=== PATIENT | female | born 1950 | race Caucasian/White ===

== ENCOUNTER → 2020-02-09 09:19 | Outpatient (BNVA) | payer BC, SELFPAY | PROVIDERS: PCP Internal Medicine; Visit Provider Internal Medicine | DX: Z01.810 Encounter for preprocedural cardiovascular examination (principal); I48.0 Paroxysmal atrial fibrillation; I65.21 Occlusion and stenosis of right carotid artery; E78.5 Hyperlipidemia, unspecified; Z79.899 Other long term (current) drug therapy | CPT/HCPCS: 93005 ==

== ENCOUNTER → 2020-04-11 10:48 | Outpatient (BNVA) | payer BC, SELFPAY | PROVIDERS: PCP Internal Medicine; Visit Provider Internal Medicine | DX: Z76.89 Persons encountering health services in other specified circumstances (principal) ==

== ENCOUNTER → 2020-10-10 10:39 | Outpatient (BNVA) | payer BC, SELFPAY | PROVIDERS: PCP Internal Medicine; Referring Provider Internal Medicine; Visit Provider Internal Medicine ==

== ENCOUNTER → 2021-05-08 10:27 | Outpatient (BNVA) | payer BC, SELFPAY | PROVIDERS: PCP Internal Medicine; Referring Provider Internal Medicine; Visit Provider Internal Medicine | DX: I48.0 Paroxysmal atrial fibrillation (principal); I44.0 Atrioventricular block, first degree; I65.21 Occlusion and stenosis of right carotid artery; E78.5 Hyperlipidemia, unspecified | CPT/HCPCS: 93005 ==

== ENCOUNTER 2021-06-16 14:49 | Outpatient (REF) | payer BC, SELFPAY ==
--- NOTE | ~2021-06-16 | US_ITS ---
EXAMINATION: US EXTRACRANIAL CAROTID DUPLEX, BILATERAL CLINICAL INFORMATION: Occlusion of the carotid artery COMPARISON: Carotid duplex on 05/28/2019 TECHNIQUE: Real-time ultrasound and Doppler techniques (integrating B-mode 2-D vascular images, Doppler spectral analysis and color-flow Doppler imaging) were utilized to interrogate the extracranial carotid arteries, the vertebral arteries and proximal subclavian arteries bilaterally. The degree of stenosis is determined by criteria similar to NASCET. FINDINGS: Right Side: 1. There is calcified atherosclerotic plaque seen in the bifurcation/proximal ICA region. 2. The common carotid artery PSV proximally is 76 cm/s and distally 91 cm/s. 3. The proximal internal carotid artery velocities are 127 cm/s systolic and 32 cm/s diastolic. 4. The proximal external carotid artery PSV is 167 cm/s. 5. The vertebral artery shows antegrade flow. 6. The subclavian artery waveforms are normal. Left Side: 1. There is calcified atherosclerotic plaque seen in the bifurcation/proximal ICA region. 2. The common carotid artery PSV proximally is 116 cm/s and distally 99 cm/s. 3. The proximal internal carotid artery velocities are 64 cm/s systolic and 19 cm/s diastolic. 4. The proximal external carotid artery PSV is 108 cm/s. 5. The vertebral artery shows antegrade flow. 6. The subclavian artery waveforms are normal. US/US carotid duplex BI IMPRESSION: 1. RIGHT: Moderate, hemodynamically significant stenosis of the proximal right internal carotid artery corresponding to a 50-79% stenosis by velocity criteria. 2. LEFT: Minimal, non-hemodynamically significant stenosis of the proximal left internal carotid artery corresponding to a 0-49% stenosis by velocity criteria. 3. There is progression in the category of disease on the right compared to 05/28/2019.
== END 2021-06-16 14:50 | disposition home or self-care (01) ==
LOC: HO.US 14:49
PROVIDERS: Visit Provider Internal Medicine
DX: I65.23 Occlusion and stenosis of bilateral carotid arteries (principal)
CPT/HCPCS: 93880

== ENCOUNTER → 2021-12-15 09:39 | Outpatient (BNVA) | payer MEDICARE, SELFPAY | PROVIDERS: PCP Internal Medicine; Visit Provider Physician Assistant Surgical | DX: E66.9 Obesity, unspecified (principal); L98.7 Excessive and redundant skin and subcutaneous tissue; Z98.84 Bariatric surgery status; Z68.32 Body mass index [BMI] 32.0-32.9, adult | CPT/HCPCS: 99212 ==

== ENCOUNTER → 2021-12-19 14:21 | Outpatient (BNVA) | payer MEDICARE, SELFPAY | PROVIDERS: PCP Internal Medicine; Referring Provider Internal Medicine; Visit Provider Internal Medicine | DX: I48.0 Paroxysmal atrial fibrillation (principal); I44.0 Atrioventricular block, first degree; I65.21 Occlusion and stenosis of right carotid artery; E78.5 Hyperlipidemia, unspecified | CPT/HCPCS: 99202; 99212 ==

== ENCOUNTER 2021-12-28 08:41 | Outpatient (REF) | payer MEDICARE, SELFPAY ==
[2021-12-28 08:50] LABS: MANUAL DIFF FLAG NO
[2021-12-28 09:28] LABS: Basophils Absolute Auto 0.1 X10*3/uL (0.0-0.2); Basophils Percent Auto 1.3 % (0-2); Eosinophils Absolute Auto 0.2 X10*3/uL (0.0-0.4); Eosinophils Percent Auto 3.8 % (0-4); Hematocrit 39.6 % (37.0-47.0); Hemoglobin 11.9 g/dl (12.0-16.0); Imm Gran Abs Auto 0.01 X10*3/uL (0.00-0.03); Imm Gran Pct Auto 0.3 % (0.0-0.4); Lymphocytes Absolute Auto 1.4 X10*3/uL (1.2-4.9); Lymphocytes Percent Auto 35.4 % (20-40); Mean Corpuscular HGB Conc 30.1 g/dl (31.0-35.0); Mean Corpuscular Hemoglobin 27.8 pg (27.0-33.0); Mean Corpuscular Volume 92.5 fL (80.0-98.0); Mean Platelet Volume 9.4 fL (9.4-12.3); Monocytes Absolute Auto 0.4 X10*3/uL (0.1-1.2); Monocytes Percent Auto 9.5 % (2-11); Neutrophils Percent Auto 49.7 % (45-73); Platelet Count 171 X10*3/uL (160-400); Red Blood Count 4.28 X10*6/uL (4.20-5.50); Red Cell Distribution Width 18.6 % (11.0-16.0)
[2021-12-28 09:30] LABS: Estimated Average Glucose 100 mg/dL; Hemoglobin A1c % 5.1 %
[2021-12-28 10:03] LABS: Alanine Aminotransferase 26 U/L (0-31); Albumin Level 4.1 g/dL (3.5-5.0); Alkaline Phosphatase 85 U/L (39-117); Anion Gap 17 (12-20); Aspartate Amino Transferase 32 U/L (5-31); Bilirubin Total 0.2 mg/dL (0.0-1.0); Blood Urea Nitrogen 19 mg/dL (9-16); C Reactive Protein 0.12 mg/dL (< or = 0.50); Calcium 9.7 mg/dL (8.4-10.2); Carbon Dioxide 29 mmol/L (22-29); Chloride 104 mmol/L (96-108); Cholesterol 146 mg/dL; Estimated Glomerular Filt Rate > 60; Glucose Random 88 mg/dL (60-115); HDL Cholesterol 66 mg/dL; Iron 67 mcg/dL (30-160); LDL Cholesterol Calculated 64 mg/dl; Percent Iron Saturation 21 % (15-50); Potassium 4.5 mmol/L (3.3-5.1); Sodium 145 mmol/L (135-145); Total Iron Binding Capacity 319 mcg/dL (228-428); Total Protein 6.8 g/dL (6.5-8.0); Triglycerides 80 mg/dL; Unsaturated Iron Binding 252 ug/dL
[2021-12-28 10:16] LABS: Ferritin 132 ng/mL (10-250); TSH reflex Free T4 0.81 uIU/mL (0.32-4.0); Vitamin D 25-OH Total 34.3 ng/mL (>30)
[2021-12-28 10:58] LABS: Insulin 10 uU/mL (2-29)
[2021-12-28 11:07] LABS: Folate 19.5 ng/mL (> or = 4.0); Vitamin B12 1569 pg/mL (200-900)
[2021-12-29 12:47] LABS: Calcium (PTHI) 9.6 mg/dL (8.6-10.4); PTHI 56 pg/mL (16-77)
[2022-01-01 23:36] LABS: Zinc 108 mcg/dL (60-130)
[2022-01-02 12:36] LABS: Vitamin A 50 mcg/dL (38-98)
[2022-01-03 10:46] LABS: Vitamin B1 36 nmol/L (8-30)
== END 2021-12-28 08:42 | disposition home or self-care (01) ==
LOC: HO.LAB 08:41
PROVIDERS: PCP Internal Medicine; Visit Provider Physician Assistant Surgical
DX: K91.2 Postsurgical malabsorption, not elsewhere classified (principal); Z98.84 Bariatric surgery status
CPT/HCPCS: 36415; 80053; 80061; 82306; 82607; 82728; 82746; 83036; 83525; 83540; 83970; 84425; 84443; 84590; 84630; 85025; 86140

== ENCOUNTER 2022-07-24 12:41 | Outpatient (REF) | payer MEDICARE, SELFPAY ==
--- NOTE | ~2022-07-24 | XR_ITS ---
EXAMINATION: XR hand wrist LT, XR hand wrist RT CLINICAL INFORMATION: Rheumatoid arthritis COMPARISON: None TECHNIQUE: 4 views of the bilateral hands and wrists FINDINGS: RIGHT HAND: No fracture or dislocation. Moderate degenerative changes of the first metacarpophalangeal joint with loss of joint space and subchondral cystic change. Mild negative ulnar variance. Ankylosis of the fifth DIP joint with hypertrophic changes. Bony proliferation noted along the fourth DIP joint with loss of joint space involving the second through third DIP joints. No cortical erosion. Soft tissues are unremarkable. LEFT HAND: No fracture or dislocation. Mild negative ulnar variance. Ankylosis of the fifth DIP joint. Moderate degenerative changes of the first carpometacarpal joint with subchondral sclerosis and loss of joint space. Loss of distal interphalangeal joint space with some bony proliferation noted along the second DIP joint and a marginal cortical erosion. Soft tissues are unremarkable. XR/XR hand wrist LT IMPRESSION: Loss of distal interphalangeal joint space with ankylosis of the of the fifth distal interphalangeal joints bilaterally, with some demonstrating bony proliferation and a single marginal cortical erosion along the left second PIP joint. Findings could be seen in the setting of erosive arthropathy including psoriatic arthritis or reactive arthritis, however is not the typical distribution for rheumatoid arthritis. Mild negative ulnar variance bilaterally. Moderate degenerative changes of the first metacarpophalangeal joints bilaterally.
--- NOTE | ~2022-07-24 | XR_ITS ---
EXAMINATION: XR hand wrist LT, XR hand wrist RT CLINICAL INFORMATION: Rheumatoid arthritis COMPARISON: None TECHNIQUE: 4 views of the bilateral hands and wrists FINDINGS: RIGHT HAND: No fracture or dislocation. Moderate degenerative changes of the first metacarpophalangeal joint with loss of joint space and subchondral cystic change. Mild negative ulnar variance. Ankylosis of the fifth DIP joint with hypertrophic changes. Bony proliferation noted along the fourth DIP joint with loss of joint space involving the second through third DIP joints. No cortical erosion. Soft tissues are unremarkable. LEFT HAND: No fracture or dislocation. Mild negative ulnar variance. Ankylosis of the fifth DIP joint. Moderate degenerative changes of the first carpometacarpal joint with subchondral sclerosis and loss of joint space. Loss of distal interphalangeal joint space with some bony proliferation noted along the second DIP joint and a marginal cortical erosion. Soft tissues are unremarkable. XR/XR hand wrist RT IMPRESSION: Loss of distal interphalangeal joint space with ankylosis of the of the fifth distal interphalangeal joints bilaterally, with some demonstrating bony proliferation and a single marginal cortical erosion along the left second PIP joint. Findings could be seen in the setting of erosive arthropathy including psoriatic arthritis or reactive arthritis, however is not the typical distribution for rheumatoid arthritis. Mild negative ulnar variance bilaterally. Moderate degenerative changes of the first metacarpophalangeal joints bilaterally.
--- NOTE | ~2022-07-24 | XR_ITS ---
EXAMINATION: XR foot LT min 3V, XR foot RT min 3V CLINICAL INFORMATION: Rheumatoid arthritis. COMPARISON: None TECHNIQUE: 3 views of the bilateral feet FINDINGS: RIGHT FOOT: No fracture or dislocation. Moderate degenerative changes of the first metatarsophalangeal joint and interphalangeal joints with loss of joint space. No cortical erosion. No joint effusion. Soft tissues are unremarkable. LEFT FOOT: No fracture or dislocation. Moderate degenerative changes of the plantar calcaneal spurring and Achilles tendon enthesopathy. Interphalangeal joints with loss of joint space and mild degenerative changes of the first metacarpal phalangeal joint with degenerative spurring. Plantar calcaneal spurring and Achilles tendon enthesopathy. No cortical erosion. No joint effusion. Soft tissues are unremarkable. XR/XR foot RT min 3V IMPRESSION: Degenerative changes of the feet as detailed above. No cortical erosion to favor erosive arthropathy.
--- NOTE | ~2022-07-24 | XR_ITS ---
EXAMINATION: XR foot LT min 3V, XR foot RT min 3V CLINICAL INFORMATION: Rheumatoid arthritis. COMPARISON: None TECHNIQUE: 3 views of the bilateral feet FINDINGS: RIGHT FOOT: No fracture or dislocation. Moderate degenerative changes of the first metatarsophalangeal joint and interphalangeal joints with loss of joint space. No cortical erosion. No joint effusion. Soft tissues are unremarkable. LEFT FOOT: No fracture or dislocation. Moderate degenerative changes of the plantar calcaneal spurring and Achilles tendon enthesopathy. Interphalangeal joints with loss of joint space and mild degenerative changes of the first metacarpal phalangeal joint with degenerative spurring. Plantar calcaneal spurring and Achilles tendon enthesopathy. No cortical erosion. No joint effusion. Soft tissues are unremarkable. XR/XR foot LT min 3V IMPRESSION: Degenerative changes of the feet as detailed above. No cortical erosion to favor erosive arthropathy.
[2022-07-24 14:03] LABS: MANUAL DIFF FLAG NO
[2022-07-24 14:23] LABS: Basophils Absolute Auto 0.1 X10*3/uL (0.0-0.2); Basophils Percent Auto 1.2 % (0-2); Eosinophils Absolute Auto 0.2 X10*3/uL (0.0-0.4); Eosinophils Percent Auto 4.1 % (0-4); Hemoglobin 13.4 g/dl (12.0-16.0); Imm Gran Abs Auto 0.02 X10*3/uL (0.00-0.03); Imm Gran Pct Auto 0.5 % (0.0-0.4); Lymphocytes Absolute Auto 1.6 X10*3/uL (1.2-4.9); Lymphocytes Percent Auto 39.1 % (20-40); Mean Corpuscular HGB Conc 31.2 g/dl (31.0-35.0); Mean Corpuscular Hemoglobin 30.5 pg (27.0-33.0); Mean Corpuscular Volume 97.9 fL (80.0-98.0); Mean Platelet Volume 9.6 fL (9.4-12.3); Monocytes Absolute Auto 0.4 X10*3/uL (0.1-1.2); Monocytes Percent Auto 9.7 % (2-11); Neutrophils Absolute Auto 1.9 x10*3/uL (2.0-8.3); Neutrophils Percent Auto 45.4 % (45-73); Platelet Count 155 X10*3/uL (160-400); Red Blood Count 4.39 X10*6/uL (4.20-5.50); Red Cell Distribution Width 13.8 % (11.0-16.0); White Blood Count 4.1 X10*3/uL (4.8-10.8)
[2022-07-24 15:13] LABS: Erythrocyte Sedimentation Rate 14 MM/HR (0-20)
[2022-07-24 16:26] LABS: Alanine Aminotransferase 27 U/L (0-31); Albumin Level 4.3 g/dL (3.5-5.0); Alkaline Phosphatase 76 U/L (39-117); Aspartate Amino Transferase 30 U/L (5-31); Bilirubin Total 0.8 mg/dL (0.0-1.0); Blood Urea Nitrogen 24 mg/dL (9-16); C Reactive Protein < 0.10 mg/dL (< or = 0.50); Calcium 9.6 mg/dL (8.4-10.2); Carbon Dioxide 31 mmol/L (22-29); Chloride 103 mmol/L (96-108); Estimated Glomerular Filt Rate > 60; Glucose Random 79 mg/dL (60-115); Potassium 4.7 mmol/L (3.3-5.1); Sodium 141 mmol/L (135-145)
[2022-07-24 16:37] LABS: Rheumatoid Factor < 13.0 IU/mL (<15.0)
[2022-07-24 16:38] LABS: Anion Gap 14 (12-20)
[2022-07-24 19:03] LABS: Appearance Urine Clear; Color Urine Yellow; Glucose Urine UA Negative (Negative); Leukocyte Esterase Urine Negative (Negative); Nitrite Urine Negative (Negative); PH 5.5 (5.0-9.0); Urine Blood Negative (Negative); Urine Ketones Negative (Negative); Urine Protein Negative (Neg-Trace)
[2022-07-24 19:09] LABS: Bacteria Urine None Seen (None Seen); Hyaline Casts Urine 0-2 /LPF (0-2); RBC Urine 0-2 /HPF (0-2); Squamous Epithelial Cell Urine 0-2 /HPF (0-2); WBC Urine 0-5 /HPF (0-5)
[2022-07-24 19:42] LABS: Creatinine Urine 56.59 mg/dL; Total Protein Urine Random < 7 mg/dL (<12)
[2022-07-25 04:02] LABS: HBS Num1 1.17 mIU/mL (0-7.99); HBsAGNum1 0.35 S/CO (0.00-0.99); Hepatitis A Antibody IgM 0.22 Index (0-0.79); Hepatitis B Core Antibody Nonreactive (Nonreactive); Hepatitis B Surface Antigen Negative (Negative); ~Hepatitis A Antibody IgM Nonreactive (Nonreactive); ~Hepatitis B Surface Antibody NONREACTIVE (Nonreactive); ~Hepatitis C Antibody Nonreactive (Nonreactive)
[2022-07-26 13:38] LABS: Anti DNA DS Antibody <1 IU/mL; Antibody to SS-A Antigen <1.0 NEG AI (<1.0 NEG); Antibody to SS-B Antigen <1.0 NEG AI (<1.0 NEG); SM/Ribonucleoprotein Ab <1.0 NEG AI (<1.0 NEG); Smith Protein <1.0 NEG AI (<1.0 NEG)
[2022-07-26 19:53] LABS: Complement C3 146 mg/dL (83-193)
[2022-07-26 20:43] LABS: TS Negative Control Passed; TS Panel A 0; TS Panel B 0; TS Positive Control Passed; TSpotTB Negative (Negative)
[2022-07-27 14:29] LABS: Cyclic Citrullinated Peptide <16 UNITS
[2022-08-01 14:39] LABS: DNAds, Crithidia Antibody Negative (Negative)
[2022-08-01 16:38] LABS: Centromere Protein A Ab <11 SI (<11); Centromere Protein B Ab <11 SI (<11); Fibrillarin Ab <11 SI (<11); PM SCL 100 Ab <11 SI (<11); PM SCL 75 Ab <11 SI (<11); RNA Polymerase III RP11 Ab <11 SI (<11); RNA Polymerase III RP155 Ab <11 SI (<11); SCL-70 Extractable Nuclear Ab <11 SI (<11); Th-To Ab <11 SI (<11); U1 SNRNP RNP 70KD <11 SI (<11); U1 SNRNP RNP A <11 SI (<11); U1 SNRNP RNP C <11 SI (<11)
== END 2022-07-24 12:42 | disposition home or self-care (01) ==
LOC: HO.LAB 12:41
PROVIDERS: PCP Internal Medicine; Visit Provider Student in an Organized Health Care Education/Training Program
DX: M06.9 Rheumatoid arthritis, unspecified (principal); M34.9 Systemic sclerosis, unspecified; M32.9 Systemic lupus erythematosus, unspecified; M25.542 Pain in joints of left hand; M25.572 Pain in left ankle and joints of left foot; M25.571 Pain in right ankle and joints of right foot; Z79.899 Other long term (current) drug therapy
CPT/HCPCS: 36415; 73110; 73130; 73630; 80053; 81001; 84156; 84182; 85025; 85652; 86140; 86160; 86200; 86225; 86235; 86255; 86431; 86481; 86704; 86706; 86709; 86803; 87340; 99202

== ENCOUNTER 2022-10-25 15:36 | Outpatient (AMB) | payer MEDICARE, SELFPAY ==
--- NOTE | 2022-10-25 15:33 | A.OFFVIS_ITS ---
Intake Vital Signs 10/25/22 15:37 Height 5 ft 2 in Weight 199 lb 4.766 oz BMI 36.4 BP 137/64 Blood Pressure Location Rt brachial Position Sitting Respiration 15 Pulse 55 Pulse Source Pulse Oximeter Temp 96.8 F Temp Source Tympanic Pulse Oximetry (%) 99 Intake Visit Reasons: RA/[employer] Transport [employer] Manager Required: No Accompanied by: Self / Same As Patient Allergies NSAIDS (Non-Steroidal Anti-Inflamma Adverse Reaction (Unknown, Verified 10/25/22 15:43) not to take d/t hx of bariatric surg Medication List - Last Reconciled 10/25/22 by Xiao Perez MD atorvastatin 80 mg PO DAILY esomeprazole magnesium (Nexium 24HR) 20 mg PO DAILY gabapentin 600 mg PO TID levothyroxine 125 mcg PO DAILY mecobalamin (vitamin B12) mcg PO DAILY metoprolol succinate ER 12.5 mg PO DAILY multivitamin 1 tab PO DAILY ondansetron 4 mg PO Q8H PRN tramadol 100 mg PO TID PRN vitamin A palmitate 3,000 mcg PO DAILY zinc acetate 50 mg PO DAILY HPI HPI Comments History of Present Illness Details Patient returns for follow-up after completion of her blood work and x- rays. 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 Continues to get pain and stiffness in her hands. She denies any history of Achillis swelling or repetitive trauma. Initial history: This is a 72 year old female who presents for evaluation of left hand pain. Back in 2019 patient was evaluated by Gurjit Montoya at [facility] for trigger finger of her left 2nd and 3rd fingers, she received cortisone injections with significant improvement. Over the last year patient has been having pain and stiffness of her left hand. Occasional pain and stiffness of her ankles. Patient takes Tylenol with some relief, she takes tramadol for her back pain. She denies any fevers, weight loss, joint swelling. Denies fever few years no history of DVT/PE [facility] Medical History (Updated 10/25/22 @ 16:27 by Xiao Perez MD) Carotid stenosis, right Other and unspecified hyperlipidemia PAF (paroxysmal atrial fibrillation) Positive antinuclear antibody Surgical History History of cholecystectomy History of gastric bypass History of left knee replacement (~09/05/20) History of right hip replacement (~01/2020) Family History Father Heart attack Mother No problems noted. Social History Household Members: Spouse and Family Alcohol intake: current Alcohol intake frequency: holidays/special occasions only Patient Tobacco Use Status: Former Tobacco user Quit Date: 1990 Review of Systems [facility] Reports arthralgias and Reports stiffness Physical Exam Vital Signs: Last Vital Signs Temp 96.8 F 10/25/22 15:37 Pulse 55 10/25/22 15:37 Resp 15 10/25/22 15:37 BP 137/64 10/25/22 15:37 Pulse Ox 99 10/25/22 15:37 BMI result Body Mass Index 36.4 Const General: cooperative, healthy appearing and comfortable Nutritional Appearance: obese Orientation/consciousness: patient oriented x3 Limitations: no limitations HEENT Head: Yes normocephalic and Yes atraumatic Resp Effort & Inspection: normal respiratory effort and able to speak in complete sentences Skin General skin exam: no rashes or lesions noted Neuro General: patient oriented x3 Extrem Other: Today patient has some triggering of her left 3rd flexor tendon. No swollen or tender joints otherwise Physical exam 07/22: Extensive arthritic changes of bilateral 5th DIP joints Left hand :2nd and 3rd MCP tenderness Diffuse extensor tendon tenderness and diffuse flexor tendon tenderness Reduced left hand design engineer strength. Positive MCP squeeze test Could not elicit any pain or tenderness in the right hand Left 2nd and 3rd MTP tenderness Normal nailfold capillaroscopy Right knee crepitus Results Reviewed Results Reviewed: X-RAY EXAM OF HAND, 3+ VIEWS Exam Date: 12/18/2019 1:51 PM Ordering Diagnosis: Trigger index finger of left hand ? Left hand, 3 views. History pain. Swelling. ? There are marked degenerative and erosive changes in the DIP joint of the 5th finger. There are minimal degenerative changes in the DIP joints of the 2nd 3rd and 4th fingers. There are mild degenerative changes in the 1st carpometacarpal joint. No fractures, dislocations or destructive lesions. ? CONCLUSIONS: Degenerative changes as detailed. X-RAY KNEE 3 VIEW - W/O INJURY Exam Date: 12/18/2019 1:52 PM Ordering Diagnosis: Chronic bilateral low back pain with bilateral sciaticaOsteoarthritis of hip, unspecified laterality, unspecified osteoarthritis typeChronic pain of both knees ? Bilateral knees, 3 views of each. There is severe narrowing and subchondral sclerosis in the medial compartment of the left kidney there are marginal osteophytes in the lateral and patellofemoral compartments bilaterally. There is no acute fractures, dislocations or effusion. ? CONCLUSIONS: Degenerative changes as detailed. XR/XR hand wrist RT IMPRESSION: ? Loss of distal interphalangeal joint space with ankylosis of the of the fifth distal interphalangeal joints bilaterally, with some demonstrating bony proliferation and a single marginal cortical erosion along the left second PIP joint. Findings could be seen in the setting of erosive arthropathy including psoriatic arthritis or reactive arthritis, however is not the typical distribution for rheumatoid arthritis. ? Mild negative ulnar variance bilaterally. ? Moderate degenerative changes of the first metacarpophalangeal joints bilaterally. XR:RIGHT FOOT:07/22 No fracture or dislocation. Moderate degenerative changes of the first metatarsophalangeal joint and interphalangeal joints with loss of joint space. No cortical erosion. No joint effusion. Soft tissues are unremarkable. XR LEFT FOOT: ?07/22 No fracture or dislocation. Moderate degenerative changes of the plantar calcaneal spurring and Achilles tendon enthesopathy. Interphalangeal joints with loss of joint space and mild degenerative changes of the first metacarpal phalangeal joint with degenerative spurring. Plantar calcaneal spurring and Achilles tendon enthesopathy. No cortical erosion. No joint effusion. Soft tissues are unremarkable. Assessment & Plan Assessment & Plan (1) Psoriatic arthritis: Code(s): L40.50 - Arthropathic psoriasis, unspecified Plan: This is a 72-year-old female who presents for evaluation of progressive bilateral hand pain and stiffness, history of trigger finger injection, labs are unremarkable with normal inflammatory markers however bilateral hand x-rays show extensive arthritic changes of bilateral 5th DIPs and signs of psoriatic arthritis, she also has bilateral Achillis enthesopathy on imaging with no history of Achillis tendonitis or ankle trauma. Clinical picture consistent with psoriatic arthritis. Will need to start DMARDs. Patient was instructed not to take any NSAIDs or prednisone since after her gastric sleeve operation. Discussed risks and benefits of methotrexate. Patient agrees to proceed. Start methotrexate 15 mg once weekly for 2 weeks then 20 mg once weekly and folic acid daily. 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 Will monitor patient for side effects with frequent lab work. Advised patient to take folic acid daily to prevent complications of methotrexate. (3) Positive antinuclear antibody: Code(s): R76.8 - Other specified abnormal immunological findings in serum Plan: With negative sub serologies. 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
[2022-10-25 15:37] VITALS: BP 137/64; PULSE 55; RESP 15; TEMP 36; O2SAT 99; BMI 36.4
== END 2022-10-25 16:17 | disposition home or self-care (01) ==
PROVIDERS: PCP Internal Medicine; Visit Provider Student in an Organized Health Care Education/Training Program
DX: L40.50 Arthropathic psoriasis, unspecified (principal); Z79.631 Long term (current) use of antimetabolite agent; R76.8 Other specified abnormal immunological findings in serum
CPT/HCPCS: 99214

== ENCOUNTER → 2022-10-25 15:36 | Outpatient (BNVA) | payer MEDICARE, SELFPAY | PROVIDERS: Visit Provider Student in an Organized Health Care Education/Training Program | DX: L40.50 Arthropathic psoriasis, unspecified (principal); R76.8 Other specified abnormal immunological findings in serum; Z79.631 Long term (current) use of antimetabolite agent | CPT/HCPCS: 99212 ==

== ENCOUNTER → 2022-11-30 13:00 | Outpatient (REF) | payer MEDICARE, SELFPAY ==
--- NOTE | 2022-11-30 13:02 | HM_ITS ---
Conclusion: 1. Patient was monitored for total period of 6 days and 23 hours 2. Baseline was normal sinus rhythm with first-degree AV block. 3. No significant pauses or AV block noted 4. Rare PACs noted 5. Patient reported 1 event correlated with baseline rhythm MTDD
[2022-11-30 13:19] LABS: MANUAL DIFF FLAG NO
[2022-11-30 13:56] LABS: Basophils Percent Auto 0.7 % (0-2); Eosinophils Absolute Auto 0.2 X10*3/uL (0.0-0.4); Eosinophils Percent Auto 5.2 % (0-4); Hematocrit 40.4 % (37.0-47.0); Hemoglobin 12.6 g/dl (12.0-16.0); Imm Gran Abs Auto 0.01 X10*3/uL (0.00-0.03); Imm Gran Pct Auto 0.2 % (0.0-0.4); Lymphocytes Absolute Auto 1.5 X10*3/uL (1.2-4.9); Lymphocytes Percent Auto 36.6 % (20-40); Mean Corpuscular HGB Conc 31.2 g/dl (31.0-35.0); Mean Corpuscular Hemoglobin 30.2 pg (27.0-33.0); Mean Corpuscular Volume 96.9 fL (80.0-98.0); Mean Platelet Volume 9.8 fL (9.4-12.3); Monocytes Absolute Auto 0.4 X10*3/uL (0.1-1.2); Monocytes Percent Auto 10.6 % (2-11); Neutrophils Absolute Auto 1.9 x10*3/uL (2.0-8.3); Neutrophils Percent Auto 46.7 % (45-73); Platelet Count 160 X10*3/uL (160-400); Red Blood Count 4.17 X10*6/uL (4.20-5.50); Red Cell Distribution Width 13.6 % (11.0-16.0); White Blood Count 4.1 X10*3/uL (4.8-10.8)
[2022-11-30 14:34] LABS: Erythrocyte Sedimentation Rate 18 MM/HR (0-20)
[2022-11-30 14:39] LABS: Alanine Aminotransferase 28 U/L (0-31); Alkaline Phosphatase 70 U/L (39-117); Anion Gap 15 (12-20); Aspartate Amino Transferase 34 U/L (5-31); Bilirubin Total 0.6 mg/dL (0.0-1.0); Blood Urea Nitrogen 18 mg/dL (9-16); C Reactive Protein < 0.10 mg/dL (< or = 0.50); Carbon Dioxide 28 mmol/L (22-29); Chloride 104 mmol/L (96-108); Estimated Glomerular Filt Rate > 60; Glucose Random 80 mg/dL (60-115); Potassium 4.5 mmol/L (3.3-5.1); Sodium 142 mmol/L (135-145)
== END ==
LOC: HO.CARD 13:00
PROVIDERS: Student in an Organized Health Care Education/Training Program; PCP Internal Medicine; Visit Provider Internal Medicine
DX: I48.0 Paroxysmal atrial fibrillation (principal); L40.50 Arthropathic psoriasis, unspecified; Z79.631 Long term (current) use of antimetabolite agent
CPT/HCPCS: 36415; 80053; 85025; 85652; 86140; 93242

== ENCOUNTER → 2022-11-30 13:02 | Outpatient (BNV) | payer MEDICARE, SELFPAY | PROVIDERS: PCP Internal Medicine; Visit Provider Internal Medicine Cardiovascular Disease | DX: I44.0 Atrioventricular block, first degree (principal) | CPT/HCPCS: 93244 ==

== ENCOUNTER 2022-12-20 14:02 | Outpatient (AMB) | payer MEDICARE, SELFPAY ==
[2022-12-20 14:35] VITALS: BP 124/60; PULSE 65; BMI 36.9
--- NOTE | 2022-12-20 14:35 | MHC.OFFVIS ---
Intake Vital Signs 12/20/22 14:35 Height 5 ft 2 in Weight 201 lb 15.095 oz BMI 36.9 BP 124/60 Blood Pressure Location Lt brachial Position Sitting Pulse 65 Intake Visit Reasons: 1 year follow up, after holter monitor Intake Note: 1 year f/u after holter monitor Flame Cutter Required: No Allergies NSAIDS (Non-Steroidal Anti-Inflamma Adverse Reaction (Unknown, Verified 12/20/22 14:40) not to take d/t hx of bariatric surg Medication List - Last Reconciled 12/20/22 by Asia Johns TRANSMISSION SPECIALIST-C atorvastatin 80 mg PO DAILY esomeprazole magnesium (Nexium 24HR) 20 mg PO DAILY folic acid 1 mg PO DAILY gabapentin 600 mg PO TID levothyroxine 125 mcg PO DAILY mecobalamin (vitamin B12) mcg PO DAILY methotrexate sodium Take 6 tabs by mouth once weekly for 2 weeks then 8 tabs once weekly metoprolol succinate ER 12.5 mg PO DAILY multivitamin 1 tab PO DAILY ondansetron 4 mg PO Q8H PRN tramadol 100 mg PO TID PRN vitamin A palmitate 3,000 mcg PO DAILY zinc acetate 50 mg PO DAILY HPI 1 year follow up, after holter monitor HPI Details Danelle is a 72-year-old female with past medical history of obesity, history of bariatric surgery, hyperlipidemia, carotid stenosis, postop AFib, first-degree AV block who presents for follow-up after recent Holter monitor. Today she reports she is feeling well. She has no heart palpitations. She has not felt any thing that makes her think she has atrial fibrillation. No chest discomfort at rest or with activity. No shortness of breath, PND, orthopnea or edema. No presyncope, syncope, falls. She is concerned that she is not on any blood thinning agents with her carotid disease. She had been on Plavix in the past but states she got significant bruising from it. She is asking about daily aspirin. [facility] Medical History Positive antinuclear antibody Other and unspecified hyperlipidemia Carotid stenosis, right PAF (paroxysmal atrial fibrillation) Surgical History History of right hip replacement (~01/2020) History of left knee replacement (~09/05/20) History of gastric bypass History of cholecystectomy Family History Father Heart attack Mother No problems noted. Social History Household Members: Spouse and Family Alcohol intake: current Alcohol intake frequency: holidays/special occasions only Patient Tobacco Use Status: Former Tobacco user Quit Date: 1990 Review of Systems Const All systems reviewed & are unremarkable except as noted in HPI and below ENT Denies dizziness Card Denies chest pain, Denies chest pain at rest, Denies chest pain with activity, Denies rapid heart rate, Denies pedal edema, Denies edema, Denies leg edema, Denies lightheadedness, Denies palpitations, Denies dyspnea, Denies dyspnea on exertion and Denies orthopnea Resp Denies cough, Denies dyspnea and Denies dyspnea on exertion GI Denies hematochezia and Denies change in stool character Musc Denies abnormal gait, Denies limited range of motion, Denies muscle cramps, Denies muscle weakness, Denies numbness, Denies radiating pain into limb, Denies stiffness and Denies tingling Neuro Denies abnormal gait, Denies dizziness, Denies numbness and Denies tingling Endo Denies palpitations Physical Exam Vital Signs: Last Vital Signs Pulse 65 12/20/22 14:35 BP 124/60 12/20/22 14:35 BMI result Body Mass Index 36.9 Const General: cooperative, healthy appearing, comfortable and no acute distress Orientation/consciousness: patient oriented x3 Neck Neck: Yes normal visual inspection Resp Effort & Inspection: normal respiratory effort Auscultation: clear to auscultation bilaterally, no crackles, no rales, no rhonchi and no wheezes Cardio Jugular venous distension: no JVD Rate: regular rate Rhythm: regular rhythm Heart sounds: S1 normal heart sound present, S2 normal heart sound present, no murmurs and no rubs Neuro General: patient oriented x3 Extrem General: Yes normal to inspection Psych Appearance: grossly normal Mental Status: mental status grossly normal Speech and movement: Normal speech and movement present Office Procedures EKG Details: Today, read by me, sinus rhythm first-degree AV block, QTC 4-2 milliseconds, rate 65 [id number], Complete Assessment & Plan Assessment & Plan (1) PAF (paroxysmal atrial fibrillation): Code(s): I48.0 - Paroxysmal atrial fibrillation Plan: Postop AFib following bariatric surgery in the past. No documented recurrent AFib since that time. She initially had been on anticoagulation and developed a rectus sheath hematoma and it was stopped. She had been on amiodarone in the past which was also stopped. At present she is on low-dose metoprolol. Holter monitor done 11/30/2022 for 7 days shows sinus rhythm, first-degree AV block, no significant pauses or AV blocks, no AFib. Last echo done 12/31/2016 shows EF 60-65%, no valve abnormalities and no regional wall motion abnormalities. No indication for long-term anticoagulation for AFib as it appears to be only isolated postop AFib. Continue low-dose metoprolol. Cardiology follow-up in 6 months, sooner if needed (2) Carotid stenosis, right: Code(s): I65.21 - Occlusion and stenosis of right carotid artery Plan: History of carotid stenosis. Last carotid ultrasound done 06/16/2021 showing a right ICA 50-79%, left ICA normal. She tells me she had been on Plavix in the past but developed significant bruising so she stopped it. She is asking about daily aspirin since she does have carotid stenosis. Will need to check with bariatric surgery providers regarding aspirin use. She is on atorvastatin 80 mg daily. Labs from 12/28/2021 showed LDL 64. Labs followed by her PCP at [facility]. Will update carotid ultrasound and plan to call her with results. (3) First degree atrioventricular block: Code(s): I44.0 - Atrioventricular block, first degree (4) S/P gastric bypass: Code(s): Z98.84 - Bariatric surgery status (5) Obesity: Code(s): E66.9 - Obesity, unspecified Qualifiers: Obesity type: due to excess calories Obesity classification: adult class 2 (BMI 35 - 39.9) Serious obesity comorbidity presence: unspecified whether serious comorbidity present Body mass index: BMI 36.0-36.9 Qualified Code(s): E66.09 - Other obesity due to excess calories; Z68.36 - Body mass index [BMI] 36.0-36.9, adult Orders: Orders US carotid duplex BI Today E78.5 - Hyperlipidemia, unspecified, I65.21 - Occlusion and stenosis of right carotid artery Coding Level of Care Code Est Pt Level 4 (20719) Diagnoses PAF (paroxysmal atrial fibrillation) I48.0 Carotid stenosis, right I65.21 First degree atrioventricular block I44.0 S/P gastric bypass Z98.84 Class 2 obesity due to excess calories with body mass index (BMI) of 36.0 to 36.9 in adult, unspecified whether serious comorbidity present E66.09; Z68.36 Obesity type: due to excess calories Obesity classification: adult class 2 (BMI 35 - 39.9) Serious obesity comorbidity presence: unspecified whether serious comorbidity present Body mass index: BMI 36.0-36.9 CPT Codes EKG - CPT: 81206-[id number], Complete ([id number]) Time Spent (min) 26
== END 2022-12-20 15:38 | disposition home or self-care (01) ==
PROVIDERS: PCP Internal Medicine; Visit Provider Nurse Practitioner Family
DX: I48.0 Paroxysmal atrial fibrillation (principal); I65.21 Occlusion and stenosis of right carotid artery; I44.0 Atrioventricular block, first degree; Z98.84 Bariatric surgery status; E66.09 Other obesity due to excess calories; Z68.36 Body mass index [BMI] 36.0-36.9, adult
CPT/HCPCS: 93010; 99214

== ENCOUNTER → 2022-12-20 14:02 | Outpatient (BNVA) | payer MEDICARE, SELFPAY | PROVIDERS: PCP Internal Medicine; Visit Provider Nurse Practitioner Family | DX: I65.21 Occlusion and stenosis of right carotid artery (principal); I44.0 Atrioventricular block, first degree; I48.0 Paroxysmal atrial fibrillation; E78.5 Hyperlipidemia, unspecified; E66.9 Obesity, unspecified; Z68.36 Body mass index [BMI] 36.0-36.9, adult; Z98.84 Bariatric surgery status | CPT/HCPCS: 93005; 99212 ==

== ENCOUNTER 2022-12-25 15:40 | Outpatient (AMB) | payer MEDICARE, SELFPAY ==
[2022-12-25 15:52] VITALS: BP 118/62; PULSE 62; TEMP 36.2; O2SAT 92; BMI 36.9
--- NOTE | 2022-12-25 15:52 | A.OFFVIS_ITS ---
Intake Vital Signs 12/25/22 15:52 Height 5 ft 2 in Weight 201 lb 8.04 oz BMI 36.9 BP 118/62 Blood Pressure Location Rt brachial Position Sitting Pulse 62 Pulse Source Pulse Oximeter Temp 97.2 F Temp Source Skin Pulse Oximetry (%) 92 Intake Visit Reasons: PsA Intake Note: Pt seen today for PsA follow up. 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: No Accompanied by: Self / Same As Patient Allergies NSAIDS (Non-Steroidal Anti-Inflamma Adverse Reaction (Unknown, Verified 12/25/22 15:54) not to take d/t hx of bariatric surg Medication List - Last Reconciled 12/25/22 by Xiao Perez MD atorvastatin 80 mg PO DAILY esomeprazole magnesium (Nexium 24HR) 20 mg PO DAILY folic acid 1 mg PO DAILY gabapentin 600 mg PO TID levothyroxine 125 mcg PO DAILY mecobalamin (vitamin B12) mcg PO DAILY methotrexate sodium Take 6 tabs by mouth once weekly for 2 weeks then 8 tabs once weekly metoprolol succinate ER 12.5 mg PO DAILY multivitamin 1 tab PO DAILY ondansetron 4 mg PO Q8H PRN tramadol 100 mg PO TID PRN vitamin A palmitate 3,000 mcg PO DAILY zinc acetate 50 mg PO DAILY HPI HPI Comments History of Present Illness Details 72-year-old female with psoriatic arthri tis returns for follow-up. Has been on methotrexate for the last 2 months. States that she gets mild nausea the day after she takes methotrexate. She has been doing well overall. Better strength in her hands, reduced stiffness in her hands. Denies any pain in her ankles or feet. Initial history: This is a 72 year old female who presents for evaluation of left hand pain. Back in 2019 patient was evaluated by Gurjit Montoya at [place] for trigger finger of her left 2nd and 3rd fingers, she received cortisone injections with significant improvement. Over the last year patient has been having pain and stiffness of her left hand. Occasional pain and stiffness of her ankles. Patient takes Tylenol with some relief, she takes tramadol for her back pain. She denies any fevers, weight loss, joint swelling. Denies fever few years no history of DVT/PE PFSH Medical History Positive antinuclear antibody Other and unspecified hyperlipidemia Carotid stenosis, right PAF (paroxysmal atrial fibrillation) Surgical History History of right hip replacement (~01/2020) History of left knee replacement (~09/05/20) History of gastric bypass History of cholecystectomy Family History Father Heart attack Mother No problems noted. Social History Household Members: Spouse and Family Alcohol intake: current Alcohol intake frequency: holidays/special occasions only Patient Tobacco Use Status: Former Tobacco user Quit Date: 1990 Review of Systems [place] Denies arthralgias, Denies joint swelling and Denies stiffness Physical Exam Vital Signs: Last Vital Signs Temp 97.2 F 12/25/22 15:52 Pulse 62 12/25/22 15:52 BP 118/62 12/25/22 15:52 Pulse Ox 92 12/25/22 15:52 BMI result Body Mass Index 36.9 Const General: cooperative, healthy appearing and comfortable Nutritional Appearance: obese Orientation/consciousness: patient oriented x3 Limitations: no limitations HEENT Head: Yes normocephalic and Yes atraumatic Resp Effort & Inspection: normal respiratory effort and able to speak in complete sentences Skin General skin exam: no rashes or lesions noted Neuro General: patient oriented x3 Extrem Other: Mildly tender right 3rd flexor tendon and left 3rd flexor tendons No ankle swelling or tenderness no swollen or tender joints otherwise Physical exam 07/22: Extensive arthritic changes of bilateral 5th DIP joints Left hand :2nd and 3rd MCP tenderness Diffuse extensor tendon tenderness and diffuse flexor tendon tenderness 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 Positive MCP squeeze test Could not elicit any pain or tenderness in the right hand Left 2nd and 3rd MTP tenderness Normal nailfold capillaroscopy Right knee crepitus Results Reviewed Results Reviewed: X-RAY EXAM OF HAND, 3+ VIEWS Exam Date: 12/18/2019 1:51 PM Accession #:[id number] Ordering Diagnosis: Trigger index finger of left hand ? Left hand, 3 views. History pain. Swelling. ? There are marked degenerative and erosive changes in the DIP joint of the 5th finger. There are minimal degenerative changes in the DIP joints of the 2nd 3rd and 4th fingers. There are mild degenerative changes in the 1st carpometacarpal joint. No fractures, dislocations or destructive lesions. ? CONCLUSIONS: Degenerative changes as detailed. X-RAY KNEE 3 VIEW - W/O INJURY Exam Date: 12/18/2019 1:52 PM Ordering Diagnosis: Chronic bilateral low back pain with bilateral sciaticaOsteoarthritis of hip, unspecified laterality, unspecified osteoarthritis typeChronic pain of both knees ? Bilateral knees, 3 views of each. There is severe narrowing and subchondral sclerosis in the medial compartment of the left kidney there are marginal osteophytes in the lateral and patellofemoral compartments bilaterally. There is no acute fractures, dislocations or effusion. ? CONCLUSIONS: Degenerative changes as detailed. XR/XR hand wrist RT IMPRESSION: ? Loss of distal interphalangeal joint space with ankylosis of the of the fifth distal interphalangeal joints bilaterally, with some demonstrating bony proliferation and a single marginal cortical erosion along the left second PIP joint. Findings could be seen in the setting of erosive arthropathy including psoriatic arthritis or reactive arthritis, however is not the typical distribution for rheumatoid arthritis. ? Mild negative ulnar variance bilaterally. ? Moderate degenerative changes of the first metacarpophalangeal joints bilaterally. XR:RIGHT FOOT:07/22 No fracture or dislocation. Moderate degenerative changes of the first metatarsophalangeal joint and interphalangeal joints with loss of joint space. No cortical erosion. No joint effusion. Soft tissues are unremarkable. XR LEFT FOOT: ?07/22 No fracture or dislocation. Moderate degenerative changes of the plantar calcaneal spurring and Achilles tendon enthesopathy. Interphalangeal joints with loss of joint space and mild degenerative changes of the first metacarpal phalangeal joint with degenerative spurring. Plantar calcaneal spurring and Achilles tendon enthesopathy. No cortical erosion. No joint effusion. Soft tissues are unremarkable. Assessment & Plan Assessment & Plan (1) Psoriatic arthritis: Comment: dx 09/2022 MTX 10/21 effective Code(s): L40.50 - Arthropathic psoriasis, unspecified Plan: This is a 72-year-old female with psoriatic arthritis who presents for follow- up. Doing much better on methotrexate 20 mg weekly. 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 Will monitor patient for side effects with frequent lab work. Advised patient to take folic acid daily to prevent complications of methotrexate. (3) Positive antinuclear antibody: Code(s): R76.8 - Other specified abnormal immunological findings in serum Plan: With negative sub serologies. Positive NICK is occasionally seen in psoriatic arthritis Plan I spent 27 minutes reviewing patient's chart, evaluating patient, ordering diagnostic workup, counseling patient and documenting in the chart Orders: Orders Comprehensive Met. Panel 2 Months L40.50 - Arthropathic psoriasis, unspecified C Reactive Protein 2 Months L40.50 - Arthropathic psoriasis, unspecified Erythrocyte Sedimentation Rate 2 Months L40.50 - Arthropathic psoriasis, unspecified Complete Blood Count Auto Diff 2 Months L40.50 - Arthropathic psoriasis, unspecified Medications: Changed From methotrexate sodium Take 6 tabs by mouth once weekly for 2 weeks then 8 tabs once weekly 64 tabs 0RF To methotrexate sodium 15 mg (6 x 2.5 mg) PO QWEEK 72 tabs 0RF Refilled folic acid 1 mg PO DAILY 90 tabs 1RF Coding Level of Care Code Est Pt Level 4 (46500) Diagnoses Psoriatic arthritis L40.50 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
== END 2022-12-25 16:21 | disposition home or self-care (01) ==
PROVIDERS: PCP Internal Medicine; Visit Provider Student in an Organized Health Care Education/Training Program
DX: L40.50 Arthropathic psoriasis, unspecified (principal); Z79.631 Long term (current) use of antimetabolite agent; R76.8 Other specified abnormal immunological findings in serum
CPT/HCPCS: 99214

== ENCOUNTER → 2022-12-25 15:40 | Outpatient (BNVA) | payer MEDICARE, SELFPAY | PROVIDERS: PCP Internal Medicine; Visit Provider Student in an Organized Health Care Education/Training Program | DX: L40.50 Arthropathic psoriasis, unspecified (principal); R76.8 Other specified abnormal immunological findings in serum; Z79.631 Long term (current) use of antimetabolite agent | CPT/HCPCS: 99212 ==

== ENCOUNTER 2023-01-03 13:42 | Outpatient (REF) | payer MEDICARE, SELFPAY | END 2023-01-03 13:43 | disposition home or self-care (01) | LOC: HO.US 13:42 | PROVIDERS: PCP Internal Medicine; Visit Provider Nurse Practitioner Family | DX: I65.21 Occlusion and stenosis of right carotid artery (principal); E78.5 Hyperlipidemia, unspecified | CPT/HCPCS: 93880 ==

== ENCOUNTER 2023-03-15 08:20 | Outpatient (REF) | payer MEDICARE, SELFPAY ==
[2023-03-15 08:41] LABS: MANUAL DIFF FLAG NO
[2023-03-15 09:22] LABS: Basophils Percent Auto 0.7 % (0-2); Eosinophils Absolute Auto 0.2 X10*3/uL (0.0-0.4); Eosinophils Percent Auto 4.2 % (0-4); Hematocrit 38.7 % (37.0-47.0); Imm Gran Abs Auto 0.02 X10*3/uL (0.00-0.03); Imm Gran Pct Auto 0.4 % (0.0-0.4); Lymphocytes Absolute Auto 1.1 X10*3/uL (1.2-4.9); Lymphocytes Percent Auto 25.2 % (20-40); Mean Corpuscular Hemoglobin 31.3 pg (27.0-33.0); Mean Corpuscular Volume 100.8 fL (80.0-98.0); Mean Platelet Volume 10.2 fL (9.4-12.3); Monocytes Absolute Auto 0.4 X10*3/uL (0.1-1.2); Monocytes Percent Auto 9.6 % (2-11); Neutrophils Absolute Auto 2.7 x10*3/uL (2.0-8.3); Neutrophils Percent Auto 59.9 % (45-73); Platelet Count 164 X10*3/uL (160-400); Red Blood Count 3.84 X10*6/uL (4.20-5.50); Red Cell Distribution Width 15.9 % (11.0-16.0); White Blood Count 4.5 X10*3/uL (4.8-10.8)
[2023-03-15 09:45] LABS: Alanine Aminotransferase 20 U/L (0-31); Alkaline Phosphatase 62 U/L (39-117); Anion Gap 13 (12-20); Aspartate Amino Transferase 32 U/L (5-31); Bilirubin Total 0.5 mg/dL (0.0-1.0); Blood Urea Nitrogen 25 mg/dL (9-16); C Reactive Protein < 0.10 mg/dL (< or = 0.50); Calcium 9.4 mg/dL (8.4-10.2); Carbon Dioxide 29 mmol/L (22-29); Chloride 105 mmol/L (96-108); Estimated Glomerular Filt Rate > 60; Glucose Random 70 mg/dL (60-115); Iron 40 mcg/dL (30-160); Percent Iron Saturation 13 % (15-50); Potassium 4.3 mmol/L (3.3-5.1); Sodium 143 mmol/L (135-145); Total Iron Binding Capacity 307 mcg/dL (228-428); Total Protein 6.9 g/dL (6.5-8.0); Unsaturated Iron Binding 267 ug/dL
[2023-03-15 09:55] LABS: Ferritin 21 ng/mL (10-250)
[2023-03-15 10:02] LABS: Erythrocyte Sedimentation Rate 13 MM/HR (0-20)
[2023-03-18 21:13] LABS: Transferrin 297 mg/dL (188-341)
== END 2023-03-15 08:21 | disposition home or self-care (01) ==
LOC: HO.LAB 08:20
PROVIDERS: PCP Internal Medicine; Visit Provider Student in an Organized Health Care Education/Training Program
DX: L40.50 Arthropathic psoriasis, unspecified (principal); D50.9 Iron deficiency anemia, unspecified
CPT/HCPCS: 36415; 80053; 82728; 83540; 84466; 85025; 85652; 86140

== ENCOUNTER 2023-03-18 15:27 | Outpatient (AMB) | payer MEDICARE, SELFPAY ==
--- NOTE | 2023-03-18 15:28 | MHC.OFFVIS ---
Intake Vital Signs 03/18/23 15:29 Height 5 ft 2 in Weight 195 lb 12.328 oz BMI 35.8 BP 108/58 L Blood Pressure Location Rt brachial Position Sitting Pulse 59 Pulse Source Pulse Oximeter Intake Visit Reasons: PSA Intake Note: Patient presents today to follow up on PSA. Insurance Attorney Required: No Accompanied by: Self / Same As Patient Allergies NSAIDS (Non-Steroidal Anti-Inflamma Adverse Reaction (Unknown, Verified 03/18/23 15:30) not to take d/t hx of bariatric surg Medication List - Last Reconciled 03/18/23 by Xaio Perez MD aspirin 81 mg PO DAILY atorvastatin 80 mg PO DAILY esomeprazole magnesium (Nexium 24HR) 20 mg PO DAILY folic acid 1 mg PO DAILY gabapentin 600 mg PO TID levothyroxine 125 mcg PO DAILY mecobalamin (vitamin B12) mcg PO DAILY methotrexate sodium 15 mg (6 x 2.5 mg) PO QWEEK metoprolol succinate ER 12.5 mg PO DAILY multivitamin 1 tab PO DAILY ondansetron 4 mg PO Q8H PRN tramadol 100 mg PO TID PRN vitamin A palmitate 3,000 mcg PO DAILY zinc acetate 50 mg PO DAILY HPI HPI Comments History of Present Illness Details 72-year-old female with psoriatic arthritis returns for follow-up. On methotrexate 15 mg weekly. She states that she was doing well until about 4 weeks ago when she started having pain swelling and stiffness of her left thumb. Difficulty grabbing objects. She also has some pain on the outside of her right foot. Initial history: This is a 72 year old female who presents for evaluation of left hand pain. Back in 2019 patient was evaluated by Gurjit Montoya at [place] for trigger finger of her left 2nd and 3rd fingers, she received cortisone injections with significant improvement. Over the last year patient has been having pain and stiffness of her left hand. Occasional pain and stiffness of her ankles. Patient takes Tylenol with some relief, she takes tramadol for her back pain. She denies any fevers, weight loss, joint swelling. Denies fever few years no history of DVT/PE [facility] Medical History Positive antinuclear antibody Other and unspecified hyperlipidemia Carotid stenosis, right PAF (paroxysmal atrial fibrillation) Surgical History History of right hip replacement (~01/2020) History of left knee replacement (~09/05/20) History of gastric bypass History of cholecystectomy Family History Father Heart attack Mother No problems noted. Social History Household Members: Spouse and Family Alcohol intake: current Alcohol intake frequency: holidays/special occasions only Patient Tobacco Use Status: Former Tobacco user Quit Date: 1990 Review of Systems [facility] [place] Reports arthralgias, Reports joint swelling, Reports limited range of motion and Reports stiffness Physical Exam Vital Signs: Last Vital Signs Pulse 59 03/18/23 15:29 BP 108/58 L 03/18/23 15:29 BMI result Body Mass Index 35.8 Const General: cooperative, healthy appearing and comfortable Nutritional Appearance: obese Orientation/consciousness: patient oriented x3 Limitations: no limitations HEENT Head: Yes normocephalic and Yes atraumatic Resp Effort & Inspection: normal respiratory effort and able to speak in complete sentences Skin General skin exam: no rashes or lesions noted Neuro General: patient oriented x3 Extrem Other: Extensive arthritic changes of bilateral 5th DIP joints Swelling of entire left thumb as well as left MCP. Tenderness at the left thumb flexor tendon Tenderness on the outside of the right 5th MTP Office Procedures Tendon Injection Tendon Injection Details: With patient's consent, The palm of the left hand was prepped with ChloraPrep and alcohol. Under topical ethyl chloride spray the [1st] flexor tendon sheath was injected with 20 mg of triamcinolone and 0.2 cc of 1% lidocaine. The patient tolerated the procedure without any acute complications. [id number] Tendon Sheath Injection All charges added?: Procedure code (CPT) selection complete Results Reviewed Results Reviewed: X-RAY EXAM OF HAND, 3+ VIEWS Exam Date: 12/18/2019 1:51 PM Ordering Diagnosis: Trigger index finger of left hand ? Left hand, 3 views. History pain. Swelling. ? There are marked degenerative and erosive changes in the DIP joint of the 5th finger. There are minimal degenerative changes in the DIP joints of the 2nd 3rd and 4th fingers. There are mild degenerative changes in the 1st carpometacarpal joint. No fractures, dislocations or destructive lesions. ? CONCLUSIONS: Degenerative changes as detailed. X-RAY KNEE 3 VIEW - W/O INJURY Exam Date: 12/18/2019 1:52 PM Ordering Diagnosis: Chronic bilateral low back pain with bilateral sciaticaOsteoarthritis of hip, unspecified laterality, unspecified osteoarthritis typeChronic pain of both knees ? Bilateral knees, 3 views of each. There is severe narrowing and subchondral sclerosis in the medial compartment of the left kidney there are marginal osteophytes in the lateral and patellofemoral compartments bilaterally. There is no acute fractures, dislocations or effusion. ? CONCLUSIONS: Degenerative changes as detailed. XR/XR hand wrist RT IMPRESSION: ? Loss of distal interphalangeal joint space with ankylosis of the of the fifth distal interphalangeal joints bilaterally, with some demonstrating bony proliferation and a single marginal cortical erosion along the left second PIP joint. Findings could be seen in the setting of erosive arthropathy including psoriatic arthritis or reactive arthritis, however is not the typical distribution for rheumatoid arthritis. ? Mild negative ulnar variance bilaterally. ? Moderate degenerative changes of the first metacarpophalangeal joints bilaterally. XR:RIGHT FOOT:07/22 No fracture or dislocation. Moderate degenerative changes of the first metatarsophalangeal joint and interphalangeal joints with loss of joint space. No cortical erosion. No joint effusion. Soft tissues are unremarkable. XR LEFT FOOT: ?07/22 No fracture or dislocation. Moderate degenerative changes of the plantar calcaneal spurring and Achilles tendon enthesopathy. Interphalangeal joints with loss of joint space and mild degenerative changes of the first metacarpal phalangeal joint with degenerative spurring. Plantar calcaneal spurring and Achilles tendon enthesopathy. No cortical erosion. No joint effusion. Soft tissues are unremarkable. Laboratory Tests 03/15/23 08:39 WBC 4.5 L RBC 3.84 L Hgb 12.0 Hct 38.7 MCV 100.8 H MCH 31.3 MCHC 31.0 RDW 15.9 Plt Count 164 MPV 10.2 Immature Gran % (Auto) 0.4 Neut % (Auto) 59.9 Lymph % (Auto) 25.2 Casey % (Auto) 9.6 Eos % (Auto) 4.2 H Baso % (Auto) 0.7 Lymph # (Auto) 1.1 L Casey # (Auto) 0.4 Eos # (Auto) 0.2 Baso # (Auto) 0.0 Abs Immat Gran (auto) 0.02 Absolute Neuts (auto) 2.7 Absolute Nucleated RBC 0.000 Nucleated RBC % (auto) 0.0 ESR 13 BUN 25 H Creatinine 0.72 Estimated GFR > 60 Calcium 9.4 Iron 40 TIBC 307 % Saturation 13 L Unsat Iron Binding 267 Transferrin Pending Ferritin 21 Total Bilirubin 0.5 AST 32 H ALT 20 Alkaline Phosphatase 62 C-Reactive Protein < 0.10 Total Protein 6.9 Albumin 4.0 Assessment & Plan Assessment & Plan (1) Psoriatic arthritis: Comment: dx 09/2022 MTX 10/21 effective Code(s): L40.50 - Arthropathic psoriasis, unspecified Plan: This is a 72-year-old female with psoriatic arthritis who presents for follow-up. Methotrexate was lowered to 15 mg weekly from 20 mg weekly last visit. On exam patient is having left thumb dactylitis and trigger finger. 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 Positive NICK is occasionally seen in psoriatic arthritis (4) Immunization counseling: Code(s): Z71.85 - Encounter for immunization safety counseling Plan: Patient is up-to-date on her new COVID booster, flu vaccine and Shingrix vaccines (5) Trigger thumb, left thumb: Code(s): M65.312 - Trigger thumb, left thumb Plan: Injected in clinic today. 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 of antimetabolite agent AMB Injection-Tendon Today M65.312 - Trigger thumb, left thumb Complete Blood Count Auto Diff 3 Months Z79.631 - senior living (current) use of antimetabolite agent Medications: Changed From folic acid 1 mg PO DAILY 100 tabs 2RF To folic acid 3 mg (3 x 1 mg) PO DAILY 270 tabs 1RF From methotrexate sodium 15 mg (6 x 2.5 mg) PO QWEEK 72 tabs 0RF To methotrexate sodium 20 mg (8 x 2.5 mg) PO QWEEK 96 tabs 1RF Coding Level of Care Code Est Pt Level 5 (48554) Diagnoses Psoriatic arthritis L40.50 senior living methotrexate user Z79.631 Positive antinuclear antibody R76.8 Immunization counseling Z71.85 Trigger thumb, left thumb M65.312 H/O iron deficiency anemia Z86.2 CPT Codes Tendon Injection - Tendon Injection 1: [id number] Tendon Sheath Injection ([id number])
[2023-03-18 15:29] VITALS: BP 108/58; PULSE 59; BMI 35.8
== END 2023-03-18 16:04 | disposition home or self-care (01) ==
PROVIDERS: PCP Internal Medicine; Visit Provider Student in an Organized Health Care Education/Training Program
DX: L40.50 Arthropathic psoriasis, unspecified (principal); Z79.631 Long term (current) use of antimetabolite agent; R76.8 Other specified abnormal immunological findings in serum; Z71.85 Encounter for immunization safety counseling; M65.312 Trigger thumb, left thumb; Z86.2 Personal history of diseases of the blood and blood-forming organs and certain disorders involving the immune mechanism
CPT/HCPCS: 20550; 99214

== ENCOUNTER → 2023-03-18 15:27 | Outpatient (BNVA) | payer MEDICARE, SELFPAY | PROVIDERS: PCP Internal Medicine; Visit Provider Student in an Organized Health Care Education/Training Program | DX: L40.50 Arthropathic psoriasis, unspecified (principal); R76.8 Other specified abnormal immunological findings in serum; M65.312 Trigger thumb, left thumb; Z79.631 Long term (current) use of antimetabolite agent; Z71.85 Encounter for immunization safety counseling; Z86.2 Personal history of diseases of the blood and blood-forming organs and certain disorders involving the immune mechanism | CPT/HCPCS: 20550; 99212 ==

== ENCOUNTER 2023-06-14 12:20 | Outpatient (REF) | payer MEDICARE, SELFPAY ==
[2023-06-14 12:37] LABS: MANUAL DIFF FLAG NO
[2023-06-14 13:33] LABS: Basophils Percent Auto 0.4 % (0-2); Eosinophils Absolute Auto 0.2 X10*3/uL (0.0-0.4); Eosinophils Percent Auto 3.8 % (0-4); Hematocrit 37.8 % (37.0-47.0); Hemoglobin 11.6 g/dl (12.0-16.0); Imm Gran Abs Auto 0.02 X10*3/uL (0.00-0.03); Imm Gran Pct Auto 0.4 % (0.0-0.4); Lymphocytes Absolute Auto 1.4 X10*3/uL (1.2-4.9); Lymphocytes Percent Auto 29.9 % (20-40); Mean Corpuscular HGB Conc 30.7 g/dl (31.0-35.0); Mean Corpuscular Hemoglobin 30.9 pg (27.0-33.0); Mean Corpuscular Volume 100.8 fL (80.0-98.0); Monocytes Absolute Auto 0.4 X10*3/uL (0.1-1.2); Monocytes Percent Auto 9.1 % (2-11); Neutrophils Absolute Auto 2.6 x10*3/uL (2.0-8.3); Neutrophils Percent Auto 56.4 % (45-73); Platelet Count 171 X10*3/uL (160-400); Red Blood Count 3.75 X10*6/uL (4.20-5.50); Red Cell Distribution Width 16.7 % (11.0-16.0); White Blood Count 4.5 X10*3/uL (4.8-10.8)
[2023-06-14 14:13] LABS: Erythrocyte Sedimentation Rate 17 MM/HR (0-20)
[2023-06-14 14:17] LABS: Alanine Aminotransferase 26 U/L (0-31); Albumin Level 3.8 g/dL (3.5-5.0); Alkaline Phosphatase 62 U/L (39-117); Anion Gap 13 (12-20); Aspartate Amino Transferase 29 U/L (5-31); Bilirubin Total 0.6 mg/dL (0.0-1.0); Blood Urea Nitrogen 18 mg/dL (9-16); C Reactive Protein < 0.10 mg/dL (< or = 0.50); Calcium 9.6 mg/dL (8.4-10.2); Carbon Dioxide 29 mmol/L (22-29); Chloride 104 mmol/L (96-108); Estimated Glomerular Filt Rate > 60; Glucose Random 86 mg/dL (60-115); Potassium 4.5 mmol/L (3.3-5.1); Sodium 141 mmol/L (135-145); Total Protein 6.6 g/dL (6.5-8.0)
== END 2023-06-14 12:21 | disposition home or self-care (01) ==
LOC: HO.LAB 12:20
PROVIDERS: PCP Internal Medicine; Visit Provider Student in an Organized Health Care Education/Training Program
DX: L40.50 Arthropathic psoriasis, unspecified (principal); Z79.631 Long term (current) use of antimetabolite agent
CPT/HCPCS: 36415; 80053; 85025; 85652; 86140

== ENCOUNTER 2023-06-17 15:16 | Outpatient (AMB) | payer MEDICARE, SELFPAY ==
[2023-06-17 15:20] VITALS: BP 118/76; PULSE 65; O2SAT 100; BMI 35.4
--- NOTE | 2023-06-17 15:20 | A.OFFVIS_ITS ---
Intake Vital Signs 06/17/23 15:20 Height 5 ft 2 in Weight 193 lb 9.054 oz BMI 35.4 BP 118/76 Blood Pressure Location Rt brachial Position Sitting Pulse 65 Pulse Source Pulse Oximeter Pulse Oximetry (%) 100 Oxygen Delivery Method Room Air Intake Visit Reasons: PsA Intake Note: Patient last seen 03/18/23 presents today for follow up and test results. 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 Accompanied by: Self / Same As Patient Allergies NSAIDS (Non-Steroidal Anti-Inflamma Adverse Reaction (Unknown, Verified 06/17/23 15:37) not to take d/t hx of bariatric surg Medication List - Last Reconciled 06/17/23 by Xiao Perez MD aspirin 81 mg PO DAILY atorvastatin 80 mg PO DAILY esomeprazole magnesium (Nexium 24HR) 20 mg PO DAILY folic acid 3 mg (3 x 1 mg) PO DAILY gabapentin 600 mg PO TID levothyroxine 125 mcg PO DAILY mecobalamin (vitamin B12) mcg PO DAILY methotrexate sodium 20 mg (8 x 2.5 mg) PO QWEEK metoprolol succinate ER 12.5 mg PO DAILY multivitamin 1 tab PO DAILY ondansetron 4 mg PO Q8H PRN tramadol 100 mg PO TID PRN vitamin A palmitate 3,000 mcg PO DAILY zinc acetate 50 mg PO DAILY HPI HPI Comments History of Present Illness Details 72-year-old female with psoriatic arthri tis returns for follow-up. On methotrexate 20 mg weekly and folic acid 3 mg daily. She is doing quite well overall with no joint pain or swelling. 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 Trigger finger injection for left thumb done last visit was quite helpful. Initial history: This is a 72 year old female who presents for evaluation of left hand pain. Back in 2019 patient was evaluated by Gurjit Montoya at [place] for trigger finger of her left 2nd and 3rd fingers, she received cortisone injections with significant improvement. Over the last year patient has been having pain and stiffness of her left hand. Occasional pain and stiffness of her ankles. Patient takes Tylenol with some relief, she takes tramadol for her back pain. She denies any fevers, weight loss, joint swelling. Denies fever few years no history of DVT/PE [facility] Medical History Positive antinuclear antibody Other and unspecified hyperlipidemia Carotid stenosis, right PAF (paroxysmal atrial fibrillation) Surgical History History of right hip replacement (~01/2020) History of left knee replacement (~09/05/20) History of gastric bypass History of cholecystectomy Family History Father Heart attack Mother No problems noted. Social History Household Members: Spouse and Family Alcohol intake: current Alcohol intake frequency: holidays/special occasions only Patient Tobacco Use Status: Former Tobacco user Quit Date: 1990 Review of Systems Musc Denies arthralgias, Denies joint swelling and Denies stiffness Physical Exam Vital Signs: Last Vital Signs Pulse 65 06/17/23 15:20 BP 118/76 06/17/23 15:20 Pulse Ox 100 06/17/23 15:20 Oxygen Delivery Method Room Air 06/17/23 15:20 BMI result Body Mass Index 35.4 Const General: cooperative, healthy appearing and comfortable Nutritional Appearance: obese Orientation/consciousness: patient oriented x3 Limitations: no limitations HEENT Head: Yes normocephalic and Yes atraumatic Resp Effort & Inspection: normal respiratory effort and able to speak in complete sentences Auscultation: clear to auscultation bilaterally Cardio Rate: regular rate Rhythm: regular rhythm Skin General skin exam: no rashes or lesions noted Neuro General: patient oriented x3 Extrem Other: Extensive arthritic changes of bilateral 5th DIP joints No active synovitis both hands no triggering noted both hands Results Reviewed Results Reviewed: X-RAY EXAM OF HAND, 3+ VIEWS Exam Date: 12/18/2019 1:51 PM Ordering Diagnosis: Trigger index finger of left hand ? Left hand, 3 views. History pain. Swelling. ? There are marked degenerative and erosive changes in the DIP joint of the 5th finger. There are minimal degenerative changes in the DIP joints of the 2nd 3rd and 4th fingers. There are mild degenerative changes in the 1st carpometacarpal joint. No fractures, dislocations or destructive lesions. ? CONCLUSIONS: Degenerative changes as detailed. X-RAY KNEE 3 VIEW - W/O INJURY Exam Date: 12/18/2019 1:52 PM Ordering Diagnosis: Chronic bilateral low back pain with bilateral sciaticaOsteoarthritis of hip, unspecified laterality, unspecified osteoarthritis typeChronic pain of both knees ? Bilateral knees, 3 views of each. There is severe narrowing and subchondral sclerosis in the medial compartment of the left kidney there are marginal osteophytes in the lateral and patellofemoral compartments bilaterally. There is no acute fractures, dislocations or effusion. ? CONCLUSIONS: Degenerative changes as detailed. XR/XR hand wrist RT IMPRESSION: ? Loss of distal interphalangeal joint space with ankylosis of the of the fifth distal interphalangeal joints bilaterally, with some demonstrating bony proliferation and a single marginal cortical erosion along the left second PIP joint. Findings could be seen in the setting of erosive arthropathy including psoriatic arthritis or reactive arthritis, however is not the typical distribution for rheumatoid arthritis. ? Mild negative ulnar variance bilaterally. ? Moderate degenerative changes of the first metacarpophalangeal joints bilaterally. XR:RIGHT FOOT:07/22 No fracture or dislocation. Moderate degenerative changes of the first metatarsophalangeal joint and interphalangeal joints with loss of joint space. No cortical erosion. No joint effusion. Soft tissues are unremarkable. XR LEFT FOOT: ?07/22 No fracture or dislocation. Moderate degenerative changes of the plantar calcaneal spurring and Achilles tendon enthesopathy. Interphalangeal joints with loss of joint space and mild degenerative changes of the first metacarpal phalangeal joint with degenerative spurring. Plantar calcaneal spurring and Achilles tendon enthesopathy. No cortical erosion. No joint effusion. Soft tissues are unremarkable. Laboratory Tests Assessment & Plan Assessment & Plan (1) Psoriatic arthritis: Comment: dx 09/2022 MTX 10/21 effective lowered to 15 mg 11/2022 due to transamintis increased to 20 mg 03/2023 due to flare Code(s): L40.50 - Arthropathic psoriasis, unspecified Plan: This is a 72-year-old female with psoriatic arthritis who presents for follow- up. On methotrexate 20 mg weekly plus folic acid 3 mg daily. Doing well overall with no active synovitis. 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 Positive NICK is occasionally seen in psoriatic arthritis (4) Trigger thumb, left thumb: Code(s): M65.312 - Trigger thumb, left thumb Plan: Injected in clinic 03/2023 with resolution. Injections can be repeated as needed Plan I spent 27 minutes reviewing patient's chart, evaluating patient, ordering diagnostic workup, counseling patient and documenting in the chart Medications: Refilled methotrexate sodium 20 mg (8 x 2.5 mg) PO QWEEK 96 tabs 1RF Coding Level of Care Code Est Pt Level 4 (16442) Diagnoses Psoriatic arthritis L40.50 extermination supervisor methotrexate user Z79.631 Positive antinuclear antibody R76.8 Trigger thumb, left thumb M65.312
== END 2023-06-17 16:02 | disposition home or self-care (01) ==
PROVIDERS: PCP Internal Medicine; Visit Provider Student in an Organized Health Care Education/Training Program
DX: L40.50 Arthropathic psoriasis, unspecified (principal); Z79.631 Long term (current) use of antimetabolite agent; R76.8 Other specified abnormal immunological findings in serum; M65.312 Trigger thumb, left thumb
CPT/HCPCS: 99214

== ENCOUNTER → 2023-06-17 15:16 | Outpatient (BNVA) | payer MEDICARE, SELFPAY | PROVIDERS: PCP Internal Medicine; Visit Provider Student in an Organized Health Care Education/Training Program | DX: L40.50 Arthropathic psoriasis, unspecified (principal); R76.8 Other specified abnormal immunological findings in serum; M65.312 Trigger thumb, left thumb; Z79.631 Long term (current) use of antimetabolite agent | CPT/HCPCS: 99212 ==

== ENCOUNTER 2023-06-20 12:33 | Outpatient (AMB) | payer MEDICARE, SELFPAY ==
--- NOTE | 2023-06-20 12:47 | MHC.OFFVIS ---
Intake Vital Signs 06/20/23 12:48 Height 5 ft 2 in Weight 197 lb 1.492 oz BMI 36.0 BP 136/60 Blood Pressure Location Lt brachial Position Sitting Pulse 68 Intake Visit Reasons: 6 mth f/up Intake Note: 6 month follow up Pairer Substandard Required: No Accompanied by: Self / Same As Patient Allergies NSAIDS (Non-Steroidal Anti-Inflamma Adverse Reaction (Unknown, Verified 06/20/23 12:49) not to take d/t hx of bariatric surg Medication List - Last Reconciled 06/20/23 by Pernell Hess MD aspirin 81 mg PO DAILY atorvastatin 80 mg PO DAILY esomeprazole magnesium (Nexium 24HR) 40 mg PO DAILY folic acid 3 mg (3 x 1 mg) PO DAILY gabapentin 600 mg PO TID levothyroxine 125 mcg PO DAILY mecobalamin (vitamin B12) mcg PO DAILY methotrexate sodium 20 mg (8 x 2.5 mg) PO QWEEK metoprolol succinate ER 12.5 mg PO DAILY multivitamin 1 tab PO DAILY ondansetron 4 mg PO Q8H PRN tramadol 100 mg PO TID PRN vitamin A palmitate 3,000 mcg PO DAILY zinc acetate 50 mg PO DAILY HPI HPI Comments History of Present Illness Details Danelle is back for follow-up regarding atrial fibrillation and carotid disease. To recall, she was initially seen prior to bariatric surgery for cardiac risk stratification. The surgery itself was uneventful. However, she developed postoperative atrial fibrillation. Then she was started on amiodarone and was also on Arixtra. However, she developed a rectus sheath hematoma, after which the anticoagulation was stopped. Amiodarone was also then stopped. Since that time, she has not had any recurrence of atrial fibrillation. She remains on a small dose of beta-corona. Overall, no new issues. No specific cardiac concerns. [facility] Medical History Positive antinuclear antibody Other and unspecified hyperlipidemia Carotid stenosis, right PAF (paroxysmal atrial fibrillation) Surgical History History of right hip replacement (~01/2020) History of left knee replacement (~09/05/20) History of gastric bypass History of cholecystectomy Family History Father Heart attack Mother No problems noted. Social History Household Members: Spouse and Family Alcohol intake: current Alcohol intake frequency: holidays/special occasions only Patient Tobacco Use Status: Former Tobacco user Quit Date: 1990 Review of Systems Const Denies weakness ENT Denies dizziness Card Denies chest pain, Denies chest pain with activity, Denies syncope, Denies rapid heart rate, Denies pedal edema, Denies edema, Denies leg edema, Denies lightheadedness, Denies palpitations, Denies dyspnea, Denies dyspnea on exertion and Denies orthopnea Resp Denies cough, Denies dyspnea and Denies dyspnea on exertion GI Denies hematochezia and Denies change in stool character Musc Denies abnormal gait, Denies muscle cramps, Denies muscle weakness, Denies numbness, Denies radiating pain into limb and Denies tingling Neuro Denies abnormal gait, Denies dizziness, Denies syncope, Denies numbness, Denies tingling and Denies weakness Endo Denies palpitations Physical Exam Vital Signs: Last Vital Signs Pulse 68 06/20/23 12:48 BP 136/60 06/20/23 12:48 BMI result Body Mass Index 36.0 Const General: comfortable and no acute distress Orientation/consciousness: patient oriented x3 HEENT Other: Unremarkable Head: Yes normal to inspection Neck Neck: Yes normal visual inspection Carotids: bruit on the right Chest Chest palpation & inspection: normal inspection of the chest Resp Auscultation: clear to auscultation bilaterally Cardio Palpation: normal PMI Heart sounds: S1 normal heart sound present, S2 normal heart sound present, no gallops, no murmurs and no rubs GI Palpation (GI): Soft to palpation Back/Spine/Pelvis Other: unremarkable Skin General skin exam: no rashes or lesions noted Neuro General: patient oriented x3 Extrem General: Yes normal to inspection Psych Mental Status: mental status grossly normal Assessment & Plan Assessment & Plan (1) PAF (paroxysmal atrial fibrillation): Code(s): I48.0 - Paroxysmal atrial fibrillation Plan: Isolated issue many years ago. Continue beta-blockers. (2) First degree atrioventricular block: Code(s): I44.0 - Atrioventricular block, first degree Plan: May follow on EKGs. (3) Carotid stenosis, right: Code(s): I65.21 - Occlusion and stenosis of right carotid artery Plan: She does have a carotid bruit. Known moderate stenosis on the right side. Recheck carotid ultrasound. If necessary, will send to vascular. (4) Other and unspecified hyperlipidemia: Code(s): E78.5 - Hyperlipidemia, unspecified Plan: Continue statins. Orders: Orders US carotid duplex BI Today I65.23 - Occlusion and stenosis of bilateral carotid arteries Coding Level of Care Code Est Pt Level 4 (14598) Diagnoses PAF (paroxysmal atrial fibrillation) I48.0 First degree atrioventricular block I44.0 Carotid stenosis, right I65.21 Other and unspecified hyperlipidemia E78.5
[2023-06-20 12:48] VITALS: BP 136/60; PULSE 68; BMI 36.0
== END 2023-06-20 13:02 | disposition home or self-care (01) ==
PROVIDERS: PCP Internal Medicine; Visit Provider Internal Medicine
DX: I48.0 Paroxysmal atrial fibrillation (principal); I44.0 Atrioventricular block, first degree; I65.21 Occlusion and stenosis of right carotid artery; E78.5 Hyperlipidemia, unspecified
CPT/HCPCS: 99214

== ENCOUNTER → 2023-06-20 12:33 | Outpatient (BNVA) | payer MEDICARE, SELFPAY | PROVIDERS: PCP Internal Medicine; Visit Provider Internal Medicine | DX: I48.0 Paroxysmal atrial fibrillation (principal); I44.0 Atrioventricular block, first degree; I65.21 Occlusion and stenosis of right carotid artery; E78.5 Hyperlipidemia, unspecified | CPT/HCPCS: 99212 ==

== ENCOUNTER 2023-07-16 13:17 | Outpatient (REF) | payer MEDICARE, SELFPAY ==
--- NOTE | ~2023-07-16 | US_ITS ---
EXAMINATION: US EXTRACRANIAL CAROTID DUPLEX, BILATERAL CLINICAL INFORMATION: Occlusion and stenosis of bilateral carotid arteries COMPARISON: Carotid duplex 01/03/2023 TECHNIQUE: Real-time ultrasound and Doppler techniques (integrating B-mode 2-D vascular images, Doppler spectral analysis and color-flow Doppler imaging) were utilized to interrogate the extracranial carotid arteries, the vertebral arteries and proximal subclavian arteries bilaterally. The degree of stenosis is determined by criteria similar to NASCET. FINDINGS: Right Side: 1. There is severe atherosclerotic plaque seen in the bifurcation/proximal ICA region. 2. The common carotid artery PSV proximally is 76.3 cm/s and distally 91.6 cm/s. 3. The proximal internal carotid artery velocities are 82 cm/s systolic and 22.4 cm/s diastolic. 4. The proximal external carotid artery PSV is 135 cm/s. 5. The vertebral artery shows antegrade flow. 6. The subclavian artery waveforms are normal. Left Side: 1. There is moderate atherosclerotic plaque seen in the bifurcation/proximal ICA region. 2. The common carotid artery PSV proximally is 84 cm/s and distally 82.3 cm/s. 3. The proximal internal carotid artery velocities are 77.9 cm/s systolic and 16.5 cm/s diastolic. 4. The proximal external carotid artery PSV is 76.3 cm/s. 5. The vertebral artery shows antegrade flow. 6. The subclavian artery waveforms are normal. US/US carotid duplex BI IMPRESSION: 1. RIGHT: Minimal, non-hemodynamically significant stenosis of the proximal right internal carotid artery corresponding to a 0-49% stenosis by velocity criteria. 2. LEFT: Minimal, non-hemodynamically significant stenosis of the proximal left internal carotid artery corresponding to a 0-49% stenosis by velocity criteria. 3. Severity is decreased slightly on the right and unchanged on the left since 2022.
== END 2023-07-16 13:18 | disposition home or self-care (01) ==
LOC: HO.US 13:17
PROVIDERS: PCP Internal Medicine; Visit Provider Internal Medicine
DX: I65.23 Occlusion and stenosis of bilateral carotid arteries (principal)
CPT/HCPCS: 93880

== ENCOUNTER 2023-10-08 15:12 | Outpatient (REF) | payer MEDICARE, SELFPAY ==
[2023-10-08 15:24] LABS: MANUAL DIFF FLAG NO
[2023-10-08 15:34] LABS: Basophils Percent Auto 0.7 % (0-2); Eosinophils Absolute Auto 0.1 X10*3/uL (0.0-0.4); Eosinophils Percent Auto 3.1 % (0-4); Hematocrit 37.9 % (37.0-47.0); Hemoglobin 11.6 g/dl (12.0-16.0); Imm Gran Abs Auto 0.01 X10*3/uL (0.00-0.03); Imm Gran Pct Auto 0.2 % (0.0-0.4); Lymphocytes Absolute Auto 1.7 X10*3/uL (1.2-4.9); Lymphocytes Percent Auto 37.9 % (20-40); Mean Corpuscular HGB Conc 30.6 g/dl (31.0-35.0); Mean Corpuscular Hemoglobin 29.5 pg (27.0-33.0); Mean Corpuscular Volume 96.4 fL (80.0-98.0); Mean Platelet Volume 9.7 fL (9.4-12.3); Monocytes Absolute Auto 0.4 X10*3/uL (0.1-1.2); Monocytes Percent Auto 8.5 % (2-11); Neutrophils Absolute Auto 2.2 x10*3/uL (2.0-8.3); Neutrophils Percent Auto 49.6 % (45-73); Platelet Count 182 X10*3/uL (160-400); Red Blood Count 3.93 X10*6/uL (4.20-5.50); Red Cell Distribution Width 16.7 % (11.0-16.0); White Blood Count 4.5 X10*3/uL (4.8-10.8)
[2023-10-08 16:03] LABS: Alanine Aminotransferase 32 U/L (0-31); Alkaline Phosphatase 66 U/L (39-117); Anion Gap 13 (12-20); Aspartate Amino Transferase 38 U/L (5-31); Bilirubin Total 0.5 mg/dL (0.0-1.0); Blood Urea Nitrogen 19 mg/dL (9-16); C Reactive Protein < 0.04 mg/dL (< or = 0.50); Calcium 9.9 mg/dL (8.4-10.2); Carbon Dioxide 31 mmol/L (22-29); Chloride 104 mmol/L (96-108); Estimated Glomerular Filt Rate > 60; Glucose Random 93 mg/dL (60-115); Sodium 143 mmol/L (135-145); Total Protein 6.8 g/dL (6.5-8.0)
[2023-10-08 16:25] LABS: Erythrocyte Sedimentation Rate 19 MM/HR (0-20)
== END 2023-10-08 15:13 | disposition home or self-care (01) ==
LOC: HO.LAB 15:12
PROVIDERS: PCP Internal Medicine; Visit Provider Student in an Organized Health Care Education/Training Program
DX: L40.50 Arthropathic psoriasis, unspecified (principal); Z79.631 Long term (current) use of antimetabolite agent
CPT/HCPCS: 36415; 80053; 85025; 85652; 86140

== ENCOUNTER 2023-10-15 07:58 | Outpatient (AMB) | payer MEDICARE, SELFPAY ==
--- NOTE | 2023-10-15 08:00 | MHC.OFFVIS ---
Vital Signs 10/15/23 08:03 Height 5 ft 2 in Weight 203 lb 4.259 oz BMI 37.2 BP 115/60 Blood Pressure Location Lt brachial Position Sitting Pulse 68 Pulse Source Pulse Oximeter Pulse Oximetry (%) 92 Oxygen Delivery Method Room Air Intake Visit Reasons: PsA/cm Intake Note: Patient presents for PsA. Allergies NSAIDS (Non-Steroidal Anti-Inflamma Adverse Reaction (Unknown, Verified 10/15/23 08:03) not to take d/t hx of bariatric surg Medication List - Last Reconciled 10/15/23 by Xiao Perez MD aspirin 81 mg PO DAILY atorvastatin 80 mg PO DAILY esomeprazole magnesium (Nexium 24HR) 40 mg PO DAILY folic acid 3 mg (3 x 1 mg) PO DAILY gabapentin 600 mg PO TID levothyroxine 125 mcg PO DAILY mecobalamin (vitamin B12) mcg PO DAILY methotrexate sodium 15 mg (6 x 2.5 mg) PO QWEEK metoprolol succinate ER 12.5 mg PO DAILY multivitamin 1 tab PO DAILY ondansetron 4 mg PO Q8H PRN tramadol 100 mg PO TID PRN vitamin A palmitate 3,000 mcg PO DAILY zinc acetate 50 mg PO DAILY HPI Comments Details: 73-year-old female with psoriatic arthritis returns for follow-up. On methotrexate 20 mg weekly and folic acid 3 mg daily. She is doing quite well overall with no joint pain or swelling. 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 No significant trigger fingers recently. No psoriasis rash. Initial history: This is a 72 year old female who presents for evaluation of left hand pain. Back in 2019 patient was evaluated by Gurjit Montoya at [place] for trigger finger of her left 2nd and 3rd fingers, she received cortisone injections with significant improvement. Over the last year patient has been having pain and stiffness of her left hand. Occasional pain and stiffness of her ankles. Patient takes Tylenol with some relief, she takes tramadol for her back pain. She denies any fevers, weight loss, joint swelling. Denies fever few years no history of DVT/PE [facility] Medical History Positive antinuclear antibody Other and unspecified hyperlipidemia Carotid stenosis, right PAF (paroxysmal atrial fibrillation) Surgical History History of right hip replacement (~01/2020) History of left knee replacement (~09/05/20) History of gastric bypass History of cholecystectomy Family History Father Heart attack Mother No problems noted. Social History Household Members: Spouse and Family Alcohol intake: current Alcohol intake frequency: holidays/special occasions only Patient Tobacco Use Status: Former Tobacco user Review of Systems Musc Denies arthralgias, Denies joint swelling and Denies stiffness Physical Exam Vital Signs: Last Vital Signs Pulse 68 10/15/23 08:03 BP 115/60 10/15/23 08:03 Pulse Ox 92 10/15/23 08:03 Oxygen Delivery Method Room Air 10/15/23 08:03 BMI result Body Mass Index 37.2 Const General: cooperative, healthy appearing and comfortable Nutritional Appearance: obese Orientation/consciousness: patient oriented x3 Limitations: no limitations HEENT Head: Yes normocephalic and Yes atraumatic Resp Effort & Inspection: normal respiratory effort and able to speak in complete sentences Auscultation: clear to auscultation bilaterally Cardio Rate: regular rate Rhythm: regular rhythm Skin General skin exam: no rashes or lesions noted Neuro General: patient oriented x3 Extrem Other: Extensive arthritic changes of bilateral 5th DIP joints No active synovitis both hands no triggering noted both hands Results Reviewed Results Reviewed: X-RAY EXAM OF HAND, 3+ VIEWS Exam Date: 12/18/2019 1:51 PM Ordering Diagnosis: Trigger index finger of left hand ? Left hand, 3 views. History pain. Swelling. ? There are marked degenerative and erosive changes in the DIP joint of the 5th finger. There are minimal degenerative changes in the DIP joints of the 2nd 3rd and 4th fingers. There are mild degenerative changes in the 1st carpometacarpal joint. No fractures, dislocations or destructive lesions. ? CONCLUSIONS: Degenerative changes as detailed. X-RAY KNEE 3 VIEW - W/O INJURY Exam Date: 12/18/2019 1:52 PM Ordering Diagnosis: Chronic bilateral low back pain with bilateral sciaticaOsteoarthritis of hip, unspecified laterality, unspecified osteoarthritis typeChronic pain of both knees ? Bilateral knees, 3 views of each. There is severe narrowing and subchondral sclerosis in the medial compartment of the left kidney there are marginal osteophytes in the lateral and patellofemoral compartments bilaterally. There is no acute fractures, dislocations or effusion. ? CONCLUSIONS: Degenerative changes as detailed. XR/XR hand wrist RT IMPRESSION: ? Loss of distal interphalangeal joint space with ankylosis of the of the fifth distal interphalangeal joints bilaterally, with some demonstrating bony proliferation and a single marginal cortical erosion along the left second PIP joint. Findings could be seen in the setting of erosive arthropathy including psoriatic arthritis or reactive arthritis, however is not the typical distribution for rheumatoid arthritis. ? Mild negative ulnar variance bilaterally. ? Moderate degenerative changes of the first metacarpophalangeal joints bilaterally. XR:RIGHT FOOT:07/22 No fracture or dislocation. Moderate degenerative changes of the first metatarsophalangeal joint and interphalangeal joints with loss of joint space. No cortical erosion. No joint effusion. Soft tissues are unremarkable. XR LEFT FOOT: ?07/22 No fracture or dislocation. Moderate degenerative changes of the plantar calcaneal spurring and Achilles tendon enthesopathy. Interphalangeal joints with loss of joint space and mild degenerative changes of the first metacarpal phalangeal joint with degenerative spurring. Plantar calcaneal spurring and Achilles tendon enthesopathy. No cortical erosion. No joint effusion. Soft tissues are unremarkable. Laboratory Tests Assessment & Plan Assessment & Plan (1) Psoriatic arthritis: Comment: dx 09/2022 MTX 10/21 effective lowered to 15 mg 11/2022 due to transamintis increased to 20 mg 03/2023 due to flare Code(s): L40.50 - Arthropathic psoriasis, unspecified Category: Medical Plan: This is a 72-year-old female with psoriatic arthritis who presents for follow-up. On methotrexate 20 mg weekly plus folic acid 3 mg daily. Doing well overall with no active synovitis. 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 Positive NICK is occasionally seen in psoriatic arthritis (4) Trigger thumb, left thumb: Code(s): M65.312 - Trigger thumb, left thumb Category: Medical Plan: Injected in clinic 03/2023 with resolution. Injections can be repeated as needed (5) Transaminitis: Code(s): R74.01 - Elevation of levels of liver transaminase levels Category: Medical Plan I spent 27 minutes reviewing patient's chart, evaluating patient, ordering diagnostic workup, counseling patient and documenting in the chart Orders: Orders Comprehensive Met. Panel 3 Months L40.50 - Arthropathic psoriasis, unspecified, Z79.631 - alf (current) use of antimetabolite agent C Reactive Protein 3 Months L40.50 - Arthropathic psoriasis, unspecified, Z79.631 - alf (current) use of antimetabolite agent Erythrocyte Sedimentation Rate 3 Months L40.50 - Arthropathic psoriasis, unspecified, Z79.631 - extermination inspector (current) use of antimetabolite agent Complete Blood Count Auto Diff 3 Months L40.50 - Arthropathic psoriasis, unspecified, Z79.631 - alf (current) use of antimetabolite agent Medications: Changed From methotrexate sodium 20 mg (8 x 2.5 mg) PO QWEEK 96 tabs 1RF To methotrexate sodium 15 mg (6 x 2.5 mg) PO QWEEK 78 tabs 0RF Coding Level of Care Code Est Pt Level 5 (09160) Diagnoses Psoriatic arthritis L40.50 alf methotrexate user Z79.631 Positive antinuclear antibody R76.8 Trigger thumb, left thumb M65.312 Transaminitis R74.01
[2023-10-15 08:03] VITALS: BP 115/60; PULSE 68; O2SAT 92; BMI 37.2
== END 2023-10-15 08:18 | disposition home or self-care (01) ==
PROVIDERS: PCP Internal Medicine; Visit Provider Student in an Organized Health Care Education/Training Program
DX: L40.50 Arthropathic psoriasis, unspecified (principal); Z79.631 Long term (current) use of antimetabolite agent; R76.8 Other specified abnormal immunological findings in serum; M65.312 Trigger thumb, left thumb; R74.01 Elevation of levels of liver transaminase levels
CPT/HCPCS: 99214

== ENCOUNTER → 2023-10-15 07:58 | Outpatient (BNVA) | payer MEDICARE, SELFPAY | PROVIDERS: PCP Internal Medicine; Visit Provider Student in an Organized Health Care Education/Training Program | DX: L40.50 Arthropathic psoriasis, unspecified (principal); R76.8 Other specified abnormal immunological findings in serum; M65.312 Trigger thumb, left thumb; R74.01 Elevation of levels of liver transaminase levels; Z79.631 Long term (current) use of antimetabolite agent | CPT/HCPCS: 99212 ==

== ENCOUNTER 2024-01-06 12:30 | Outpatient (REF) | payer MEDICARE, SELFPAY ==
[2024-01-06 12:48] LABS: MANUAL DIFF FLAG NO
[2024-01-06 13:40] LABS: Basophils Percent Auto 0.6 % (0-2); Eosinophils Absolute Auto 0.1 X10*3/uL (0.0-0.4); Eosinophils Percent Auto 2.5 % (0-4); Hematocrit 36.6 % (37.0-47.0); Hemoglobin 11.2 g/dl (12.0-16.0); Imm Gran Abs Auto 0.02 X10*3/uL (0.00-0.03); Imm Gran Pct Auto 0.4 % (0.0-0.4); Lymphocytes Absolute Auto 1.3 X10*3/uL (1.2-4.9); Lymphocytes Percent Auto 27.9 % (20-40); Mean Corpuscular HGB Conc 30.6 g/dl (31.0-35.0); Mean Corpuscular Hemoglobin 28.5 pg (27.0-33.0); Mean Corpuscular Volume 93.1 fL (80.0-98.0); Mean Platelet Volume 10.1 fL (9.4-12.3); Monocytes Absolute Auto 0.4 X10*3/uL (0.1-1.2); Monocytes Percent Auto 9.1 % (2-11); Neutrophils Absolute Auto 2.8 x10*3/uL (2.0-8.3); Neutrophils Percent Auto 59.5 % (45-73); Platelet Count 206 X10*3/uL (160-400); Red Blood Count 3.93 X10*6/uL (4.20-5.50); Red Cell Distribution Width 17.6 % (11.0-16.0); White Blood Count 4.7 X10*3/uL (4.8-10.8)
[2024-01-06 14:05] LABS: Alanine Aminotransferase 22 U/L (0-31); Albumin Level 3.9 g/dL (3.5-5.0); Alkaline Phosphatase 64 U/L (39-117); Anion Gap 12 (12-20); Aspartate Amino Transferase 28 U/L (5-31); Bilirubin Total 0.6 mg/dL (0.0-1.0); Blood Urea Nitrogen 18 mg/dL (9-16); C Reactive Protein 0.26 mg/dL (< or = 0.50); Calcium 9.9 mg/dL (8.4-10.2); Carbon Dioxide 28 mmol/L (22-29); Chloride 105 mmol/L (96-108); Estimated Glomerular Filt Rate > 60; Glucose Random 91 mg/dL (60-115); Sodium 141 mmol/L (135-145); Total Protein 6.8 g/dL (6.5-8.0)
[2024-01-06 14:12] LABS: Erythrocyte Sedimentation Rate 23 MM/HR (0-20)
== END 2024-01-06 12:31 | disposition home or self-care (01) ==
LOC: HO.LAB 12:30
PROVIDERS: PCP Internal Medicine; Visit Provider Student in an Organized Health Care Education/Training Program
DX: L40.50 Arthropathic psoriasis, unspecified (principal); Z79.631 Long term (current) use of antimetabolite agent
CPT/HCPCS: 36415; 80053; 85025; 85652; 86140

== ENCOUNTER 2024-01-15 13:38 | Outpatient (AMB) | payer MEDICARE, SELFPAY ==
--- NOTE | 2024-01-15 13:46 | MHC.OFFVIS ---
Vital Signs 01/15/24 13:48 Height 5 ft 2 in Weight 194 lb 0.108 oz BMI 35.5 BP 120/60 Blood Pressure Location Rt brachial Position Sitting Pulse 69 Pulse Source Pulse Oximeter Pulse Oximetry (%) 95 Oxygen Delivery Method Room Air Intake Visit Reasons: PsA Intake Note: Patient presents for PsA. Allergies NSAIDS (Non-Steroidal Anti-Inflamma Adverse Reaction (Unknown, Verified 01/15/24 13:48) not to take d/t hx of bariatric surg Medication List - Last Reconciled 01/15/24 by Xiao Perez MD aspirin 81 mg PO DAILY atorvastatin 80 mg PO DAILY esomeprazole magnesium (Nexium 24HR) 40 mg PO DAILY folic acid 3 mg (3 x 1 mg) PO DAILY gabapentin 600 mg PO TID levothyroxine 125 mcg PO DAILY mecobalamin (vitamin B12) mcg PO DAILY methotrexate sodium 15 mg (6 x 2.5 mg) PO QWEEK metoprolol succinate ER 12.5 mg PO DAILY multivitamin 1 tab PO DAILY ondansetron 4 mg PO Q8H PRN tramadol 100 mg PO TID PRN vitamin A palmitate 3,000 mcg PO DAILY zinc acetate 50 mg PO DAILY HPI Comments Details: 73-year-old female with psoriatic arthritis returns for follow-up. On methotrexate 15 mg weekly and folic acid 3 mg daily. She states that she has been having neck pain over the last 2 weeks. She attributes it to increased housework. She states that has been having more triggering of her left thumb recently. States that this happened since we lowered her methotrexate from 20 to 15 mg weekly. States that her hands are kind of stiff in the morning but do not limit her in any way. No psoriasis rash Initial history: This is a 72 year old female who presents for evaluation of left hand pain. Back in 2019 patient was evaluated by Gurjit Montoya at [place] for trigger finger of her left 2nd and 3rd fingers, she received cortisone injections with significant improvement. Over the last year patient has been having pain and stiffness of her left hand. Occasional pain and stiffness of her ankles. Patient takes Tylenol with some relief, she takes tramadol for her back pain. She denies any fevers, weight loss, joint swelling. Denies fever few years no history of DVT/PE [facility] Medical History Positive antinuclear antibody Other and unspecified hyperlipidemia Carotid stenosis, right PAF (paroxysmal atrial fibrillation) Surgical History History of right hip replacement (~01/2020) History of left knee replacement (~09/05/20) History of gastric bypass History of cholecystectomy Family History Father Heart attack Mother No problems noted. Social History Household Members: Spouse and Family Alcohol intake: current Alcohol intake frequency: holidays/special occasions only Patient Tobacco Use Status: Former Tobacco user Review of Systems ENT Reports neck pain Musc Reports arthralgias, Reports limited range of motion and Reports neck pain Physical Exam Vital Signs: Last Vital Signs Pulse 69 01/15/24 13:48 BP 120/60 01/15/24 13:48 Pulse Ox 95 01/15/24 13:48 Oxygen Delivery Method Room Air 01/15/24 13:48 BMI result Body Mass Index 35.5 Const General: cooperative, healthy appearing and comfortable Nutritional Appearance: obese Orientation/consciousness: patient oriented x3 Limitations: no limitations HEENT Head: Yes normocephalic and Yes atraumatic Resp Effort & Inspection: normal respiratory effort and able to speak in complete sentences Auscultation: clear to auscultation bilaterally Cardio Rate: regular rate Rhythm: regular rhythm Skin General skin exam: no rashes or lesions noted Neuro General: patient oriented x3 Extrem Other: Extensive arthritic changes of bilateral 5th DIP joints Left thumb triggering, left 1st MCP tenderness Mild swelling Right 3rd PIP swelling Right 4th PIP swelling and minimal tenderness Results Reviewed Results Reviewed: X-RAY EXAM OF HAND, 3+ VIEWS Exam Date: 12/18/2019 1:51 PM Ordering Diagnosis: Trigger index finger of left hand ? Left hand, 3 views. History pain. Swelling. ? There are marked degenerative and erosive changes in the DIP joint of the 5th finger. There are minimal degenerative changes in the DIP joints of the 2nd 3rd and 4th fingers. There are mild degenerative changes in the 1st carpometacarpal joint. No fractures, dislocations or destructive lesions. ? CONCLUSIONS: Degenerative changes as detailed. X-RAY KNEE 3 VIEW - W/O INJURY Exam Date: 12/18/2019 1:52 PM Ordering Diagnosis: Chronic bilateral low back pain with bilateral sciaticaOsteoarthritis of hip, unspecified laterality, unspecified osteoarthritis typeChronic pain of both knees ? Bilateral knees, 3 views of each. There is severe narrowing and subchondral sclerosis in the medial compartment of the left kidney there are marginal osteophytes in the lateral and patellofemoral compartments bilaterally. There is no acute fractures, dislocations or effusion. ? CONCLUSIONS: Degenerative changes as detailed. XR/XR hand wrist RT IMPRESSION: ? Loss of distal interphalangeal joint space with ankylosis of the of the fifth distal interphalangeal joints bilaterally, with some demonstrating bony proliferation and a single marginal cortical erosion along the left second PIP joint. Findings could be seen in the setting of erosive arthropathy including psoriatic arthritis or reactive arthritis, however is not the typical distribution for rheumatoid arthritis. ? Mild negative ulnar variance bilaterally. ? Moderate degenerative changes of the first metacarpophalangeal joints bilaterally. XR:RIGHT FOOT:07/22 No fracture or dislocation. Moderate degenerative changes of the first metatarsophalangeal joint and interphalangeal joints with loss of joint space. No cortical erosion. No joint effusion. Soft tissues are unremarkable. XR LEFT FOOT: ?07/22 No fracture or dislocation. Moderate degenerative changes of the plantar calcaneal spurring and Achilles tendon enthesopathy. Interphalangeal joints with loss of joint space and mild degenerative changes of the first metacarpal phalangeal joint with degenerative spurring. Plantar calcaneal spurring and Achilles tendon enthesopathy. No cortical erosion. No joint effusion. Soft tissues are unremarkable. Laboratory Tests Assessment & Plan Assessment & Plan (1) Psoriatic arthritis: Comment: dx 09/2022 MTX 10/21 effective lowered to 15 mg 11/2022 due to transamintis increased to 20 mg 03/2023 due to flare lowered to 15 mg again 09/2023 due to transaminitis Code(s): L40.50 - Arthropathic psoriasis, unspecified Category: Medical Plan: This is a 73-year-old female with psoriatic arthritis who presents for follow-up. On methotrexate 15 mg weekly plus folic acid 3 mg daily. Doing just a little worse since methotrexate was lowered from 20 mg to 15 mg weekly. There are a couple of swollen joints and 3 tender joints. Left thumb triggering coming back. Symptoms are quite minimal however. Will continue to monitor patient clinically and can consider adding other DMARDs in the future such as Otezla. 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 Positive NICK is occasionally seen in psoriatic arthritis (4) Trigger thumb, left thumb: Code(s): M65.312 - Trigger thumb, left thumb Category: Medical Plan: Injected in clinic 03/2023 with resolution. Now symptoms coming back. Advised patient to wear a thumb splint at night (5) Transaminitis: Code(s): R74.01 - Elevation of levels of liver transaminase levels Category: Medical Plan: Resolved (6) H/O iron deficiency anemia: Code(s): Z86.2 - Personal history of diseases of the blood and blood-forming organs and certain disorders involving the immune mechanism Category: Medical Plan: History of iron-deficiency anemia requiring iron infusions in the past. I will check her iron stores periodically. (7) Immunization counseling: Code(s): Z71.85 - Encounter for immunization safety counseling Category: Medical Plan: Patient received flu vaccine, COVID booster and RSV vaccine this season Plan I spent 46 minutes reviewing patient's chart, evaluating patient, ordering diagnostic workup, counseling patient and documenting in the chart Orders: Orders Complete Blood Count Auto Diff 4 Months L40.50 - Arthropathic psoriasis, unspecified, Z79.631 - skilled nursing (current) use of antimetabolite agent Comprehensive Met. Panel 4 Months L40.50 - Arthropathic psoriasis, unspecified, Z79.631 - skilled nursing (current) use of antimetabolite agent C Reactive Protein 4 Months L40.50 - Arthropathic psoriasis, unspecified, Z79.631 - skilled nursing (current) use of antimetabolite agent Ferritin 4 Months Z86.2 - Personal history of diseases of the blood and blood-forming organs and certain disorders involving the immune mechanism Transferrin 4 Months Z86.2 - Personal history of diseases of the blood and blood-forming organs and certain disorders involving the immune mechanism Erythrocyte Sedimentation Rate 4 Months L40.50 - Arthropathic psoriasis, unspecified, Z79.631 - truck 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
[2024-01-15 13:48] VITALS: BP 120/60; PULSE 69; O2SAT 95; BMI 35.5
== END 2024-01-15 14:20 | disposition home or self-care (01) ==
PROVIDERS: PCP Internal Medicine; Visit Provider Student in an Organized Health Care Education/Training Program
DX: L40.50 Arthropathic psoriasis, unspecified (principal); Z79.631 Long term (current) use of antimetabolite agent; R76.8 Other specified abnormal immunological findings in serum; M65.312 Trigger thumb, left thumb; R74.01 Elevation of levels of liver transaminase levels; Z86.2 Personal history of diseases of the blood and blood-forming organs and certain disorders involving the immune mechanism; Z71.85 Encounter for immunization safety counseling
CPT/HCPCS: 99215; G2211

== ENCOUNTER → 2024-01-15 13:38 | Outpatient (BNVA) | payer MEDICARE, SELFPAY | PROVIDERS: PCP Internal Medicine; Visit Provider Student in an Organized Health Care Education/Training Program | DX: L40.50 Arthropathic psoriasis, unspecified (principal); R76.8 Other specified abnormal immunological findings in serum; M65.312 Trigger thumb, left thumb; R74.01 Elevation of levels of liver transaminase levels; Z86.2 Personal history of diseases of the blood and blood-forming organs and certain disorders involving the immune mechanism; Z71.85 Encounter for immunization safety counseling; Z79.631 Long term (current) use of antimetabolite agent | CPT/HCPCS: 99212 ==

== ENCOUNTER 2024-03-05 14:27 | Outpatient (AMB) | payer MEDICARE, SELFPAY ==
--- NOTE | 2024-03-05 14:30 | MHC.OFFVIS ---
Vital Signs 03/05/24 14:35 Height 5 ft 2 in Weight 197 lb 8.547 oz BMI 36.1 BP 124/60 Blood Pressure Location Lt brachial Position Sitting Pulse 58 Pulse Source Pulse Oximeter Pulse Oximetry (%) 98 Oxygen Delivery Method Room Air Intake Visit Reasons: hand pain /inj/CM Intake Note: Patient presents for hand pain/injection. Allergies NSAIDS (Non-Steroidal Anti-Inflamma Adverse Reaction (Unknown, Verified 03/05/24 14:34) not to take d/t hx of bariatric surg Medication List - Last Reconciled 03/05/24 by Xiao Perez MD aspirin 81 mg PO DAILY atorvastatin 80 mg PO DAILY esomeprazole magnesium (Nexium 24HR) 40 mg PO DAILY folic acid 3 mg (3 x 1 mg) PO DAILY gabapentin 600 mg PO TID levothyroxine 125 mcg PO DAILY mecobalamin (vitamin B12) mcg PO DAILY methotrexate sodium 15 mg (6 x 2.5 mg) PO QWEEK metoprolol succinate ER 12.5 mg PO DAILY multivitamin 1 tab PO DAILY ondansetron 4 mg PO Q8H PRN tramadol 100 mg PO TID PRN vitamin A palmitate 3,000 mcg PO DAILY zinc acetate 50 mg PO DAILY HPI Comments Details: 73-year-old female with psoriatic arthritis returns requesting an injection. She has been having pain and stiffness at her left thumb MCP. She has tried putting Voltaren gel. Did not help. Initial history: This is a 72 year old female who presents for evaluation of left hand pain. Back in 2019 patient was evaluated by Gurjit Montoya at [place] for trigger finger of her left 2nd and 3rd fingers, she received cortisone injections with significant improvement. Over the last year patient has been having pain and stiffness of her left hand. Occasional pain and stiffness of her ankles. Patient takes Tylenol with some relief, she takes tramadol for her back pain. She denies any fevers, weight loss, joint swelling. Denies fever few years no history of DVT/PE [facility] Medical History Positive antinuclear antibody Other and unspecified hyperlipidemia Carotid stenosis, right PAF (paroxysmal atrial fibrillation) Surgical History History of right hip replacement (~01/2020) History of left knee replacement (~09/05/20) History of gastric bypass History of cholecystectomy Family History Father Heart attack Mother No problems noted. Social History Household Members: Spouse and Family Alcohol intake: current Alcohol intake frequency: holidays/special occasions only Patient Tobacco Use Status: Former Tobacco user Review of Systems [facility] Reports arthralgias and Reports limited range of motion Physical Exam Vital Signs: Last Vital Signs Pulse 58 03/05/24 14:35 BP 124/60 03/05/24 14:35 Pulse Ox 98 03/05/24 14:35 Oxygen Delivery Method Room Air 03/05/24 14:35 BMI result Body Mass Index 36.1 Const General: cooperative, healthy appearing and comfortable Nutritional Appearance: obese Orientation/consciousness: patient oriented x3 Limitations: no limitations HEENT Head: Yes normocephalic and Yes atraumatic Resp Effort & Inspection: normal respiratory effort and able to speak in complete sentences Neuro General: patient oriented x3 Extrem Other: Extensive arthritic changes of bilateral 5th DIP joints Left thumb triggering, left 1st MCP tenderness, as well as tenderness at the flexor tendon Minimal swelling at the 1st MCP Office Procedures AMB Tendon Injection Tendon Injection Details: With patient's consent. The palm of the left hand was prepped with ChloraPrep and alcohol. Under topical ethyl chloride spray the [1st] flexor tendon sheath was injected with 20 mg of triamcinolone and 0.2 cc of 1% lidocaine. The patient tolerated the procedure without any acute complications. 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 Left thumb 1 mL [id number] 09/29/25 [address]-0 [employer] Assessment & Plan Assessment & Plan (1) Trigger thumb, left thumb: Code(s): M65.312 - Trigger thumb, left thumb Category: Medical Plan: 73 year old female with psoriatic arthritis presents to clinic requesting an injection. Has been having pain and stiffness of the left 1st MCP. OTC meds and splinting did not help. We had injected it in clinic 03/2023 with resolution. Symptoms are coming back for the last few months. With patient's consent, left thumb trigger finger was injected in clinic. Follow-up as scheduled for psoriatic arthritis in 2 months Plan I spent 16 minutes reviewing patient's chart, evaluating patient, counseling patient and documenting in the chart Orders: Orders AMB Tendon Injection Today M65.312 - Trigger thumb, left thumb Medications: New Kenalog (triamcinolone acetonide) 20 mg (0.5 mL) Tendon Sheath Inj. ONCE 0.5 mL 0RF NS M65.312 - Trigger thumb, left thumb Coding Level of Care Code Est Pt Level 3 (24240) Diagnoses Trigger thumb, left thumb M65.312 CPT Codes Tendon Injection - Tendon Injection 1: [id number] Tendon Sheath Injection ([id number])
[2024-03-05 14:35] VITALS: BP 124/60; PULSE 58; O2SAT 98; BMI 36.1
--- OUTSIDE RECORDS SUMMARY | 2024-03-11 04:05 | XMS_ITS ---
Author Name [facility] Organization Unknown History of Medication Use Medication Directions Dispensed Refills Start Date End Date Stat bisacodyl 5 mg tablet,delayed release PLEASE SEE ATTACHED FOR DETAILED DIRECTIONS 11/11/2022 active metoprolol succinate ER 25 mg tablet,extended release 24 hr TAKE 1/2 TABLET BY MOUTH EVERY DAY 11/11/2022 active ondansetron 4 mg disintegrating tablet TAKE 1 TABLET BY MOUTH 3 TIMES DAILY NEEDED FOR NAUSEA. 11/11/2022 active atorvastatin 80 mg tablet TAKE 1 TABLET BY MOUTH EVERY DAY 11/11/2022 active methotrexate sodium 2.5 mg tablet TAKE 6 TABS BY MOUTH ONCE WEEKLY FOR 2 WEEKS THEN 8 TABS ONCE WEEKLY 11/11/2022 active GaviLyte-G 236 gram-22.74 gram-6.74 gram-5.86 gram oral solution PLEASE SEE ATTACHED FOR DETAILED DIRECTIONS 11/11/2022 active clopidogrel 75 mg tablet TAKE 1 TABLET BY MOUTH EVERY DAY 11/11/2022 active chlorhexidine gluconate 0.12 % mouthwash RINSE MOUTH WITH 15ML (1 CAPFUL) FOR 30 SECONDS IN MORNING AND EVENING AFTER BRUSHING, THEN SPIT 11/11/2022 active amoxicillin 500 mg capsule PLEASE SEE ATTACHED FOR DETAILED DIRECTIONS 11/11/2022 active ciclopirox 0.77 % topical gel APPLY TO AFFECTED AREA TOPICALLY EVERY DAY 11/11/2022 active tramadol 50 mg tablet TAKE 2 TABLETS BY MOUTH EVERY 8 HOURS NEEDED FOR PAIN 11/11/2022 active folic acid 1 mg tablet TAKE 1 TABLET BY MOUTH EVERY DAY 11/11/2022 active gabapentin 600 mg tablet TAKE 1 TABLET BY MOUTH EVERY 8 HOURS 11/11/2022 active levothyroxine 125 mcg tablet TAKE 1 TABLET BY MOUTH EVERY DAY 11/11/2022 active
== END 2024-03-05 15:29 | disposition home or self-care (01) ==
PROVIDERS: PCP Internal Medicine; Visit Provider Student in an Organized Health Care Education/Training Program
DX: M65.312 Trigger thumb, left thumb (principal)
CPT/HCPCS: 20550; 99213

== ENCOUNTER → 2024-03-05 14:27 | Outpatient (BNVA) | payer MEDICARE, SELFPAY | PROVIDERS: PCP Internal Medicine; Visit Provider Student in an Organized Health Care Education/Training Program | DX: M65.312 Trigger thumb, left thumb (principal) | CPT/HCPCS: 20550; 99212; J3300 ==

== ENCOUNTER 2024-04-05 14:14 | Emergency (ER) | payer MEDICARE, SELFPAY ==
[2024-04-05] VITALS (7 sets, daily range): BP systolic 148–163; BP diastolic 65–74; PULSE 71–81; RESP 12–20; TEMP 36.7–37.2; O2SAT 97–99; BMI 33.1
--- NOTE | ~2024-04-05 | XR_ITS ---
CLINICAL HISTORY: chest discomfort 1 view chest x-ray Comparison: CR - CHEST 2 VIEWS [id number] - 01/02/17 11:30 EDT Findings: The prior reports are not available for review. No consolidation or effusion. Normal size heart. No acute fracture. IMPRESSION: 1. No acute findings. This document has been electronically signed by: Melecio Perez MD on 04/05/2024 15:51:36
--- NOTE | ~2024-04-05 | CT_ITS ---
CLINICAL HISTORY: dizziness CT Brain without contrast Comparison: None FINDINGS: Cortical sulci: There is diffuse prominence of the cortical sulci compatible with age-related atrophy. Ventricles: Normal for age Brain parenchyma: There is patchy lucency throughout the deep white matter indicating chronic microvascular leukomalacia. Extra axial spaces: Normal Posterior Fossa: Normal Extracranial soft tissues: Normal Additional abnormality: Opacification of the left sphenoid sinus. IMPRESSION: Age-related atrophy with chronic microvascular leukomalacia. No hemorrhage, mass effect, or acute findings identified. This document has been electronically signed by: Melecio Perez MD on 04/05/2024 16:33:34
--- NOTE | 2024-04-05 14:19 | ECG_ITS ---
Test Reason : PALPITATIONS Blood Pressure : / mmHG Vent. Rate : 088 BPM Atrial Rate : 090 BPM P-R Int : 000 ms QRS Dur : 082 ms QT Int : 332 ms P-R-T Axes : 000 009 017 degrees QTc Int : 401 ms Artifact in tracing Normal sinus rhythm Otherwise normal ECG When compared with ECG of 28-JAN-2017 11:17, No significant changes seen Referred By: Generic ED Physician Electronically Signed By:ZACK MENDEZ
--- NOTE | 2024-04-05 14:42 | ED.GENADULT ---
HPI - General Adult General Chief complaint: Arrhythmia/Palpitations Stated complaint: chest pain Time Seen by Provider: 04/05/24 19:32 Related Data Home Medications ?Medication ?Instructions ?Recorded ?Confirmed atorvastatin 80 mg tablet 80 mg PO DAILY 02/09/20 06/20/23 levothyroxine 125 mcg tablet 125 mcg PO DAILY 02/09/20 06/20/23 metoprolol succinate 25 mg 12.5 mg PO DAILY 02/09/20 06/20/23 tablet,extended release 24 hr tramadol 50 mg tablet 100 mg PO TID PRN pain 02/09/20 06/20/23 gabapentin 600 mg tablet 600 mg PO TID 04/11/20 06/20/23 mecobalamin (vitamin B12) 500 mcg mcg PO DAILY 07/24/22 06/20/23 chewable tablet multivitamin 1 tab PO DAILY 07/24/22 06/20/23 ondansetron 4 mg disintegrating 4 mg PO Q8H PRN 07/24/22 06/20/23 tablet vitamin A palmitate 3,000 mcg 3,000 mcg PO DAILY 07/24/22 06/20/23 (10,000 unit) tablet zinc acetate 50 mg (zinc) capsule 50 mg PO DAILY 07/24/22 06/20/23 aspirin 81 mg tablet,delayed 81 mg PO DAILY 03/18/23 06/20/23 release esomeprazole magnesium 20 mg 40 mg PO DAILY 06/20/23 06/20/23 capsule,delayed release (Nexium 24HR) Previous Rx's ?Medication ?Instructions ?Recorded folic acid 1 mg tablet 3 mg (3 x 1 mg) PO DAILY #300 tabs 08/15/23 methotrexate sodium 2.5 mg tablet 15 mg (6 x 2.5 mg) PO QWEEK #104 03/26/24 tabs Allergies Allergy/AdvReac Type Severity Reaction Status Date / Time NSAIDS (Non-Steroidal AdvReac Unknown not to Verified 04/05/24 14:40 Anti-Inflamma take d/t hx of bariatric surg [facility] Past Medical History Medical History Positive antinuclear antibody Other and unspecified hyperlipidemia Carotid stenosis, right PAF (paroxysmal atrial fibrillation) Surgical History History of right hip replacement (~01/2020) History of left knee replacement (~09/05/20) History of gastric bypass History of cholecystectomy Family History Family History Father Heart attack Mother No problems noted. Social History Social History Household Members: Spouse and Family Alcohol intake: current Alcohol intake frequency: holidays/special occasions only Patient Tobacco Use Status: Former Tobacco user Smoked in Last 30 Days: No Use of substances other than those prescribed or required for medical reasons: No Advance Directives: No Advance Directives Information Provided: Yes Physical Exam ED Vital Signs: Vital Signs - 24 hr 04/05/24 14:37 04/05/24 17:21 04/05/24 17:21 Temperature 98.0 F 98.9 F Pulse Rate 81 72 72 Respiratory Rate 18 20 Blood Pressure 155/74 H 159/66 H 159/66 H Pulse Oximetry 98 98 Oxygen Delivery Method Room Air Room Air 04/05/24 17:23 04/05/24 17:24 04/05/24 20:00 Temperature 98.4 F Pulse Rate 72 79 74 Respiratory Rate 16 Blood Pressure 150/65 H 161/71 H 163/66 H Pulse Oximetry 97 Oxygen Delivery Method Room Air BMI result Body Mass Index 33.1 Course Course Course Narrative: RME: 73-year-old female presents to [facility] since 03/24 with some dizziness described as fatigue. Then the past 2 days patient started having some chest fullness sensation the patient came to the ED to be evaluated. Neuro exam is intact. NIH score is 0. Labs EKG ordered. Chest x-ray head CT scan ordered. Medical Decision Making Lab Data 04/05/24 15:00 04/05/24 15:00 Labs: Lab Results 04/05/24 04/05/24 Range/Units 15:00 17:29 WBC 5.5 (4.8-10.8) X10*3/uL RBC 4.17 L (4.20-5.50) X10*6/uL Hgb 11.8 L (12.0-16.0) g/dl Hct 37.9 (37.0-47.0) % MCV 90.9 (80.0-98.0) fL MCH 28.3 (27.0-33.0) pg MCHC 31.1 (31.0-35.0) g/dl RDW 18.0 H (11.0-16.0) % Plt Count 264 D (160-400) X10*3/uL MPV 8.9 L (9.4-12.3) fL Immature Gran % (Auto) 1.6 H (0.0-0.4) % Neut % (Auto) 68.0 (45-73) % Lymph % (Auto) 21.9 (20-40) % [place] % (Auto) 6.2 (2-11) % Eos % (Auto) 1.8 (0-4) % Baso % (Auto) 0.5 (0-2) % Lymph # (Auto) 1.2 (1.2-4.9) X10*3/uL [place] # (Auto) 0.3 (0.1-1.2) X10*3/uL Eos # (Auto) 0.1 (0.0-0.4) X10*3/uL Baso # (Auto) 0.0 (0.0-0.2) X10*3/uL Abs Immat Gran (auto) 0.09 H (0.00-0.03) X10*3/uL Absolute Neuts (auto) 3.7 (2.0-8.3) x10*3/uL Absolute Nucleated RBC 0.000 (0.0-0.012) X10*3/uL Nucleated RBC % (auto) 0.0 (0.0-0.2) /100WBC PT 11.4 (10.9-12.4) SEC INR 1.0 (0.9-1.1) APTT 29.6 (26.0-36.8) SEC Sodium 144 (135-145) mmol/L Potassium 4.0 (3.3-5.1) mmol/L Chloride 108 (96-108) mmol/L Carbon Dioxide 29 (22-29) mmol/L Anion Gap 11 L (12-20) BUN 14 (9-16) mg/dL Creatinine 0.76 (0.5-1.4) mg/dL Estim Creat Clear Calc 67.0 Estimated GFR > 60 Random Glucose 107 (60-115) mg/dL Calcium 9.7 (8.4-10.2) mg/dL Total Bilirubin 0.3 (0.0-1.0) mg/dL AST 28 (5-31) U/L ALT 17 (0-31) U/L Alkaline Phosphatase 83 (39-117) U/L Troponin I High Sens 3.8 (<3.5-17.0) ng/L B-Natriuretic Peptide 62 (<100) pg/mL Total Protein 7.3 (6.5-8.0) g/dL Albumin 3.8 (3.5-5.0) g/dL Urine Color Yellow Urine Appearance Clear Urine pH 5.5 (5.0-9.0) Ur Specific [place] 1.010 (1.005-1.025) Urine Protein Negative (Neg-Trace) mg/dL Urine Glucose (UA) Negative (Negative) mg/dL Urine Ketones Negative (Negative) mg/dL Urine Blood Negative (Negative) Urine Nitrite Negative (Negative) Ur Leukocyte Esterase Negative (Negative) Influenza Type A (PCR) NEGATIVE (Negative) Influenza Type B (PCR) NEGATIVE (Negative) RSV RNA Qual (PCR) NEGATIVE (Negative) SARS-CoV-2 RNA (RT-PCR) NEGATIVE (Negative) Discharge Plan Discharge Clinical Impression: S/P gastric bypass, Heart palpitations, Dizziness Patient Disposition: Home, Self-Care Instructions: Heart Palpitations (DC), Dizziness (ED), Guille-en-Y Gastric Bypass (DC) Prescriptions: No Action folic acid 1 mg tablet 3 mg PO DAILY Qty: 300 2RF methotrexate sodium 2.5 mg tablet 15 mg PO QWEEK Qty: 104 0RF tramadol 50 mg tablet 100 mg PO TID PRN (Reason: pain) metoprolol succinate 25 mg tablet extended release 24 hr 12.5 mg PO DAILY atorvastatin 80 mg tablet 80 mg PO DAILY levothyroxine 125 mcg tablet 125 mcg PO DAILY gabapentin 600 mg tablet 600 mg PO TID esomeprazole magnesium [Nexium 24HR] 20 mg capsule,delayed release(DR/EC) 40 mg PO DAILY ondansetron 4 mg tablet,disintegrating 4 mg PO Q8H PRN mecobalamin (vitamin B12) 500 mcg tablet,chewable PO DAILY vitamin A palmitate 3,000 mcg (10,000 unit) tablet 3,000 mcg PO DAILY zinc acetate 50 mg (zinc) capsule 50 mg PO DAILY multivitamin Tablet 1 tab PO DAILY aspirin 81 mg tablet,delayed release (DR/EC) 81 mg PO DAILY Referrals: Nova Dillon MD [Primary Care Provider] - Pernell Hess MD [Physician] - 04/07/24 Print Language: German
[2024-04-05 15:09] LABS: MANUAL DIFF FLAG NO
[2024-04-05 15:11] LABS: Basophils Percent Auto 0.5 % (0-2); Eosinophils Absolute Auto 0.1 X10*3/uL (0.0-0.4); Eosinophils Percent Auto 1.8 % (0-4); Hematocrit 37.9 % (37.0-47.0); Hemoglobin 11.8 g/dl (12.0-16.0); Imm Gran Abs Auto 0.09 X10*3/uL (0.00-0.03); Imm Gran Pct Auto 1.6 % (0.0-0.4); Lymphocytes Absolute Auto 1.2 X10*3/uL (1.2-4.9); Lymphocytes Percent Auto 21.9 % (20-40); Mean Corpuscular HGB Conc 31.1 g/dl (31.0-35.0); Mean Corpuscular Hemoglobin 28.3 pg (27.0-33.0); Mean Corpuscular Volume 90.9 fL (80.0-98.0); Mean Platelet Volume 8.9 fL (9.4-12.3); Monocytes Absolute Auto 0.3 X10*3/uL (0.1-1.2); Monocytes Percent Auto 6.2 % (2-11); Neutrophils Absolute Auto 3.7 x10*3/uL (2.0-8.3); Platelet Count 264 X10*3/uL (160-400); Red Blood Count 4.17 X10*6/uL (4.20-5.50); White Blood Count 5.5 X10*3/uL (4.8-10.8)
[2024-04-05 15:17] LABS: Prothrombin Time 11.4 SEC (10.9-12.4)
[2024-04-05 15:19] LABS: Partial Thromboplastin Time 29.6 SEC (26.0-36.8)
[2024-04-05 15:34] LABS: B Type Natriuretic Peptide 62 pg/mL (<100)
[2024-04-05 15:36] LABS: Troponin-I High Sensitivity 3.8 ng/L (<3.5-17.0)
[2024-04-05 15:37] LABS: Alanine Aminotransferase 17 U/L (0-31); Albumin Level 3.8 g/dL (3.5-5.0); Anion Gap 11 (12-20); Aspartate Amino Transferase 28 U/L (5-31); Bilirubin Total 0.3 mg/dL (0.0-1.0); Blood Urea Nitrogen 14 mg/dL (9-16); Calcium 9.7 mg/dL (8.4-10.2); Carbon Dioxide 29 mmol/L (22-29); Chloride 108 mmol/L (96-108); Estimated Glomerular Filt Rate > 60; Glucose Random 107 mg/dL (60-115); Sodium 144 mmol/L (135-145); Total Protein 7.3 g/dL (6.5-8.0)
[2024-04-05 15:55] LABS: Influenza A PCR NEGATIVE (Negative); Influenza B PCR NEGATIVE (Negative); Resp Syncy Virus RNA Qual PCR NEGATIVE (Negative); SARS COV2 PCR INHOUSE NEGATIVE (Negative)
[2024-04-05 16:18] LABS: Alkaline Phosphatase 83 U/L (39-117)
[2024-04-05 17:49] LABS: Appearance Urine Clear; Color Urine Yellow; Glucose Urine UA Negative (Negative); Leukocyte Esterase Urine Negative (Negative); Nitrite Urine Negative (Negative); PH 5.5 (5.0-9.0); Urine Blood Negative (Negative); Urine Ketones Negative (Negative); Urine Protein Negative (Neg-Trace)
--- NOTE | 2024-04-05 22:03 | ED.ARRPALP ---
HPI - Arrhythmia/Palpitations General Chief Complaint: Arrhythmia/Palpitations Stated Complaint: chest pain Time Seen by Provider: 04/05/24 19:32 History of Present Illness HPI narrative: Patient is a 73-year-old female presents today with having 2 problems 1 is that she is having palpitation that comes and goes. Usually lasts a few seconds. Usually not related to her dizziness. Patient reports no chest pain no diaphoresis. No bloody stool. No nausea no vomiting. No syncopal or near syncopal episodes. Has a history of palpitation in the past. Not on blood thinners currently is on aspirin. Has a history of gastric bypass. Patient denies any changes in diet. Recently was started on Ozempic. Patient also complaining of a dizziness spells that last for few seconds that is not related to the palpitation. The dizziness is not associated with syncope or near syncope. It is not associated with sudden change in position it just comes and goes. Patient claims that she took a pulse when she was having no palpitation it was in the 80s. She is on metoprolol. Never had a heart attack never had a stroke. Had a question history of AFib. Patient has a follow-up with her primary physician tomorrow Related Data Home Medications ?Medication ?Instructions ?Recorded ?Confirmed atorvastatin 80 mg tablet 80 mg PO DAILY 02/09/20 06/20/23 levothyroxine 125 mcg tablet 125 mcg PO DAILY 02/09/20 06/20/23 metoprolol succinate 25 mg 12.5 mg PO DAILY 02/09/20 06/20/23 tablet,extended release 24 hr tramadol 50 mg tablet 100 mg PO TID PRN pain 02/09/20 06/20/23 gabapentin 600 mg tablet 600 mg PO TID 04/11/20 06/20/23 mecobalamin (vitamin B12) 500 mcg mcg PO DAILY 07/24/22 06/20/23 chewable tablet multivitamin 1 tab PO DAILY 07/24/22 06/20/23 ondansetron 4 mg disintegrating 4 mg PO Q8H PRN 07/24/22 06/20/23 tablet vitamin A palmitate 3,000 mcg 3,000 mcg PO DAILY 07/24/22 06/20/23 (10,000 unit) tablet zinc acetate 50 mg (zinc) capsule 50 mg PO DAILY 07/24/22 06/20/23 aspirin 81 mg tablet,delayed 81 mg PO DAILY 03/18/23 06/20/23 release esomeprazole magnesium 20 mg 40 mg PO DAILY 06/20/23 06/20/23 capsule,delayed release (Nexium 24HR) Previous Rx's ?Medication ?Instructions ?Recorded folic acid 1 mg tablet 3 mg (3 x 1 mg) PO DAILY #300 tabs 08/15/23 methotrexate sodium 2.5 mg tablet 15 mg (6 x 2.5 mg) PO QWEEK #104 03/26/24 tabs Allergies Allergy/AdvReac Type Severity Reaction Status Date / Time NSAIDS (Non-Steroidal AdvReac Unknown not to Verified 04/05/24 14:40 Anti-Inflamma take d/t hx of bariatric surg Review of Systems Review of Systems: Positive palpitation Positive dizziness Yes all other systems are reviewed and are negative [facility] Past Medical History Attestation statement: The following information was validated with the patient. Medical History Positive antinuclear antibody Other and unspecified hyperlipidemia Carotid stenosis, right PAF (paroxysmal atrial fibrillation) Surgical History History of right hip replacement (~01/2020) History of left knee replacement (~09/05/20) History of gastric bypass History of cholecystectomy Family History Family History Father Heart attack Mother No problems noted. Social History Social History Household Members: Spouse and Family Alcohol intake: current Alcohol intake frequency: holidays/special occasions only Patient Tobacco Use Status: Former Tobacco user Smoked in Last 30 Days: No Use of substances other than those prescribed or required for medical reasons: No Advance Directives: No Advance Directives Information Provided: Yes Physical Exam Vital Signs: Vital Signs: Last Vital Signs Temp 98.4 F 04/05/24 20:00 Pulse 74 04/05/24 20:00 Resp 16 04/05/24 20:00 BP 163/66 H 04/05/24 20:00 Pulse Ox 97 04/05/24 20:00 O2 Del Method Room Air 04/05/24 20:00 BMI result Body Mass Index 33.1 Appearance: Alert. Oriented X3. No acute distress. Eyes: Pupils equal, round and reactive to light. ENT: Pharynx normal. Neck: Normal inspection. Neck supple. No lymph nodes noted. No crepitus CVS: Regular rate rhythm Respiratory: No respiratory distress. Breath sounds normal. No Wheezing. No rales Abdomen: Soft and nontender. No rigidity. No distention. good BS x4 Skin: Skin warm and dry. Normal skin color. Normal skin turgor. Extremities: No lower extremity edema. Neurovascular intact to all extremities. No Lacerations. No Rash Neuro: Oriented X 3. No motor deficit. No sensory deficit. Moving all extermities. No slurred speech Medical Decision Making Medical Decision Making [facility] Narrative: Patient well-appearing neurologically intact. Appears to be in a sinus rhythm. Patient was monitored in the emergency department for many hours. Her CT scan of the head by my interpretation was grossly negative. Her chest x-ray was negative. Her hemoglobin is 11.8 no overt anemia. Patient's electrolytes are normal. LFTs are normal. Troponins normal. BNP is 62 no evidence for CHF patient's urine showed no signs of infection flu RSV COVID were all negative. Patient well-appearing no distress has follow-up with cardiology outpatient has follow-up with patient's primary will discharge patient home. Differential Diagnosis Differential Diagnoses: The differential diagnosis associated with the presentation includes Palpitation, dizziness Admission/Observation Consideration of admission/observation: Escalation of care including admission/observation considered Lab Data [facility] Lab Attestation statement: I reviewed the patient's lab results. 04/05/24 15:00 04/05/24 15:00 Labs: Lab Results 04/05/24 04/05/24 Range/Units 15:00 17:29 WBC 5.5 (4.8-10.8) X10*3/uL RBC 4.17 L (4.20-5.50) X10*6/uL Hgb 11.8 L (12.0-16.0) g/dl Hct 37.9 (37.0-47.0) % MCV 90.9 (80.0-98.0) fL MCH 28.3 (27.0-33.0) pg MCHC 31.1 (31.0-35.0) g/dl RDW 18.0 H (11.0-16.0) % Plt Count 264 D (160-400) X10*3/uL MPV 8.9 L (9.4-12.3) fL Immature Gran % (Auto) 1.6 H (0.0-0.4) % Neut % (Auto) 68.0 (45-73) % Lymph % (Auto) 21.9 (20-40) % [place] % (Auto) 6.2 (2-11) % Eos % (Auto) 1.8 (0-4) % Baso % (Auto) 0.5 (0-2) % Lymph # (Auto) 1.2 (1.2-4.9) X10*3/uL [place] # (Auto) 0.3 (0.1-1.2) X10*3/uL Eos # (Auto) 0.1 (0.0-0.4) X10*3/uL Baso # (Auto) 0.0 (0.0-0.2) X10*3/uL Abs Immat Gran (auto) 0.09 H (0.00-0.03) X10*3/uL Absolute Neuts (auto) 3.7 (2.0-8.3) x10*3/uL Absolute Nucleated RBC 0.000 (0.0-0.012) X10*3/uL Nucleated RBC % (auto) 0.0 (0.0-0.2) /100WBC PT 11.4 (10.9-12.4) SEC INR 1.0 (0.9-1.1) APTT 29.6 (26.0-36.8) SEC Sodium 144 (135-145) mmol/L Potassium 4.0 (3.3-5.1) mmol/L Chloride 108 (96-108) mmol/L Carbon Dioxide 29 (22-29) mmol/L Anion Gap 11 L (12-20) BUN 14 (9-16) mg/dL Creatinine 0.76 (0.5-1.4) mg/dL Estim Creat Clear Calc 67.0 Estimated GFR > 60 Random Glucose 107 (60-115) mg/dL Calcium 9.7 (8.4-10.2) mg/dL Total Bilirubin 0.3 (0.0-1.0) mg/dL AST 28 (5-31) U/L ALT 17 (0-31) U/L Alkaline Phosphatase 83 (39-117) U/L Troponin I High Sens 3.8 (<3.5-17.0) ng/L B-Natriuretic Peptide 62 (<100) pg/mL Total Protein 7.3 (6.5-8.0) g/dL Albumin 3.8 (3.5-5.0) g/dL Urine Color Yellow Urine Appearance Clear Urine pH 5.5 (5.0-9.0) Ur Specific [place] 1.010 (1.005-1.025) Urine Protein Negative (Neg-Trace) mg/dL Urine Glucose (UA) Negative (Negative) mg/dL Urine Ketones Negative (Negative) mg/dL Urine Blood Negative (Negative) Urine Nitrite Negative (Negative) Ur Leukocyte Esterase Negative (Negative) Influenza Type A (PCR) NEGATIVE (Negative) Influenza Type B (PCR) NEGATIVE (Negative) RSV RNA Qual (PCR) NEGATIVE (Negative) SARS-CoV-2 RNA (RT-PCR) NEGATIVE (Negative) Independent Interpretation I performed an independent interpretation of an: EKG (Sinus rhythm heart rate is 90 SD QRS QTC normal no acute ST segment elevation) Radiology Impression Discussion of test interpretation with radiology: I have reviewed the radiologist's reading. External Record Review External record reviewed: Inpatient record and Office record Chronic Conditions History of gastric bypass Discharge Plan Discharge Clinical Impression: S/P gastric bypass, Heart palpitations, Dizziness Patient Disposition: Home, Self-Care Instructions: Heart Palpitations (DC), Guille-en-Y Gastric Bypass (DC), Dizziness (ED) Prescriptions: No Action folic acid 1 mg tablet 3 mg PO DAILY Qty: 300 2RF methotrexate sodium 2.5 mg tablet 15 mg PO QWEEK Qty: 104 0RF tramadol 50 mg tablet 100 mg PO TID PRN (Reason: pain) metoprolol succinate 25 mg tablet extended release 24 hr 12.5 mg PO DAILY atorvastatin 80 mg tablet 80 mg PO DAILY levothyroxine 125 mcg tablet 125 mcg PO DAILY gabapentin 600 mg tablet 600 mg PO TID esomeprazole magnesium [Nexium 24HR] 20 mg capsule,delayed release(DR/EC) 40 mg PO DAILY ondansetron 4 mg tablet,disintegrating 4 mg PO Q8H PRN mecobalamin (vitamin B12) 500 mcg tablet,chewable PO DAILY vitamin A palmitate 3,000 mcg (10,000 unit) tablet 3,000 mcg PO DAILY zinc acetate 50 mg (zinc) capsule 50 mg PO DAILY multivitamin Tablet 1 tab PO DAILY aspirin 81 mg tablet,delayed release (DR/EC) 81 mg PO DAILY Referrals: Nova Dillon MD [Primary Care Provider] - Pernell Hess MD [Physician] - 04/07/24 Print Language: Khmer
== END 2024-04-05 22:29 | disposition home or self-care (01) ==
PROVIDERS: Physician Assistant; Emergency Provider Emergency Medicine Emergency Medical Services; PCP Internal Medicine
DX: I49.9 Cardiac arrhythmia, unspecified (principal); R00.2 Palpitations; Z98.84 Bariatric surgery status; R42 Dizziness and giddiness; R06.02 Shortness of breath; Z87.891 Personal history of nicotine dependence; Z03.818 Encounter for observation for suspected exposure to other biological agents ruled out; Z79.899 Other long term (current) drug therapy
CPT/HCPCS: 0241U; 70450; 71045; 80053; 81003; 83880; 84484; 85025; 85610; 85730; 93005; 99284; 99285

== ENCOUNTER → 2024-04-05 14:19 | Outpatient (BNV) | payer MEDICARE, SELFPAY | PROVIDERS: Emergency Provider Emergency Medicine Emergency Medical Services; PCP Internal Medicine; Visit Provider Internal Medicine | DX: R00.2 Palpitations (principal) | CPT/HCPCS: 93010 ==

== ENCOUNTER → 2024-04-05 14:39 | Outpatient (BNV) | payer MEDICARE, SELFPAY | PROVIDERS: PCP Internal Medicine; Visit Provider Nuclear Medicine | DX: R07.9 Chest pain, unspecified (principal); R42 Dizziness and giddiness | CPT/HCPCS: 70450; 71045 ==

== ENCOUNTER 2024-05-19 14:16 | Outpatient (AMB) | payer MEDICARE, SELFPAY ==
--- NOTE | 2024-05-19 14:32 | MHC.OFFVIS ---
Vital Signs 05/19/24 14:35 Height 5 ft 2 in Weight 176 lb 12.972 oz BMI 32.3 BP 142/70 H Blood Pressure Location Lt brachial Position Sitting Respiration 16 Pulse 69 Pulse Source Pulse Oximeter Pulse Oximetry (%) 98 Oxygen Delivery Method Room Air Intake Visit Reasons: PsA Intake Note: Patient presents for PsA. Allergies NSAIDS (Non-Steroidal Anti-Inflamma Adverse Reaction (Unknown, Verified 05/19/24 14:35) not to take d/t hx of bariatric surg Medication List - Last Reconciled 05/19/24 by Adele Muniz MD aspirin 81 mg PO DAILY atorvastatin 80 mg PO DAILY esomeprazole magnesium (Nexium 24HR) 40 mg PO DAILY folic acid 3 mg (3 x 1 mg) PO DAILY gabapentin 600 mg PO TID levothyroxine 125 mcg PO DAILY mecobalamin (vitamin B12) mcg PO DAILY methotrexate sodium 15 mg (6 x 2.5 mg) PO QWEEK metoprolol succinate ER 12.5 mg PO DAILY multivitamin 1 tab PO DAILY ondansetron 4 mg PO Q8H PRN tramadol 100 mg PO TID PRN vitamin A palmitate 3,000 mcg PO DAILY zinc acetate 50 mg PO DAILY HPI Comments Details: Patient is a 73-year-old female with hypertension complicated by carotid stenosis, paroxysmal atrial fibrillation, hyperlipidemia, GERD, hypothyroidism, polyarticular osteoarthritis (hands, hips and knees) and psoriatic arthritis here today for follow up Interval History: Patient last seen 03/05/2024. At that time she was following up with Dr. Perez for an urgent visit of trigger finger in her thumb. She received an injection at that time. At the visit prior 01/15/2024 she was following up for her psoriatic arthritis and doing well on methotrexate Today, Patient reports that her trigger finger improved. No complaints with respect to her joints. Does note that she gets tenderness over her Heberden nodes in her hands. Rheumatologic History: dx 09/2022 MTX 10/21 effective lowered to 15 mg 11/2022 due to transamintis increased to 20 mg 03/2023 due to flare lowered to 15 mg again 09/2023 due to transaminitis Initial history: This is a 72 year old female who presents for evaluation of left hand pain. Back in 2019 patient was evaluated by Gurjit Montoya at [place] for trigger finger of her left 2nd and 3rd fingers, she received cortisone injections with significant improvement. Over the last year patient has been having pain and stiffness of her left hand. Occasional pain and stiffness of her ankles. Patient takes Tylenol with some relief, she takes tramadol for her back pain. She denies any fevers, weight loss, joint swelling. Denies fever few years no history of DVT/PE Current Rheumatology Medication(s): Methotrexate 15 mg weekly Folic acid 3 mg daily [facility] Medical History (Updated 05/19/24 @ 15:11 by Adele Muniz MD) Osteoarthritis of hands, bilateral Positive antinuclear antibody Other and unspecified hyperlipidemia Carotid stenosis, right PAF (paroxysmal atrial fibrillation) Surgical History History of right hip replacement (~01/2020) History of left knee replacement (~09/05/20) History of gastric bypass History of cholecystectomy Family History Father Heart attack Mother No problems noted. Social History Household Members: Spouse and Family Alcohol intake: current Alcohol intake frequency: holidays/special occasions only Patient Tobacco Use Status: Former Tobacco user Review of Systems Const Details: Review of Systems Constitutional: Denies fever, chills, weight loss ENT: Denies vision changes, eye pain or eye redness, dental caries, dry mouth GI: Denies nausea, vomiting, diarrhea, abdominal pain, change in BM Pulm: Denies SOB, GUERIN, hemoptysis, wheezing Cards: Denies chest pain, palpitations Skin: Denies Raynaud's, rash, nail changes, photosensitivity, WELD INSPECTOR: Denies headaches, weakness, paresthesias, recurrent falls MSK: as per HPI All other systems reviewed and are unremarkable except noted above Physical Exam Vital Signs: Last Vital Signs Pulse 69 05/19/24 14:35 Resp 16 05/19/24 14:35 BP 142/70 H 05/19/24 14:35 Pulse Ox 98 05/19/24 14:35 Oxygen Delivery Method Room Air 05/19/24 14:35 BMI result Body Mass Index 32.3 Vital signs reviewed Physical Examination CONSTITUITIONAL Patient alert and cooperative. Well appearing and in no apparent painful distress HEENT Conjunctiva and sclera clear. ?Pupils equal round and reactive to light. ?No lymphadenopathy. ? CHEST/RESPIRATORY SYSTEM Normal respiratory effort and able to speak in complete sentences. ?Clear to auscultation bilaterally. ?No crackles, rales, rhonchi, wheezes heard. CARDIAC SYSTEM Regular rate and rhythm. ?S1 and S2 heard no murmurs. 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 No deformities noted. ?No synovitis noted to the MCPs, PIPs or DIPs. ?No tenderness to palpation of these joints. Prominent Heberden nodes Wrists: ?Full range of motion at the wrists without pain. ?No tenderness to palpation or synovitis noted to the wrists. Elbows: Full range of motion without pain. No tenderness, weakness, swelling, increased warmth or erythema. Shoulders: Full range of motion without pain. No tenderness, weakness, swelling, increased warmth or erythema. Hips: Full range of motion without pain. Hip bursa: No tenderness to palpation Knees: ?Full range of motion. ?No tenderness, swelling, increased warmth or erythema.? Crepitation of the right knee felt Ankles: Full range of motion. ?No tenderness, swelling, increased warmth or erythema.? Feet: ?Negative squeeze test. ?No tenderness to palpation or swelling of the MTPs. Tender points:?No tenderness to palpation of the bilateral trapezius, supraspinatus, greater trochanters, anterior costochondral junctions, bilateral gluteal areas, bilateral suboccipital muscle insertions SKIN Skin intact without rashes. Results Reviewed Results Reviewed: Laboratory Tests 07/24/22 01/06/24 04/05/24 14:01 12:46 15:00 WBC 5.5 RBC 4.17 L Hgb 11.8 L Hct 37.9 Plt Count 264 D ESR 23 H Sodium 144 Potassium 4.0 Chloride 108 Carbon Dioxide 29 BUN 14 Creatinine 0.76 Total Bilirubin 0.3 AST 28 ALT 17 Alkaline Phosphatase 83 Total Protein 7.3 Albumin 3.8 Rheumatoid Factor < 13.0 Cycl Citrul Peptide IgG <16 Hepatitis A IgM Ab Nonreactive Hep Bs Antigen Negative Hep Bs Antibody NONREACTIVE Hep B Core Total Ab Nonreactive Hepatitis C Ab (EIA) Nonreactive TB Test (T-Spot) Com Negative Assessment & Plan Assessment & Plan (1) Psoriatic arthritis: Comment: dx 09/2022 MTX 10/21 effective lowered to 15 mg 11/2022 due to transamintis increased to 20 mg 03/2023 due to flare lowered to 15 mg again 09/2023 due to transaminitis Code(s): L40.50 - Arthropathic psoriasis, unspecified Category: Medical Plan: #PsA Patient is a 73-year-old female with psoriatic arthritis currently in remission. Doing well on methotrexate and tolerating Plan - Methotrexate 15mg every week - Folic acid 3 mg daily - RTC 4 months - Labs before visit: CBC, CMP, ESR, CRP, hepatitis panel, T spot (2) Osteoarthritis of hands, bilateral: Code(s): M19.041 - Primary osteoarthritis, right hand; M19.042 - Primary osteoarthritis, left hand Category: Medical Qualifiers: Osteoarthritis type: primary Qualified Code(s): M19.041 - Primary osteoarthritis, right hand; M19.042 - Primary osteoarthritis, left hand Plan: #Bilateral hand OA Patient with prominent Heberden's nodes and x-rays shown on phone consistent with degenerative/osteoarthritis of the hands. 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 Limit alcohol and avoid Bactrim ? Monitoring: ?CBC, BMP, LFTs every 3-4 months and hepatitis serologies as needed Plan I spent 32 minutes reviewing the record and labs, taking a history, examining the patient, discussing the treatment plan and documenting in the medical record Orders: Orders Comprehensive Met. 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) use of antimetabolite agent Ferritin 4 Months L40.50 - Arthropathic psoriasis, unspecified, Z79.631 - nursing home (current) use of antimetabolite agent IRON PROFILE 4 Months L40.50 - Arthropathic psoriasis, unspecified, Z79.631 - 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 (current) use of antimetabolite agent Complete Blood Count Auto Diff 4 Months L40.50 - Arthropathic psoriasis, unspecified, Z79.631 - 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 (current) use of antimetabolite agent C Reactive Protein 4 Months L40.50 - Arthropathic psoriasis, unspecified, Z79.631 - 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 (current) use of antimetabolite agent T Spot TB 4 Months L40.50 - Arthropathic psoriasis, unspecified, Z79.631 - 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 (current) use of antimetabolite agent Transferrin 4 Months L40.50 - Arthropathic psoriasis, unspecified, Z79.631 - 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 (current) use of antimetabolite agent Medications: Changed From methotrexate sodium 15 mg (6 x 2.5 mg) PO QWEEK 104 tabs 0RF L40.50 - Arthropathic psoriasis, unspecified To methotrexate sodium 15 mg (6 x 2.5 mg) PO QWEEK 90 days 78 tabs 1RF L40.50 - Arthropathic psoriasis, unspecified Refilled folic acid 3 mg (3 x 1 mg) PO DAILY 300 tabs 1RF L40.50 - Arthropathic psoriasis, unspecified Coding Level of Care Code Est Pt Level 4 (88898) Complex EM visit Add On G2211 Diagnoses Psoriatic arthritis L40.50 Primary osteoarthritis of both hands M19.041; M19.042 Osteoarthritis type: primary nursing home methotrexate user Z79.631
[2024-05-19 14:35] VITALS: BP 142/70; PULSE 69; RESP 16; O2SAT 98; BMI 32.3
--- OUTSIDE RECORDS SUMMARY | 2024-05-19 15:17 | XMS_ITS | Clinical Summary ---
Author Organization [facility] Address [address] [place] [address] Care Team Providers Care Appraisal Specialist Name Role Phone Luis Antonio Dillon MD Primary Care Provider [phone] Pernell Hess MD Unavailable Xiao Squires MD Unavailable Unavailable Dayanara Benton MD Unavailable Unavailable Allergies Active Allergy Reactions Severity Noted Date Comments Nsaids 02/29/2020 Bariatric surgery Medications Medication Sig Dispensed Refills Start Date End Date Status Multiple Vitamin (MULTIVITAMIN OR) Take by mouth daily. 0 Active Cyanocobalamin (VITAMIN B 12 OR) Take 1,000 mcg by mouth daily. gummie 0 Active CALCIUM CITRATE OR Take by mouth daily. 1000 mg calcium with 500 mg D3 0 Active Zinc 100 MG Tab Take by mouth. 4 times a week 0 Active Biotin 5 MG Tab Take by mouth daily. 0 Active Vitamin A 13259 UNITS Tab Take by mouth daily. 0 Active Medical MarijuanaIndications: Chronic bilateral low back pain with bilateral sciatica 0 Active Magnesium 250 MG Tab Take by mouth. 0 Active ondansetron (ZOFRAN-ODT) 4 MG disintegrating tablet Take 1 Tablet by mouth 3 times daily as needed for Nausea. 90 Tablet 0 06/01/2022 Active Ciclopirox 0.77 % Gel Apply topically daily 30 g 2 08/22/2022 Active esomeprazole (NEXIUM) 20 MG capsule Take 1 Capsule by mouth every morning (before breakfast). 0 Active methotrexate 2.5 MG tablet Take 8 Tablets by mouth once a week. 0 12/26/2022 Active folic acid (FOLVITE) 1 MG tablet Take 3 Tablets by mouth daily. 0 12/27/2022 Active Aspirin (ASPIR-81 OR) Take by mouth. 0 Active metoprolol (TOPROL-XL) 25 MG 24 hr tablet Take 0.5 Tablets by mouth daily. 100 Tablet 1 05/20/2023 Active atorvastatin (LIPITOR) 80 MG tablet Take 1 Tablet by mouth daily. 90 Tablet 1 09/24/2023 Active levothyroxine 125 MCG tabletIndications:Hyp othyroidism, unspecified type Take 1 Tablet by mouth daily. 100 Tablet 4 09/24/2023 Active tramadol (ULTRAM) 50 MG tablet Take 2 Tablets by mouth every 8 hours as needed for Pain for up to 28 days. 168 Tablet 0 01/20/2024 Active gabapentin (NEURONTIN) 600 MG tablet TAKE 1 TABLET BY MOUTH 3 TIMES DAILY 300 Tablet 1 01/28/2024 Active Active Problems Problem Noted Date Medical marijuana use 01/20/2024 Carotid stenosis, right 12/27/2021 Overview: 50-79% [facility] [place] [facility] Type A blood, Rh positive 11/22/2021 Obesity (BMI 30-39.9) 06/24/2020 COPD (chronic obstructive pulmonary dise ase) 03/18/2020 Arthritis of right hip 12/31/2019 Aortic atherosclerosis 12/17/2018 Osteoarthritis 12/17/2018 Overview: Cervical, Thoracic, & Lumbosacral Spine, Hips, Knees Vitamin D deficiency 12/17/2018 Chronic bilateral low back pain with sci atica 12/17/2018 Depression 12/17/2018 Neuropathy 12/17/2018 Atrial fibrillation 11/26/2018 Esophageal reflux 10/16/2016 Bilateral chronic knee pain 10/16/2016 Overview: Dr Boyce GARRETT (obstructive sleep apnea) 10/16/2016 Fatty liver 10/08/2016 Overview: Seen on ultrasound Endometrial thickening on ultrasound 12/2016 Overview: 8 mm, Seen on ultrasound 09/10/16 History of bariatric surgery 07/20/2016 Overview: 2017 Gastric Bypass Hypercholesteremia 03/23/2011 Hypothyroidism 11/08/2010 Overview: Had radiation for Graves, Fibrocystic breast 11/08/2010 Lumbar spinal stenosis 11/08/2010 Resolved Problems Problem Noted Date Resolved Date HTN (hypertension) 03/18/2020 03/18/2020 Atrial fibrillation 11/26/2018 12/25/2018 Common bile duct obstruction 12/18/2011 Overview: Post cholecystectomy seen on [facility]CP [facility] Amador., Immunizations Name Administration Dates Next Due COVID-19 (Pfizer) 01/03/2023,,06/10/2020,05/03,04/12/2020 COVID-19 (Pfizer) Pt Reported 12/20/2023, 021,04/12/2020 COVID-19 (UNSPECIFIED) 12/20/2023 Covid-19 Bivalent (Moderna) 12/20/2021 Influenza (> 6 Months) 12/20/2021,2013,01/07/2013,01/15 Influenza Flu (PT Reported) 12/20/2023, 9 Influenza vaccine high dose age 65 and over 01/03/2023,12/14/2021,12/18/2019,12/03 Pneumoccoccal(Adult) Polysac charide PPSV23 06/14/2016 Pneumococcal Conjugate PCV-13 11/15/2014 RSV 12/20/2023 Shingrix (Recombinant zoster vaccine) 09/14/2018 Tdap 02/26/2022,02/05/2011 Family History Medical History Relation Name Comments Scleroderma Aunt No Known Problems Brother 1 No Known Problems Brother 2 adrenal tumor Daughter uterine polps Daughter COPD Father Emphysema Father NH Father Hypertension Maternal Grandmother Hypertension Mother CHF, COPD Spinal stenosis Mother graves disease Sister No Known Problems Son Relation Name Status Comments Aunt Brother 1 Alive Brother 2 Alive Daughter Alive Father Maternal Grandfather Maternal Grandmother Mother Paternal Grandfather Paternal Grandmother Sister Alive Son Alive Social History Tobacco Use Types Packs/Day Years Used Date Smoking Tobacco: Former Cigarettes 2 22 Q uit: 04/01/1990 Smokeless Tobacco: Never Tobacco Cessation:Counseling Given: Not Answered Alcohol Use Standard Drinks/Week Comments Yes 0 (1 standard drink = 0.6 oz pur e alcohol) 3 glasses wine per yr Alcohol Habits Answer Date Recorded How often do you have a drink containing alcohol ? Monthly or less 01/13/2024 How many drinks containing a lcohol do you have on a typical day when you are drinking? 1 or 2 01/13/2024 How often do you have six or more drinks on one occasion? Never 01/13/2024 Social Isolation Answer Date Recorded In a typical week, how many times do you talk on the phone with family, friends, or neighbors? More than three times a week 01/13/2024 How often do you get togethe r with friends or relatives? More than three times a week 01/13/2024 How often do you attend [facility] or anabaptist services? Never 01/13/2024 Do you belong to any clubs o r organizations such as christianity groups, unions, fraternal or athletic groups, or school groups? No 01/13/2024 How often do you attend meet ings of the clubs or organizations you belong to? Never 01/13/2024 Are you now , , , , never or living with a partner? 01/13/2024 Physical Activity Answer Date Recorded On average, how many days pe r week do you engage in moderate to strenuous exercise (like walking fast, running, jogging, dancing, swimming, biking, or other activities that cause a light or heavy sweat)? 0 days 01/13/2024 On average, how many minutes do you engage in exercise at this level? 0 min 01/13/2024 Stress Answer Date Recorded Do you feel stress - tense, restless, nervous, or anxious, or unable to sleep at night because your mind is troubled all the time - these days? Not at all 01/13/2024 Financial Resource Strain Answer Date R ecorded How hard is it for you to pa y for the very basics like food, housing, medical care, and heating? Not hard at all 01/13/2024 Intimate Partner Violence Answer Date R ecorded Within the last year, have y ou been afraid of your partner or ex-partner? No 01/13/2024 Within the last year, have y ou been humiliated or emotionally abused in other ways by your partner or ex-partner? No Within the last year, have y ou been kicked, hit, slapped, or otherwise physically hurt by your partner or ex-partner? No 01/13/2024 Within the last year, have y ou been raped or forced to have any kind of sexual activity by your partner or ex-partner? No 01/13/2024 Food Insecurity Answer Date Recorded Within the past 12 months, y ou worried that your food would run out before you got money to buy more. Never true 01/13/2024 Within the past 12 months, t he food you bought just didn't last and you didn't have money to get more. Never true 01/13/2024 Transportation Needs Answer Date Record ed In the past 12 months, has l ack of transportation kept you from medical appointments or from getting medications? No 12/30 In the past 12 months, has l ack of transportation kept you from meetings, work, or getting things needed for daily living? No 01/13/2024 Housing Stability Answer Date Recorded In the last 12 months, was t here a time when you were not able to pay the mortgage or rent on time? No 01/13/2024 In the last 12 months, how many places have you lived? 1 01/13/2024 In the last 12 months, was t here a time when you did not have a steady place to sleep or slept in a fpc (including now)? No 01/13/2024 Sex Assigned at Date Recorded Not on file Job Start Date Occupation Industry Not on file Not on file Not on file Last Filed Vital Signs Vital Sign Reading Time Taken Comments Blood Pressure 105/47 01/20/2024 3:28 PM EDT Pulse 57 01/20/2024 3:28 PM EDT Temperature 36.7 ??C (98.1 ??F) 01/20/2024 3:28 PM ED T Respiratory Rate 14 11/15/2020 2:18 PM EDT Oxygen Saturation 98% 11/26/2016 2:21 PM EDT Inhaled Oxygen Concentration - - Weight 87.5 kg (193 lb) 01/20/2024 3:28 PM EDT Height 157.5 cm (5' 2 ) 01/20/2024 3:28 PM EDT Body Mass Index 35.3 01/20/2024 3:28 PM EDT Plan of Treatment Health Maintenance Due Date Last Done Comments MAMMOGRAM 06/16/2021 06/16/2020, 06/30, 07/02/2016, Additional history exists Covid-19 Vaccine ( season) 2024 12/20/2023, 12/20/2023, 01/03/2023, Additional history exists BMI CHECK/ADVISE 04/01/2024 05/06/2019, , 12/22/2018, Additional history exists BONE DENSITY SCREENING 09/11/2024 09/11/2022, 2015 CHOLESTEROL SCREENING 01/19/2029 01/20/2024 , 05/19/2021, 11/04/2019, Additional history exists COLON CANCER SCREENING 02/02/2032 02/01/2022, 2010 DTAP/TDAP/TD (3 - Td or Tdap) 02/27/2032 02/26/2022, 02/05/2011 HEPATITIS C SCREENING Completed 01/15/2013 PNEUMOCOCCAL VACCINE Completed 06/14/2016, 11/16/19 15 SHINGLES VACCINE Completed 05/06/2019, 09/14/2018 INFLUENZA Completed 12/20/2023, 1007/2022, 12/20/2021, Additional history exists Care Teams Appraisal Specialist Relationship Specialty Start Date End Date Luis Antonio Dillon MD [address] [place] [id number] PCP - General Internal Medicine 11/24/18 Pernell Hess MD [address] [place] [address] Internal Medicine 09/12/22 Xiao Perez MD [address] [place] [address] Referring Physician Rheumatology 09/12/22 Dayanara Benton MD [address] [place] [address] Hematology 09/12/22
--- OUTSIDE RECORDS SUMMARY | 2024-05-19 15:17 | XMS_ITS | Encounter Summary ---
Author Organization [facility] Address [address] [place] [address] Care Team Providers Care Cyberathlete Name Role Phone Luis Antonio Dillon MD Primary Care Provider [phone] Pernell Hess MD Unavailable Xiao Squires MD Unavailable Unavailable Dayanara Benton MD Unavailable Unavailable Reason for Visit * Reason Comments E-prescribe Rx Request Encounter Details Date Type Department Care Team Description 02/12/2024 Refill Adult Medicine - [place] [address] [place] [address] Luis Antonio Dillon MD [address] [place] [address] E-prescribe Rx Request Social History Tobacco Use Types Packs/Day Years Used Date Smoking Tobacco: Former Cigarettes 2 22 Q uit: 04/01/1990 Smokeless Tobacco: Never Alcohol Use Standard Drinks/Week Comments Yes 0 [...] week 01/13/2024 How often do you attend chur ch or evangelical services? Never 01/13/2024 Do you belong to any clubs o r organizations such as advent groups, unions, fraternal or athletic groups, or [...] place to sleep or slept in a longterm (including now)? No 01/13/2024 Sex Assigned at Date Recorded Not on file Job Start Date Occupation Industry Not on file Not on file Not on file documented as of this encounter Plan of Treatment Not on file documented as of this encounter Visit Diagnoses Not on filedocumented in this encounter Care Teams Cyberathlete Relationship Specialty Start Date End Date Luis Antonio Dillon MD [address] [place], [place] PCP - General Internal Medicine 11/24/18 Pernell Hess MD [address] [place], [place] Internal Medicine 09/12/22 Xiao Perez MD [address] [place], [place] Referring Physician Rheumatology 09/12/22 Dayanara Benton MD [address] [place], [place] Hematology 09/12/22 documented as of this encounter
--- OUTSIDE RECORDS SUMMARY | 2024-05-19 15:18 | XMS_ITS | Data Portability ---
Author Organization [place] [facility] [place] Address [address] [place] [address] Assessment Encounter Date Assessment Date Assessment LastModified by Organization Details LastModified Time 11/09/2022 11/09/2022 HPI : ? Patient is here for 1 year follow-up from her left total hip replacement, as well as 2-year follow-up from her left total knee replacement. She is also 3 years from her right total hip replacement. All 3 joints are doing well. She has good function. She has good strength. She does feel occasional twinging in the left knee. She does have occasional decreased motion. Overall she is happy with the outcome in all 3 joints. Overall,.?Patient reports good pain relief in the hip and knee and satisfactory presybeterian of function in terms of activities of daily living. Physical Exam : Patient is well nourished, well-developed, in no acute distress, with appropriate mood and affect. The patient is oriented to time, place, and person. Respirations are even and unlabored. There is no inguinal adenopathy. Examination of the contralateral hip shows normal range of motion, strength, no tenderness, and well-healed skin incision The operative limb is well-perfused, with well healed skin incisions. The patient demonstrates good hip motion, stability, and strength. There is no pain with ROM Muscle strength is normal. Pedal pulses are palpable. Patient has good knee motion. None tenderness to palpation. Stable to varus and valgus stress. Assessment/Plan : This patient is functioning well after left total hip replacement and left total knee replacement. Continue to work on hip and knee conditioning exercises. [id number] medications as needed. Ultimate failure may occur due to mechanical wear, loosening or breakage. Follow-up is recommended to assess for the possibility of failure. She can follow-up at 5 years from surgery with repeat x-rays of the joints at that time. We can do all 3 joints at her next visit. Not available 11/09/2022 08:50:29 Plan of Treatment Reminders Order Date Submit Date Provider Last Modified By Organization Details Last Modified Time Details Appointments None record ed. Lab None record ed. Referral None record ed. Procedures None record ed. Surgeries None record ed. Imaging XR, knee, 3 view 023 11/10/19 [address] [place] [address] [facility], [address], [place], [address], 3 08:49:22 XR, hip, unilat eral, 2 or 3 view 023 11/10/[address] [facility], [address], [place], [address], 3 08:49:22 Medication Orders None record ed. Patient TargetsNo targets recorded. Patient Instructions Encounter Date Encounter Id Patient Instructions Last Modified By Organization Details Last Modified Time 11/09/2022 [id number] AP pelvis, AP an d lateral radiographs of the left hip taken today demonstrate a left total hip replacement with components in appropriate position without any signs of hardware related complication. AP, lateral, and patellar radiographs of the left knee taken today demonstrate satisfactory position and alignment of components following left total knee replacement. Not available 11/09/2022 08:50:37 Reason for Referral None Reported. Medical Equipment None Reported. Medications Name Sig Start Date Stop Date Status Note LastModified by Organization Details LastModified Time amoxicillin 500 mg capsule TAKE 4 CAPSULES ONE HOUR PRIOR TO DENTAL PROCEDURE active Not Available Not Available No t Available atorvastatin 80 mg tablet TAKE 1 TABLET BY MOUTH EVERY DAY active Not Available Not Available No t Available gabapentin 600 mg tablet TAKE 1 TABLET BY MOUTH EVERY 8 HOURS active Not Available Not Available No t Available clopidogrel 75 mg tablet TAKE 1 TABLET BY MOUTH EVERY DAY active Not Available Not Available No t Available tramadol 50 mg tablet TAKE 2 TABLETS BY MOUTH EVERY 8 HOURS NEEDED FOR PAIN FOR UP TO 28 DAYS. active Not Available Not Available Not Available methotrexate sodium 2.5 mg tablet TAKE 6 TABS BY MOUTH ONCE WEEKLY FOR 2 WEEKS THEN 8 TABS ONCE WEEKLY active Not Available Not Available Not Available levothyroxin e 125 mcg tablet TAKE 1 TABLET BY MOUTH EVERY DAY active Not Available Not Available No t Available folic acid 1 mg tablet TAKE 1 TABLET BY MOUTH EVERY DAY active Not Available Not Available No t Available bisacodyl 5 mg tablet,delay ed release PLEASE SEE ATTACHED FOR DETAILED DIRECTIONS active Not Available Not Available N ot Available metoprolol succinate ER 25 mg tablet,exten ded release 24 hr TAKE 1/2 TABLET BY MOUTH EVERY DAY active Not Available Not Available No t Available ondansetron 4 mg disintegrati ng tablet TAKE 1 TABLET BY MOUTH 3 TIMES DAILY NEEDED FOR NAUSEA. active Not Available Not Available Not Available ciclopirox 0.77 % topical gel APPLY TO AFFECTED AREA TOPICALLY EVERY DAY active Not Available Not Available No t Available chlorhexidin e gluconate 0.12 % mouthwash RINSE MOUTH WITH 15ML (1 CAPFUL) FOR 30 SECONDS IN MORNING AND EVENING AFTER BRUSHING, THEN SPIT active Not Available Not Available No t Available GaviLyte-G 236 gram-22.74 gram-6.74 gram-5.86 gram oral solution PLEASE SEE ATTACHED FOR DETAILED DIRECTIONS active Not Available Not Available N ot Available Vitals None Recorded Social History None recorded. Functional Status None recorded. Mental Status None recorded. Family History Nothing Reported. Medical History No medical history recorded. Gynecological HistoryNo gynecological history recorded. Obstetrics History GPAL:G 0 P 0 0 0 0 Past Encounters Encounter ID Performer Location Encounter Start Date Encounter Closed Date Diagnosis/Indication Diagnosis SNOMED-CT Code Diagnosis ICD10 Code Diagnosis Note [id number] MD YESSENIA Farrell [facility] [address] [address] 11/09/2022 08:14:47 11/09/2022 08:49:21 History of total replacement of left hip joint 2073249576 567331 Z96.642 History of left total knee replacement 5143964756 309244 Z96.652 Aftercare [id number] Z47. 1 Health Concerns Section Related Observation LastModified by Organization Detai ls LastModified Time None Recorded Concern Status LastModified by Organization Details LastModified Time None Recorded Advance Directives Directive None Recorded Payers Encounter Date Sequence Insurance Name Policy Number Policy [place] Covered Member ID [place] Member ID Guarantor Name 11/09/2022 1 [facility] (MEDICARE REPLACEMENT/A DVANTAGE - HMO) [id number] Danelle Vallejo [id number] Danelle Vallejo OBGyn Episode No OBEpisode recorded.
--- OUTSIDE RECORDS SUMMARY | 2024-05-19 15:18 | XMS_ITS | Encounter Summary ---
Author Organization [facility] Address [address] [place] [address] Care Team Providers Care Criminal Justice Program Director Name Role Phone Luis Antonio Dillon MD Primary Care Provider [phone] Pernell Hess MD Unavailable Xiao Squires MD Unavailable Unavailable Dayanara Benton MD Unavailable Unavailable Encounter Details Date Type Department Care Team Description 10/10/2020 Insole Stiffener Report Medical Records [address] [place] [address] Pernell Hess MD Social History Tobacco Use Types Packs/Day Years [...] week 01/13/2024 How often do you attend [facility] or mu-ism services? Never 01/13/2024 Do you belong to any clubs o r organizations such as oriental orthodox groups, unions, fraternal or athletic groups, or [...] place to sleep or slept in a mcc (including now)? No 01/13/2024 Sex Assigned at Date Recorded Not on file Job Start Date Occupation Industry Not on file Not on file Not on file COVID-19 Exposure Response Date Recorded In the last month, have you been in contact with someone who was confirmed or suspected to have Coronavirus / COVID-19? No / Unsure 09/27/2020 12:53 PM EDT documented as of this encounter Plan of Treatment Not on file documented as of this encounter Visit Diagnoses Not on filedocumented in this encounter Care Teams Criminal Justice Program Director Relationship Specialty Start Date End Date Luis Antonio Dillon MD [address] [place], [place] PCP - General Internal Medicine 11/24/18 Pernell Hess MD [address] [place], [place] Internal Medicine 09/12/22 Xiao Perez MD [address] [place], [place] Referring Physician Rheumatology 09/12/22 Dayanara Benton MD [address] [place], [place] Hematology 09/12/22 documented as of this encounter
--- OUTSIDE RECORDS SUMMARY | 2024-05-19 15:18 | XMS_ITS | Encounter Summary ---
Author Organization [facility] Address [address] [place] [address] Care Team Providers Care Co Founder And Chairman Name Role Phone Luis Antonio Dillon MD Primary Care Provider [phone] Pernell Hess MD Unavailable Xiao Squires MD Unavailable Unavailable Dayanara Benton MD Unavailable Unavailable Reason for Visit * Reason Comments E-prescribe Rx Request Encounter Details Date Type Department Care Team Description 02/24/2019 Refill Physiatry - [address] [address] Brandon Boyce DO E-prescribe Rx Request Social History Tobacco Use [...] week 01/13/2024 How often do you attend [facility] or yarsani services? Never 01/13/2024 Do you belong to any clubs o r organizations such as shinto groups, unions, fraternal or athletic groups, or [...] place to sleep or slept in a assisted (including now)? No 01/13/2024 Sex Assigned at Date Recorded Not on file Job Start Date Occupation Industry Not on file Not on file Not on file documented as of this encounter Miscellaneous Notes * Telephone Encounter - Janelle Flores M.A. - 02/24/2019 8:44 AM EST Last ov 03/03/19 Last script 12/02/18 Next visit 03/03/19 documented in this encounter Plan of Treatment Not on file documented as of this encounter Visit Diagnoses Not on filedocumented in this encounter Care Teams Co Founder And Chairman Relationship Specialty Start Date End Date Luis Antonio Dillon MD [address] [place], [place] PCP - General Internal Medicine 11/24/18 Pernell Hess MD [address] [place], [place] Internal Medicine 09/12/22 Xiao Perez MD [address] [place], [place] Referring Physician Rheumatology 09/12/22 Dayanara Benton MD [address] [place], [place] Hematology 09/12/22 documented as of this encounter
--- OUTSIDE RECORDS SUMMARY | 2024-05-19 15:18 | XMS_ITS | Encounter Summary ---
Author Organization [facility] Address [address] [place] [address] Care Team Providers Care Back Line Cook Name Role Phone Luis Antonio Dillon MD Primary Care Provider +1 [phone] Pernell Hess MD Unavailable Xiao Squires MD Unavailable Unavailable Dayanara Benton MD Unavailable Unavailable Encounter Details Date Type Department Care Team Description 04/15/2023 Refill Adult Medicine - [place] [address] [place] [address] Luis Antonio Dillon MD [address] [place] [address] Social History Tobacco Use Types Packs/Day Years [...] week 01/13/2024 How often do you attend [facility] or cheondoism services? Never 01/13/2024 Do you belong to any clubs o r organizations such as mandaeism groups, unions, fraternal or athletic groups, or [...] encounter Miscellaneous Notes * Telephone Encounter - Zaria Green M.A. - 04/15/2023 11:59 AM EST Chery - Nov - 05/20/23 Pt is due, csc reviewed, masspat below Danelle Vallejo 73F Refine Search Contact the [facility] Date of : 1950 Recent Address: [address] [place] [id number] of 2 Filled Written ID Drug QTY Days Prescriber RX # Dispenser Refill Daily Dose* Pymt Type GLASS BEVELLER 03/11/2023 03/11/2023 1 Tramadol Hcl 50 Mg Tablet 168 28 Re Mor [id number] [facility] (0466) 0/0 60.00 MME [place] 02/05/2023 02/05/2023 1 Tramadol Hcl 50 Mg Tablet 168 28 Ch Hay [id number] [facility] (0466) 0/0 60.00 [place] 01/25/2023 09/12/2022 2 Gabapentin 600 Mg Tablet 300 100 Ch Hay [id number] Opt (3812) 0/3 2.01 LME [place] 01/07/2023 01/07/2023 1 Tramadol Hcl 50 Mg Tablet 168 28 Ch Hay [id number] [facility] (0466) 0/0 60.00 MME [place] * Telephone Encounter - Jigna Moeller - 04/15/2023 11:57 AM EST REFILL LAST APPOINTMENT: LAST TIME WITH PCP: s NEXT APPOINTMENT : 05/20/23 documented in this encounter Plan of Treatment Not on file documented as of this encounter Visit Diagnoses Not on filedocumented in this encounter Care Teams Back Line Cook Relationship Specialty Start Date End Date Luis Antonio Dillon MD [address] [place] [address] PCP - General Internal Medicine 11/24/18 Pernell Hess MD [address] [place] [address] Internal Medicine 09/12/22 Xiao Perez MD [address] [place] [address] Referring Physician Rheumatology 09/12/22 Dayanara Benton MD [address] [place] [address] Hematology 09/12/22 documented as of this encounter
--- OUTSIDE RECORDS SUMMARY | 2024-05-19 15:18 | XMS_ITS | Encounter Summary ---
Author Organization [facility] Address [address] [place] [address] Care Team Providers Care Clinic Physician Director Name Role Phone Luis Antonio Dillon MD Primary Care Provider +1 [phone] Pernell Hess MD Unavailable Xiao Squires MD Unavailable Unavailable Dayanara Benton MD Unavailable Unavailable Encounter Details Date Type Department Care Team Description 08/22/2020 [facility] Report Medical Records [address] [place], [place] [id number] [place] [address] Social History Tobacco Use Types Packs/Day Years [...] week 01/13/2024 How often do you attend [facility] or mandaen services? Never 01/13/2024 Do you belong to any clubs o r organizations such as uatsdin groups, unions, fraternal or athletic groups, or [...] on filedocumented in this encounter Care Teams Clinic Physician Director Relationship Specialty Start Date End Date Luis Antonio Dillon MD [address] [place], [place] PCP - General Internal Medicine 11/24/18 Pernell Hess MD [address] [place], [place] Internal Medicine 09/12/22 Xiao Perez MD [address] [place], [place] Referring Physician Rheumatology 09/12/22 Dayanara Benton MD [address] [place], [place] Hematology 09/12/22 documented as of this encounter
--- OUTSIDE RECORDS SUMMARY | 2024-05-19 15:18 | XMS_ITS | Encounter Summary ---
Author Organization [facility] Address [address] [place] [address] Care Team Providers Care Analysis Consultant Name Role Phone Luis Antonio Dillon MD Primary Care Provider +1 [phone] Pernell Hess MD Unavailable Xiao Squires MD Unavailable Unavailable Dayanara Benton MD Unavailable Unavailable Encounter Details Date Type Department Care Team Description 01/09/2019 [facility] Medical Records [address] [place] [address] Abstract, Provider Social History Tobacco Use Types Packs/Day Years [...] week 01/13/2024 How often do you attend [facility] or protestant services? Never 01/13/2024 Do you belong to any clubs o r organizations such as yarsanism groups, unions, fraternal or athletic groups, or [...] place to sleep or slept in a senior living (including now)? No 01/13/2024 Sex Assigned at Date Recorded Not on file Job Start Date Occupation Industry Not on file Not on file Not on file documented as of this encounter Plan of Treatment Not on file documented as of this encounter Visit Diagnoses Not on filedocumented in this encounter Care Teams Analysis Consultant Relationship Specialty Start Date End Date Luis Antonio Dillon MD [address] [place], [place] PCP - General Internal Medicine 11/24/18 Pernell Hess MD [address] [place], [place] Internal Medicine 09/12/22 Xiao Perez MD [address] [place], [place] Referring Physician Rheumatology 09/12/22 Dayanara Benton MD [address] [place], [place] Hematology 09/12/22 documented as of this encounter
--- OUTSIDE RECORDS SUMMARY | 2024-05-19 15:18 | XMS_ITS | Encounter Summary ---
Author Organization [facility] Address [address] [place] [address] Care Team Providers Care Ct Scan Tech Name Role Phone Luis Antonio Dillon MD Primary Care Provider +1 [phone] Pernell Hess MD Unavailable Xiao Squires MD Unavailable Unavailable Dayanara Benton MD Unavailable Unavailable Encounter Details Date Type Department Care Team Description 12/20/2022 Director Of Golf Report Medical Records [address] [place] [address] Asia Johns FNP Social History Tobacco Use Types Packs/Day Years [...] week 01/13/2024 How often do you attend [facility] or rastafari services? Never 01/13/2024 Do you belong to any clubs o r organizations such as adventism groups, unions, fraternal or athletic groups, or [...] place to sleep or slept in a retirement (including now)? No 01/13/2024 Sex Assigned at Date Recorded Not on file Job Start Date Occupation Industry Not on file Not on file Not on file COVID-19 Exposure Response Date Recorded In the last 10 days, have yo u been in contact with someone who was confirmed or suspected to have Coronavirus/COVID-19? No / Unsure 11/21/2022 8:47 AM EDT documented as of this encounter Plan of Treatment Not on file documented as of this encounter Visit Diagnoses Not on filedocumented in this encounter Care Teams Ct Scan Tech Relationship Specialty Start Date End Date Luis Antonio Dillon MD [address] [place], [place] PCP - General Internal Medicine 11/24/18 Pernell Hess MD [address] [place], [place] Internal Medicine 09/12/22 Xiao Perez MD [address] [place], [place] Referring Physician Rheumatology 09/12/22 Dayanara Benton MD [address] [place], [place] Hematology 09/12/22 documented as of this encounter
--- OUTSIDE RECORDS SUMMARY | 2024-05-19 15:18 | XMS_ITS | Encounter Summary ---
Author Organization [facility] Address [address] [place] [address] Care Team Providers Care Inside Parts Sales Name Role Phone Luis Antonio Dillon MD Primary Care Provider +1 [phone] Pernell Hess MD Unavailable Xiao Squires MD Unavailable Unavailable Dayanara Benton MD Unavailable Unavailable Encounter Details Date Type Department Care Team Description 06/20/2023 Solution Lead Report Medical Records [address] [place] [address] Pernell Hess MD Social History Tobacco Use [...] week 01/13/2024 How often do you attend [facility] or jain services? Never 01/13/2024 Do you belong to any clubs o r organizations such as orthodox groups, unions, fraternal or athletic groups, [...] place to sleep or slept in a detention (including now)? No 01/13/2024 Sex Assigned at Date Recorded Not on file Job Start Date Occupation Industry Not on file Not on file Not on file documented as of this encounter Plan of Treatment Not on file documented as of this encounter Visit Diagnoses Not on filedocumented in this encounter Care Teams Inside Parts Sales Relationship Specialty Start Date End Date Luis Antonio Dillon MD [address] [place], [place] PCP - General Internal Medicine 11/24/18 Pernell Hess MD [address] [place], [place] Internal Medicine 09/12/22 Xiao Perez MD [address] [place], [place] Referring Physician Rheumatology 09/12/22 Dayanara Benton MD [address] [place], [place] Hematology 09/12/22 documented as of this encounter
--- OUTSIDE RECORDS SUMMARY | 2024-05-19 15:18 | XMS_ITS | Encounter Summary ---
Author Organization [facility] Address [address] [place] [address] Care Team Providers Care Gas Specialist Name Role Phone Nova Dillon MD Primary Care Prov ider Encounter Details Date Type Department Care Team (Latest Contact Info) Description 04/28/2024 8:59 AM EST - 04/28/2024 11:59 PM [facility] Encounter Xray - Sara [address] [place] [address] Pain in both hands Discharge Disposition: Home or Self Care Social History Tobacco Use Types Packs/Day Years Used Date Smoking Tobacco: Former Cigarettes Q uit: 04/01/1990 Smokeless Tobacco: Never Alcohol Use Standard Drinks/Week Comments Yes 0 (1 standard drink = 0.6 oz pur e alcohol) Comments No Sex and Gender Information Value Date Recorded Sex Assigned at Not on file Legal Sex Female 3:18 PM EST Gender Identity Not on file Sexual Orientation Not on file documented as of this encounter Medications at Time of Discharge aspirin 81 mg EC tablet Take by mouth. biotin 5 mg tablet Take by mouth daily. CALCIUM CITRATE ORAL Take by mouth daily. 1000 mg calcium with 500 mg D3 ciclopirox (LOPROX) 0.77 % gel Apply 1 Application topically 1 (one) time each day. 08/22/2022 CYANOCOBALAMIN, VITAMIN B-12, ORAL Take 1,000 mcg by mouth daily. gummie esomeprazole (NexIUM) [address] capsule Take 1 Capsule by mouth every morning (before breakfast). fluticasone propionate (FLONASE) 50 mcg/actuation nasal spray Administer 2 sprays into each nostril 1 (one) time each day. Shake gently. Before first use, prime pump. After use, clean tip and replace cap. 16 g 5 04/28/2024 04/28/19 26 folic acid (FOLVITE) 1 mg tablet Take 3 tablets (3,000 mcg total) by mouth 1 (one) time each day. 12/27/2022 gabapentin (NEURONTIN) 600 mg tablet TAKE 1 TABLET BY MOUTH 3 TIMES DAILY 08/30/2023 levothyroxine (SYNTHROID, LEVOTHROID) 125 mcg tablet Take 1 tablet (125 mcg total) by mouth 1 (one) time each day. 09/24/2023 magnesium 250 mg tablet Take by mouth. meclizine (ANTIVERT) 12.5 mg tablet Take 1 tablet (12.5 mg total) by mouth 3 (three) times a day if needed for dizziness. 30 tablet 1 04/28/2024 04/28/19 26 medical marijuana ENDODONTIC ASSISTANT med methotrexate 2.5 mg tablet Take 8 tablets (20 mg total) by mouth 1 (one) time per week 12/26/2022 metoprolol succinate (TOPROL-XL) 25 mg 24 hr tablet Take 0.5 Tablets by mouth daily. 05/20/2023 multivitamin (MULTIPLE VITAMINS ORAL) Take by mouth daily. ondansetron ODT (ZOFRAN-ODT) 4 mg disintegrating tablet Take 1 Tablet by mouth 3 times daily as needed for Nausea. 06/01/2022 traMADoL (ULTRAM) 50 mg tablet Take 2 tablets (100 mg total) by mouth every 8 (eight) hours if needed (pain) for up to 28 days. Max Daily Amount: 300 mg 168 tablet 04/23/2024 05/21/19 25 vitamin A 3,000 mcg (10,000 unit) tablet Take by mouth daily. atorvastatin (LIPITOR) 80 mg tablet Take 1 tablet (80 mg total) by mouth 1 (one) time each day. 90 tablet 1 03/04/2024 05/11/19 25 documented as of this encounter Discharge Disposition Disposition Code Departure Means Destination Home or Self Care documented in this encounter Plan of Treatment Upcoming Encounters Date Type Department Care Team (Late st Contact Info) Description 06/30/2024 1:00 PM EDT Office Visit Orthopedic Surgery - [place] [address] [phone] Vlad Lamb DPAngelo [address] [address] 07/06/2024 3:30 PM EDT Office Visit Adult Medicine - [place] [address] [place] [address] Nova Dillon MD [address] [place] [address] 09/24/2024 3:10 PM EDT Appointment Radiology Department [address] [phone] documented as of this encounter Procedures Procedure Name Priority Date/Time Associated Diagnosis Comments XR HAND 3+ VIEWS BILAT Routine 04/28/2024 9:12 AM EST Pain in both hands documented in this encounter Results * XR Hand 3+ Views bilat (04/28/2024 9:12 AM EST) Anatomical Region Laterality Modality Upper Extremities, Hand Bilateral [facility] 04/28/2024 12:2 1 PM EST Narrative 04/28/2024 1:46 PM EST Bilateral hands, 3 views of each. History right hand pain. There are degenerative changes in the DIP joints of multiple digits more prominent on the fifth fingers bilaterally. There are prominent periarticular soft tissue calcifications adjacent to the DIP joint of the right fourth finger. There are less prominent periarticular soft tissue calcifications over the DIP joint of the right second finger. No visible fractures, dislocations or destructive lesions. CONCLUSIONS: Multisite degenerative changes. Periarticular soft tissue calcifications adjacent to the DIP joints of the right fourth and second fingers. -------- FINAL REPORT -------- Dictated By: Shanna Paula Dictated Date: 04/28/2024 12:21 ET Assigned Physician: Shanna Paula Reviewed and Electronically Signed By: Shanna Paula Signed Date: 04/28/2024 13:46 ET Workstation ID: [id number] Transcribed By: Self Edit Transcribed Date: 04/28/2024 12:21 ET Procedure Note Shanna Paula MD - 04/28/2024 Bilateral hands, 3 views of each. History right hand pain. There are degenerative changes in the DIP joints of multiple digits moreprominent on the fifth fingers bilaterally. There are prominentperiarticular soft tissue calcifications adjacent to the DIP joint of theright fourth finger. There are less prominent periarticular soft tissuecalcifications over the DIP joint of the right second finger. No visiblefractures, dislocations or destructive lesions. CONCLUSIONS: Multisite degenerative changes. Periarticular soft tissuecalcifications adjacent to the DIP joints of the right fourth and secondfingers. -------- FINAL REPORT -------- Dictated By: Shanna Paula Dictated Date: 04/28/2024 12:21 ET Assigned Physician: Shanna Paula Reviewed and Electronically Signed By: Shanna Paula Signed Date: 04/28/2024 13:46 ET Workstation ID: [id number] Transcribed By: Self Edit Transcribed Date: 04/28/2024 12:21 ET Linda MEJIA IMG XR PROCEDURES Final Re sult documented in this encounter Visit Diagnoses Diagnosis Pain in both hands documented in this encounter Care Teams Gas Specialist Relationship Specialty Start Date End Date Nova Dillon MD [address] [place] [address] PCP - General Internal Medicine 11/24/18 documented as of this encounter
--- OUTSIDE RECORDS SUMMARY | 2024-05-19 15:18 | XMS_ITS | Encounter Summary ---
Author Organization [facility] Address [address] [place] [address] Care Team Providers Care Psychiatry Resident Name Role Phone Luis Antonio Dillon MD Primary Care Provider +1 -[phone] Pernell Hess MD Unavailable Xiao Squires MD Unavailable Unavailable Dayanara Benton MD Unavailable Unavailable Encounter Details Date Type Department Care Team Description 12/31/2019 [facility] Medical Records [address] [place] [address] Abstract, Provider Social History Tobacco Use Types [...] week 01/13/2024 How often do you attend [facility] or moravian services? Never 01/13/2024 Do you belong to any clubs o r organizations such as tenriism groups, unions, fraternal or athletic groups, or [...] place to sleep or slept in a custodial (including now)? No 01/13/2024 Sex Assigned at Date Recorded Not on file Job Start Date Occupation Industry Not on file Not on file Not on file COVID-19 Exposure Response Date Recorded In the last month, have you been in contact with someone who was confirmed or suspected to have Coronavirus / COVID-19? No / Unsure 01/01/2020 2:13 PM EDT documented as of this encounter Plan of Treatment Not on file documented as of this encounter Visit Diagnoses Not on filedocumented in this encounter Care Teams Psychiatry Resident Relationship Specialty Start Date End Date Luis Antonio Dillon MD [address] [place], [place] PCP - General Internal Medicine 11/24/18 Pernell Hess MD [address] [place], [place] Internal Medicine 09/12/22 Xiao Perez MD [address] [place], [place] Referring Physician Rheumatology 09/12/22 Dayanara Benton MD [address] [place], [place] Hematology 09/12/22 documented as of this encounter
--- OUTSIDE RECORDS SUMMARY | 2024-05-19 15:18 | XMS_ITS | Encounter Summary ---
Author Organization [facility] Address [address] [place] [address] Care Team Providers Care Saw Cleaner Name Role Phone Luis Antonio Dillon MD Primary Care Provider +1 -[phone] Pernell Hess MD Unavailable Xiao Squires MD Unavailable Unavailable Dayanara Benton MD Unavailable Unavailable Encounter Details Date Type Department Care Team Description 09/06/2020 [facility] Medical Records [address] [place], [place] [phone] [place] [address] Social History Tobacco Use Types Packs/Day Years [...] week 01/13/2024 How often do you attend [facility] or sikhism services? Never 01/13/2024 Do you belong to any clubs o r organizations such as evangelical groups, unions, fraternal or athletic groups, or [...] place to sleep or slept in a ch[facility] (including now)? No 01/13/2024 Sex Assigned at Date Recorded Not on file Job Start Date Occupation Industry Not on file Not on file Not on file documented as of this encounter Plan of Treatment Not on file documented as of this encounter Visit Diagnoses Not on filedocumented in this encounter Care Teams Saw Cleaner Relationship Specialty Start Date End Date Luis Antonio Dillon MD [address] [place], [place] PCP - General Internal Medicine 11/24/18 Pernell Hess MD [address] [place], [place] Internal Medicine 09/12/22 Xiao Perez MD [address] [place], [place] Referring Physician Rheumatology 09/12/22 Dayanara Benton MD [address] [place], [place] Hematology 09/12/22 documented as of this encounter
--- OUTSIDE RECORDS SUMMARY | 2024-05-19 15:18 | XMS_ITS | Encounter Summary ---
Author Organization [facility] Address [address] [place] [address] Care Team Providers Care Security Sales Manager Name Role Phone Luis Antonio Dillon MD Primary Care Provider +1 -[phone] Pernell Hess MD Unavailable Xiao Squires MD Unavailable Unavailable Dayanara Benton MD Unavailable Unavailable Encounter Details Date Type Department Care Team Description 05/05/2019 [facility] Medical Records [address] [place] [address] Abstract, Provider Social History Tobacco Use Types [...] How often do you attend [facility] or jew services? Never 01/13/2024 Do you belong to any clubs o r organizations such as sabianist groups, unions, fraternal or athletic groups, or [...] place to sleep or slept in a prison (including now)? No 01/13/2024 Sex Assigned at Date Recorded Not on file Job Start Date Occupation Industry Not on file Not on file Not on file documented as of this encounter Plan of Treatment Not on file documented as of this encounter Visit Diagnoses Not on filedocumented in this encounter Care Teams Security Sales Manager Relationship Specialty Start Date End Date Luis Antonio Dillon MD [address] [place], [place] PCP - General Internal Medicine 11/24/18 Pernell Hess MD [address] [place], [place] Internal Medicine 09/12/22 Xiao Perez MD [address] [place], [place] Referring Physician Rheumatology 09/12/22 Dayanara Benton MD [address] [place], [place] Hematology 09/12/22 documented as of this encounter
--- OUTSIDE RECORDS SUMMARY | 2024-05-19 15:18 | XMS_ITS | Encounter Summary ---
Author Organization [facility] Address [address] [place] [address] Care Team Providers Care Pe Electrical Engineer Name Role Phone Luis Antonio Dillon MD Primary Care Provider +1 -[phone] Pernell Hess MD Unavailable Xiao Squires MD Unavailable Unavailable Dayanara Benton MD Unavailable Unavailable Encounter Details Date Type Department Care Team Description 09/17/2022 Medical Marijuana Card Medical Records [address] [place] [address] Abstract, Provider Social History Tobacco Use Types [...] week 01/13/2024 How often do you attend [facility] or hinduism services? Never 01/13/2024 Do you belong to [...] place to sleep or slept in a intermediate (including now)? No 01/13/2024 Sex Assigned at Date Recorded Not on file Job Start Date Occupation Industry Not on file Not on file Not on file COVID-19 Exposure Response Date Recorded In the last 10 days, have yo u been in contact with someone who was confirmed or suspected to have Coronavirus/COVID-19? No / Unsure 09/11/2022 1:32 PM EDT documented as of this encounter Plan of Treatment Not on file documented as of this encounter Visit Diagnoses Not on filedocumented in this encounter Care Teams Pe Electrical Engineer Relationship Specialty Start Date End Date Luis Antonio Dillon MD [address] [place], [place] PCP - General Internal Medicine 11/24/18 Pernell Hess MD [address] [place], [place] Internal Medicine 09/12/22 Xiao Perez MD [address] [place], [place] Referring Physician Rheumatology 09/12/22 Dayanara Benton MD [address] [place], [place] Hematology 09/12/22 documented as of this encounter
--- OUTSIDE RECORDS SUMMARY | 2024-05-19 15:18 | XMS_ITS | Encounter Summary ---
Author Organization [facility] Address [address] [place] [address] Care Team Providers Care Complaints Coordinator Name Role Phone Luis Antonio Dillon MD Primary Care Provider +1 -[phone] Pernell Hess MD Unavailable Xiao Squires MD Unavailable Unavailable Dayanara Benton MD Unavailable Unavailable Encounter Details Date Type Department Care Team Description 03/01/2020 [facility] Medical Records [address] [place], [place] [phone] [place] [address] Social History Tobacco Use Types Packs/Day Years [...] week 01/13/2024 How often do you attend [facility] or anabaptist services? Never 01/13/2024 Do you belong to any clubs o r organizations such as buddhism groups, unions, fraternal or athletic groups, or [...] have Coronavirus / COVID-19? No / Unsure 02/02/2020 2:40 PM EST documented as of this encounter Plan of Treatment Not on file documented as of this encounter Visit Diagnoses Not on filedocumented in this encounter Care Teams Complaints Coordinator Relationship Specialty Start Date End Date Luis Antonio Dillon MD [address] [place], [place] PCP - General Internal Medicine 11/24/18 Pernell Hess MD [address] [place], [place] Internal Medicine 09/12/22 Xiao Perez MD [address] [place], [place] Referring Physician Rheumatology 09/12/22 Dayanara Benton MD [address] [place], [place] Hematology 09/12/22 documented as of this encounter
--- OUTSIDE RECORDS SUMMARY | 2024-05-19 15:18 | XMS_ITS | Encounter Summary ---
Author Organization [facility] Address [address] [place] [address] Care Team Providers Care Customer Account Administrator Name Role Phone Karin Stephen MD Primary Care Provider UnavailLee Walsh Primary Care Provider Unavail Ronnie Flores Primary Care Provider UnavailLauren Rowe MD Primary Care Provide r Unavailable Luis Antonio Dillon MD Primary Care Provider +1 [phone] Pernell Hess MD Unavailable Xiao Squires MD Unavailable Unavailable Dayanara Benton MD Unavailable Unavailable Encounter Details Date Type Department Care Team Description 11/15/2014 Business Doc Medical Records [address] [place] [id number] Abstract, Provider Social History Tobacco Use Types [...] often do you attend chur ch or scientologist services? Never 01/13/2024 Do you belong to [...] place to sleep or slept in a correction (including now)? No 01/13/2024 Sex Assigned at Date Recorded Not on file Job Start Date Occupation Industry Not on file Not on file Not on file documented as of this encounter Plan of Treatment Not on file documented as of this encounter Visit Diagnoses Not on filedocumented in this encounter Care Teams Customer Account Administrator Relationship Specialty Start Date End Date Karin Stephen MD PCP - General 10/26/10 01/27/17 Lee Hurst PCP - General Internal Medicine 01/28/17 09/29/18 Ronnie Bianchi PCP - General Internal Medicine 09/30/18 09/30/18 Lauren John MD PCP - General Internal Medicine 10/06/18 11/23/18 Luis Antonio Dillon MD [address] [place], [place] PCP - General Internal Medicine 11/24/18 Pernell Hess MD [address] [place], [place] Internal Medicine 09/12/22 Xiao Perez MD [address] [place], [place] Referring Physician Rheumatology 09/12/22 Dayanara Benton MD [address] [place], [place] Hematology 09/12/22 documented as of this encounter
--- OUTSIDE RECORDS SUMMARY | 2024-05-19 15:18 | XMS_ITS | Encounter Summary ---
Author Organization [facility] Address [address] [place] [address] Care Team Providers Care Music Supervisor Name Role Phone Luis Antonio Dillon MD Primary Care Provider [phone] [phone] Pernell Hess MD Unavailable Xiao Squires MD Unavailable Unavailable Dayanara Benton MD Unavailable Unavailable Reason for Visit * Reason Onset Date Comments refill request 12/28/2019 Encounter Details Date Type Department Care Team Description 12/28/2019 Refill Adult Medicine - [place] [address] [place] [address] Luis Antonio Dillon MD [address] [place] [address] refill request Social History Tobacco Use Types Packs/Day Years [...] often do you attend chur ch or mormon services? Never 01/13/2024 Do you belong to any clubs o r organizations such as quaker groups, unions, fraternal or athletic groups, or [...] place to sleep or slept in a nursing home (including now)? No 01/13/2024 Sex Assigned at Date Recorded Not on file Job Start Date Occupation Industry Not on file Not on file Not on file COVID-19 Exposure Response Date Recorded In the last month, have you been in contact with someone who was confirmed or suspected to have Coronavirus / COVID-19? No / Unsure 12/18/2019 12:32 PM EDT documented as of this encounter Miscellaneous Notes * Telephone Encounter - Heydi Arellano L.P.N. - 12/28/2019 4:04 PM EDT Faxed to pharmacy * Telephone Encounter - Nova Izquierdo M.A. - 12/28/2019 2:28 PM EDT Masspat to covering Controlled substance contract and last issue date of medication reviewed. Patient is due for medication. Lab Results Component Value Date URBENZO NONE DETECTED 11/24/2018 UROPIATES NONE DETECTED 11/24/2018 URBARBITUATE NONE DETECTED 11/24/2018 PAINAMPHETAM NONE DETECTED 11/24/2018 PAINCOCAINE NONE DETECTED 11/24/2018 PAINCANNABIN POSITIVE 11/24/2018 * Telephone Encounter - Melia Alejandre - 12/28/2019 1:36 PM EDT Patient would like script to be: E-PRESCRIBED/FAXED TO PHARMACY WHEN WAS THE PATIENT'S LAST APPOINTMENT IN ADULT MEDICINE? 12/18/19 WHEN WAS THE LAST TIME THE PATIENT SAW THEIR PCP? 11/04/19 Does patient have an upcoming appointment? Return in about 3 months (around 03/18/2020), or if symptoms worsen or fail to improve. (THE MEDICATION REQUESTED IS ON THE MED LIST ABOVE) All of the medications requested were on the CURRENT MEDS list Did you check the Pharmacy information above?: YES Patient wants: 30 -day supply Is this a mail order prescription request ? NO If the refill is from a FAXED refill request what is the RX # listed on the fax? N/A Patients current insurance carrier is: Payor: -[employer]/PPO POS / Plan: FEP STANDARD $25 / Product Type: PPO [id number] documented in this encounter Plan of Treatment Not on file documented as of this encounter Visit Diagnoses Not on filedocumented in this encounter Care Teams Music Supervisor Relationship Specialty Start Date End Date Luis Antonio Dillon MD [address] [place] [address] PCP - General Internal Medicine 11/24/18 Pernell Hess MD [address] [place] [address] Internal Medicine 09/12/22 Xiao Perez MD [address] [place], [place] Referring Physician Rheumatology 09/12/22 Dayanara Benton MD [address] [place] [address] Hematology 09/12/22 documented as of this encounter
--- OUTSIDE RECORDS SUMMARY | 2024-05-19 15:18 | XMS_ITS | Encounter Summary ---
Author Organization [facility] Address [address] [place] [address] Care Team Providers Care Overhauler Helper Name Role Phone Luis Antonio Dillon MD Primary Care Provider [phone] [phone] Pernell Hess MD Unavailable Xiao Squires MD Unavailable Unavailable Dayanara Benton MD Unavailable Unavailable Encounter Details Date Type Department Care Team Description 07/03/2019 Telephone Adult Medicine - [address] [address] Bong Perez PA-C Social History Tobacco Use Types Packs/Day Years [...] week 01/13/2024 How often do you attend [facility] or mandaen services? Never 01/13/2024 Do you belong to any clubs o r organizations such as rastafarian groups, unions, fraternal or athletic groups, or [...] encounter Miscellaneous Notes * Telephone Encounter - Violet Hart M.A. - 07/03/2019 2:04 PM EDT Called pt and left message regarding bone density ordered in Nov, she has completed this orwill do so in the future documented in this encounter Plan of Treatment Not on file documented as of this encounter Visit Diagnoses Not on filedocumented in this encounter Care Teams Overhauler Helper Relationship Specialty Start Date End Date Luis Antonio Dillon MD [address] [place], [place] PCP - General Internal Medicine 11/24/18 Pernell Hess MD [address] [place], [place] Internal Medicine 09/12/22 Xiao Perez MD [address] [place], [place] Referring Physician Rheumatology 09/12/22 Dayanara Benton MD [address] [place] Hematology 09/12/22 documented as of this encounter
--- OUTSIDE RECORDS SUMMARY | 2024-05-19 15:18 | XMS_ITS | Encounter Summary ---
Author Organization [facility] Address [address] [place] [address] Care Team Providers Care Primary School Principal Name Role Phone Luis Antonio Dillon MD Primary Care Provider [phone] [phone] Pernell Hess MD Unavailable Xiao Squires MD Unavailable Unavailable Dayanara Benton MD Unavailable Unavailable Reason for Visit * Reason Onset Date Comments refill request 01/19/2021 Encounter Details Date Type Department Care Team Description 01/19/2021 Refill Adult Medicine - [place] [address] [place] [address] Luis Antonio Dillon MD [address] [place] [address] refill request Social History Tobacco Use Types [...] often do you attend chur ch or taoism services? Never 01/13/2024 Do you belong to any clubs o r organizations such as moravian groups, unions, fraternal or athletic groups, or [...] Telephone Encounter - Zaria Green M.A. - 01/20/2021 11:24 AM EDT Tramadol faxed to [facility] at [phone] * Telephone Encounter - Zaria Green M.A. - 01/19/2021 11:08 AM EDT Due 01/20/21 Chery - 01/02/21 Nov - 05/05/21 Pt is due, csc reviewed, masspat below ( last scanned in on 07/26/20) 12/23/2020 1 12/23/2020 TRAMADOL HCL 50 MG TABLET 168.0 28 [place] [facility] [id number] [facility] [place]/0 30.[place] 11/25/2020 1 11/25/2020 TRAMADOL HCL 50 MG TABLET 168.0 28 [place] [facility] [id number] [facility] ([facility] 0/0 30.[place] 11/21/2020 1 11/21/2020 HYDROMORPHONE 2 MG TABLET 15.0 5 [place] [facility] [id number] [facility] (0466[facility] 0/0 24.0 M[place] 11/04/2020 1 09/20/2020 GABAPENTIN 600 MG TABLET 180.0 60 [place] BARB [id number] [facility] (0466) 04/01 [place] 10/26/2020 1 10/26/2020 TRAMADOL HCL 50 MG TABLET 168.0 28 HAY [id number] [facility] ([facility]66[facility] 0/0 30.[place] 09/21/2020 1 09/20/2020 TRAMADOL HCL 50 MG TABLET 168.0 28 [place] BARB [id number] [facility] ([facility]66[facility] 0/0 30.[place] 09/20/2020 1 09/20/2020 GABAPENTIN 600 MG TABLET 180.0 60 [place] BARB [id number] [facility] (0466[facility] [place] 09/16/2020 1 09/16/2020 HYDROMORPHONE 2 MG TABLET 20.0 5 [place] GUNNAR [id number] [facility] (0466) 0/0 32.0 MME [place] 08/18/2020 1 08/18/2020 TRAMADOL HCL 50 MG TABLET 168.0 28 [place] DAYANA [id number] [facility] (0466[facility] 0/0 30.[place] 07/21/2020 1 07/21/2020 TRAMADOL HCL 50 MG TABLET 168.0 28 [place] DAYANA [id number] [facility] (0466[facility] 0/0 30.[place] 07/21/2020 1 07/21/2020 GABAPENTIN 600 MG TABLET 180.0 60 [place] DAYANA [id number] [facility] (0466) 0/0 [place] * Telephone Encounter - Dyankiranvinny Alejandre - 01/19/2021 11:06 AM EDT Patient would like script to be: E-PRESCRIBED/FAXED TO PHARMACY ?? WHEN WAS THE PATIENT'S LAST APPOINTMENT IN ADULT MEDICINE? 01/02/2021 ?? WHEN WAS THE LAST TIME THE PATIENT SAW THEIR PCP? Same as above ?? Does patient have an upcoming appointment? Yes 05/05/2020 ?? (THE MEDICATION REQUESTED IS ON THE MED LIST ABOVE) All of the medications requested were on the CURRENT MEDS list ?? Did you check the Pharmacy information above?: YES ?? Patient wants: 30 -day supply ?? Is this a mail order prescription request ? NO ?? If the refill is from a FAXED refill request what is the RX # listed on the fax? N/A ?? Patients current insurance carrier is: Payor: [employer]/BENJAMÍN POS / Plan: FEP STANDARD $25 / Product Type: PPO [id number] ? documented in this encounter Plan of Treatment Not on file documented as of this encounter Visit Diagnoses Not on filedocumented in this encounter Care Teams Primary School Principal Relationship Specialty Start Date End Date Luis Antonio Dillon MD [address] [place] [address] PCP - General Internal Medicine 11/24/18 Pernell Hess MD [address] [place] [address] Internal Medicine 09/12/22 Xiao Perez MD [address] [place] [address] Referring Physician Rheumatology 09/12/22 Dayanara Benton MD [address] [place] [address] Hematology 09/12/22 documented as of this encounter
--- OUTSIDE RECORDS SUMMARY | 2024-05-19 15:18 | XMS_ITS | Encounter Summary ---
Author Organization [facility] Address [address] [place] [address] Care Team Providers Care Payroll Supervisor Name Role Phone Luis Antonio Dillon MD Primary Care Provider [phone] [phone] Pernell Hess MD Unavailable Xiao Squires MD Unavailable Unavailable Dayanara Benton MD Unavailable Unavailable Encounter Details Date Type Department Care Team Description 05/08/2021 Associate Professor Of Kinesiology Report Medical Records [address] [place] [address] Abstract, Provider Social History Tobacco Use Types [...] week 01/13/2024 How often do you attend [facility] or methodist services? Never 01/13/2024 Do you belong to any clubs o r organizations such as anabaptism groups, unions, fraternal or athletic groups, or [...] place to sleep or slept in a long term (including now)? No 01/13/2024 Sex Assigned at Date Recorded Not on file Job Start Date Occupation Industry Not on file Not on file Not on file documented as of this encounter Plan of Treatment Not on file documented as of this encounter Visit Diagnoses Not on filedocumented in this encounter Care Teams Payroll Supervisor Relationship Specialty Start Date End Date Luis Antonio Dillon MD [address] [place], [place] PCP - General Internal Medicine 11/24/18 Pernell Hess MD [address] [place], [place] Internal Medicine 09/12/22 Xiao Perez MD [address] [place], [place] Referring Physician Rheumatology 09/12/22 aDyanara Benton MD [address] [place], [place] Hematology 09/12/22 documented as of this encounter
--- OUTSIDE RECORDS SUMMARY | 2024-05-19 15:18 | XMS_ITS | Encounter Summary ---
Author Organization [facility] Address [address] [place] [address] Care Team Providers Care Pharmaceutical Compounding Supervisor Name Role Phone Nova Dillon MD Primary Care Prov ider Reason for Visit * Reason Onset Date Comments Dizziness 04/27/2024 Sinus Problem 04/27/2024 Encounter Details Date Type Department Care Team ([facility] st Contact Info) Description 04/27/2024 Telephone Adult Medicine - [place] [address] [place] [address] Nova Dillon MD [address] [place] [address] Dizziness; Sinus Problem Social History Tobacco Use Types Packs/Day Years [...] on file documented as of this encounter Progress Notes * Miguel Ángel Mchugh RN - 04/27/2024 9:13 AM EST Pt states she has nasal congestion, post nasal drip, sinus discomfort and sore throat. Has non-productive cough without dyspnea or wheezing.Appointment scheduled * Earskin Mcclellan - 04/27/2024 8:35 AM EST Symptoms patient is presenting: pt c/o dizziness and sinus pressure For ALL patients calling to schedule any appointment (routine, sick visit, follow up, consult, etc.) in the outpatient setting please ask the following questions: Do you have fever of higher than 101, sore throat with difficulty swallowing or severe shortness ofbreath? NO If YES to any of these above symptoms, send a message to triage and do not book. Red dot. If no, an audio or video visit should be booked. Have you had close contact with someone with Coronavirus in the last 14 days? NO Have you traveled abroad? NO Have you traveled recently to another state outside of [place], [place], [place], [place], [place], [place], [place]? NO o If yes, did you quarantine for 14 days or have a negative covid test? NO If yes to any of the above, patient is not to be scheduled in office until after 14 day quarantine or negative covid test. If pain or injury related was it due to an accident at work or from a motor vehicle accident? NO If yes, gather 3rd republican insurance information Date of accident/Injury: n/a How long has patient had these symptoms?: weeks PCP: DR PEREZ Payor: [facility] documented in this encounter Plan of Treatment Upcoming Encounters Date Type Department Care Team (Late st Contact Info) Description 06/30/2024 1:00 PM EDT Office Visit Orthopedic Surgery - [place] [address] [phone] Vlad Lamb DPM [address] [address] 07/06/2024 3:30 PM EDT Office Visit Adult Medicine - [place] [address] [place] [address] Nova Dillon MD [address] [place] [address] 09/24/2024 3:10 PM EDT Appointment Radiology Department - [address] [phone] documented as of this encounter Visit Diagnoses Not on filedocumented in this encounter Care Teams Pharmaceutical Compounding Supervisor Relationship Specialty Start Date End Date Nova Dillon MD [address] [place] [address] PCP - General Internal Medicine 11/24/18 documented as of this encounter
--- OUTSIDE RECORDS SUMMARY | 2024-05-19 15:18 | XMS_ITS | Encounter Summary ---
Author Organization [facility] Address [address] [place] [address] Care Team Providers Care Retail Aide Name Role Phone Luis Antonio Dillon MD Primary Care Provider [phone] [phone] Pernell Hess MD Unavailable Xiao Squires MD Unavailable Unavailable Dayanara Benton MD Unavailable Unavailable Encounter Details Date Type Department Care Team Description 07/26/2020 [facility] Medical Records [address] [place] [address] Abstract, Provider Social History Tobacco Use Types [...] week 01/13/2024 How often do you attend [facility] or advent services? Never 01/13/2024 Do you belong to any clubs o r organizations such as buddhist groups, unions, fraternal or athletic groups, or [...] place to sleep or slept in a long-term (including now)? No 01/13/2024 Sex Assigned at Date Recorded Not on file Job Start Date Occupation Industry Not on file Not on file Not on file documented as of this encounter Plan of Treatment Not on file documented as of this encounter Visit Diagnoses Not on filedocumented in this encounter Care Teams Retail Aide Relationship Specialty Start Date End Date Luis Antonio Dillon MD [address] [place], [place] PCP - General Internal Medicine 11/24/18 Pernell Hess MD [address] [place], [place] Internal Medicine 09/12/22 Xiao Perez MD [address] [place], [place] Referring Physician Rheumatology 09/12/22 Dayanara Benton MD [address] [place], [place] Hematology 09/12/22 documented as of this encounter
--- OUTSIDE RECORDS SUMMARY | 2024-05-19 15:18 | XMS_ITS | Encounter Summary ---
Author Organization [facility] Address [address] [place] [address] Care Team Providers Care Scrum Coach Name Role Phone Luis Antonio Dillon MD Primary Care Provider [phone] [phone] Pernell Hess MD Unavailable Xiao Squires MD Unavailable Unavailable Dayanara Benton MD Unavailable Unavailable Encounter Details Date Type Department Care Team Description 05/21/2019 [facility] Medical Records [address] [place] [address] Abstract, Provider Social History Tobacco Use Types [...] week 01/13/2024 How often do you attend [facility] or yazdanism services? Never 01/13/2024 Do you belong to any clubs o r organizations such as baptist groups, unions, fraternal or athletic groups, or [...] place to sleep or slept in a jail (including now)? No 01/13/2024 Sex Assigned at Date Recorded Not on file Job Start Date Occupation Industry Not on file Not on file Not on file documented as of this encounter Plan of Treatment Not on file documented as of this encounter Visit Diagnoses Not on filedocumented in this encounter Care Teams Scrum Coach Relationship Specialty Start Date End Date Luis Antonio Dillon MD [address] [place], [place] PCP - General Internal Medicine 11/24/18 Pernell Hess MD [address] [place], [place] Internal Medicine 09/12/22 Xiao Perez MD [address] [place], [place] Referring Physician Rheumatology 09/12/22 Dayanara Benton MD [address] [place], [place] Hematology 09/12/22 documented as of this encounter
--- OUTSIDE RECORDS SUMMARY | 2024-05-19 15:18 | XMS_ITS | Encounter Summary ---
Author Organization [facility] Address [address] [place] [address] Care Team Providers Care Pancake Professional Name Role Phone Nova Dillon MD Primary Care Prov ider Reason for Visit * Reason Comments Sinusitis Over a month Encounter Details Date Type Department Care Team ([facility] Contact Info) Description 04/28/2024 8:30 AM EST Office Visit Adult Medicine [facility] [address] [place] [address] Linda Ferguson PA [address] [place] [address] Pain in both hands (Primary Dx); Psoriatic arthritis (CMS/HCC); Palpitations; Chronic pain syndrome; Sinus congestion; Vertigo Social History Tobacco Use Types Packs/Day Years Used Date Smoking Tobacco: Former Cigarettes Q uit: 04/01/1990 Smokeless Tobacco: Never Tobacco Cessation:Counseling Given: Not Answered Alcohol Use Standard Drinks/Week Comments Yes 0 (1 standard drink = 0.6 oz pur e alcohol) Comments No Sex and Gender Information Value Date Recorded Sex Assigned at Not on file Legal Sex Female 3:18 PM EST Gender Identity Not on file Sexual Orientation Not on file documented as of this encounter Last Filed Vital Signs Vital Sign Reading Time Taken Comments Blood Pressure 110/52 04/28/2024 8:30 AM EST Pulse 88 04/28/2024 8:30 AM EST Temperature 36.3 ??C (97.3 ??F) 04/28/2024 8:30 AM ES T Respiratory Rate - - Oxygen Saturation - - Inhaled Oxygen Concentration - - Weight 82.1 kg (181 lb) 04/28/2024 8:30 AM EST Height 160 cm (5' 3 ) 04/28/2024 8:30 AM EST Body Mass Index 32.06 04/28/2024 8:30 AM EST documented in this encounter Ordered Prescriptions Prescription Sig Dispense Quantity Refills Last Filled Start Date End Date fluticasone propionate (FLONASE) 50 mcg/actuation nasal spray Administer 2 sprays into each nostril 1 (one) time each day. Shake gently. Before first use, prime pump. After use, clean tip and replace cap. 16 g 5 04/28/2024 meclizine (ANTIVERT) 12.5 mg tablet Take 1 tablet (12.5 mg total) by mouth 3 (three) times a day if needed for dizziness. 30 tablet 1 04/28/2024 documented in this encounter Progress Notes * JACKIE Ma - 04/28/2024 8:30 AM EST CHIEF COMPLAINT: Sinusitis (Over a month) IDENTIFIER: Danelle Vallejo is a 73 y.o. old female. HPI: History of Present Illness The patient presents with sinus infections, dizziness, palpitations, and psoriatic arthritis, She experienced dizziness on 03/24/2024, attributed to dehydration. Despite increased fluid intake,dizziness persisted intermittently, with vertigo unrelated to posture. She is considering meclizinebut is concerned about interactions with her current medications (medical marijuana, tramadol, gabap entin). Advised this should be fine to take. On morning, she developed laryngitis followed by a mild cold. She has postnasal drip, occasional thick mucus expectoration, and sinus pressure relieved by blowing her nose. Symptoms were severe a week ago but have improved and typically resolve with a cold sore. However now feels its comeon again. Admits to post nasal drip- not using flonase. She has a history of atrial fibrillation post-gastric bypass surgery, with no recent episodes. On 04/05/2024, she sought emergency care for palpitations and dizziness, evaluated by PCP on 04/06/2024.She continues to experience vertigo and occasional palpitations but none in the past week.. She does follow with cardiology. Advised to follow up with them. She has psoriatic arthritis and follows with rheumatology. She reports new pain in her right hand'sfourth finger, with redness and pain near the cuticle, unable to bend the knuckle. Voltaren and NSAIDs have provided some improvement. No radiographic imaging has been done. She has a passenger service supervisor appointment in 05/2024 and has been advised that further treatment may require a hand surgeon referral. MEDICATIONS Current: medical marijuana, tramadol, gabapentin, Voltaren ROS: GENERAL: No malaise, significant weight loss or fever HEENT: SEE HPI RESPIRATORY: No cough, wheezing or shortness of breath CARDIOVASCULAR: No chest pain, leg swelling or palpitations MUSCULOSKELETAL: SEE HPI NEURO: SEE HPI PAST MEDICAL HISTORY: Patient Active Problem List Diagnosis Date Noted Psoriatic arthritis ([facility]) 04/28/2024 Chronic pain syndrome 04/06/2024 Carotid stenosis, right 12/27/2021 Iron deficiency anemia secondary to inadequate dietary iron intake 10/18/2021 Obesity (BMI 30-39.9) 06/24/2020 COPD (chronic obstructive pulmonary disease) ([facility]) 03/18/2020 Arthritis of right hip 12/31/2019 Aortic atherosclerosis ([facility]) 12/17/2018 Chronic bilateral low back pain with sciatica 12/17/2018 Depression 12/17/2018 Neuropathy 12/17/2018 Osteoarthritis 12/17/2018 Vitamin D deficiency 12/17/2018 Atrial fibrillation ([facility]) 11/26/2018 Bilateral chronic knee pain 10/16/2016 Esophageal reflux 10/16/2016 GARRETT (obstructive sleep apnea) 10/16/2016 Endometrial thickening on ultrasound 10/08/2016 Fatty liver 10/08/2016 Hypercholesteremia 03/23/2011 Fibrocystic breast 11/08/2010 Hypothyroidism 11/08/2010 Lumbar spinal stenosis 11/08/2010 SOCIAL HISTORY: Social History Tobacco Use Smoking status: Former Current packs/day: 0.00 Types: Cigarettes Quit date: 04/01/1990 Years since quittin.0 Smokeless tobacco: Never Substance Use Topics Alcohol use: Yes FAMILY HISTORY: Family Status Relation Name Status Mother Father Sister Alive Brother Alive X 2 Daughter Alive Son Alive Brother Alive Brother Alive Sister Alive MGM Aunt MGF PGM PGF No partnership data on file Family History Problem Relation Name Age of Onset Hypertension Mother CHF, COPD COPD Mother Alzheimer's disease Mother Heart disease Father 65 [place] COPD Father Emphysema Father No Known Problems Sister No Known Problems Brother Heart attack Father Other (Other: Spinal stenosis) Mother Other (Other: adrenal tumor) Daughter Other (Other: uterine polps) Daughter No Known Problems Son No Known Problems Brother No Known Problems Brother Other (Other: graves disease) Sister Hypertension Maternal Grandmother Scleroderma Aunt ACTIVE MEDICATIONS: Outpatient Medications Marked as Taking for the 04/28/24 encounter (Office Visit) with JACKIE Ma Medication Sig Dispense Refill aspirin 81 mg EC tablet Take by mouth. atorvastatin (LIPITOR) 80 mg tablet Take 1 tablet (80 mg total) by mouth 1 (one) time each day. 90 tablet 1 biotin 5 mg tablet Take by mouth daily. CALCIUM CITRATE ORAL Take by mouth daily. 1000 mg calcium with 500 mg D3 ciclopirox (LOPROX) 0.77 % gel Apply 1 Application topically 1 (one) time each day. CYANOCOBALAMIN, VITAMIN B-12, ORAL Take 1,000 mcg by mouth daily. gummie esomeprazole (NexIUM) [address] capsule Take 1 Capsule by mouth every morning (before breakfast). folic acid (FOLVITE) 1 mg tablet Take 3 tablets (3,000 mcg total) by mouth 1 (one) time each day. gabapentin (NEURONTIN) 600 mg tablet TAKE 1 TABLET BY MOUTH 3 TIMES DAILY levothyroxine (SYNTHROID, LEVOTHROID) 125 mcg tablet Take 1 tablet (125 mcg total) by mouth 1 (one)time each day. magnesium 250 mg tablet Take by mouth. medical marijuana STUDIO TECHNICIAN VIDEO OPERATOR med methotrexate 2.5 mg tablet Take 8 tablets (20 mg total) by mouth 1 (one) time per week metoprolol succinate (TOPROL-XL) 25 mg 24 hr tablet Take 0.5 Tablets by mouth daily. multivitamin (MULTIPLE VITAMINS ORAL) Take by mouth daily. ondansetron ODT (ZOFRAN-ODT) 4 mg disintegrating tablet Take 1 Tablet by mouth 3 times daily as needed for Nausea. traMADoL (ULTRAM) 50 mg tablet Take 2 tablets (100 mg total) by mouth every 8 (eight) hours if needed (pain) for up to 28 days. Max Daily Amount: 300 mg 168 tablet 0 vitamin A 3,000 mcg (10,000 unit) tablet Take by mouth daily. ALLERGIES: Nsaids (non-steroidal anti-inflammatory drug) PHYSICAL EXAM: Blood pressure 110/52, pulse 88, temperature 36.3 ??C (97.3 ??F), temperature source Temporal, height 1.6 m (63 ), weight 82.1 kg (181 lb). Body mass index is 32.06 kg/m??. APPEARANCE: Alert and in no acute distress EARS: External ears normal. Canals obstructed with ear wax. MOUTH/THROAT: post nasal drip noted. no erythema or exudates HEART: RRR with normal S1 and S2, no murmurs, appreciated LUNG: clear to auscultation EXTREMITIES: Extremities warm and well perfused without clubbing, cyanosis, or edema RIGHT HAND: 4th finger with nick nodes however slight erythematous near cuticle and tender to touch. No signs of infection NEURO: Awake, alert and oriented x 3 PSYCH: Mood and affect intact LABS: Reviewed labs done from ER. IMPRESSION: 1. Pain in both hands 2. Psoriatic arthritis (CMS/HCC) 3. Palpitations 4. Chronic pain syndrome 5. Sinus congestion 6. Vertigo PLAN: Assessment & Plan 1. Sinus congestion: Symptoms do not align with a typical sinus infection. Reports postnasal drip and occasional pressure. - Prescribed Flonase for postnasal drip. The risks and benefits of this medication were discussed with the patient. The patient understands the potential side effects and basic interactions of this medication. The patient is asked to call me or my colleagues if they begin to experience any difficulties with this medication. 2. Dizziness: Persistent since late March, worsened around April 05, leading to an ER visit. Dizziness is not postural. - Prescribed meclizine 12.5 mg, up to three times daily as needed. The risks and benefits of this medication were discussed with the patient. The patient understands the potential side effects and basic interactions of this medication. The patient is asked to call me or my colleagues if they begin to experience any difficulties with this medication. 3. Palpitations: Experienced with dizziness, leading to an ER visit on April 05. History of atrial fibrillation post-gastric bypass surgery, no recent episodes. - Advised to follow up with credit adjuster if palpitations recur. 4. Psoriatic arthritis: Long-standing bump on right hand's fourth finger, recently red and painful near the cuticle. No infection evidence. - Ordered bilateral hand x-rays. - Advised to soak the area in warm water and apply bacitracin. - Follow up with passenger service supervisor in May with x-ray CD. Follow-up - Follow up with passenger service supervisor in May with x-ray CD. I have obtained verbal consent from Danelle Vallejo prior to the recording. I have advised James Vallejo that she may refuse the recording and require the recording to be turned off at any time during this encounter. Patient agrees with plan. Patient consents to prescribed medication and understands the adverse effect profile. They will contact the office with any concerns. Patient understands the signs and symptoms that require urgent or emergent follow-up, they will contact the office with any concerns. No orders of the defined types were placed in this encounter. ADDITIONAL ORDERS: None JACKIE Ma on 04/28/2024 at 10:49 AM EST documented in this encounter Plan of Treatment Upcoming Encounters Date Type Department Care Team (Late st Contact Info) Description 06/30/2024 1:00 PM EDT Office Visit Orthopedic Surgery - [place] [address] [address] Vlad Lamb, DPM [address] [address] 07/06/2024 3:30 PM EDT Office Visit Adult Medicine - [place] [address] [place] [address] Nova Dillon MD [address] [place] [address] 09/24/2024 3:10 PM EDT Appointment Radiology Department - [address] [phone] documented as of this encounter Visit Diagnoses Diagnosis Pain in both hands- Primary Psoriatic arthritis (CMS/HCC) Psoriatic arthropathy Palpitations Chronic pain syndrome Sinus congestion Other diseases of nasal cavity and sinuses Vertigo Dizziness and giddiness documented in this encounter Care Teams Pancake Professional Relationship Specialty Start Date End Date Nova Dillon MD [address] [place] [address] PCP - General Internal Medicine 11/24/18 documented as of this encounter
--- OUTSIDE RECORDS SUMMARY | 2024-05-19 15:18 | XMS_ITS | Encounter Summary ---
Author Organization [facility] Address [address] [place] [address] Care Team Providers Care Paver Layer Name Role Phone Luis Antonio Dillon MD Primary Care Provider [phone] Pernell Hess MD Unavailable Xiao Squires MD Unavailable Unavailable Dayanara Benton MD Unavailable Unavailable Encounter Details Date Type Department Care Team Description 08/21/2022 Orders Only Radiology - [address] [address] Radiology, Authorizing Social History Tobacco Use Types Packs/Day Years [...] week 01/13/2024 How often do you attend [facility] or scientology services? Never 01/13/2024 Do you belong to any clubs o r organizations such as orthodoxy groups, unions, fraternal or athletic groups, or [...] place to sleep or slept in a snf (including now)? No 01/13/2024 Sex Assigned at Date Recorded Not on file Job Start Date Occupation Industry Not on file Not on file Not on file documented as of this encounter Plan of Treatment Not on file documented as of this encounter Visit Diagnoses Not on filedocumented in this encounter Care Teams Paver Layer Relationship Specialty Start Date End Date Luis Antonio Dillon MD [address] [place], [place] PCP - General Internal Medicine 11/24/18 Pernell Hess MD [address] [place], [place] Internal Medicine 09/12/22 Xiao Perez MD [address] [place], [place] Referring Physician Rheumatology 09/12/22 Dayanara Benton MD [address] [place], [place] Hematology 09/12/22 documented as of this encounter
--- OUTSIDE RECORDS SUMMARY | 2024-05-19 15:18 | XMS_ITS | Encounter Summary ---
Author Organization [facility] Address [address] [place] [address] Care Team Providers Care Dinkey Mechanic Name Role Phone Luis Antonio Dillon MD Primary Care Provider [phone] [phone] Pernell Hess MD Unavailable Xiao Squires MD Unavailable Unavailable Dayanara Benton MD Unavailable Unavailable Encounter Details Date Type Department Care Team Description 11/25/2018 Orders Only Adult Medicine - [place] [address] [place] [address] Luis Antonio Dillon MD [address] [place] [address] Hypothyroidism, unspecified type (Primary Dx) Social History Tobacco Use Types Packs/Day Years [...] you attend [facility] or worship services? Never 01/13/2024 Do you belong to any clubs o r organizations such as pentecostal groups, unions, fraternal or athletic groups, or [...] on file documented as of this encounter Results * THYROID PROFILE W/TSH (05/06/2019 9:29 AM EST) TSH CASCADE 0.48 0.40 - 4.00 uIU/ml 05/06/2019 1:54 PM EST [facility] 05/06/2019 9:29 AM EST 05/06/2019 9:29 AM EST Lusi Antonio Dillon MD LAB [facility] documented in this encounter Visit Diagnoses Diagnosis Hypothyroidism, unspecified type- Primary documented in this encounter Care Teams Dinkey Mechanic Relationship Specialty Start Date End Date Luis Antonio Dillon MD [address] [place], [place] PCP - General Internal Medicine 11/24/18 Pernell Hess MD [address] [place], [place] Internal Medicine 09/12/22 Xiao Perez MD [address] [place], [place] Referring Physician Rheumatology 09/12/22 Dayanara Benton MD [address] [place], [place] Hematology 09/12/22 documented as of this encounter
--- OUTSIDE RECORDS SUMMARY | 2024-05-19 15:18 | XMS_ITS | Encounter Summary ---
Author Organization [facility] Address [address] [place] [address] Care Team Providers Care Online Health And Fitness Coach Name Role Phone Luis Antonio Dillon MD Primary Care Provider [phone] Pernell Hess MD Unavailable Xiao Squires MD Unavailable Unavailable Dayanara Benton MD Unavailable Unavailable Reason for Visit * Reason Onset Date Comments refill request 04/10/2019 Encounter Details Date Type Department Care Team Description 04/10/2019 Telephone Adult Medicine [facility] [address] [place] [address] Luis Antonio Dillon MD [address] [place] [address] refill request Social History Tobacco Use Types [...] often do you attend chur ch or buddhist services? Never 01/13/2024 Do you belong to any clubs o r organizations such as gnosticist groups, unions, fraternal or athletic groups, or [...] encounter Miscellaneous Notes * Telephone Encounter - Jennifer Bal - 04/13/2019 10:42 AM EST Asking to have this refaxed to the pharmacy if not already done so * Telephone Encounter - Nova Izquierdo M.A. - 04/10/2019 3:57 PM EST [employer] to covering Controlled substance contract and last issue date of medication reviewed. Patient is due for medication. Lab Results Component Value Date URBENZO NONE DETECTED 11/24/2018 UROPIATES NONE DETECTED 11/24/2018 URBARBITUATE NONE DETECTED 11/24/2018 PAINAMPHETAM NONE DETECTED 11/24/2018 URAMPHETAMIN NEGATIVE 11/22/2015 PAINCOCAINE NONE DETECTED 11/24/2018 URCOCAINE NEGATIVE 11/22/2015 PAINCANNABIN POSITIVE 11/24/2018 URMARIJUANA NEGATIVE 11/22/2015 * Telephone Encounter - Chantal Rizzo - 04/10/2019 11:48 AM EST Patient would like script to be: E-PRESCRIBED/FAXED TO PHARMACY WHEN WAS THE PATIENT'S LAST APPOINTMENT IN ADULT MEDICINE? 02/05/19 WHEN WAS THE LAST TIME THE PATIENT SAW THEIR PCP? Same as above Does patient have an upcoming appointment? Yes 05/06/19 (THE MEDICATION REQUESTED IS ON THE MED [...] N/A Patients current insurance carrier is: Payor: PAM/PPO POS / Plan: FEP STANDARD $25 / Product Type: PPO [id number] documented in this encounter Plan of Treatment Not on file documented as of this encounter Visit Diagnoses Not on filedocumented in this encounter Care Teams Online Health And Fitness Coach Relationship Specialty Start Date End Date Luis Antonio Dillon MD [address] [place] [address] PCP - General Internal Medicine 11/24/18 Pernell Hess MD [address] [place] [address] Internal Medicine 09/12/22 Xiao Perez MD [address] [place] [address] Referring Physician Rheumatology 09/12/22 Dayanara Benton MD [address] [place] [address] Hematology 09/12/22 documented as of this encounter
--- OUTSIDE RECORDS SUMMARY | 2024-05-19 15:18 | XMS_ITS | Encounter Summary ---
Author Organization [facility] Address [address] [place] [address] Care Team Providers Care Hospice Music Therapist Name Role Phone Luis Antonio Dillon MD Primary Care Provider [phone] Pernell Hess MD Unavailable Xiao Squires MD Unavailable Unavailable Dayanara Benton MD Unavailable Unavailable Encounter Details Date Type Department Care Team Description 07/24/2022 Bioprocess Engineer Report Medical Records [address] [place] [address] Xiao Perez MD Social History Tobacco Use Types Packs/Day [...] week 01/13/2024 How often do you attend [facility] or scientologist services? Never 01/13/2024 Do you belong to any clubs o r organizations such as restorationist groups, unions, fraternal or athletic groups, or [...] on filedocumented in this encounter Care Teams Hospice Music Therapist Relationship Specialty Start Date End Date Luis Antonio Dillon MD [address] [place], [place] PCP - General Internal Medicine 11/24/18 Pernell Hess MD [address] [place], [place] Internal Medicine 09/12/22 Xiao Perez MD [address] [place], [place] Referring Physician Rheumatology 09/12/22 Dayanara Benton MD [address] [place], [place] Hematology 09/12/22 documented as of this encounter
--- OUTSIDE RECORDS SUMMARY | 2024-05-19 15:18 | XMS_ITS | Encounter Summary ---
Author Organization [facility] Address [address] [place] [address] Care Team Providers Care Mold Builder Name Role Phone Luis Antonio Dillon MD Primary Care Provider [phone] Pernell Hess MD Unavailable Xiao Squires MD Unavailable Unavailable Dayanara Benton MD Unavailable Unavailable Encounter Details Date Type Department Care Team Description 03/18/2023 Diesel Engine I Pipe Fitter Report Medical Records [address] [place] [address] Xiao Perez MD Social History Tobacco Use [...] week 01/13/2024 How often do you attend [facility] or bahai services? Never 01/13/2024 Do you belong to any clubs o r organizations such as zoroastrianism groups, unions, fraternal or athletic groups, or [...] on filedocumented in this encounter Care Teams Mold Builder Relationship Specialty Start Date End Date Luis Antonio Dillon MD [address] [place], [place] PCP - General Internal Medicine 11/24/18 Pernell Hess MD [address] [place], [place] Internal Medicine 09/12/22 Xiao Perez MD [address] [place], [place] Referring Physician Rheumatology 09/12/22 Dayanara Benton MD [address] [place], [place] Hematology 09/12/22 documented as of this encounter
--- OUTSIDE RECORDS SUMMARY | 2024-05-19 15:18 | XMS_ITS | Encounter Summary ---
Author Organization [facility] Address [address] [place] [address] Care Team Providers Care Trolley Cleaner Name Role Phone Luis Antonio Dillon MD Primary Care Provider [phone] Pernell Hess MD Unavailable Xiao Squires MD Unavailable Unavailable Dayanara Benton MD Unavailable Unavailable Encounter Details Date Type Department Care Team Description 06/04/2019 Astrobiologist Report Medical Records [address] [place] [address] Daniel Ibarra MD Social History Tobacco Use Types Packs/Day [...] often do you attend [facility] or episcopalian services? Never 01/13/2024 Do you belong to any clubs o r organizations such as anglican groups, unions, fraternal or athletic groups, or [...] on filedocumented in this encounter Care Teams Trolley Cleaner Relationship Specialty Start Date End Date Luis Antonio Dillon MD [address] [place], [place] PCP - General Internal Medicine 11/24/18 Pernell Hess MD [address] [place], [place] Internal Medicine 09/12/22 Xiao Perez MD [address] [place], [place] Referring Physician Rheumatology 09/12/22 Dayanara Benton MD [address] [place], [place] Hematology 09/12/22 documented as of this encounter
--- OUTSIDE RECORDS SUMMARY | 2024-05-19 15:18 | XMS_ITS | Encounter Summary ---
Author Organization [facility] Address [address] [place] [address] Care Team Providers Care Emergency Management Program Specialist Name Role Phone Luis Antonio Dillon MD Primary Care Provider [phone] [phone] Pernell Hess MD Unavailable Xiao Squires MD Unavailable Unavailable Dayanara Benton MD Unavailable Unavailable Encounter Details Date Type Department Care Team Description 05/25/2020 [facility] Medical Records [address] [place] [address] Abstract, Provider Social History Tobacco Use Types [...] 01/13/2024 How often do you attend [facility] or samaritan services? Never 01/13/2024 Do you belong to [...] on filedocumented in this encounter Care Teams Emergency Management Program Specialist Relationship Specialty Start Date End Date Luis Antonio Dillon MD [address] [place], [place] PCP - General Internal Medicine 11/24/18 Pernell Hess MD [address] [place], [place] Internal Medicine 09/12/22 Xiao Perez MD [address] [place], [place] Referring Physician Rheumatology 09/12/22 Dayanara Benton MD [address] [place], [place] Hematology 09/12/22 documented as of this encounter
--- OUTSIDE RECORDS SUMMARY | 2024-05-19 15:18 | XMS_ITS | Encounter Summary ---
Author Organization [facility] Address [address] [place] [address] Care Team Providers Care Associate Director Name Role Phone Luis Antonio Dillon MD Primary Care Provider [phone] Pernell Hess MD Unavailable Xiao Squires MD Unavailable Unavailable Dayanara Benton MD Unavailable Unavailable Encounter Details Date Type Department Care Team Description 01/19/2019 Ice House Supervisor Report Medical Records [address] [place] [address] Pernell Hess MD Social History Tobacco Use [...] do you attend [facility] or voodoo services? Never 01/13/2024 Do you belong to [...] place to sleep or slept in a skilled nursing (including now)? No 01/13/2024 Sex Assigned at Date Recorded Not on file Job Start Date Occupation Industry Not on file Not on file Not on file documented as of this encounter Plan of Treatment Not on file documented as of this encounter Visit Diagnoses Not on filedocumented in this encounter Care Teams Associate Director Relationship Specialty Start Date End Date Luis Antonio Dillon MD [address] [place], [place] PCP - General Internal Medicine 11/24/18 Pernell Hess MD [address] [place], [place] Internal Medicine 09/12/22 Xiao Perez MD [address] [place], [place] Referring Physician Rheumatology 09/12/22 Dayanara Benton MD [address] [place], [place] Hematology 09/12/22 documented as of this encounter
--- OUTSIDE RECORDS SUMMARY | 2024-05-19 15:18 | XMS_ITS | Encounter Summary ---
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 Never 01/13/2024 Do you belong to [...] on filedocumented in this encounter Care Teams Facility Sales And Admin Relationship Specialty Start Date End Date Karin Stephen MD PCP - General 10/26/10 01/27/17 Lee Hurst PCP - General Internal Medicine 01/28/17 09/29/18 Ronnie Bianchi PCP - General Internal Medicine 09/30/18 09/30/18 Lauren John MD PCP - General Internal Medicine 10/06/18 11/23/18 Luis Antonio Dillon MD [address] [place], [place] PCP - General Internal Medicine 11/24/18 Pernell Hess MD [address] [place], [place] Internal Medicine 09/12/22 Xiao Perez MD [address] [place], [place] Referring Physician Rheumatology 09/12/22 Dayanara Benton MD [address] [place], [place] Hematology 09/12/22 documented as of this encounter
--- OUTSIDE RECORDS SUMMARY | 2024-05-19 15:18 | XMS_ITS | Clinical Summary ---
Author Organization [facility] Address [address] [place] [address] Care Team Providers Care Vault Attendant Name Role Phone Nova Dillon MD Primary Care Prov ider Allergies Active Allergy Reactions Criticality Noted Date Comments Aspirin 11/18/2020 Due to bariatric sc, unable to take Nsaids 02/29/2020 Bariatric surgery Other 11/18/2020 Oral steroid - due to bariatric sx, unable to take Medications Medication Sig Dispensed Refills Start Date End Date Status atorvastatin (LIPITOR) tablet 80 mg Take 1 tablet (80 mg total) by mouth daily. 0 10/23/2019 Active Biotin 5 MG TABS Take 1 tablet by mouth every evening. 0 Active Calcium Citrate-Vitamin D 200-250 MG-UNIT TABS Take 1 tablet by mouth 2 (two) times a day. 0 Active gabapentin (NEURONTIN) 600 MG tablet Take 1 tablet (600 mg total) by mouth 3 (three) times a day. 0 12/08/2019 Active levothyroxine (SYNTHROID, LEVOXYL) tablet 125 mcg Take 1 tablet (125 mcg total) by mouth daily. 0 08/26/2019 Active metoprolol succinate (TOPROL-XL) 24 hr tablet 25 mg Take 12.5 tablets (312.5 mg total) by mouth daily. 0 02/07/2017 Active Zinc 100 MG TABS Take 50 mg by mouth 4 (four) times a week. 0 Active Vitamin A 3 MG (58501 UT) TABS Take 1 tablet by mouth every evening. 0 Active vitamin B-12 (CYANOCOBALAMIN) tablet 1000 mcg Take 1 tablet (1,000 mcg total) by mouth daily. 0 Active Multiple Vitamins-Minerals (MULTIVITAMIN ADULTS PO) Take 1 tablet by mouth every day after lunch. 0 Active Magnesium 250 MG TABS Take 250 mg by mouth every evening. 0 Active UNABLE TO FIND 1 tablet as needed. Med Name: MEDICAL MARIJUANA 0 Active Docusate Sodium (COLACE PO) Take by mouth every evening. 0 Active ondansetron (Zofran ODT) 8 MG disintegrating tablet Take 1 tablet (8 mg total) by mouth every 8 (eight) hours as needed for nausea. 20 tablet 0 10/24/2021 Active traMADol (ULTRAM) 50 MG tablet Take 100 mg by mouth every 8 (eight) hours as needed. 0 10/30/2021 Active amoxicillin (AMOXIL) 500 MG capsule Take 4 tablets one hour prior to dental procedure 4 capsule 2 12/15/2021 Active Active Problems Problem Noted Date Diagnosed Date Iron deficiency anemia secon vonda to inadequate dietary iron intake 10/18/2021 Obesity (BMI 30-39.9) 06/24/2020 COPD (chronic obstructive pulmonary disease) Arthritis of right hip 12/31/2019 Aortic atherosclerosis 12/17/2018 Chronic bilateral low back pain with sciatica Depression 12/17/2018 Neuropathy 12/17/2018 Osteoarthritis 12/17/2018 Overview: Cervical, Thoracic, & Lumbosacral Spine, Hips, Knees Vitamin D deficiency 12/17/2018 Atrial fibrillation 11/26/2018 Abdominal pannus 12/23/2017 Bilateral chronic knee pain 10/16/2016 Overview: Dr Boyce Esophageal reflux 10/16/2016 GARRETT (obstructive sleep apnea) 10/16/2016 Endometrial thickening on ultrasound 10/08/2016 Overview: 8 mm, Seen on ultrasound 09/10/16 Fatty liver 10/08/2016 Overview: Seen on ultrasound History of bariatric surgery 07/20/2016 Overview: 2017 Gastric Bypass Hypercholesteremia 03/23/2011 Fibrocystic breast 11/08/2010 Hypothyroidism 11/08/2010 Overview: Had radiation for Graves, Lumbar spinal stenosis 11/08/2010 Immunizations Name Administration Dates Next Due Covid-19 (Pfizer) Dilution Required 01/19/2021,0 05/03/2020,04/12/2020 Influenza Quad (Flublok) 0.5 mL >18 Yrs (RIV4) 12/03/2018 Influenza Trivalent (Fluzone High Dose) 0.7 mL (65yrs &>) 12/18/2019 Influenza Trivalent (Fluzone /Afluria) 5.0mL Multi-dose Vial 01/21/2014,01/07/2013,01/16/2012 Pneumococcal Conjugate PCV13 11/15/2014 Pneumococcal Polysaccharide PPSV23 06/14/2016 Shingrix Vaccine (Zoster Recombinant) 09/14/2018 Tdap 02/05/2011 Family History Medical History Relation Name Comments No Sig Med Hx Brother COPD Father Emphysema Father Heart disease Father [place] Alzheimer's disease Mother COPD Mother Hypertension Mother No Sig Med Hx Sister Relation Name Status Comments Brother Alive X 2 Father (Age 65) Mother (Age 86) Sister Alive Social History Tobacco Use Types Packs/Day Years Used Date Smoking Tobacco: Former Cigarettes 2 Q uit: 1990 Smokeless Tobacco: Never Alcohol Use Standard Drinks/Week Comments Yes 0 (1 standard drink = 0.6 oz pur e alcohol) very rarely Sex and Gender Information Value Date Recorded Sex Assigned at Female 02/09/2020 1:19 PM EST Gender Identity Female 02/09/2020 1:19 PM EST Sexual Orientation Straight 09/05/2020 8: 54 AM EDT Job Start Date Occupation Industry Not on file Not on file Not on file Last Filed Vital Signs Vital Sign Reading Time Taken Comments Blood Pressure 140/44 07/23/2023 11:31 AM EDT Pulse 57 07/23/2023 11:31 AM EDT Temperature 36.9 ??C (98.4 ??F) 07/23/2023 1 1:31 AM EDT Respiratory Rate 20 12/05/2021 11:3 9 AM EDT Oxygen Saturation 100% 07/23/2023 11: 31 AM EDT Inhaled Oxygen Concentration - - Weight 88.4 kg (194 lb 14.4 oz) 024 11:31 AM EDT Height 160 cm (5' 3 ) 07/23/2023 11:31 AM EDT Body Mass Index 34.52 07/23/2023 11:31 AM EDT Plan of Treatment Health Maintenance Due Date Last Done Comments Hepatitis C Screening 1949 Depression Screening 1961 Preventative Health Evaluation 07/05/1967 Colon Cancer Screening (Colonoscopy) 1994 Breast Cancer Screening (Mammogram) 07/05/1999 RSV Adult > 60+ Yrs or (1 - Risk 60-74 years 1-dose series) 2009 Fall Risk Assessment 2014 Osteoporosis Screening (DEXA Scan) 2014 Shingrix-Zoster Vaccine (2 of 2) 11/09/2018 09/14/2018 BMI Counseling 10/20/2022 10/20/2021 COVID-19 Vaccine ( season) 2023 01/03/2023, 01/19/2021, 06/10/2020, Additional history exists Influenza Vaccine (#1) 2023 , 12/20/2021, 12/14/2021, Additional history exists DTap / Tdap / Td (3 - Td or Tdap) 02/27/2032 02/26/2022, 02/05/2011 Pneumococcal Vaccine Completed 06/14/2016, 11/16/19 15 Hepatitis B Vaccines Aged Out No long er eligible based on patient's age to complete this topic RSV Ped < 20 months Aged Out No longe r eligible based on patient's age to complete this topic Medical Devices Implanted Type Area Parking Assistant Device Identifier Shelf Expiration Date Model / Serial / Lot Insert Trident 0d E 36mm X3 Acetabular [facility] - 107618 - [id number] Implanted:Qty: 1 on 02/29/2020 by Marcos Velasquez MD at [facility] Right: Hip [employer] [id number] 01/23/2025 623-00-36E / / [id number] Shell Trident Ii E 52mm Tritanium Acetabular Hip - 797768 - [id number] Implanted:Qty: 1 on 02/29/2020 by Marcos Velasquez MD at [facility] Right: Hip [employer] [id number] 11/28/2023 709-04-52E / / [id number] Screw Trident Ii 30mm 6.5mm Low Profile Hexagonal Bone - 433050 - [id number] Implanted:Qty: 1 on 02/29/2020 by Marcos Velasquez MD at [facility] Right: Hip [employer] [id number] 10/19/2024 6405-7651 / / [id number] Screw Bone Trident Ii L20 Mm Od6.5 Mm Low Profile Hexa - 863256 - [id number] Implanted:Qty: 1 on 02/29/2020 by Marcos Velasquez MD at [facility] Right: Hip [employer] [id number] 06/02/2024 3852-3404 / / [id number] Screw Trident Ii 15mm 6.5mm Low Profile Hexagonal Bone - 735288 - [id number] Implanted:Qty: 1 on 02/29/2020 by Marcos Velasquez MD at [facility] Right: Hip [employer] [id number] 08/11/2023 3969-8311 / / [id number] Stem Accolade Ii 3 132d Femoral - 687383 - [id number] Implanted:Qty: 1 on 02/29/2020 by Marcos Velasquez MD at [facility] Right: Hip [employer] [id number] 01/11/2025 9963-2961 / / [id number] Head V40 -2.5mm 36mm Biolox Delta Femoral Hip - 907188 - [id number] Implanted:Qty: 1 on 02/29/2020 by Marcos Velasquez MD at [facility] Right: Hip [employer] [id number] 01/09/2025 6570-0-436 / / [id number] Component Triathlon 4 Cruciate Retaining Cemented Femoral - 360901 - [id number] Implanted:Qty: 1 on 09/05/2020 by Marcos Velasquez MD at [facility] Left: Knee [employer] [facility] [employer] [id number] 05/10/2025 5510-F-401 / / [id number] Component Triathlon 8mm 27mm Symmetric X3 Ptlar Knee - 088043 - [id number] Implanted:Qty: 1 on 09/05/2020 by Marcos Velasquez MD at [facility] Left: Knee [employer] [facility] [employer] [id number] 12/02/2023 5550-G-278 / / [id number] Triathlon Cr Insert - Size 4 12mm X3 - 076589 - [id number] Implanted:Qty: 1 on 09/05/2020 by Marcos Velasquez MD at [facility] and [facility] Left: Knee [employer] [id number] 10/30/2022 5530-G-412 -E / / [id number] Baseplate Triathlon 4 Primary Cemented Tibial Knee - 762967 - [id number] Implanted:Qty: 1 on 09/05/2020 by Marcos Velasquez MD at [facility] and [facility] Left: Knee [facility] [facility] [id number] 09/16/2023 5520-B-400 / / [id number] Cement Simplex P Radiopaque Full Dose Bone 10 Pack - - [id number] Implanted:Qty: 1 on 09/05/2020 by Marcos Velasquez MD at [facility] and Med Left: Knee [employer] [facility] 12/29/2021 6191-1-010 / / [id number] Cement Simplex P Radiopaque Full Dose Bone 10 Pack - - [id number] Implanted:Qty: 1 on 09/05/2020 by Marcos Velasquez MD at [facility] and Med Left: Knee [employer] 12/29/2021 6191-1-010 / / [id number] [place] V40 Cemented Hip Stem 37.5 Offst 125mm Implanted:Qty: 1 on 10/23/2021 by Marcos Velasquez MD at [facility] and Med Left: Hip [employer] 04/26/2026 0580-3-371 / / [id number] Tritanium Cluster Hole Shell 52mm Stry-Howm 392-23-34k-770 473 - [id number] Implanted:Qty: 1 on 10/23/2021 by Marcos Velasquez MD at [facility] and Med Left: Hip [employer] [id number] 05/17/2026 702-04-52E / / [id number] ++Dnu+Disc Use [id number] Hip Insrt Trident 0d Silvio 36mm Stry-How 214-52-54a-200 918 - [id number] Implanted:Qty: 1 on 10/23/2021 by Marcos Velasquez MD at [facility] and Med Left: Hip [facility] [id number] 09/14/2026 623-00-36E / / [id number] Lp Hex Screw 6.5x30mm Stry-Howm 2411-5678-5919 78 - [id number] Implanted:Qty: 1 on 10/23/2021 by Marcos Velasquez MD at [facility] and Med Left: Hip [facility] [id number] 08/31/2026 0668-4740 / / [id number] Kit Prep Total Hip Bone Imp Smn-Orth 899865-859556 - [id number] Implanted:Qty: 1 on 10/23/2021 by Marcos Velasquez MD at [facility] and Med Left: Hip [employer] [id number] 09/13/2031 286471 / / [id number] Description:SMALL BONE PLUG USED FROM THE KIT Cement Bone Surg Simplex Radiopq Stry-Howm 8431-9-552-114 092 - [id number] Implanted:Qty: 1 on 10/23/2021 by Marcos Velasquez MD at [facility] Left: Hip [employer] [id number] 10/30/2023 6191-1-010 / / [id number] Cement Bone Surg Simplex Radiopq Stry-How 6510-3-536-114 092 - [id number] Implanted:Qty: 1 on 10/23/2021 by Marcos Velasquez MD at [facility] Left: Hip [employer] [id number] 02/28/2023 6191-1-010 / / [id number] Hip Head Delta Biolox 36mm -5 Stry-How 3820-1-607-549 190 - [id number] Implanted:Qty: 1 on 10/23/2021 by Marcos Velasquez MD at [facility] Left: Hip [facility] [id number] 08/17/2026 6570-0-036 / / [id number] Advance Directives For more information, please contact: [phone] Documents on File Type Date Recorded Patient Base Ply Hand Expl anation Advance Directive and Living Will 09/05/2020 8:06 AM Latest Code Status on File Code Status Date Activated Date Inactivated Comments Full Code 10/23/2021 11:57 AM 10/24/2021 9:28 PM This code status was ascertained in the following way: chart review . Code Status History Code Status Date Activated Date Inactivated Comments Full Code 10/23/2021 6:52 AM 10/23/2021 11:56 AM This code status was ascertained in the following way: discussion with patient . Full Code 11/21/2020 6:19 AM 11/21/2020 5:35 PM This code status was ascertained in the following way: . Full Code 09/05/2020 11:28 AM 09/07/2020 11:01 PM This code status was ascertained in the following way: discussion with patient . Full Code 09/05/2020 8:22 AM 09/05/2020 11:28 AM This c ode status was ascertained in the following way: discussion with patient . Care Teams Vault Attendant Relationship Specialty Start Date End Date Nova Dillon MD PCP - General Internal Medicine 12/21/19
--- OUTSIDE RECORDS SUMMARY | 2024-05-19 15:18 | XMS_ITS | Encounter Summary ---
Author Organization [facility] Address [address] [place] [address] Care Team Providers Care Certified Medical Biller Name Role Phone Karin Stephen MD Primary Care Provider UnavailLee Walsh Primary Care Provider Unavail Ronnie Flores Primary Care Provider UnavailLauren Rowe MD Primary Care Provide r Unavailable Luis Antonio Dillon MD Primary Care Provider [phone] [phone] Pernell Hess MD Unavailable Xiao Squires MD Unavailable Unavailable Dayanara Benton MD Unavailable Unavailable Encounter Details Date Type Department Care Team Description 01/04/2017 Hospital Medical Records [address] [place] [address] Social History Tobacco Use Types Packs/Day Years [...] often do you attend chur ch or jain services? Never 01/13/2024 Do you belong to any clubs o r organizations such as christian groups, unions, fraternal or athletic groups, or [...] place to sleep or slept in a usp (including now)? No 01/13/2024 Sex Assigned at Date Recorded Not on file Job Start Date Occupation Industry Not on file Not on file Not on file documented as of this encounter Plan of Treatment Not on file documented as of this encounter Visit Diagnoses Not on filedocumented in this encounter Care Teams Certified Medical Biller Relationship Specialty Start Date End Date Karin Stephen MD PCP - General 10/26/10 01/27/17 Lee Hurst PCP - General Internal Medicine 01/28/17 09/29/18 Ronnie Bianchi PCP - General Internal Medicine 09/30/18 09/30/18 Lauren John MD PCP - General Internal Medicine 10/06/18 11/23/18 Luis Antonio Dillon MD [address] [place], [place] PCP - General Internal Medicine 11/24/18 Pernell Hess MD [address] [place], [place] Internal Medicine 09/12/22 Xiao Perez MD [address] [place], [place] Referring Physician Rheumatology 09/12/22 Dayanara Benton MD [address] [place], [place] Hematology 09/12/22 documented as of this encounter
--- OUTSIDE RECORDS SUMMARY | 2024-05-19 15:18 | XMS_ITS | Encounter Summary ---
Author Organization [facility] Address [address] [place] [address] Care Team Providers Care Job Site Supervisor Name Role Phone Karin Stephen MD Primary Care Provider UnavailLee Walsh Primary Care Provider Unavail Ronnie Flores Primary Care Provider UnavailLauren Rowe MD Primary Care Provide r Unavailable Luis Antonio Dillon MD Primary Care Provider [phone] Pernell Hess MD Unavailable Xiao Squires MD Unavailable Unavailable Dayanara Benton MD Unavailable Unavailable Reason for Visit * Reason Onset Date Comments APPOINTMENT 04/24/2016 Encounter Details Date Type Department Care Team Description 04/24/2016 Telephone [facility] [address] [place] [address] Zaria Cruz MD APPOINTMENT Social History Tobacco Use Types Packs/Day Years [...] How often do you attend chur or muslim services? Never 01/13/2024 Do you belong to any clubs o r organizations such as baptism groups, unions, fraternal or athletic groups, or [...] encounter Miscellaneous Notes * Telephone Encounter - Dorcas Steven - 04/24/2016 1:26 PM EST LVM for pt to call back. Pt was previously seen by Dr. Cruz(at [facility]). We received a letter about her overdue mammo. She currently has no OBGYN care established with [place]. Dr. Cruz would like to know ifthe pt would like to continue care with her. Please ask pt, schedule AG. EDEN documented in this encounter Plan of Treatment Not on file documented as of this encounter Visit Diagnoses Not on filedocumented in this encounter Care Teams Job Site Supervisor Relationship Specialty Start Date End Date Karin Stephen MD PCP - General 10/26/10 01/27/17 Lee Hurst PCP - General Internal Medicine 01/28/17 09/29/18 Ronnie Bianchi PCP - General Internal Medicine 09/30/18 09/30/18 Lauren John MD PCP - General Internal Medicine 10/06/18 11/23/18 Luis Antonio Dillon MD [address] [place] [address] PCP - General Internal Medicine 11/24/18 Pernell Hess MD [address] [place] [address] Internal Medicine 09/12/22 Xiao Perez MD [address] [place] [address] Referring Physician Rheumatology 09/12/22 Dayanara Benton MD [address] [place] [address] Hematology 09/12/22 documented as of this encounter
--- OUTSIDE RECORDS SUMMARY | 2024-05-19 15:18 | XMS_ITS | Encounter Summary ---
Author Organization [facility] Address [address] [place] [address] Care Team Providers Care Copyright Clerk Name Role Phone Luis Antonio Dillon MD Primary Care Provider [phone] Pernell Hess MD Unavailable Xiao Squires MD Unavailable Unavailable Dayanara Benton MD Unavailable Unavailable Reason for Visit * Reason Onset Date Comments refill request 09/28/2021 Encounter Details Date Type Department Care Team Description 09/28/2021 Refill Adult Medicine - [facility] [address] [place] [address] Luis Antonio Dillon MD [address] [place] [address] refill request Social History Tobacco Use Types [...] often do you attend chur ch or yarsani services? Never 01/13/2024 Do you [...] place to sleep or slept in a [place] [facility] [place] facility (including now)? No 01/13/2024 Sex Assigned at Date Recorded Not on file Job Start Date Occupation Industry Not on file Not on file Not on file documented as of this encounter Miscellaneous Notes * Telephone Encounter - Nova Izquierdo M.A. - 09/28/2021 3:56 PM EDT Please help with Rx request due to PCP /Careteam out of office * Telephone Encounter - Nova Izquierdo M.A. - 09/28/2021 3:53 PM EDT Images from the original note were not included. Controlled substance contract and last issue date of medication reviewed. Patient is due for medication. Last appt- 08/21/21 Next appt- 11/22/21 Last appt w/ PCP- same as above Lab Results Component Value Date URBENZO NONE DETECTED 06/13/2021 UROPIATES NONE DETECTED 06/13/2021 UROXYCODONE NONE DETECTED 06/13/2021 URBARBITUATE NONE DETECTED 06/13/2021 PAINAMPHETAM NONE DETECTED 06/13/2021 PAINCOCAINE NONE DETECTED 06/13/2021 PAINCANNABIN NONE DETECTED 06/13/2021 Machine Plaster Mixer * Telephone Encounter - Gayla Linder - 09/28/2021 3:50 PM EDT REFILL LAST OFFICE VIST: 08/21/21 LAST PCP VISIT: 08/21/21 NEXT OFFICE VISIT: 11/22/21 Patient reports she is out of this medication documented in this encounter Plan of Treatment Not on file documented as of this encounter Visit Diagnoses Not on filedocumented in this encounter Care Teams Copyright Clerk Relationship Specialty Start Date End Date Luis Antonio Dillon MD [address] [place] [address] PCP - General Internal Medicine 11/24/18 Pernell Hess MD [address] [place] [address] Internal Medicine 09/12/22 Xiao Perez MD [address] [place] [address] Referring Physician Rheumatology 09/12/22 Dayanara Benton MD [address] [place] [address] Hematology 09/12/22 documented as of this encounter
--- OUTSIDE RECORDS SUMMARY | 2024-05-19 15:18 | XMS_ITS | Encounter Summary ---
Author Organization [facility] Address [address] [place] [address] Care Team Providers Care Admissions Nurse Name Role Phone Karin Stephen MD Primary Care Provider UnavailLee Walsh Primary Care Provider Unavail Ronnie Flores Primary Care Provider UnavailLauren Rowe MD Primary Care Provide r Unavailable Luis Antonio Dillon MD Primary Care Provider [phone] Pernell Hess MD Unavailable Xiao Squires MD Unavailable Unavailable Dayanara Benton MD Unavailable Unavailable Encounter Details Date Type Department Care Team Description 12/31/2016 Hospital Medical Records [address] [place] [address] Social History Tobacco Use Types Packs/Day Years [...] often do you attend chur ch or mandaen services? Never 01/13/2024 Do you belong to any clubs o r organizations such as adventist groups, unions, fraternal or athletic groups, or [...] on filedocumented in this encounter Care Teams Admissions Nurse Relationship Specialty Start Date End Date Karin Stephen MD PCP - General 10/26/10 01/27/17 Lee Hurst PCP - General Internal Medicine 01/28/17 09/29/18 Ronnie Bianchi PCP - General Internal Medicine 09/30/18 09/30/18 Lauren John MD PCP - General Internal Medicine 10/06/18 11/23/18 Luis Antonio Dillon MD [address] [place], [place] PCP - General Internal Medicine 11/24/18 Pernell Hess MD [address] [place], [place] Internal Medicine 09/12/22 Xiao Perez MD [address] [place], [place] Referring Physician Rheumatology 09/12/22 Dayanara Benton MD [address] [place], [place] Hematology 09/12/22 documented as of this encounter
--- OUTSIDE RECORDS SUMMARY | 2024-05-19 15:19 | XMS_ITS | Clinical Summary ---
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 024 Active metoprolol succinate (TOPROL-XL) 25 mg 24 hr tablet Take 0.5 Tablets by mouth daily. 024 Active esomeprazole (NexIUM) [address] capsule Take 1 Capsule by mouth every morning (before breakfast). Active methotrexate 2.5 mg tablet Take 8 tablets (20 mg total) by mouth 1 (one) time per week 023 Active folic acid (FOLVITE) 1 mg tablet Take 3 tablets (3,000 mcg total) by mouth 1 (one) time each day. 023 Active aspirin 81 mg EC tablet Take by mouth. Activ e ciclopirox (LOPROX) 0.77 % gel Apply 1 Application topically 1 (one) time each day. 023 Active ondansetron ODT (ZOFRAN-ODT) 4 mg disintegrating tablet Take 1 Tablet by mouth 3 times daily as needed for Nausea. 023 Active magnesium 250 mg tablet Take by mouth. 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 Active vitamin A 3,000 mcg (10,000 unit) tablet Take by mouth daily. Active CALCIUM CITRATE ORAL Take by mouth daily. 1000 mg calcium with 500 mg D3 Active CYANOCOBALAMIN, VITAMIN B-12, ORAL Take 1,000 mcg by mouth daily. gummie Active multivitamin (MULTIPLE VITAMINS ORAL) Take by mouth daily. Active traMADoL (ULTRAM) 50 mg tablet Take 2 tablets (100 mg total) by mouth every 8 (eight) hours if needed (pain) for up to 28 days. Max Daily Amount: 300 mg 168 tablet 025 2024 Active meclizine (ANTIVERT) 12.5 mg tablet Take 1 tablet (12.5 mg total) by mouth 3 (three) times a day if needed for dizziness. 30 tablet 1 025 2025 Active fluticasone propionate (FLONASE) 50 mcg/actuation nasal spray Administer 2 sprays into each nostril 1 (one) time each day. Shake gently. Before first use, prime pump. After use, clean tip and replace cap. 16 g 5 025 2025 Active atorvastatin (LIPITOR) 80 mg tablet TAKE 1 TABLET BY MOUTH ONCE DAILY 90 tablet 1 025 Active atorvastatin (LIPITOR) 80 mg tablet Take 1 tablet (80 mg total) by mouth 1 (one) time each day. 90 tablet 1 024 2024 Discontinued traMADoL (ULTRAM) 50 mg tablet Take 2 tablets (100 mg total) by mouth every 8 (eight) hours if needed (pain) for up to 28 days. Max Daily Amount: 300 mg 168 tablet 024 2024 Discontinued(R otoniel) Active Problems Problem Noted Date Diagnosed Date Psoriatic arthritis 04/28/2024 Chronic pain syndrome 04/06/2024 Carotid stenosis, right 12/27/2021 Overview (12/31/2023): 50-79% [facility] CARDS Iron deficiency anemia secon vonda to inadequate dietary iron intake 10/18/2021 Obesity (BMI 30-39.9) 06/24/2020 COPD (chronic obstructive pulmonary disease) Arthritis of right hip 12/31/2019 Aortic atherosclerosis 12/17/2018 Chronic bilateral low back pain with sciatica Depression 12/17/2018 Neuropathy 12/17/2018 Osteoarthritis 12/17/2018 Overview (12/31/2023): Cervical, Thoracic, & Lumbosacral Spine, Hips, Knees Vitamin D deficiency 12/17/2018 Atrial fibrillation 11/26/2018 Bilateral chronic knee pain 10/16/2016 Overview (12/31/2023): Dr Boyce Esophageal reflux 10/16/2016 GARRETT (obstructive sleep apnea) 10/16/2016 Endometrial thickening on ultrasound 10/08/2016 Overview (12/31/2023): 8 mm, Seen on ultrasound 09/10/16 Fatty liver 10/08/2016 Overview (12/31/2023): Seen on ultrasound Hypercholesteremia 03/23/2011 Fibrocystic breast 11/08/2010 Hypothyroidism 11/08/2010 Overview (12/31/2023): Had radiation for Graves, Lumbar spinal stenosis 11/08/2010 Encounters Date Type Department Care Team Description 04/28/2024 8:59 AM EST - 04/28/2024 11:59 PM EST Hospital Encounter Xray - [place] [address] [place] [address] Pain in both hands Discharge Disposition: Home or Self Care 04/28/2024 8:30 AM EST Office Visit Adult Medicine [facility] [address] [place] [phone] Linda Ferguson PA Pain in both hands (Primary Dx); Psoriatic arthritis (CMS/HCC); Palpitations; Chronic pain syndrome; Sinus congestion; Vertigo 04/27/2024 Telephone Adult Medicine [facility] [address] [place] [address] HayNova Oropeza MD Dizziness; Sinus Problem 04/06/2024 3:30 PM EST Office Visit Adult [address] [phone] Nova Giang MD Palpitations (Primary Dx); Chronic bronchitis, unspecified chronic bronchitis type (CMS/HCC); Arthritis of right hip; Hypothyroidism, unspecified type; Chronic pain syndrome from Last 3 Months Immunizations Name Administration Dates Next Due Influenza trivalent, 0.5mL ( Fluzone High-dose) 65yo and older 01/03/2023,12/14/2021,12/18/2019,12/03 Influenza trivalent, with pr eservative (Fluzone; Afluria) 6mo and older 12/20/2021,01/21/2014,01/07/2013,01/15 Influenza, Unspecified 12/03/2018 Moderna (age 6mo & older) Bi valent, COVID-19, 0.5 mL or 0.25 mL dosage 12/20/2021 eBoox SARS-CoV-2 COVID-19, mRNA, LNP-S, preservative free 01/03/2023,01/19/2021,06/10/2020 Pneumococcal conjugate 13 va lent (Prevnar 13, PCV13) 2mo and older 11/15/2014 Pneumococcal polysaccharide 23 valent (Pneumovax 23) 2yo and older 06/14/2016 Tdap Tetanus diptheria acell ular pertussis (Boostrix; Adacel) 7yo and older 02/26/2022,02/05/2011 Zoster recombinant (Shingrix ) 19yo and older 09/14/2018 Surgical History Surgery Date Site/Laterality Comments CHOLECYSTECTOMY PROCEDURE:CHOLECYSTECTOMY BACK SURGERY PROCEDURE:BACK SURGERY GASTRIC BYPASS PROCEDURE:GASTRIC BYPASS BARIATRIC SURGERY PROCEDURE:BARIATRIC SURGERY VEIN LIGATION AND STRIPPING 2009 PROCEDURE:VEIN LIGATION AND STRIPPING;COMMENT:R/L HERNIA REPAIR PROCEDURE:HERNIA REPAIR;COMMENT:DIAPHRAGMATIC TOTAL HIP ARTHROPLASTY 02/29/2020 Right PROCEDURE:TOTAL HIP ARTHROPLASTY;COMMENT:Procedure : REPLACEMENT TOTAL HIP; Surgeon: Marcos Velasquez MD; Location: [facility] [place] Service: Orthopedics; Laterality: Right; COLONOSCOPY PROCEDURE:COLONOSCOPY TOTAL KNEE ARTHROPLASTY 08/2020 Left PROCEDURE:TOTAL KNEE ARTHROPLASTY TOTAL HIP ARTHROPLASTY 10/23/2021 Left PROCEDURE:TOTAL HIP ARTHROPLASTY;COMMENT:Procedure : REPLACEMENT TOTAL HIP; Surgeon: Marcos Velasquez MD; Location: [facility] ([facility]); Service: Orthopedics; Laterality: Left; OTHER SURGICAL HISTORY 07/21/2008 PROCEDURE: HISTORY OTHER; COMMENT: bilateral brachioplasty TONSILLECTOMY PROCEDURE: HISTORICAL TONSILLECTOMY; COMMENT: adenoids also OTHER SURGICAL HISTORY 11/23/2010 PROCEDURE: HISTORY OTHER; COMMENT: phlebectomy right varicose veins CHOLECYSTECTOMY 10/2011 PROCEDURE: HISTORICAL CHOLECYSTECTOMY; COMMENT: open COLONOSCOPY 03/23/2011 PROCEDURE: HISTORICAL COLONOSCOPY; COMMENT: melanosis coli; repeat in ten yrs BACK SURGERY 03/2002 PROCEDURE: HISTORICAL BACK SURGERY; COMMENT: L5-S1 microdiscectomy OTHER SURGICAL HISTORY 12/31/2016 PROCEDURE: HISTORY OTHER; COMMENT: bariatric surgery- gastric bypass OTHER SURGICAL HISTORY 03/01/2020 Right PROCEDURE: UT ARTHRP ACETBLR/PROX FEM PROSTC AGRFT/ALGRFT TOTAL KNEE ARTHROPLASTY 09/05/2020 Left PROCEDURE: UT ARTHRP KNE CONDYLE&PLATU MEDIAL&LAT COMPARTMENTS Medical History Medical History Date Comments Hypertension DX:Hypertension; COMMENT:resolved since bariatric Osteoarthritis DX:Osteoarthriti s A-fib ([facility]) DX:A-fib ([facility]);COMMENT:postoperatively bariatric surgery Sleep apnea DX:Sleep apnea;C OMMENT:NONCOMPLIANT WITH CPAP DUE TO WT. LOSS COPD (chronic obstructive pu lmonary disease) ([facility]) DX:COPD (chronic obstructive pulmonary disease) ([facility]);COMMENT:Just from hx of smoking no PFTs previous done not on medication Hyperlipidemia DX:Hyperlipidemi a GERD (gastroesophageal reflux disease) DX:GERD (gastroesophageal reflux disease);COMMENT:resolved after bariatric surgery Paresthesia DX:Paresthesia;C OMMENT:RIGHT FOOT Hypothyroidism DX:Hypothyroidis m Chronic constipation DX:Chronic constipation Hypothyroidism 11/08/2010 DX:Hypothyroidis m; COMMENT: Had radiation for Graves, Fibrocystic breast 11/08/2010 DX:Fibrocysti c breast Hypercholesteremia 03/23/2011 DX:Hyperchole steremia Fatty liver 10/08/2016 DX:Fatty liver; COMMENT: Seen on ultrasound Endometrial thickening on ultra sound 10/08/2016 DX:Endometrial thickening on ultra sound; COMMENT: 8 mm, Seen on ultrasound 09/10/16 Esophageal reflux 10/16/2016 DX:Esophageal reflux Bilateral chronic knee pain 10/16/2016 DX:B ilateral chronic knee pain; COMMENT: Dr Boyce Atrial fibrillation ([facility]) 11/26/2018 DX :Atrial fibrillation ([facility]) GARRETT (obstructive sleep apnea) 10/16/2016 DX :GARRETT (obstructive sleep apnea) Aortic atherosclerosis ([facility]) 12/17/2018 DX:Aortic atherosclerosis ([facility]) Osteoarthritis 12/17/2018 DX:Osteoarthriti s; COMMENT: Cervical, Thoracic, & Lumbosacral Spine, Hips, Knees History of bariatric surgery 07/20/2016 DX: History of bariatric surgery; COMMENT: 2016 Gastric Bypass Vitamin D deficiency 12/17/2018 DX:Vitamin D deficiency Lumbar spinal stenosis 11/08/2010 DX:Lumbar spinal stenosis Chronic bilateral low back p ain with sciatica 12/17/2018 DX:Chronic bilateral low soraya k pain with sciatica Depression 12/17/2018 DX:Depression Neuropathy 12/17/2018 DX:Neuropathy COPD (chronic obstructive pu lmonary disease) ([facility]) 03/18/2020 DX:COPD (chronic obstructive pulmonary disease) ([facility]) HTN (hypertension) 03/18/2020 DX:HTN (hyper tension) Carotid stenosis, right 12/27/2021 DX:Carot id stenosis, right; COMMENT: 50-79% [facility] CARDS Irritable bowel syndrome DX:Irri table bowel syndrome Family History Medical History Relation Name Comments Scleroderma Aunt No Known Problems Brother 1 No Known Problems Brother 2 No Known Problems Brother 3 Other: adrenal tumor Daughter Other: uterine polps Daughter COPD Father Emphysema Father Heart attack Father Heart disease Father NM Hypertension Maternal Grandmother Alzheimer's disease Mother COPD Mother Hypertension Mother CHF, COPD Other: Spinal stenosis Mother No Known Problems Sister 1 Other: graves disease Sister 2 No Known Problems Son Relation Name Status Comments Aunt Brother 1 Alive X 2 Brother 2 Alive Brother 3 Alive Daughter Alive Father Maternal Grandfather Maternal Grandmother Mother Paternal Grandfather Paternal Grandmother Sister 1 Alive Sister 2 Alive Son Alive Social History Tobacco Use [...] on file Sexual Orientation Not on file Obstetrics History Last Filed Vital Signs Vital Sign Reading [...] Mass Index 32.06 04/28/2024 8:30 AM EST Plan of Treatment Upcoming Encounters Date Type Department Care Team (Late st Contact Info) Description 06/30/2024 1:00 PM EDT Office Visit Orthopedic Surgery - [place] [id number] [phone] Vlad Lamb, DPM [address] [address] 07/06/2024 3:30 PM EDT Office Visit Adult Medicine - [address] [phone] Nova Dillon MD [address] [place] [phone] 09/24/2024 3:10 PM EDT Appointment Radiology Department - [address] [phone] Health Maintenance Due Date Last Done Comments Hepatitis A Vaccines (1 of 2 - Risk 2-dose series) 1968 Hepatitis B Vaccines (1 of 3 - Risk 3-dose series) 2009 RSV Immunization Patients 60+ Years Old (1 - Risk 60-74 years 1-dose series) 2009 Depression Screening 03/08/2022 Falls Risk Assessment 03/08/2022 Medicare Annual Wellness Visit 03/08/2022 Social Influencers of Health Screening 03/08/2022 Breast Cancer Screening 06/16/2022 06/16/2020 Cholesterol Screening (Lipid Panel) 01/19/2029 01/20/2024, 05/19/2021 Colorectal Cancer Screening: Colonoscopy 02/02/2032 02/01/2022 DTaP,Tdap,and Td Vaccines (3 - Td or Tdap) 02/27/2032 02/26/2022, 02/05/2011 Osteoporosis Screening (Bone Density Screening) 09/11/2032 09/11/2022 Hepatitis C Screening Completed 01/15/2013 Pneumococcal Vaccine: 50+ Years Completed 06/14/2016, 11/15/2014 Zoster Vaccines Completed 11/24/2018, 09/14/2018 COVID-19 Vaccine Completed 12/20/2023, 07/2022, 12/20/2021, Additional history exists Influenza Vaccine Completed 12/20/2023, , 12/20/2021, Additional history exists HIB Vaccines Aged Out No longer eligi ble based on patient's age to complete this topic HPV Vaccines Aged Out No longer eligi ble based on patient's age to complete this topic IPV Vaccines Aged Out No longer eligi ble based on patient's age to complete this topic MMR Vaccines Aged Out No longer eligi ble based on patient's age to complete this topic Meningococcal ACWY Vaccine Aged Out N o longer eligible based on patient's age to complete this topic Meningococcal B Vacine Aged Out No lo nger eligible based on patient's age to complete this topic RSV Immunization Patients Under 20 months Aged Out No longer eligible based on patient's age to complete this topic Varicella Vaccines Aged Out No longer eligible based on patient's age to complete this topic Medical Devices Implanted Type Area Director Of Medical Staff Services Device Identifier Shelf Expiration Date Model / Serial / Lot Insert Trident 0d E 36mm X3 Acetabular Hip - [id number] Implanted:Qty: 1 on 02/29/2020 by Marcos Velasquez MD Right: Hip [employer] [id number] 01/23/2025 623-00-36E / / [id number] Shell Trident Ii E 52mm Tritanium Acetabular Hip - [id number] Implanted:Qty: 1 on 02/29/2020 by Marcos Velasquez MD Right: Hip [employer] [id number] 11/28/2023 709-04-52E / / [id number] Screw Trident Ii 30mm 6.5mm Low Profile Hexagonal Bone - [id number] Implanted:Qty: 1 on 02/29/2020 by Marcos Velasquez MD Right: Hip [employer] [id number] 10/19/2024 0274-6928 / / [id number] Screw Bone Trident Ii L20 Mm Od6.5 Mm Low Profile Hexa - [id number] Implanted:Qty: 1 on 02/29/2020 by Marcos Velasquez MD Right: Hip [employer] [id number] 06/02/2024 7944-4253 / / [id number] Screw Trident Ii 15mm 6.5mm Low Profile Hexagonal Bone - [id number] Implanted:Qty: 1 on 02/29/2020 by Marcos Velasquez MD Right: Hip [employer] [id number] 08/11/2023 3650-4750 / / [id number] Stem Accolade Ii 3 132d Femoral - [id number] Implanted:Qty: 1 on 02/29/2020 by Marcos Velasquez MD Right: Hip [employer] [id number] 01/11/2025 4604-7187 / / [id number] Head V40 -2.5mm 36mm Biolox Delta Femoral Hip - [id number] Implanted:Qty: 1 on 02/29/2020 by Marcos Velasquez MD Right: Hip [employer] [id number] 01/09/2025 6570-0-436 / / [id number] Component Triathlon 4 Cruciate Retaining Cemented Femoral - [id number] Implanted:Qty: 1 on 09/05/2020 by Marcos Velasquez MD Left: Knee [employer] [id number] 05/10/2025 5510-F-401 / / [id number] Component Triathlon 8mm 27mm Symmetric X3 Ptlar Knee - [id number] Implanted:Qty: 1 on 09/05/2020 by Marcos Velasquez MD Left: Knee [employer] [id number] 12/02/2023 5550-G-278 / / [id number] Triathlon Cr Insert - Size 4 12mm X3 - [id number] Implanted:Qty: 1 on 09/05/2020 by Marcos Velasquez MD Left: Knee [employer] [id number] 10/30/2022 5530-G-412 -E / / [id number] Baseplate Triathlon 4 Primary Cemented Tibial Knee - [id number] Implanted:Qty: 1 on 09/05/2020 by Marcos Velasquez MD Left: Knee [employer] [id number] 09/16/2023 5520-B-400 / / [id number] Cement Simplex P Radiopaque Full Dose Bone 10 Pack - [id number] Implanted:Qty: 1 on 09/05/2020 by Marcos Velasquez MD Left: Knee [employer] 12/29/2021 6191-1-010 / / [id number] Cement Simplex P Radiopaque Full Dose Bone 10 Pack - [id number] Implanted:Qty: 1 on 09/05/2020 by Marcos Velasquez MD Left: Knee [employer] 12/29/2021 6191-1-010 / / [id number] Iuka V40 Cemented Hip Stem 37.5 Offst 125mm Implanted:Qty: 1 on 10/23/2021 by Marcos Velasquez MD Left: Hip [employer] 04/26/2026 0580-3-371 / / [id number] Tritanium Cluster Hole Shell 52mm Stry-How [id number] Implanted:Qty: 1 on 10/23/2021 by Marcos Velasquez MD Left: Hip [employer] [id number] 05/17/2026 702-04-52E / / [id number] ++Dnu+Disc Use [id number] Hip Insrt Trident 0d Silvio 36mm Stry-Howm [id number] Implanted:Qty: 1 on 10/23/2021 by Marcos Velasquez MD Left: Hip [employer] [id number] 09/14/2026 623-00-36E / / [id number] Lp Hex Screw 6.5x30mm Stry-Howm [id number] Implanted:Qty: 1 on 10/23/2021 by Marcos Velasquez MD Left: Hip [employer] [id number] 08/31/2026 7982-1573 / / [id number] Kit Prep Total Hip Bone Imp Smn-Orth [id number] Implanted:Qty: 1 on 10/23/2021 by Marcos Velasquez MD Left: Hip [employer] [id number] 09/13/2031 [id number] / / [id number] Description:SMALL BONE PLUG USED FROM THE KIT Cement Bone Surg Simplex Radiopq Stry-Howm [id number] 092 Implanted:Qty: 1 on 10/23/2021 by Marcos Velasquez MD Left: Hip [employer] [id number] 10/30/2023 6191-1-010 / / [id number] Cement Bone Surg Simplex Radiopq Stry-Howm [id number] 092 Implanted:Qty: 1 on 10/23/2021 by Marcos Velasquez MD Left: Hip [employer] [id number] 02/28/2023 6191-1-010 / / [id number] Hip Head Delta Biolox 36mm -5 Stry-Howm [id number] Implanted:Qty: 1 on 10/23/2021 by Marcos Velasquez MD Left: Hip [employer] [id number] 08/17/2026 6570-0-036 / / [id number] Procedures Procedure Name Priority Date/Time Associated Diagnosis Comments XR HAND 3+ VIEWS BILAT Routine 04/28/2024 9:12 AM EST Pain in both hands THYROID STIMULATING HORMONE WITH REFLEX TO FREE T4 AND FREE T3 Routine 04/06/2024 4:31 PM EST Hypothyroidism, unspecified type DXA BONE DENSITY STUDY 1+ SITS AXIAL SKEL Routine 09/11/2022 2:32 PM EDT Encounter for screening for osteoporosis COLONOSCOPY Routine 02/01/2022 LIPID PANEL Routine 05/19/2021 HEPATITIS C SCREENING Routine 01/15/2013 from Last 3 Months or Most Recently Relevant to Health Maintenance Results * XR Hand 3+ Views bilat (04/28/2024 9:12 AM EST) Anatomical Region Laterality Modality Upper Extremities, Hand Bilateral Radiogra phic Imaging 04/28/2024 12:2 1 PM EST Narrative [...] Dictated Date: 04/28/2024 12:21 ET Assigned Physician: Sahnna Paula Reviewed and Electronically Signed By: Shanna Paula Signed Date: 04/28/2024 13:46 ET Workstation ID: [id number] Transcribed By: Self Edit Transcribed Date: 04/28/2024 [...] Signed Date: 04/28/2024 13:46 ET Workstation ID: [id number] Transcribed By: Self Edit Transcribed Date: 04/28/2024 12:21 ET us Linda MEJIA IMG XR PROCEDURES Final Re sult * Thyroid stimulating hormone with reflex to free t4 and free t3 (04/06/2024 4:31 PM EST) TSH 1.45 0.40 - 4.00 mcIU/mL LAB CHEMISTRY METHOD 04/06/2024 6:55 PM EST [facility] Blood Venous blood specimen / Unknown Venipuncture / Unknown 04/06/2024 4:31 PM EST 04/06/2024 4:31 PM EST us Nova Dillon MD LAB BLOOD ORDERABL ES Final Result [facility] [address] [place] [address], * DXA BONE DENSITY STUDY 1+ SITS AXIAL SKEL (09/11/2022 2:32 PM EDT) Anatomical Region Laterality Modality Bone Densitometr y 02/26/2022 1:15 PM EST Narrative 09/11/2022 2:50 PM EDT BONE DENSITY (DEXA) ? Lumbar Spine T-score is 1.6. ?? (SD relative to 20-29 y/o adult) Z-score is 3.9. ??(SD relative to age matched peers) This is considered normal by WHO criteria. Left Forearm T-score is -0.1. Z-score is 2.3. This is considered normal by WHO criteria. Lateral view of the spine demonstrates vertebral heights to be maintained. IMPRESSION: This patient is considered to have normal bone density by WHO criteria. The [facility] Department of Internal Medicine recommends using National Osteoporosis Foundation (NOF) guidelines in treatment decisions related to osteoporosis. NOF guidelines suggest considering treatment for postmenopausal women and men aged 50 or older presenting with the following: History of hip or vertebral fracture. T-score = -2.5 (DXA) at the femoral neck, total hip, or spine, after appropriate evaluation to exclude secondary causes. Low bone mass (T-score between -1.0 and -2.5 at the femoral neck or spine) AND a 10-year probability of a hip fracture = 3% OR a 10-year probability of a major osteoporosis-related fracture = 20% based on the [place]-adapted WHO algorithm Please note that all treatment decisions require clinical judgment and consideration of individual patient factors, including patient preferences, co-morbidities, previous drug use, risk factors not captured in the FRAX model (e.g., frailty, falls, vitamin D deficiency, increased bone turnover, interval significant decline in bone density) and possible under- or over-estimation of fracture risk by FRAX. Optional alternative screening schedule based on nikki Freeman., [facility] April 19, 2011 for patients with osteopenia (based on hip BMD T-score) is as follows: * ??advanced osteopenia (T scores -2.00 to -2.49), BMD testing every year * ??moderate osteopenia (T scores -1.50 to -1.99), BMD testing every 5 years mild osteopenia or normal BMD (T scores -1.50 and higher), BMD testing every 15 years Procedure Note Brissa Lira MD - 05/07/2023 BONE DENSITY (DEXA) Lumbar Spine T-score is 1.6. (SD relative to 20-29 y/o adult) Z-score is 3.9. (SD relative to age matched peers) This is considered normal by WHO criteria. Left Forearm T-score is -0.1. Z-score is 2.3. This is considered normal by WHO criteria. Lateral view of the spine demonstrates vertebral heights to bemaintained. IMPRESSION: This patient is considered to have normal bone density by WHO criteria. The [facility] Department of Internal Medicinerecommends using National Osteoporosis Foundation (NOF) guidelines in treatment decisionsrelated to osteoporosis. NOF guidelines suggest considering treatment forpostmenopausal women and men aged 50 or older presenting with the following: History of hip or vertebral fracture. T-score = -2.5 (DXA) at the femoral neck, total hip, or spine, afterappropriate evaluation to exclude secondary causes. Low bone mass (T-score between -1.0 and -2.5 at the femoral neck or spine)AND a 10-year probability of a hip fracture = 3% OR a 10-year probability of a majorosteoporosis-related fracture = 20% based on the [place]-adapted WHO algorithm Please note that all treatment decisions require clinical judgment andconsideration of individual patient factors, including patient preferences, co- morbidities,previous drug use, risk factors not captured in the FRAX model (e.g., frailty, falls, vitaminD deficiency, increased bone turnover, interval significant decline in bone density) andpossible under- or over-estimation of fracture risk by FRAX. Optional alternative screening schedule based on nikki Freeman., NEJMJanuary 2011 for patients with osteopenia (based on hip BMD T-score) is as follows: * advanced osteopenia (T scores -2.00 to -2.49), BMD testing every year * moderate osteopenia (T scores -1.50 to -1.99), BMD testing every 5years mild osteopenia or normal BMD (T scores -1.50 and higher), BMD testingevery 15 years Jaziel MEJIA IMG DXA PROCEDURES Final Resul t * Colonoscopy (02/01/2022) [facility] Colonoscopy no interpretation , abstracted Anatomical Region Laterality Modality Other Historical Provider MD HEALTH MAINTENANCE Final Result * Lipid panel (05/19/2021) LDL/HDL Ratio 2 0 - 4 Triglycerides 113 0 - 150 mg/dL Cholesterol 143 0 - 200 mg/dL HDL 77 >=40 mg/dL LDL Cholesterol 44 0 - 100 mg/dL Blood Venous blood specimen / Unknown Historical Provider LAB BLOOD ORDERABLES Amy l Result * Hepatitis C Screening (01/15/2013) Hepatitis C Screening abstracted Historical Provider HEALTH MAINTENANCE Final Result from Last 3 Months or Most Recently Relevant to Health Maintenance Insurance [employer] Care Teams 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
--- OUTSIDE RECORDS SUMMARY | 2024-05-19 15:19 | XMS_ITS | Encounter Summary ---
Author Organization [facility] Address [address] [place] [address] Care Team Providers Care Work Order Detailer Name Role Phone Karin Stephen MD Primary Care Provider UnavailLee Walsh Primary Care Provider Unavail Ronnie Flores Primary Care Provider UnavailLauren Rowe MD Primary Care Provide r Unavailable Luis Antonio Dillon MD Primary Care Provider [phone] Pernell Hess MD Unavailable Xiao Squires MD Unavailable Unavailable Dayanara Benton MD Unavailable Unavailable Encounter Details Date Type Department Care Team Description 11/05/2011 Night Triage Doc Medical Records [address] [place] [address] Abstract, Provider Social History Tobacco Use Types [...] often do you attend chur ch or presybeterian services? Never 01/13/2024 Do you belong to [...] to sleep or slept in a senior care (including now)? No 01/13/2024 Sex Assigned at Date Recorded Not on file Job Start Date Occupation Industry Not on file Not on file Not on file documented as of this encounter Plan of Treatment Not on file documented as of this encounter Visit Diagnoses Not on filedocumented in this encounter Care Teams Work Order Detailer Relationship Specialty Start Date End Date Karin Stephen MD PCP - General 10/26/10 01/27/17 Lee Hurst PCP - General Internal Medicine 01/28/17 09/29/18 Ronnie Bianchi PCP - General Internal Medicine 09/30/18 09/30/18 Lauren John MD PCP - General Internal Medicine 10/06/18 11/23/18 Luis Antonio Dillon MD [address], [place] PCP - General Internal Medicine 11/24/18 Pernell Hess MD [address], [place] Internal Medicine 09/12/22 Xiao Perez MD [address], [place] Referring Physician Rheumatology 09/12/22 Dayanara Benton MD [address], [place] Hematology 09/12/22 documented as of this encounter
== END 2024-05-19 15:07 | disposition home or self-care (01) ==
PROVIDERS: PCP Internal Medicine; Visit Provider Student in an Organized Health Care Education/Training Program
DX: L40.50 Arthropathic psoriasis, unspecified (principal); M19.041 Primary osteoarthritis, right hand; M19.042 Primary osteoarthritis, left hand; Z79.631 Long term (current) use of antimetabolite agent
CPT/HCPCS: 99214; G2211

== ENCOUNTER → 2024-05-19 14:16 | Outpatient (BNVA) | payer MEDICARE, SELFPAY | PROVIDERS: PCP Internal Medicine; Visit Provider Student in an Organized Health Care Education/Training Program | DX: L40.50 Arthropathic psoriasis, unspecified (principal); M19.041 Primary osteoarthritis, right hand; M19.042 Primary osteoarthritis, left hand; Z79.631 Long term (current) use of antimetabolite agent | CPT/HCPCS: 99212 ==

== ENCOUNTER 2024-06-22 12:23 | Outpatient (AMB) | payer MEDICARE, SELFPAY ==
[2024-06-22 12:52] VITALS: BP 138/68; PULSE 72; BMI 30.2
--- NOTE | 2024-06-22 12:52 | A.OFFVIS_ITS ---
Vital Signs 06/22/24 12:52 Height 5 ft 2 in Weight 165 lb 5.547 oz BMI 30.2 BP 138/68 Blood Pressure Location Lt brachial Position Sitting Pulse 72 Pulse Source Pulse Oximeter Intake Visit Reasons: 1 yr f/up Allergies NSAIDS (Non-Steroidal Anti-Inflamma Adverse Reaction (Unknown, Verified 05/19/24 14:35) not to take d/t hx of bariatric surg Medication List - Last Reconciled 06/22/24 by Pernell Hess MD aspirin 81 mg PO DAILY atorvastatin 80 mg PO DAILY esomeprazole magnesium (Nexium 24HR) 40 mg PO DAILY folic acid 3 mg (3 x 1 mg) PO DAILY gabapentin 600 mg PO TID levothyroxine 125 mcg PO DAILY mecobalamin (vitamin B12) mcg PO DAILY methotrexate sodium 15 mg (6 x 2.5 mg) PO QWEEK 90 days metoprolol succinate ER 12.5 mg PO DAILY multivitamin 1 tab PO DAILY ondansetron 4 mg PO Q8H PRN tramadol 100 mg PO TID PRN vitamin A palmitate 3,000 mcg PO DAILY HPI Comments Details: Danelle is back for follow-up regarding atrial fibrillation and carotid disease. To recall, she was initially seen several years ago prior to bariatric surgery for cardiac risk stratification. The surgery itself was uneventful. However, she developed postoperative atrial fibrillation. Then she was started on amio darone and was also on Arixtra. However, she developed a rectus sheath hematoma, after which the anticoagulation was stopped. Amiodarone was also then stopped. She remains on a small dose of beta-corona. Recently, she had palpitations that led to ER visit. It seems that EKG in the ER showed only sinus rhythm but there is a concern if she had any other arrhythmias. She also has chronic dizziness type episodes but that has got no correlation with palpitations. [facility] Medical History (Updated 05/19/24 @ 15:11 by Adele Muniz MD) Osteoarthritis of hands, bilateral Positive antinuclear antibody Other and unspecified hyperlipidemia Carotid stenosis, right PAF (paroxysmal atrial fibrillation) Surgical History History of right hip replacement (~01/2020) History of left knee replacement (~09/05/20) History of gastric bypass History of cholecystectomy Family History Father Heart attack Mother No problems noted. Social History Household Members: Spouse and Family Alcohol intake: current Alcohol intake frequency: holidays/special occasions only Patient Tobacco Use Status: Former Tobacco user Review of Systems Const Denies weakness ENT Denies dizziness Card Denies chest pain, Denies chest pain with activity, Denies syncope, Denies rapid heart rate, Denies pedal edema, Denies edema, Denies leg edema, Denies lightheadedness, Denies palpitations, Denies dyspnea, Denies dyspnea on exertion and Denies orthopnea Resp Denies cough, Denies dyspnea and Denies dyspnea on exertion GI Denies hematochezia and Denies change in stool character Musc Denies abnormal gait, Denies muscle cramps, Denies muscle weakness, Denies numbness, Denies radiating pain into limb and Denies tingling Neuro Denies abnormal gait, Denies dizziness, Denies syncope, Denies numbness, Denies tingling and Denies weakness Endo Denies palpitations Physical Exam Vital Signs: Last Vital Signs Pulse 72 06/22/24 12:52 BP 138/68 06/22/24 12:52 BMI result Body Mass Index 30.2 Const General: comfortable and no acute distress Orientation/consciousness: patient oriented x3 HEENT Other: Unremarkable Head: Yes normal to inspection Neck Neck: Yes normal visual inspection Chest Chest palpation & inspection: normal inspection of the chest Resp Auscultation: clear to auscultation bilaterally Cardio Palpation: normal PMI Heart sounds: S1 normal heart sound present, S2 normal heart sound present, no gallops, no murmurs and no rubs GI Palpation (GI): Soft to palpation Back/Spine/Pelvis Other: unremarkable Skin General skin exam: no rashes or lesions noted Neuro General: patient oriented x3 Extrem General: Yes normal to inspection Psych Mental Status: mental status grossly normal Assessment & Plan Assessment & Plan (1) PAF (paroxysmal atrial fibrillation): Code(s): I48.0 - Paroxysmal atrial fibrillation Category: Medical Plan: Recent EKG from the ER shows underlying sinus rhythm with prolonged ID but otherwise unremarkable. Unclear if she had any recurring atrial arrhythmias causing palpitations. She is on a small dose of beta-blockers. Already has prolonged ID and hence no changes. Check Holter monitor. Check echocardiogram. (2) First degree atrioventricular block: Code(s): I44.0 - Atrioventricular block, first degree Category: Medical Plan: May follow on EKGs. (3) Carotid stenosis, right: Code(s): I65.21 - Occlusion and stenosis of right carotid artery Category: Medical Plan: Carotid ultrasound from 2023 shows minimal, 0-49% stenosis bilaterally. Study from 2022-moderate stenosis in the right side and minimal on the left side (4) Other and unspecified hyperlipidemia: Code(s): E78.5 - Hyperlipidemia, unspecified Category: Medical Plan: On statins. Orders: Orders ECG 14 day holter monitor Today I48.0 - Paroxysmal atrial fibrillation, R00.2 - Palpitations CA echo transthoracic complete Today I48.0 - Paroxysmal atrial fibrillation Coding Level of Care Code Est Pt Level 4 (81678) Complex EM visit Add On G2211 Diagnoses PAF (paroxysmal atrial fibrillation) I48.0 First degree atrioventricular block I44.0 Carotid stenosis, right I65.21 Other and unspecified hyperlipidemia E78.5
== END 2024-06-22 13:34 | disposition home or self-care (01) ==
PROVIDERS: PCP Internal Medicine; Visit Provider Internal Medicine
DX: I48.0 Paroxysmal atrial fibrillation (principal); I44.0 Atrioventricular block, first degree; I65.21 Occlusion and stenosis of right carotid artery; E78.5 Hyperlipidemia, unspecified
CPT/HCPCS: 99214; G2211

== ENCOUNTER → 2024-06-22 12:23 | Outpatient (BNVA) | payer MEDICARE, SELFPAY | PROVIDERS: PCP Internal Medicine; Visit Provider Internal Medicine | DX: I48.0 Paroxysmal atrial fibrillation (principal); I44.0 Atrioventricular block, first degree; I65.21 Occlusion and stenosis of right carotid artery; E78.5 Hyperlipidemia, unspecified; R00.2 Palpitations | CPT/HCPCS: 99212 ==

== ENCOUNTER → 2024-06-25 10:27 | Outpatient (REF) | payer MEDICARE, SELFPAY ==
--- OUTSIDE RECORDS SUMMARY | 2024-06-25 13:30 | XMS_ITS | Encounter Summary ---
Author Organization [facility] Address [address] [place] [address] Care Team Providers Care Marketing Information Analyst Name Role Phone Nova Dillon MD Primary Care Prov ider Reason for Visit * Reason Onset Date Comments Dizziness 04/27/2024 Sinus Problem 04/27/2024 Encounter Details Date Type Department Care Team ([facility] st Contact Info) Description 04/27/2024 Telephone Adult Medicine - [place] [address] [place] [address] Nova Dillon MD [address] [place] [address] Dizziness; Sinus Problem Social History Tobacco Use [...] traveled recently to another state outside of [place], [place], [place], [place], [place], [place], [place]? NO o If yes, did you quarantine [...] these symptoms?: weeks PCP: DR PEREZ Payor: [facility] documented in this encounter Plan of Treatment Upcoming Encounters Date Type Department Care Team (Late st Contact Info) Description 06/30/2024 1:00 PM EDT Office Visit Orthopedic Surgery - [place] [address] [address] Vlad Lamb DPM [address] [address] 07/06/2024 3:30 PM EDT Office Visit Adult Medicine - [place] [address] [place] [address] Nova Dillon MD [address] [place] [address] 09/24/2024 3:10 PM EDT Appointment Radiology Department - [address] [address] documented as of this encounter Visit Diagnoses Not on filedocumented in this encounter Care Teams Marketing Information Analyst Relationship Specialty Start Date End Date Nova Dillon MD [address] [place] [id number] PCP - General Internal Medicine 11/24/18 documented as of this encounter
--- OUTSIDE RECORDS SUMMARY | 2024-06-25 13:30 | XMS_ITS | Encounter Summary ---
Author Organization [facility] Address [address] [place] [address] Care Team Providers Care Registered Private Duty Nurse Name Role Phone Nova Dillon MD Primary Care Prov ider Reason for Visit * Reason Comments Pre-op Exam Encounter Details Date Type Department Care Team ([facility] st Contact Info) Description 06/17/2024 9:00 AM EDT Consult Adult Medicine [facility] [address] [place] [address] Jaziel Reno PA [address] [place] [address] Age-related cataract of both eyes, unspecified age-related cataract type (Primary Dx); Hypothyroidism, unspecified type; Hypercholesteremia; Spinal stenosis of lumbar region, unspecified whether neurogenic claudication present Social History Tobacco Use Types Packs/Day Years Used Date Smoking Tobacco: Former Cigarettes Q uit: 04/01/1990 Smokeless Tobacco: Never Tobacco Cessation:Counseling Given: No Alcohol Use Standard Drinks/Week Comments Yes 0 (1 standard drink = 0.6 oz pur e alcohol) Housing Instability Answer Date Recorde d Are you worried that in the next 2 months you may not have stable housing? No 06/10/2024 Food Access & Nutrition Answer Date Rec orded Do you have access to a vari ety of food including fruits and vegetables? Yes 06/10/2024 Access to Healthcare Answer Date Record ed Within the last 3 months, ho w many times did you visit the emergency department for your medical care? 1 06/10/2024 Health Literacy Answer Date Recorded How often do you need to hav e someone help you when you read instructions, pamphlets, or other written material from your doctor or pharmacy? Never 06/10/2024 Caregiver: How often do you need to have someone help you when you read instructions, pamphlets, or other written material from your doctor or pharmacy? Not on file 06/10/2024 Financial Risk Answer Date Recorded How hard is it for you to pa y for the very basics like food, housing, medical care, and air conditioning / heating? Not very hard 06/10/2024 Transportation Answer Date Recorded Has the lack of transportati on kept you from meetings, work, or from getting things needed for daily living? No Has the lack of transportati on kept you from medical appointments or from getting medications? No 06/10/2024 Social Isolation Answer Date Recorded How often do you feel lonely or isolated from th ose around you? Never 06/10/2024 Food Risk Answer Date Recorded Within the past 12 months we worried whether our food would run out before we got money to buy more. Never true 06/10/2024 Within the past 12 months th e food we bought just didn't last and we didn't have money to get more. Never true 06/10/2024 Dependent Care Answer Date Recorded Do you need help finding or paying for care for your loved ones. For example, home child care provider or elderly care for an older adult? No 06/10/2024 Education Answer Date Recorded Do you think completing more education or training, like finishing a GED, going to college, or learning a trade, would be helpful for you? No 06/10/2024 Employment and Income Answer Date Recor ded During the last four weeks, have you been actively looking for work? No 06/10/2024 Living Situation Answer Date Recorded What is your living situation? 0 06/10/2024 Comments No Sex and Gender Information Value Date Recorded Sex Assigned at Not on file Legal Sex Female 3:18 PM EST Gender Identity Not on file Sexual Orientation Not on file documented as of this encounter Last Filed Vital Signs Vital Sign Reading Time Taken Comments Blood Pressure 147/60 06/17/2024 8:46 AM EDT Pulse 64 06/17/2024 8:46 AM EDT Temperature 36.3 ??C (97.4 ??F) 06/17/2024 8:46 AM ED T Respiratory Rate - - Oxygen Saturation - - Inhaled Oxygen Concentration - - Weight 76.7 kg (169 lb) 06/17/2024 8:46 AM EDT Height 160 cm (5' 3 ) 06/17/2024 8:46 AM EDT Body Mass Index 29.94 06/17/2024 8:46 AM EDT documented in this encounter Progress Notes * JACKIE Saldivar - 06/17/2024 9:00 AM EDT Referring MD: Cathleen Lara MD HPI: Ms. Vallejo is a 73 y.o. year old female who is scheduled for bilateral cataract extraction on 07/01/2024, and 07/15/2024 . She is here today for pre-operative consultation. Her functional status is greater than 4 METs as she can walk 50 yards without stopping. She has not had problems with anesthesia or bleeding. ROS: GENERAL: Negative for malaise, significant weight loss and fever NECK: Negative for lumps, goiter, pain, and significant neck swelling RESPIRATORY: No cough, wheezing or shortness of breath CARDIOVASCULAR: Negative for chest pain, leg swelling and palpitations GI: Negative for abdominal discomfort, changes in bowel habits, blood in stool or black stools : Negative for dysuria, frequency, and incontinence MUSCULOSKELETAL: Negative for joint pain or swelling, back pain and muscle pain. SKIN: No lesions, rash, or itching HEMATOLOGY/LYMPHOLOGY: No prolonged bleeding, easy bruising, or swollen lymph nodes ENDOCRINE: Negative for cold or heat intolerance, polyuria, polydipsia and goiter NEURO: No persistent headache, fainting, seizures, strokes, TIAs, weakness, numbness or tingling PAST MEDICAL HISTORY: Patient Active Problem List Diagnosis Date Noted Psoriatic arthritis ([facility]) 04/28/2024 Chronic pain syndrome 04/06/2024 Carotid stenosis, right 12/27/2021 Iron deficiency anemia secondary to inadequate dietary iron intake 10/18/2021 Obesity (BMI 30-39.9) 06/24/2020 COPD (chronic obstructive pulmonary disease) ([facility]) 03/18/2020 Arthritis of right hip 12/31/2019 Aortic atherosclerosis ([facility]) 12/17/2018 Chronic bilateral low back pain with sciatica 12/17/2018 Depression 12/17/2018 Neuropathy 12/17/2018 Osteoarthritis 12/17/2018 Vitamin D deficiency 12/17/2018 Atrial fibrillation (CMS/HCC) 11/26/2018 Bilateral chronic knee pain 10/16/2016 Esophageal reflux 10/16/2016 GARRETT (obstructive sleep apnea) 10/16/2016 Endometrial thickening on ultrasound 10/08/2016 Fatty liver 10/08/2016 Hypercholesteremia 03/23/2011 Fibrocystic breast 11/08/2010 Hypothyroidism 11/08/2010 Lumbar spinal stenosis 11/08/2010 SOCIAL HISTORY: Social History Tobacco Use Smoking status: Former Current packs/day: 0.00 Types: Cigarettes Quit date: 04/01/1990 Years since quittin.2 Smokeless tobacco: Never Substance Use Topics Alcohol [...] Alzheimer's disease Mother Heart disease Father 65 [place] COPD Father Emphysema Father No Known Problems Sister No Known Problems Brother Heart attack Father Other (Other: Spinal stenosis) Mother Other (Other: adrenal tumor) Daughter Other (Other: uterine polps) Daughter No Known Problems Son No Known Problems Brother No Known Problems Brother Other (Other: graves disease) Sister Hypertension Maternal Grandmother Scleroderma Aunt ACTIVE MEDICATIONS: Outpatient Medications Marked as Taking for the 06/17/24 encounter (Consult) with JACKIE Saldivar Medication Sig Dispense Refill aspirin 81 mg EC tablet Take by mouth. atorvastatin (LIPITOR) 80 mg tablet TAKE 1 TABLET BY MOUTH ONCE DAILY 90 tablet 1 biotin 5 mg tablet [...] nasal spray Administer 2 sprays into each nostril1 (one) time each day. Shake gently. Before first use, prime pump. After use, clean tip and replacecap. 16 g 5 folic acid (FOLVITE) 1 mg tablet Take [...] by mouth 3 (three) times a day ifneeded for dizziness. 30 tablet 1 medical marijuana TRAINS SERVICE CONDUCTOR med methotrexate 2.5 mg tablet Take 8 [...] (non-steroidal anti-inflammatory drug) PHYSICAL EXAM: Blood pressure (!) 147/60, pulse 64, temperature 36.3 ??C (97.4 ??F), temperature source Temporal, height 1.6 m (63 ), weight 76.7 kg (169 lb). Body mass index is 29.94 kg/m??. APPEARANCE: Alert and in no acute distress EYES: PERRLA, conjunctiva and sclera normal MOUTH/THROAT: no erythema, lesions, or exudates NECK: Neck supple, no adenopathy, thyroid symmetric and of normal size HEART: RRR with normal S1 and S2, no murmurs, no gallops, no JVD appreciated LUNG: clear to auscultation bilaterally EXTREMITIES: Extremities warm and well perfused without clubbing, cyanosis, or edema NEURO: Awake, alert and oriented x 3 and Cranial nerves II-XII grossly intact LABS: No results found for: WBC , HGB , HCT , MCV No results found for: NA , K , CO2 , CL , BUN , GLU No results found for: INR , PTT Testing:acceptable EKG: not needed . ASSESSMENT AND PLAN: 1. Age-related cataract of both eyes, unspecified age-related cataract type Cardiac - Ms. Yoni clinical risk factors include none and female is scheduled for a low risk procedure. Her functional capacity is estimated to be greater than 4 METs. She is, therefore, estimated to have an acceptablerisk for the proposed procedure. Further cardiac workup is not warranted. Beta blockade perioperatively is not needed. Pulmonary - Her pulmonary risk factors include age > 50. Early ambulation and use of incentive spirometry, when appropriate, are encouraged. Medications - take levothyroxine and gabapentin on an empty stomach the morning of appointment. Shewill ensure that the anesthesiologist knows about this but is also encouraged to let them know in advance if they have any other probations I would recommend. She will hold all other oral medicationsuntil after surgery Please do not hesitate to contact me with any questions or concerns. Thank you for the courtesy of this consultation. JACKIE Saldivar on 06/17/2024 at 9:12 AM EDT cc: Cathleen Lara MD documented in this encounter Plan of Treatment Upcoming Encounters Date Type Department Care Team (Late st Contact Info) Description 06/30/2024 1:00 PM EDT Office Visit Orthopedic Surgery - [place] [address] [phone] Vlad Lamb DPM [address] [address] 07/06/2024 3:30 PM EDT Office Visit Adult Medicine - [place] [address] [place] [address] Nova Dillon MD [address] [place] [address] 09/24/2024 3:10 PM EDT Appointment Radiology Department - [address] [address] documented as of this encounter Visit Diagnoses Diagnosis Age-related cataract of both eyes, unspecified age-related cataract type- Primary Hypothyroidism, unspecified type Hypercholesteremia Pure hypercholesterolemia Spinal stenosis of lumbar region, unspecified whether neurogenic claudication present documented in this encounter Additional Health Concerns Assessment Noted Time PHQ-9 Depression Total Score: 6 06/11/19 25 11:24 AM EDT documented as of this encounter Care Teams Registered Private Duty Nurse Relationship Specialty Start Date End Date Nova Dillon MD [address] [place] [id number] PCP - General Internal Medicine 11/24/18 documented as of this encounter
--- OUTSIDE RECORDS SUMMARY | 2024-06-25 13:30 | XMS_ITS | Clinical Summary ---
Author Organization 175 [facility] Address [address] [place] [address] Phone Care Team Providers Care Director Of Software Engineering Name Role Phone Nova Dillon MD Primary Care Prov ider Allergies Active Allergy Reactions Criticality Noted Date Comments Nsaids (Non-Steroidal Anti-Inflammatory Drug) 02/29/2020 Bariatric surgery Medications gabapentin (NEURONTIN) 600 mg tablet TAKE 1 TABLET BY MOUTH 3 TIMES DAILY 08/30/19 24 Active levothyroxine (SYNTHROID, LEVOTHROID) 125 mcg tablet Take 1 tablet (125 mcg total) by mouth 1 (one) time each day. 09/24/19 24 Active metoprolol succinate (TOPROL-XL) 25 mg 24 hr tablet Take 0.5 Tablets by mouth daily. 05/20/19 24 Active esomeprazole (NexIUM) [address] capsule Take 1 Capsule by mouth every morning (before breakfast). Active methotrexate 2.5 mg tablet Take 8 tablets (20 mg total) by mouth 1 (one) time per week 12/27/19 23 Active folic acid (FOLVITE) 1 mg tablet Take 3 tablets (3,000 mcg total) by mouth 1 (one) time each day. 12/28/19 23 Active aspirin 81 mg EC tablet Take by mouth. Activ e ciclopirox (LOPROX) 0.77 % gel Apply 1 Application topically 1 (one) time each day. 08/23/19 23 Active ondansetron ODT (ZOFRAN-ODT) 4 mg disintegrating tablet Take 1 Tablet by mouth 3 times daily as needed for Nausea. 06/02/19 23 Active magnesium 250 mg tablet Take by mouth. Activ e medical marijuana CUSTOMER SECURITY CLERK med Active biotin 5 mg tablet Take by mouth daily. Active vitamin A 3,000 mcg (10,000 unit) tablet Take by mouth daily. Active CALCIUM CITRATE ORAL Take by mouth daily. 1000 mg calcium with 500 mg D3 Active CYANOCOBALAMIN, VITAMIN B-12, ORAL Take 1,000 mcg by mouth daily. gummie Active multivitamin (MULTIPLE VITAMINS ORAL) Take by mouth daily. Active meclizine (ANTIVERT) 12.5 mg tablet Take 1 tablet (12.5 mg total) by mouth 3 (three) times a day if needed for dizziness. 30 tablet 1 04/28/19 25 026 Active fluticasone propionate (FLONASE) 50 mcg/actuation nasal spray Administer 2 sprays into each nostril 1 (one) time each day. Shake gently. Before first use, prime pump. After use, clean tip and replace cap. 16 g 5 04/28/19 25 026 Active atorvastatin (LIPITOR) 80 mg tablet TAKE 1 TABLET BY MOUTH ONCE DAILY 90 tablet 1 05/11/19 25 Active traMADoL (ULTRAM) 50 mg tablet Take 2 tablets (100 mg total) by mouth every 8 (eight) hours if needed (pain) for up to 28 days. Max Daily Amount: 300 mg 168 tablet 06/25/19 25 025 Active traMADoL (ULTRAM) 50 mg tablet Take 2 tablets (100 mg total) by mouth every 8 (eight) hours if needed (pain) for up to 28 days. Max Daily Amount: 300 mg 168 tablet 05/25/19 25 025 Discontin ued(Reord er) Active Problems Problem Noted Date Diagnosed Date Psoriatic arthritis 04/28/2024 Chronic pain syndrome 04/06/2024 Carotid stenosis, right 12/27/2021 Overview (12/31/2023): 50-79% [facility] CARDS Iron deficiency anemia secon vonda to [...] Encounters Date Type Department Care Team Description 06/17/2024 9:00 AM EDT Consult Adult Medicine [address] [phone] Jaziel Reno PA Age-related cataract of both eyes, unspecified age-related cataract type (Primary Dx); Hypothyroidism, unspecified type; Hypercholesteremia; Spinal stenosis of lumbar region, unspecified whether neurogenic claudication present 04/28/2024 8:59 AM EST - 04/28/2024 11:59 PM EST Hospital Encounter Xray - [place] [address] [place] [phone] Pain in both hands Discharge Disposition: Home or Self Care 04/28/2024 8:30 AM EST Office Visit Adult Medicine [facility] [address] [place] [phone] Linda Fergsuon PA Pain in both hands (Primary Dx); Psoriatic arthritis (CMS/HCC); Palpitations; Chronic pain syndrome; Sinus congestion; Vertigo 04/27/2024 Telephone Adult [facility] [address] [place] [address] Nova Giang MD Dizziness; Sinus Problem 04/06/2024 3:30 PM EST Office Visit Adult [facility] [address] [place] [address] Nova Giang MD Palpitations (Primary Dx); [...] 0.5 mL or 0.25 mL dosage 12/20/2021 Dovo SARS-CoV-2 COVID-19, mRNA, LNP-S, preservative free 01/03/2023,01/19/2021,06/10/2020 [...] TOTAL HIP; Surgeon: Marcos Velasquez MD; Location: [facility]); Service: Orthopedics; Laterality: Right; COLONOSCOPY PROCEDURE:COLONOSCOPY TOTAL KNEE ARTHROPLASTY 08/2020 Left PROCEDURE:TOTAL KNEE ARTHROPLASTY TOTAL HIP ARTHROPLASTY 10/23/2021 Left PROCEDURE:TOTAL HIP ARTHROPLASTY;COMMENT:Procedure : REPLACEMENT TOTAL HIP; Surgeon: Marcos Velasquez MD; Location: [facility]; Service: Orthopedics; Laterality: Left; OTHER SURGICAL HISTORY [...] bypass OTHER SURGICAL HISTORY 03/01/2020 Right PROCEDURE: NE ARTHRP ACETBLR/PROX FEM PROSTC AGRFT/ALGRFT TOTAL KNEE ARTHROPLASTY 09/05/2020 Left PROCEDURE: NE ARTHRP KNE CONDYLE&PLATU MEDIAL&LAT COMPARTMENTS Medical History Medical History Date Comments Hypertension DX:Hypertension; COMMENT:resolved since bariatric Osteoarthritis DX:Osteoarthriti s A-fib ([facility]) DX:A-fib ([facility]);COMMENT:postoperatively bariatric surgery Sleep apnea DX:Sleep apnea;C OMMENT:NONCOMPLIANT WITH CPAP DUE TO WT. LOSS COPD (chronic obstructive pu lmonary disease) ([facility]) DX:COPD (chronic obstructive pulmonary disease) ([facility]);COMMENT:Just from hx of smoking no PFTs previous [...] knee pain; COMMENT: Dr Boyce Atrial fibrillation ([facility]) 11/26/2018 DX :Atrial fibrillation ([facility]) GARRETT (obstructive sleep apnea) 10/16/2016 DX :GARRETT (obstructive sleep apnea) Aortic atherosclerosis ([facility]) 12/17/2018 DX:Aortic atherosclerosis ([facility]) Osteoarthritis 12/17/2018 DX:Osteoarthriti s; COMMENT: Cervical, Thoracic, [...] DX:Neuropathy COPD (chronic obstructive pu lmonary disease) ([facility]) 03/18/2020 DX:COPD (chronic obstructive pulmonary disease) ([facility]) HTN (hypertension) 03/18/2020 DX:HTN (hyper tension) Carotid stenosis, right 12/27/2021 DX:Carot id stenosis, right; COMMENT: 50-79% [facility] CARDS Irritable bowel syndrome DX:Irri table bowel syndrome Family History Medical History Relation Name Comments Scleroderma Aunt No Known Problems Brother 1 No Known Problems Brother 2 No Known Problems Brother 3 Other: adrenal tumor Daughter Other: uterine polps Daughter COPD Father Emphysema Father Heart attack Father Heart disease Father [place] Hypertension Maternal Grandmother Alzheimer's disease Mother COPD [...] care for your loved ones. For example, children's attendant or elderly care for an older adult? [...] Mass Index 29.94 06/17/2024 8:46 AM EDT Plan of Treatment Upcoming Encounters Date Type Department Care Team (Late st Contact Info) Description 06/30/2024 1:00 PM EDT Office Visit Orthopedic Surgery - [place] [address] [phone] Vlad Lamb, DPM [address] [address] 07/06/2024 3:30 PM EDT Office Visit Adult Medicine - [address] [phone] Nova Dillon MD [address] [place] [address] 09/24/2024 3:10 PM EDT Appointment Radiology Department - [address] [phone] Health Maintenance Due Date Last Done Comments Hepatitis A Vaccines (1 of 2 - Risk 2-dose series) 1968 Hepatitis B Vaccines (1 of 3 - Risk 3-dose series) 2009 RSV Immunization Patients 60+ Years Old (1 - Risk 60-74 years 1-dose series) 2009 Falls Risk Assessment 03/08/2022 Medicare Annual Wellness Visit 03/08/2022 Breast Cancer Screening 06/16/2022 06/16/2020 Depression Screening 06/10/2025 06/10/2024 Social Influencers of Health Screening 06/10/2025 06/10/2024 Cholesterol Screening (Lipid Panel) 01/19/2029 01/20/2024, 05/19/2021 [...] this topic Medical Devices Implanted Type Area Senior Backup Administrator Device Identifier Shelf Expiration Date Model / Serial / Lot Insert Trident 0d E 36mm X3 Acetabular Hip - [id number] Implanted:Qty: 1 on 02/29/2020 by Marcos Velasquez MD Right: Hip [employer] [id number] 01/23/2025 623-00-36E / / [id number] Shell Trident Ii E 52mm Tritanium Acetabular Hip - [id number] Implanted:Qty: 1 on 02/29/2020 by Marcos Velasquez MD Right: Hip [employer] [id number] 11/28/2023 709-04-52E / / [id number] Screw Trident Ii 30mm 6.5mm Low Profile Hexagonal Bone - [id number] Implanted:Qty: 1 on 02/29/2020 by Marcos Velasquez MD Right: Hip [employer] [id number] 10/19/2024 5571-5982 / / [id number] Screw Bone Trident Ii L20 Mm Od6.5 Mm Low Profile Hexa - [id number] Implanted:Qty: 1 on 02/29/2020 by Marcos Velasquez MD Right: Hip [employer] [id number] 06/02/2024 9129-3088 / / [id number] Screw Trident Ii 15mm 6.5mm Low Profile Hexagonal Bone - [id number] Implanted:Qty: 1 on 02/29/2020 by Marcos Velasquez MD Right: Hip [employer] [id number] 08/11/2023 6005-4574 / / [id number] Stem Accolade Ii 3 132d Femoral - [id number] Implanted:Qty: 1 on 02/29/2020 by Marcos Velasquez MD Right: Hip [employer] [id number] 01/11/2025 6247-3465 / / [id number] Head V40 -2.5mm 36mm Biolox Delta Femoral Hip - [id number] Implanted:Qty: 1 on 02/29/2020 by Marcos Velasquez MD Right: Hip [employer] [id number] 01/09/2025 6570-0-436 / / [id number] Component Triathlon 4 Cruciate Retaining Cemented Femoral - [id number] Implanted:Qty: 1 on 09/05/2020 by Marcos Velasquez MD Left: Knee [employer] [id number] 05/10/2025 5510-F-401 / / [id number] Component Triathlon 8mm 27mm Symmetric X3 Ptlar Knee - [id number] Implanted:Qty: 1 on 09/05/2020 by Marcos Velasquez MD Left: Knee [employer] [id number] 12/02/2023 5550-G-278 / / [id number] Triathlon Cr Insert - Size 4 12mm X3 - [id number] Implanted:Qty: 1 on 09/05/2020 by Marcos Velasquez MD Left: Knee [employer] [id number] 10/30/2022 5530-G-412 -E / / [id number] Baseplate Triathlon 4 Primary Cemented Tibial Knee - [id number] Implanted:Qty: 1 on 09/05/2020 by Marcos Velasquez MD Left: Knee [employer] [id number] 09/16/2023 5520-B-400 / / [id number] Cement Simplex P Radiopaque Full Dose Bone 10 Pack - [id number] Implanted:Qty: 1 on 09/05/2020 by Marcos Velasquez MD Left: Knee [employer] 12/29/2021 6191-1-010 / / [id number] Cement Simplex P Radiopaque Full Dose Bone 10 Pack - [id number] Implanted:Qty: 1 on 09/05/2020 by Marcos Velasquez MD Left: Knee [employer] 12/29/2021 6191-1-010 / / [id number] [place] V40 Cemented Hip Stem 37.5 Offst 125mm Implanted:Qty: 1 on 10/23/2021 by Marcos Velasquez MD Left: Hip [employer] 04/26/2026 0580-3-371 / / [id number] Tritanium Cluster Hole Shell 52mm Str-[facility] 018-62-40o-770 473 Implanted:Qty: 1 on 10/23/2021 by Marcos Velasquez MD Left: Hip [employer] [id number] 05/17/2026 702-04-52E / / [id number] ++Dnu+Disc Use [id number] Hip Insrt Trident 0d Silvio 36mm Stry-Howm 938-55-89s-200 918 Implanted:Qty: 1 on 10/23/2021 by Marcos Velasquez MD Left: Hip [employer] [id number] 09/14/2026 623-00-36E / / [id number] Lp Hex Screw 6.5x30mm Stry-Howm 5745-4000-9384 78 Implanted:Qty: 1 on 10/23/2021 by Marcos Velasquez MD Left: Hip [employer] [id number] 08/31/2026 1117-0671 / / [id number] Kit Prep Total Hip Bone Imp Smn-Orth 584816-152079 Implanted:Qty: 1 on 10/23/2021 by Marcos Velasquez MD Left: Hip [employer] [id number] 09/13/2031 139815 / / [id number] Description:SMALL BONE PLUG USED FROM THE KIT Cement Bone Surg Simplex Radiopq Stry-Howm 2316-4-249-114 092 Implanted:Qty: 1 on 10/23/2021 by Marcos Velasquez MD Left: Hip [employer] [id number] 10/30/2023 6191-1-010 / / [id number] Cement Bone Surg Simplex Radiopq Stry-Howm 5819-1-812-114 092 Implanted:Qty: 1 on 10/23/2021 by Marcos Velasquez MD Left: Hip [employer] [id number] 02/28/2023 6191-1-010 / / [id number] Hip Head Delta Biolox 36mm -5 Stry-Howm 4701-8-402-549 190 Implanted:Qty: 1 on 10/23/2021 by Marcos Velasquez MD Left: Hip [employer] [id number] 08/17/2026 6570-0-036 / / [id number] Procedures Procedure Name Priority Date/Time Associated Diagnosis [...] Signed Date: 04/28/2024 13:46 ET Workstation ID: [id number] Transcribed By: Self Edit Transcribed Date: 04/28/2024 [...] Signed Date: 04/28/2024 13:46 ET Workstation ID: [id number] Transcribed By: Self Edit Transcribed Date: 04/28/2024 12:21 ET us Linda MEJIA IMG XR PROCEDURES Final Re sult * Thyroid stimulating hormone with reflex to free t4 and free t3 (04/06/2024 4:31 PM EST) TSH 1.45 0.40 - 4.00 mcIU/mL LAB CHEMISTRY METHOD 04/06/2024 6:55 PM EST [facility] Blood Venous blood specimen / Unknown Venipuncture / Unknown 04/06/2024 4:31 PM EST 04/06/2024 4:31 PM EST us Nova Dillon MD LAB BLOOD ORDERABL ES Final Result [facility] [address] [place] [address], [place] [phone] * DXA BONE DENSITY STUDY 1+ SITS [...] normal bone density by WHO criteria. [facility] Department of Internal Medicine recommends using National [...] alternative screening schedule based on nikki Freeman., [facility] April 19, 2011 for patients with osteopenia [...] normal bone density by WHO criteria. [facility] Department of Internal Medicinerecommends using National Osteoporosis [...] PROCEDURES Final Resul t * Colonoscopy (02/01/2022) Pathologist [facility] Colonoscopy no interpretation , abstracted Anatomical Region Laterality Modality Other Result [facility] Historical Provider HEALTH MAINTENANCE Final Result * Lipid panel (05/19/2021) [facility] LDL/HDL Ratio 2 0 - 4 Triglycerides 113 0 - 150 mg/dL Cholesterol 143 0 - 200 mg/dL HDL 77 >=40 mg/dL LDL Cholesterol 44 0 - 100 mg/dL Blood Venous blood specimen / Unknown Result [facility] Historical Provider LAB BLOOD ORDERABLES Amy l Result * Hepatitis C Screening (01/15/2013) [facility] Hepatitis C Screening abstracted Historical Provider HEALTH MAINTENANCE Final Result from Last 3 Months or Most Recently Relevant to Health Maintenance Insurance [employer] MEDICARE Care Teams Director Of Software Engineering Relationship Specialty Start Date End Date Nova Dillon MD [address] [place] [phone] PCP - General Internal Medicine 11/24/18
--- OUTSIDE RECORDS SUMMARY | 2024-06-25 13:31 | XMS_ITS | Clinical Summary ---
Author Organization [facility] Address [address] [place] [address] Care Team Providers Care Manager Technical Support Name Role Phone Nova Dillon MD Primary [...] week. 0 Active Vitamin A 3 MG (30949 UT) TABS Take 1 tablet by mouth [...] COPD Father Emphysema Father Heart disease Father [place] Alzheimer's disease Mother COPD Mother Hypertension Mother [...] this topic Medical Devices Implanted Type Area Compensation Coordinator Device Identifier Shelf Expiration Date Model / Serial / Lot Insert Trident 0d E 36mm X3 Acetabular [facility] - 556659 - [id number] Implanted:Qty: 1 on 02/29/2020 by Marcos Velasquez MD at [facility] Right: Hip [employer] [id number] 01/23/2025 623-00-36E / / [id number] Shell Trident Ii E 52mm Tritanium Acetabular Hip - 689736 - [id number] Implanted:Qty: 1 on 02/29/2020 by Marcos Velasquez MD at [facility] Right: Hip [employer] [id number] 11/28/2023 709-04-52E / / [id number] Screw Trident Ii 30mm 6.5mm Low Profile Hexagonal Bone - 455202 - [id number] Implanted:Qty: 1 on 02/29/2020 by Marcos Velasquez MD at [facility] Right: Hip [employer] [id number] 10/19/2024 2350-9400 / / 2DXD Screw Bone Trident Ii L20 Mm Od6.5 Mm Low Profile Hexa - 886495 - [id number] Implanted:Qty: 1 on 02/29/2020 by Marcos Velasquez MD at [facility] Right: Hip [employer] [id number] 06/02/2024 2291-9475 / / 2NRH Screw Trident Ii 15mm 6.5mm Low Profile Hexagonal Bone - 832712 - [id number] Implanted:Qty: 1 on 02/29/2020 by Marcos Velasquez MD at [facility] Right: Hip [employer] [id number] 08/11/2023 0120-1073 / / [id number] Stem Accolade Ii 3 132d Femoral - 423991 - [id number] Implanted:Qty: 1 on 02/29/2020 by Marcos Velasquez MD at [facility] Right: Hip [employer] [id number] 01/11/2025 7765-9318 / / [id number] Head V40 -2.5mm 36mm Biolox Delta Femoral Hip - 806760 - [id number] Implanted:Qty: 1 on 02/29/2020 by Marcos Velasquez MD at [facility] Right: Hip [employer] [id number] 01/09/2025 6570-0-436 / / [id number] Component Triathlon 4 Cruciate Retaining Cemented Femoral - 445589 - [id number] Implanted:Qty: 1 on 09/05/2020 by Marcos Velasquez MD at [facility] Left: Knee [employer] [id number] 05/10/2025 5510-F-401 / / [id number] Component Triathlon 8mm 27mm Symmetric X3 Ptlar Knee - 326971 - [id number] Implanted:Qty: 1 on 09/05/2020 by Marcos Velasquez MD at [facility] Left: Knee [employer] [id number] 12/02/2023 5550-G-278 / / NPH6 Triathlon Cr Insert - Size 4 12mm X3 - 134390 - [id number] Implanted:Qty: 1 on 09/05/2020 by Marcos Velasquez MD at [facility] and Med Left: Knee [employer] [id number] 10/30/2022 5530-G-412 -E / / [id number] Baseplate Triathlon 4 Primary Cemented Tibial Knee - 835169 - [id number] Implanted:Qty: 1 on 09/05/2020 by Marcos Velasquez MD at [facility] and Med Left: Knee [employer] [id number] 09/16/2023 5520-B-400 / / [id number] Cement Simplex P Radiopaque Full Dose Bone 10 Pack - - [id number] Implanted:Qty: 1 on 09/05/2020 by Marcos Velasquez MD at [facility] and Med Left: Knee [employer] 12/29/2021 6191-1-010 / / [id number] Cement Simplex P Radiopaque Full Dose Bone 10 Pack - - [id number] Implanted:Qty: 1 on 09/05/2020 by Marcos Velasquez MD at [facility] and Med Left: Knee [employer] 12/29/2021 6191-1-010 / / [id number] [place] V40 Cemented Hip Stem 37.5 Offst 125mm Implanted:Qty: 1 on 10/23/2021 by Marcos Velasquez MD at [facility] and Med Left: Hip [employer] 04/26/2026 0580-3-371 / / [id number] Tritanium Cluster Hole Shell 52mm Stry-Howm 330-00-95o-770 473 - [id number] Implanted:Qty: 1 on 10/23/2021 by Marcos Velasquez MD at [facility] and Med Left: Hip [employer] [id number] 05/17/2026 702-04-52E / / [id number] ++Dnu+Disc Use [id number] Hip Insrt Trident 0d Silvio 36mm Stry-How 722-30-96j-200 918 - [id number] Implanted:Qty: 1 on 10/23/2021 by Marcos Velasquez MD at [facility] and Med Left: Hip [employer] [id number] 09/14/2026 623-00-36E / / [id number] Lp Hex Screw 6.5x30mm Stry-Howm 6936-3859-5975 78 - [id number] Implanted:Qty: 1 on 10/23/2021 by Marcos Velasquez MD at [facility] and Med Left: Hip [employer] [id number] 08/31/2026 1894-4719 / / X5R Kit Prep Total Hip Bone Imp Smn-Orth 198021-358335 - [id number] Implanted:Qty: 1 on 10/23/2021 by Marcos Velasquez MD at [facility] and Med Left: Hip [employer] [id number] 09/13/2031 042095 / / [id number] Description:SMALL BONE PLUG USED FROM THE KIT Cement Bone Surg Simplex Radiopq Stry-Howm 9797-0-668-114 092 - [id number] Implanted:Qty: 1 on 10/23/2021 by Marcos Velasquez MD at [facility] Left: Hip [employer] [id number] 10/30/2023 6191-1-010 / / [id number] Cement Bone Surg Simplex Radiopq Stry-How 8325-1-291-114 092 - [id number] Implanted:Qty: 1 on 10/23/2021 by Marcos Velasquez MD at [facility] Left: Hip [employer] [id number] 02/28/2023 6191-1-010 / / [id number] Hip Head Delta Biolox 36mm -5 Stry-How 1266-8-522-549 190 - [id number] Implanted:Qty: 1 on 10/23/2021 by Marcos Velasquez MD at [facility] Left: Hip [employer] [id number] 08/17/2026 6570-0-036 / / [id number] Advance Directives For more information, please contact: [phone] Documents on File Type Date Recorded 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 Care Teams Manager Technical Support Relationship Specialty Start Date End Date Nova Dillon MD PCP - General Internal Medicine 12/21/19
== END ==
LOC: HO.CARD 10:27
PROVIDERS: PCP Internal Medicine; Visit Provider Internal Medicine
DX: R00.2 Palpitations (principal); I48.0 Paroxysmal atrial fibrillation
CPT/HCPCS: 93246

== ENCOUNTER → 2024-06-25 10:32 | Outpatient (BNV) | payer MEDICARE, SELFPAY | PROVIDERS: PCP Internal Medicine; Visit Provider Internal Medicine Cardiovascular Disease | DX: I48.91 Unspecified atrial fibrillation (principal) | CPT/HCPCS: 93248 ==

== ENCOUNTER → 2024-07-24 12:29 | Outpatient (REF) | payer MEDICARE, SELFPAY ==
--- NOTE | 2024-07-24 12:31 | CA_ITS ---
Transthoracic Echocardiogram Patient (Last, First, Middle): Danelle Vallejo M Gender: Female Date of : 1950 Age: 74 Procedure Date: 07/24/2024 Procedure Type: Transthoracic Echocardiogram Location: OP Height: 157.48 cm Weight: 74.84 kg BSA: 1.76 m2 Heart Rate: 72 bpm BP: 136 / 64 mmHg Procurement Agent: SB Referring MD: Pernell Hess MD Symptoms: I48.0 - Paroxysmal atrial fibrillation Study Quality: Adequate ECG Rhythm: Sinus Conclusions: - The left ventricular systolic function is normal. The calculated ejection fraction is 63% by biplane method. - There is mild calcification of the aortic valve. - There is moderate mitral annular calcification. Findings Left Ventricle Normal left ventricular cavity size. The left ventricular systolic function is normal. The calculated ejection fraction is 63% by biplane method. There is no evidence of regional wall motion abnormalities. Diastolic function is normal for age. There is mild septal asymmetric hypertrophy. Right Ventricle Normal right ventricular cavity size and systolic function. Atria Both atria are normal in size. Aortic Valve There is a normal trileaflet aortic valve. There is mild calcification of the aortic valve. There is no aortic valve stenosis. There is no aortic valve regurgitation. Mitral Valve There is moderate mitral annular calcification. There is trace mitral valve regurgitation. There is no mitral valve stenosis. Pulmonic Valve The pulmonic valve is likely normal. Tricuspid Valve There is mild tricuspid valve regurgitation. There is no evidence of pulmonary hypertension. Great Vessels The aorta was not well visualized. The sinuses of valsalva is normal in size. Small plaque is seen in the sinuses of Valsalva. Venous The inferior vena cava is dilated and collapses greater than 50% with inspiration. Pericardium/Pleural There is no evidence of pericardial effusion. Prior Study Comparison Changes noted compared to prior study dated: 01/02/2017. Evidence of valvular calcifications. Measurements 2D Linear Measurements IVSd: 0.71 0.6-0.9/0.6-1.0 cm LVIDd: 4.27 3.9-5.3/4.2-5.9 cm LVIDd Index: 2.43 2.4-3.2/2.2-3.1 cm/m2 LVIDs: 2.77 2.0-3.6 cm LVPWd: 0.65 0.7-1.1 cm LA Diam: 2.60 2.7-3.8/3.0-4.0 cm LAIDs Index: 1.48 1.5-2.3 cm/m2 LV Mass: 104.52 67-162/88-224 g LV Mass Index: 59.39 43-95/49-115 g/m2 LVOT Diam: 2.40 3.0+(-)1.3 cm 2D Systolic Function EF 4C: 54.80 >55% EF 2C: 69.70 >55% EF BiP: 62.80 >55% Mitral Valve MV Pk E: 1.27 MV PK A: 1.20 MV Decel Time: 221.00 E/A: 1.10 E'Lateral: 8.27 E'Medial: 8.27 E/E' Med: 15.40 E/E' Lat: 15.40 PHT: 65.00 MVA PHT: 3.38 Decel [place]: 5.77 Aortic Valve AoV Pk Stew: 1.37 AoV Mn Stew: 0.97 AoV VTI: 0.32 AoV Pk Grad: 8.00 Aov Mn Grad: 4.00 ISHMAEL Cont.VTI: 2.66 LVOT LVOT Pk Stew: 0.81 LVOT Mn Stew: 0.60 LVOT VTI: 0.19 LVOT Pk Grad: 3.00 LVOT Mn Grad: 2.00 LVOT Diam: 2.40 LVOT Area: 4.52 Diastolic Function MV Pk E: 1.27 MV Pk A: 1.20 E/A: 1.10 E'Medial: 8.27 E/E' Med: 15.40 E' Laterial: 8.27 E/E' Lat: 15.40 Right Ventricle TAPSE (mm): 24.40 TVS' Stew: 12.30 Tricuspid Valve TR Pk Stew: 2.33 TR Pk Grad: 22.00 RA Press: 8.00 RVSP: 30.00 Great Vessels Aorta Sinus of Valsalva: 3.20 2.0-3.5 cm Pulmonary Valve PV Pk Stew: 0.65 Peak PV Grad: 2.00 Updated in Other Vendor System with Status of Final Pernell Hess MD electronically signed on 07/25/2024 1:21:50 PM with status of Final
--- OUTSIDE RECORDS SUMMARY | 2024-07-24 13:10 | XMS_ITS | Encounter Summary ---
Author Organization [facility] Address [address] [place] [address] Care Team Providers Care Oven Unloader Name Role Phone Luis Antonio Dillon MD Primary Care Provider +1 -[phone] Pernell Hess MD Unavailable iXao Squires MD Unavailable Unavailable Dayanara Benton MD Unavailable Unavailable Encounter Details Date Type Department Care Team Description 04/15/2023 Refill Adult Medicine - [place] [address] [place] [address] Luis Antonio Dillon MD [address] [place] [address] Social History Tobacco Use Types Packs/Day Years [...] [facility] or [facility] services? Never 01/13/2024 Do you belong to [...] place to sleep or slept in a mcfp (including now)? No 01/13/2024 Sex Assigned at [...] Danelle Vallejo 72F Refine Search Contact the [employer] Date of : 1950 Recent Address: [address] [place] [id number] of 2 Filled Written ID Drug QTY Days Prescriber RX # Dispenser Refill Daily Dose* Pymt Type PRINTER OPERATOR 03/11/2023 03/11/2023 1 Tramadol Hcl 50 Mg Tablet 168 28 Re Mor [id number] [facility] ([facility] 0/0 60.00 [place] 02/05/2023 02/05/2023 1 Tramadol Hcl 50 Mg Tablet 168 28 Ch Hay [id number] [facility] (0466) 0/0 60.00 [place] 01/25/2023 09/12/2022 2 Gabapentin 600 Mg Tablet 300 100 Ch Hay [id number] Opt (3812) 0/3 2.01 L[place] 01/07/2023 01/07/2023 1 Tramadol Hcl 50 Mg Tablet 168 28 Ch Hay [id number] [facility] (0466) 0/0 60.00 [place] * Telephone Encounter - Jigna Moeller - 04/15/2023 11:57 AM EST REFILL LAST APPOINTMENT: LAST TIME WITH PCP: s NEXT APPOINTMENT : 05/20/23 documented in this encounter Plan of Treatment Not on file documented as of this encounter Visit Diagnoses Not on filedocumented in this encounter Care Teams Oven Unloader Relationship Specialty Start Date End Date Luis Antonio Dillon MD [address] [place] [address] PCP - General Internal Medicine 11/24/18 Pernell Hess MD [address] [place] [address] Internal Medicine 09/12/22 Xiao Perez MD [address] [place] [address] Referring Physician Rheumatology 09/12/22 Dayanara Benton MD [address] [place] [address] Hematology 09/12/22 documented as of this encounter
--- OUTSIDE RECORDS SUMMARY | 2024-07-24 13:10 | XMS_ITS | Encounter Summary ---
Author Organization [facility] Address [address] [place] [address] Care Team Providers Care Boiler Setter Name Role Phone Luis Antonio Dillon MD Primary Care Provider +1 -[phone] Pernell Hses MD Unavailable Xiao Squires MD Unavailable Unavailable Dayanara Benton MD Unavailable Unavailable Encounter Details Date Type Department Care Team Description 05/25/2020 [facility] Medical Records [address] [place] [address] Abstract, Provider Social History Tobacco Use Types [...] week 01/13/2024 How often do you attend [facility] or latter-day services? Never 01/13/2024 Do you belong to any clubs o r organizations such as mu-ism groups, unions, fraternal or athletic groups, or [...] on filedocumented in this encounter Care Teams Boiler Setter Relationship Specialty Start Date End Date Luis Antonio Dillon MD [address] [place], [place] PCP - General Internal Medicine 11/24/18 Pernell Hess MD [address] [place], [place] Internal Medicine 09/12/22 Xiao Perez MD [address] [place], [place] Referring Physician Rheumatology 09/12/22 Dayanara Benton MD [address] [place], [place] Hematology 09/12/22 documented as of this encounter
--- OUTSIDE RECORDS SUMMARY | 2024-07-24 13:10 | XMS_ITS | Encounter Summary ---
Author Organization [facility] Address [address] [place] [address] Care Team Providers Care Finisher Wallboard And Plasterboard Name Role Phone Karin Stephen MD Primary Care Provider UnavailLee Walsh Primary Care Provider Unavail Ronnie Flores Primary Care Provider UnavailLauren Rowe MD Primary Care Provide r Unavailable Luis Antonio Dillon MD Primary Care Provider +1 -[phone] Pernell Hess MD Unavailable Xiao Squires MD Unavailable Unavailable Dayanara Benton MD Unavailable Unavailable Encounter Details Date Type Department Care Team Description 12/31/2016 Hospital Medical Records [address] [place] [address] Social History Tobacco Use Types Packs/Day Years [...] on filedocumented in this encounter Care Teams Finisher Wallboard And Plasterboard Relationship Specialty Start Date End Date Karin Stephen MD PCP - General 10/26/10 01/27/17 Lee Hurst PCP - General Internal Medicine 01/28/17 09/29/18 Ronnie Bianchi PCP - General Internal Medicine 09/30/18 09/30/18 Lauren John MD PCP - General Internal Medicine 10/06/18 11/23/18 Luis Antonio Dillon MD [address] [place], [place] PCP - General Internal Medicine 11/24/18 Pernell Hess MD [address] [place], [place] Internal Medicine 09/12/22 Xiao Perez MD [address] [place], [place] Referring Physician Rheumatology 09/12/22 Dayanara Benton MD [address] [place], [place] Hematology 09/12/22 documented as of this encounter
--- OUTSIDE RECORDS SUMMARY | 2024-07-24 13:10 | XMS_ITS | Encounter Summary ---
Author Organization [facility] Address [address] [place] [address] Care Team Providers Care Director Supply Chain Name Role Phone Luis Antonio Dillon MD Primary Care Provider +1 -[phone] Pernell Hess MD Unavailable Xiao Squires MD Unavailable Unavailable Dayanara Benton MD Unavailable Unavailable Encounter Details Date Type Department Care Team Description 06/17/2023 [facility] Steward Report Medical Records [address] [place] [address] Xiao Perez MD Social History Tobacco Use [...] week 01/13/2024 How often do you attend [facility] or tenriism services? Never 01/13/2024 Do you belong to any clubs o r organizations such as religious groups, unions, fraternal or athletic groups, or [...] on filedocumented in this encounter Care Teams Director Supply Chain Relationship Specialty Start Date End Date Luis Antonio Dillon MD [address] [place], [place] PCP - General Internal Medicine 11/24/18 Pernell Hess MD [address] [place], [place] Internal Medicine 09/12/22 Xiao Perez MD [address] [place], [place] Referring Physician Rheumatology 09/12/22 Dayanara Benton MD [address] [place], [place] Hematology 09/12/22 documented as of this encounter
--- OUTSIDE RECORDS SUMMARY | 2024-07-24 13:10 | XMS_ITS | Encounter Summary ---
Author Organization [facility] Address [address] [place] [address] Care Team Providers Care Public Health Registrar Name Role Phone Luis Antonio Dillon MD Primary Care Provider +1 -[phone] Pernell Hess MD Unavailable Xiao Squires MD Unavailable Unavailable Dayanara Benton MD Unavailable Unavailable Encounter Details Date Type Department Care Team Description 07/26/2020 [facility] Medical Records [address] [place] [address] Abstract, Provider Social History Tobacco Use Types [...] week 01/13/2024 How often do you attend [facility] or pentecostal services? Never 01/13/2024 Do you belong to any clubs o r organizations such as faith groups, unions, fraternal or athletic groups, or [...] on filedocumented in this encounter Care Teams Public Health Registrar Relationship Specialty Start Date End Date Luis Antonio Dillon MD [address] [place], [place] PCP - General Internal Medicine 11/24/18 Pernell Hess MD [address] [place], [place] Internal Medicine 09/12/22 Xiao Perez MD [address] [place], [place] Referring Physician Rheumatology 09/12/22 Dayanara Benton MD [address] [place], [place] Hematology 09/12/22 documented as of this encounter
--- OUTSIDE RECORDS SUMMARY | 2024-07-24 13:10 | XMS_ITS | Encounter Summary ---
Author Organization [facility] Address [address] [place] [address] Care Team Providers Care Edger Runner Name Role Phone Luis Antonio Dillon MD Primary Care Provider +1 -[phone] Pernell Hess MD Unavailable Xiao Squires MD Unavailable Unavailable Dayanara Benton MD Unavailable Unavailable Encounter Details Date Type Department Care Team Description 02/25/2023 Orders Only Medical Records [address] [place] [address] Asia Johns FNP Social History Tobacco Use [...] attend [facility] or restoration services? Never 01/13/2024 Do you belong to [...] suspected to have Coronavirus/COVID-19? No / Unsure 02/05/2023 3:14 PM EST documented as of this encounter Plan of Treatment Not on file documented as of this encounter Procedures Procedure Name Priority Date/Time Associated Diagnosis Comments OUTSIDE ULTRASOUND Routine 01/03/2023 documented in this encounter Results * OUTSIDE ULTRASOUND (01/03/2023) Asia Johns APPLICATIONS MANAGER RADIOLOGY documented in this encounter Visit Diagnoses Not on filedocumented in this encounter Care Teams Edger Runner Relationship Specialty Start Date End Date Luis Antonio Dillon MD [address] [place], [place] PCP - General Internal Medicine 11/24/18 Pernell Hess MD [address] [place], [place] Internal Medicine 09/12/22 Xiao Perez MD [address] [place], [place] Referring Physician Rheumatology 09/12/22 Dayanara Benton MD [address] [place], [place] Hematology 09/12/22 documented as of this encounter
--- OUTSIDE RECORDS SUMMARY | 2024-07-24 13:10 | XMS_ITS | Clinical Summary ---
Author Organization [facility] Address [address] [place] [address] Care Team Providers Care Sorter Laundry Articles Name Role Phone Nova Dillon MD Primary [...] week. 0 Active Vitamin A 3 MG (48792 UT) TABS Take 1 tablet by mouth [...] COPD Father Emphysema Father Heart disease Father VA Alzheimer's disease Mother COPD Mother Hypertension Mother [...] Evaluation 07/05/1967 Colon Cancer Screening (Colonoscopy) 1994 Fall Risk Assessment 2014 Osteoporosis Screening (DEXA Scan) 2014 Shingrix-Zoster Vaccine (2 of 2) 11/09/2018 09/14/2018 BMI Counseling 10/20/2022 10/20/2021 COVID-19 Vaccine ( season) 2023 01/03/2023, 01/19/2021, 06/10/2020, Additional history exists Influenza Vaccine (#1) 2023 , 12/20/2021, 12/14/2021, Additional history exists RSV Adult > 60+ Yrs or (1 - 1-dose 75+ series) 2024 DTap / Tdap / Td (3 - Td or Tdap) 02/27/2032 02/26/2022, 02/05/2011 Pneumococcal Vaccine Completed 06/14/2016, 11/16/19 15 Hepatitis B Vaccines Aged Out No long er eligible based on patient's age to complete this topic RSV Ped < 20 months Aged Out No longe r eligible based on patient's age to complete this topic Medical Devices Implanted Type Area Heavy Mobile Equipment Repairer Device Identifier Shelf Expiration Date Model / Serial / Lot Insert Trident 0d E 36mm X3 Acetabular [employer] - [id number] - [id number] Implanted:Qty: 1 on 02/29/2020 by Marcos Velasquez MD at [facility] Right: Hip [employer] [id number] 01/23/2025 623-00-36E / / [id number] Shell Trident Ii E 52mm Tritanium Acetabular Hip - 966972 - [id number] Implanted:Qty: 1 on 02/29/2020 by Marcos Velasquez MD at [facility] and [facility] Right: Hip [employer] [id number] 11/28/2023 709-04-52E / / [id number] Screw Trident Ii 30mm 6.5mm Low Profile Hexagonal Bone - 354071 - [id number] Implanted:Qty: 1 on 02/29/2020 by Marcos Velasquez MD at [facility] and [facility] Right: Hip [employer] [id number] 10/19/2024 6999-5268 / / [id number] Screw Bone Trident Ii L20 Mm Od6.5 Mm Low Profile Hexa - 718117 - [id number] Implanted:Qty: 1 on 02/29/2020 by Marcos Velasquez MD at [facility] and [facility] Right: Hip [employer] [id number] 06/02/2024 7449-8723 / / [id number] Screw Trident Ii 15mm 6.5mm Low Profile Hexagonal Bone - 176034 - [id number] Implanted:Qty: 1 on 02/29/2020 by Marcos Velasquez MD at [facility] and [facility] Right: Hip [employer] [id number] 08/11/2023 8283-8626 / / [id number] Stem Accolade Ii 3 132d Femoral - 647677 - [id number] Implanted:Qty: 1 on 02/29/2020 by Marcos Velasquez MD at [facility] and [facility] Right: Hip [employer] [id number] 01/11/2025 6930-6010 / / [id number] Head V40 -2.5mm 36mm Biolox Delta Femoral Hip - 860195 - [id number] Implanted:Qty: 1 on 02/29/2020 by Marcos Velasquez MD at [facility] and [facility] Right: Hip [employer] [id number] 01/09/2025 6570-0-436 / / [id number] Component Triathlon 4 Cruciate Retaining Cemented Femoral - 094607 - [id number] Implanted:Qty: 1 on 09/05/2020 by Marcos Velasquez MD at [facility] and [facility] Left: Knee [employer] [id number] 05/10/2025 5510-F-401 / / [id number] Component Triathlon 8mm 27mm Symmetric X3 Ptlar Knee - 345874 - [id number] Implanted:Qty: 1 on 09/05/2020 by Marcos Velasquez MD at [facility] and [facility] Left: Knee [employer] [id number] 12/02/2023 5550-G-278 / / [id number] Triathlon Cr Insert - Size 4 12mm X3 - 517534 - [id number] Implanted:Qty: 1 on 09/05/2020 by Marcos Velasquez MD at [facility] and Med Left: Knee [employer] [id number] 10/30/2022 5530-G-412 -E / / [id number] Baseplate Triathlon 4 Primary Cemented Tibial Knee - 194242 - [id number] Implanted:Qty: 1 on 09/05/2020 by Marcos Velasquez MD at [facility] and Med Left: Knee [employer] [id number] 09/16/2023 5520-B-400 / / [id number] Cement Simplex P Radiopaque Full Dose Bone 10 Pack - 072114 - [id number] Implanted:Qty: 1 on 09/05/2020 by Marcos Velasquez MD at [facility] and Med Left: Knee [employer] 12/29/2021 6191-1-010 / / [id number] Cement Simplex P Radiopaque Full Dose Bone 10 Pack - 176770 - [id number] Implanted:Qty: 1 on 09/05/2020 by Marcos Velasquez MD at [facility] and Med Left: Knee [employer] 12/29/2021 6191-1-010 / / [id number] V40 Cemented Hip Stem 37.5 Offst 125mm Implanted:Qty: 1 on 10/23/2021 by Marcos Velasquez MD at [facility] and Med Left: Hip [employer] 04/26/2026 0580-3-371 / / [id number] Tritanium Cluster Hole Shell 52mm Stry-Howm 379-67-83z-[id number] 473 - [id number] Implanted:Qty: 1 on 10/23/2021 by Marcos Velasquez MD at [facility] and Med Left: Hip [employer] [id number] 05/17/2026 702-04-52E / / [id number] ++Dnu+Disc Use [id number] Hip Insrt Trident 0d Silvio 36mm Stry-How 254-28-11o-200 918 - [id number] Implanted:Qty: 1 on 10/23/2021 by Marcos Velasquez MD at [facility] and Med Left: Hip [employer] [id number] 09/14/2026 623-00-36E / / [id number] Lp Hex Screw 6.5x30mm Stry-How 0034-3539-0237 78 - [id number] Implanted:Qty: 1 on 10/23/2021 by Marcos Velasquez MD at [facility] and Med Left: Hip [employer] [id number] 08/31/2026 2833-1663 / / [id number] Kit Prep Total Hip Bone Imp Smn-Orth 387224-243896 - [id number] Implanted:Qty: 1 on 10/23/2021 by Marcos Velasquez MD at [facility] and Med Left: Hip [employer] [id number] 09/13/2031 868272 / / [id number] Description:SMALL BONE PLUG USED FROM THE KIT Cement Bone Surg Simplex Radiopq Stry-Howm 2197-2-621-114 092 - [id number] Implanted:Qty: 1 on 10/23/2021 by Marcos Velasquez MD at [facility] and [facility] Left: Hip [employer] [id number] 10/30/2023 6191-1-010 / / [id number] Cement Bone Surg Simplex Radiopq Stry-Howm 9663-5-454-114 092 - [id number] Implanted:Qty: 1 on 10/23/2021 by Marcos Velasquez MD at [facility] Left: Hip [employer] [id number] 02/28/2023 6191-1-010 / / [id number] Hip Head Delta Biolox 36mm -5 Stry-How 9548-6-631-549 190 - [id number] Implanted:Qty: 1 on 10/23/2021 by Marcos Velasquez MD at [facility] Left: Hip [employer] [id number] 08/17/2026 6570-0-036 / / [id number] Advance Directives For more information, please contact: [phone] Documents on File Type Date Recorded Patient Water Reuse Program Manager Expl 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 Care Teams Sorter Laundry Articles Relationship Specialty Start Date End Date Nova Dillon MD PCP - General Internal Medicine 12/21/19
--- OUTSIDE RECORDS SUMMARY | 2024-07-24 13:10 | XMS_ITS | Encounter Summary ---
Author Organization [facility] Address [address] [place] [address] Care Team Providers Care Sales Coordinator Name Role Phone Luis Antonio Dillon MD Primary Care Provider +1 -[phone] Pernell Hess MD Unavailable Xiao Squires MD Unavailable Unavailable Dayanara Benton MD Unavailable Unavailable Encounter Details Date Type Department Care Team Description 06/20/2023 Embedded Systems Engineer Report Medical Records [address] [place] [address] Pernell Hess MD Social History Tobacco Use [...] week 01/13/2024 How often do you attend [facility] or denominational services? Never 01/13/2024 Do you belong to any clubs o r organizations such as episcopal groups, unions, fraternal or athletic groups, or [...] on filedocumented in this encounter Care Teams Sales Coordinator Relationship Specialty Start Date End Date Luis Antonio Dillon MD [address] [place], [place] PCP - General Internal Medicine 11/24/18 Pernell Hess MD [address] [place], [place] Internal Medicine 09/12/22 Xiao Perez MD [address] [place], [place] Referring Physician Rheumatology 09/12/22 Dayanara Benton MD [address] [place], [place] Hematology 09/12/22 documented as of this encounter
--- OUTSIDE RECORDS SUMMARY | 2024-07-24 13:10 | XMS_ITS | Encounter Summary ---
Author Organization [facility] Address [address] [place] [address] Care Team Providers Care Director Of Investigations Name Role Phone Luis Antonio Dillon MD Primary Care Provider +1 -[phone] Pernell Hess MD Unavailable Xiao Squires MD Unavailable Unavailable Dayanara Benton MD Unavailable Unavailable Encounter Details Date Type Department Care Team Description 09/06/2020 [facility] Medical Records [address] [place], [place] [id number] [place] [address] Social History Tobacco Use Types Packs/Day Years [...] week 01/13/2024 How often do you attend [facility] or orthodoxy services? Never 01/13/2024 Do you belong to any clubs o r organizations such as worship groups, unions, fraternal or athletic groups, or [...] place to sleep or slept in a fci (including now)? No 01/13/2024 Sex Assigned at Date Recorded Not on file Job Start Date Occupation Industry Not on file Not on file Not on file documented as of this encounter Plan of Treatment Not on file documented as of this encounter Visit Diagnoses Not on filedocumented in this encounter Care Teams Director Of Investigations Relationship Specialty Start Date End Date Luis Antonio Dillon MD [address] [place], [place] PCP - General Internal Medicine 11/24/18 Pernell Hess MD [address] [place], [place] Internal Medicine 09/12/22 Xiao Perez MD [address] [place], [place] Referring Physician Rheumatology 09/12/22 Dayanara Benton MD [address] [place], [place] Hematology 09/12/22 documented as of this encounter
--- OUTSIDE RECORDS SUMMARY | 2024-07-24 13:10 | XMS_ITS | Encounter Summary ---
Author Organization [facility] Address [address] [place] [address] Care Team Providers Care Occupational Ther Name Role Phone Luis Antonio Dillon MD Primary Care Provider +1 -[phone] Pernell Hess MD Unavailable Xiao Squires MD Unavailable Unavailable Dayanara Benton MD Unavailable Unavailable Encounter Details Date Type Department Care Team Description 08/22/2020 Bowling Ball Molder Report Medical Records [address] [place], [place] [id number] [place] [address] Social History Tobacco Use Types Packs/Day Years [...] [facility] or confucianism services? Never 01/13/2024 Do you belong to [...] on filedocumented in this encounter Care Teams Occupational Ther Relationship Specialty Start Date End Date Luis Antonio Dillon MD [address] [place], [place] PCP - General Internal Medicine 11/24/18 Pernell Hess MD [address] [place], [place] Internal Medicine 09/12/22 Xiao Perez MD [address] [place], [place] Referring Physician Rheumatology 09/12/22 Dayanara Benton MD [address] [place], [place] Hematology 09/12/22 documented as of this encounter
--- OUTSIDE RECORDS SUMMARY | 2024-07-24 13:10 | XMS_ITS | Encounter Summary ---
Author Organization [facility] Address [address] [place] [address] Care Team Providers Care Journeyman Glazier Name Role Phone Luis Antonio Dillon MD Primary Care Provider [phone] Pernell Hess MD Unavailable Xiao Squires MD Unavailable Unavailable Dayanara Benton MD Unavailable Unavailable Encounter Details Date Type Department Care Team Description 05/03/2023 [facility] Medical Records [address] [place] [address] Abstract, Provider Social History Tobacco Use Types [...] week 01/13/2024 How often do you attend [facility] or advent services? Never 01/13/2024 Do you belong to any clubs o r organizations such as samaritan groups, unions, fraternal or athletic groups, or [...] place to sleep or slept in a alf (including now)? No 01/13/2024 Sex Assigned at Date Recorded Not on file Job Start Date Occupation Industry Not on file Not on file Not on file documented as of this encounter Plan of Treatment Not on file documented as of this encounter Visit Diagnoses Not on filedocumented in this encounter Care Teams Journeyman Glazier Relationship Specialty Start Date End Date Luis Antonio Dillon MD [address] [place], [place] PCP - General Internal Medicine 11/24/18 Pernell Hess MD [address] [place], [place] Internal Medicine 09/12/22 Xiao Perez MD [address], [place] Referring Physician Rheumatology 09/12/22 Dayanara Benton MD [address], [place] Hematology 09/12/22 documented as of this encounter
--- OUTSIDE RECORDS SUMMARY | 2024-07-24 13:10 | XMS_ITS | Encounter Summary ---
Author Organization [facility] Address [address] [place] [address] Care Team Providers Care Aerospace Stress Engineer Name Role Phone Luis Antonio Dillon MD Primary Care Provider [phone] Pernell Hess MD Unavailable Xiao Squires MD Unavailable Unavailable Dayanara Benton MD Unavailable Unavailable Reason for Visit * Reason Comments E-prescribe Rx Request Encounter Details Date Type Department Care Team Description 09/12/2023 Refill Adult Medicine [facility] [address] [place] [address] Jaziel Reno PA-C [address] [place] [id number] E-prescribe Rx Request Social History Tobacco Use [...] How often do you attend chur or orthodoxy services? Never 01/13/2024 Do you [...] place to sleep or slept in a care home (including now)? No 01/13/2024 Sex Assigned at Date Recorded Not on file Job Start Date Occupation Industry Not on file Not on file Not on file documented as of this encounter Miscellaneous Notes * Telephone Encounter - Susanne Anderson - 09/12/2023 11:41 AM EDT Last appt-??05/20/23 ?? Next appt-??09/24/23 ?? Last appt w/ PCP-??same as above documented in this encounter Plan of Treatment Not on file documented as of this encounter Visit Diagnoses Not on filedocumented in this encounter Care Teams Aerospace Stress Engineer Relationship Specialty Start Date End Date Luis Antonio Dillon MD [address] [place], [place] PCP - General Internal Medicine 11/24/18 Pernell Hess MD [address] [place], [place] Internal Medicine 09/12/22 Xiao Perez MD [address] [place], [place] Referring Physician Rheumatology 09/12/22 Dayanara Benton MD [address] [place], [place] Hematology 09/12/22 documented as of this encounter
--- OUTSIDE RECORDS SUMMARY | 2024-07-24 13:11 | XMS_ITS | Encounter Summary ---
Author Organization [facility] Address [address] [place] [address] Care Team Providers Care Senior National Account Manager Name Role Phone Luis Antonio Dillon MD Primary Care Provider [phone] Pernell Hess MD Unavailable Xiao Squires MD Unavailable Unavailable Dayanara Benton MD Unavailable Unavailable Reason for Visit * Reason Onset Date Comments refill request 12/28/2019 Encounter Details Date Type Department Care Team Description 12/28/2019 Refill Adult Medicine - [place] [address] [place] [address] Luis Antonio Dillon MD [address] [place] [address] refill request Social History Tobacco Use Types [...] often do you attend chur ch or gnosticist services? Never 01/13/2024 Do you belong to [...] FEP STANDARD $25 / Product Type: PPO [id number] documented in this encounter Plan of Treatment Not on file documented as of this encounter Visit Diagnoses Not on filedocumented in this encounter Care Teams Senior National Account Manager Relationship Specialty Start Date End Date Luis Antonio Dillon MD [address] [place] [address] PCP - General Internal Medicine 11/24/18 Pernell Hess MD [address] [place] [address] Internal Medicine 09/12/22 Xiao Perez MD [address] [place], [place] Referring Physician Rheumatology 09/12/22 Dayanara Benton MD [address] [place] [address] Hematology 09/12/22 documented as of this encounter
--- OUTSIDE RECORDS SUMMARY | 2024-07-24 13:11 | XMS_ITS | Clinical Summary ---
Author Organization [address] [facility] Address [address] [place] [address] Phone Care Team Providers Care Oil Field Operator Name Role Phone Nova Dillon MD Primary Care Prov ider Allergies Active Allergy Reactions Criticality Noted Date Comments Nsaids (Non-Steroidal Anti-Inflammatory Drug) 02/29/2020 Bariatric surgery Medications levothyroxine (SYNTHROID, LEVOTHROID) 125 mcg tablet Take [...] EC tablet Take by mouth. Activ e ondansetron ODT (ZOFRAN-ODT) 4 mg disintegrating tablet Take 1 Tablet by mouth 3 times daily as needed for Nausea. 06/02/19 23 Active magnesium 250 mg tablet Take by mouth. Activ e medical marijuana WELLNESS GUIDE med Active biotin 5 mg tablet Take [...] DAILY 90 tablet 1 05/11/19 25 Active ciclopirox (LOPROX) 0.77 % gel Apply 1 Application topically 1 (one) time each day. 45 g 2 07/01/19 25 Active clotrimazole (LOTRIMIN) 1 % external solution Apply topically 2 (two) times a day. 30 mL 07/01/19 25 025 Active gabapentin (NEURONTIN) 600 mg tablet Take 1 tablet (600 mg total) by mouth 3 (three) times a day. 270 each 1 07/07/19 25 025 Active gabapentin (NEURONTIN) 600 mg tablet TAKE 1 TABLET BY MOUTH 3 TIMES DAILY 08/30/19 24 025 Discontinu ed(Reorder ) ciclopirox (LOPROX) 0.77 % gel Apply 1 Application topically 1 (one) time each day. 08/23/19 23 025 Discontinu ed(Reorder ) traMADoL (ULTRAM) 50 mg tablet Take 2 tablets (100 mg total) by mouth every 8 (eight) hours if needed (pain) for up to 28 days. Max Daily Amount: 300 mg 168 tablet 06/25/19 25 025 Active Problems Problem Noted Date Diagnosed Date Psoriatic arthritis ([facility] V24, [facility] V28) 0 04/28/2024 Chronic pain syndrome 04/06/2024 Carotid stenosis, right 12/27/2021 Overview (12/31/2023): 50-79% [facility] Iron deficiency anemia jake ferrari to inadequate dietary iron intake 10/18/2021 Obesity (BMI 30-39.9) 06/24/2020 COPD (chronic obstructive pu lmonary disease) ([facility] V24, [facility] V28) 03/18/2020 Arthritis of right hip 12/31/2019 Aortic atherosclerosis ([facility] V24) 12/17/2018 Chronic bilateral low back pain with sciatica Depression 12/17/2018 Neuropathy 12/17/2018 Osteoarthritis 12/17/2018 Overview (12/31/2023): Cervical, Thoracic, & Lumbosacral Spine, Hips, Knees Vitamin D deficiency 12/17/2018 Atrial fibrillation ([facility] V24, [facility] V28) 0 11/26/2018 Bilateral chronic knee pain 10/16/2016 Overview (12/31/2023): Dr Boyce Esophageal reflux 10/16/2016 GARRETT (obstructive sleep apnea) 10/16/2016 Endometrial thickening on ultrasound 10/08/2016 Overview (12/31/2023): 8 mm, Seen on ultrasound 09/10/16 Fatty liver 10/08/2016 Overview (12/31/2023): Seen on ultrasound Hypercholesteremia 03/23/2011 Fibrocystic breast 11/08/2010 Hypothyroidism 11/08/2010 Overview (12/31/2023): Had radiation for Graves, Lumbar spinal stenosis 11/08/2010 Encounters Date Type Department Care Team Description 07/06/2024 3:30 PM EDT Office Visit Adult Medicine [address] [phone] Nova Dillon MD Arthritis of right hip (Primary Dx); Atrial fibrillation, unspecified type ([facility] V24, [facility] V28); BMI 29.0-29.9,adult 06/30/2024 1:00 PM EDT Office Visit Orthopedic Surgery - [place] [address] [place] [phone] Vlad Lamb DPM Psoriatic arthritis ([facility] V24, [facility] V28) (Primary Dx); Hammer toe of left foot; Dermatophytosis of nail; Acquired hammer toe of right foot 06/17/2024 9:00 AM EDT Consult [address] [address] Jaziel Reno PA Age-related cataract of both eyes, unspecified age-related cataract type (Primary Dx); Hypothyroidism, unspecified type; Hypercholesteremia; Spinal stenosis of lumbar region, unspecified whether neurogenic claudication present 04/28/2024 8:59 AM EST - 04/28/2024 11:59 PM EST Hospital Encounter [address] [address] Pain in both hands Discharge Disposition: Home or Self Care 04/28/2024 8:30 AM EST Office Visit [address] [address] Linda Ferguson PA Pain in both hands (Primary Dx); Psoriatic arthritis ([facility] V24, [facility] V28); Palpitations; Chronic pain syndrome; Sinus congestion; Vertigo 04/27/2024 Telephone Adult [address] [address] Nova Dillon MD Dizziness; Sinus Problem from Last 3 Months Immunizations Name Administration Dates Next Due Influenza trivalent, 0.5mL ( Fluzone High-dose) 65yo and older 01/03/2023,12/14/2021,12/18/2019,12/03 Influenza trivalent, with pr eservative (Fluzone; Afluria) 6mo and older 12/20/2021,01/21/2014,01/07/2013,01/15 Influenza, Unspecified 12/03/2018 Moderna (age 6mo & older) Bi valent, COVID-19, 0.5 mL or 0.25 mL dosage 12/20/2021 [employer] SARS-CoV-2 COVID-19, mRNA, LNP-S, preservative free 01/03/2023,01/19/2021,06/10/2020 [...] TOTAL HIP; Surgeon: Marcos Velasquez MD; Location: [facility] ([facility]); Service: Orthopedics; Laterality: Right; COLONOSCOPY PROCEDURE:COLONOSCOPY TOTAL KNEE ARTHROPLASTY 08/2020 Left PROCEDURE:TOTAL KNEE ARTHROPLASTY TOTAL HIP ARTHROPLASTY 10/23/2021 Left PROCEDURE:TOTAL HIP ARTHROPLASTY;COMMENT:Procedure : REPLACEMENT TOTAL HIP; Surgeon: Marcos Velasquez MD; Location: [facility] ([facility]); Service: Orthopedics; Laterality: Left; OTHER SURGICAL HISTORY [...] bypass OTHER SURGICAL HISTORY 03/01/2020 Right PROCEDURE: MD ARTHRP ACETBLR/PROX FEM PROSTC AGRFT/ALGRFT TOTAL KNEE ARTHROPLASTY 09/05/2020 Left PROCEDURE: MD ARTHRP KNE CONDYLE&PLATU MEDIAL&LAT COMPARTMENTS Medical History Medical History Date Comments Hypertension DX:Hypertension; COMMENT:resolved since bariatric Osteoarthritis DX:Osteoarthriti s A-fib ([facility] [place]24, [facility] V28) DX:A-fib ([facility]);COMMENT:postoperatively bariatric surgery Sleep apnea DX:Sleep apnea;C OMMENT:NONCOMPLIANT WITH CPAP DUE TO WT. LOSS COPD (chronic obstructive pu lmonary disease) ([facility] V24, [facility] V28) DX:COPD (chronic o bstructive pulmonary disease) ([facility]);COMMENT:Just from hx of smoking no PFTs previous [...] knee pain; COMMENT: Dr Boyce Atrial fibrillation ([facility] V24, [facility] V28) 11/26/2018 DX:Atrial fibrillation ([facility]) GARRETT (obstructive sleep apnea) 10/16/2016 DX :GARRETT (obstructive sleep apnea) Aortic atherosclerosis ([facility] V24) 12/17/2018 DX:Aortic atherosclerosis ([facility]) Osteoarthritis 12/17/2018 DX:Osteoarthriti s; COMMENT: Cervical, Thoracic, & Lumbosacral Spine, Hips, Knees History of bariatric surgery 07/20/2016 DX: History of bariatric surgery; COMMENT: 2017 Gastric Bypass Vitamin D deficiency 12/17/2018 DX:Vitamin D deficiency Lumbar spinal stenosis 11/08/2010 DX:Lumbar spinal stenosis Chronic bilateral low back p ain with sciatica 12/17/2018 DX:Chronic bilateral low soraya k pain with sciatica Depression 12/17/2018 DX:Depression Neuropathy 12/17/2018 DX:Neuropathy COPD (chronic obstructive pu lmonary disease) ([facility] V24, [facility] V28) 03/18/2020 DX:COPD (chronic o bstructive pulmonary disease) ([facility]) HTN (hypertension) 03/18/2020 DX:HTN (hyper tension) Carotid stenosis, right 12/27/2021 DX:Carot id stenosis, right; COMMENT: 50-79% [facility] Irritable bowel syndrome DX:Irri table bowel syndrome Family History Medical History Relation Name Comments Scleroderma Aunt No Known Problems Brother 1 No Known Problems Brother 2 No Known Problems Brother 3 Other: adrenal tumor Daughter Other: uterine polps Daughter COPD Father Emphysema Father Heart attack Father Heart disease Father [place] Hypertension Maternal Grandmother Alzheimer's disease Mother COPD [...] care for your loved ones. For example, child adolescent psychiatrist or elderly care for an older adult? [...] Sign Reading Time Taken Comments Blood Pressure 136/75 07/06/2024 3:25 PM EDT Pulse 66 07/06/2024 3:25 PM EDT Temperature 36.3 ??C (97.4 ??F) 07/06/2024 3:25 PM ED T Respiratory Rate - - Oxygen Saturation - - Inhaled Oxygen Concentration - - Weight 76.5 kg (168 lb 9.6 oz) 07/06/2024 3:25 P M EDT Height 160 cm (5' 3 ) 06/17/2024 8:46 AM EDT Body Mass Index 29.87 06/17/2024 8:46 AM EDT Plan of Treatment Upcoming Encounters Date Type Department Care Team (Late st Contact Info) Description 09/24/2024 3:10 PM EDT Appointment Radiology Department [address] [address] 10/06/2024 1:00 PM EDT Office Visit Orthopedic Surgery - [place] [address] [address] Vlad Lamb, DPM [address] [address] 10/07/2024 2:30 PM EDT Office Visit Adult Medicine - [address] [phone] Nova Dillon MD [address] [place] [address] 01/05/2025 1:15 PM EDT Office Visit Adult Medicine - [address] [phone] Nova Dillon MD [address] [place] [address] Health Maintenance Due Date Last Done Comments Hepatitis A Vaccines (1 of 2 - Risk 2-dose series) 1968 Hepatitis B Vaccines (1 of 3 - Risk 3-dose series) 2009 Falls Risk Assessment 03/08/2022 Medicare Annual Wellness Visit 03/08/2022 COVID-19 Vaccine (8 - Pfizer risk season) 2024 12/20/2023, 01/03/2023, 12/20/2021, Additional history exists RSV Immunization Adult Patients (1 - 1-dose 75+ series) 2024 Depression Screening 06/10/2025 06/10/2024 Social Influencers of Health Screening 06/10/2025 06/10/2024 Cholesterol Screening (Lipid Panel) 01/19/2029 01/20/2024, 05/19/2021 Colorectal Cancer Screening: Colonoscopy 02/02/2032 02/01/2022 DTaP,Tdap,and Td Vaccines (3 - Td or Tdap) 02/27/2032 02/26/2022, 02/05/2011 Osteoporosis Screening (Bone Density Screening) 09/11/2032 09/11/2022 Hepatitis C Screening Completed 01/15/2013 Pneumococcal Vaccine: 50+ Years Completed 06/14/2016, 11/15/2014 Zoster Vaccines Completed 11/24/2018, 09/14/2018 Breast Cancer Screening Discontinued 06/16/2020 Influenza Vaccine Completed 12/20/2023, , 12/20/2021, Additional [...] age to complete this topic Meningococcal B Vaccine Aged Out No l onger eligible based on patient's age to complete this topic RSV Immunization Patients Under 20 months Aged Out No longer eligible based on patient's age to complete this topic Varicella Vaccines Aged Out No longer eligible based on patient's age to complete this topic Medical Devices Implanted Type Area Forest Pathology Teacher Device Identifier Shelf Expiration Date Model / Serial / Lot Insert Trident 0d E 36mm X3 Acetabular Hip - [id number] Implanted:Qty: 1 on 02/29/2020 by Marcos Velasquez MD Right: Hip [employer] [id number] 01/23/2025 623-00-36E / / [id number] Shell Trident Ii E 52mm Tritanium Acetabular Hip - [id number] Implanted:Qty: 1 on 02/29/2020 by Marcos Velasquez MD Right: Hip [employer] [id number] 11/28/2023 709-04-52E / / [id number] Screw Trident Ii 30mm 6.5mm Low Profile Hexagonal Bone - [id number] Implanted:Qty: 1 on 02/29/2020 by Marcos Velasquez MD Right: Hip [employer] [id number] 10/19/2024 1424-6573 / / [id number] Screw Bone Trident Ii L20 Mm Od6.5 Mm Low Profile Hexa - [id number] Implanted:Qty: 1 on 02/29/2020 by Marcos Velasquez MD Right: Hip [employer] [id number] 06/02/2024 1294-0571 / / [id number] Screw Trident Ii 15mm 6.5mm Low Profile Hexagonal Bone - [id number] Implanted:Qty: 1 on 02/29/2020 by Marcos Velasquez MD Right: Hip [employer] [id number] 08/11/20235994-3113 / / [id number] Stem Accolade Ii 3 132d Femoral - [id number] Implanted:Qty: 1 on 02/29/2020 by Marcos Velasquez MD Right: Hip [employer] [id number] 01/11/2025 6834-4793 / / [id number] Head V40 -2.5mm 36mm Biolox Delta Femoral Hip - [id number] Implanted:Qty: 1 on 02/29/2020 by Marcos Velasquez MD Right: Hip [employer] [id number] 01/09/2025 6570-0-436 / / [id number] Component Triathlon 4 Cruciate Retaining Cemented Femoral - [id number] Implanted:Qty: 1 on 09/05/2020 by Marcos Velasquez MD Left: Knee [employer] [id number] 05/10/2025 5510-F-401 / / [id number] Component Triathlon 8mm 27mm Symmetric X3 Ptlar Knee - [id number] Implanted:Qty: 1 on 09/05/2020 by Marcos Velasquez MD Left: Knee [employer] [id number] 12/02/2023 5550-G-278 / / [id number] Triathlon Cr Insert - Size 4 12mm X3 - [id number] Implanted:Qty: 1 on 09/05/2020 by Marcos Velasquez MD Left: Knee [employer] [id number] 10/30/2022 5530-G-412 -E / / [id number] Baseplate Triathlon 4 Primary Cemented Tibial Knee - [id number] Implanted:Qty: 1 on 09/05/2020 by Marcos Velasquez MD Left: Knee [employer] [id number] 09/16/2023 5520-B-400 / / [id number] Cement Simplex P Radiopaque Full Dose Bone 10 Pack - Implanted:Qty: 1 on 09/05/2020 by Marcos Velasquez MD Left: Knee [employer] 12/29/2021 6191-1-010 / / [id number] Cement Simplex P Radiopaque Full Dose Bone 10 Pack - Implanted:Qty: 1 on 09/05/2020 by Marcos Velasquez MD Left: Knee [employer] 12/29/2021 6191-1-010 / / [id number] [place] V40 Cemented Hip Stem 37.5 Offst 125mm Implanted:Qty: 1 on 10/23/2021 by Marcos Velasquez MD Left: Hip [employer] 04/26/2026 0580-3-371 / / [id number] Tritanium Cluster Hole Shell 52mm Stry-Howm [id number]-[id number] Implanted:Qty: 1 on 10/23/2021 by Marcos Velasquez MD Left: Hip [employer] [id number] 05/17/2026 702-04-52E / / [id number] ++Dnu+Disc Use [id number] Hip Insrt Trident 0d Silvio 36mm Stry-Howm [id number]-[id number] [id number] Implanted:Qty: 1 on 10/23/2021 by Marcos Velasquez MD Left: Hip [employer] [id number] 09/14/2026 623-00-36E / / [id number] Lp Hex Screw 6.5x30mm Stry-Howm [id number] 78 Implanted:Qty: 1 on 10/23/2021 by Marcos Velasquez MD Left: Hip [employer] [id number] 08/31/2026 1363-1587 / / [id number] Kit Prep Total Hip Bone Imp Smn-Orth [id number] Implanted:Qty: 1 on 10/23/2021 by Marcos Velasquez MD Left: Hip [employer] [id number] 09/13/2031 103294 / / [id number] Description:SMALL BONE PLUG USED FROM THE KIT Cement Bone Surg Simplex Radiopq Stry-Howm [id number] 092 Implanted:Qty: 1 on 10/23/2021 by Marcos Velasquez MD Left: Hip [employer] [id number] 10/30/2023 6191-1-010 / / [id number] Cement Bone Surg Simplex Radiopq Stry-Howm [id number] 092 Implanted:Qty: 1 on 10/23/2021 by Marcos Velasquez MD Left: Hip [employer] [id number] 02/28/2023 6191-1-010 / / [id number] Hip Head Delta Biolox 36mm -5 Stry-Howm [id number] 190 Implanted:Qty: 1 on 10/23/2021 by Marcos Velasquez MD Left: Hip [employer] [id number] 08/17/2026 6570-0-036 / / [id number] Procedures Procedure Name Priority Date/Time Associated Diagnosis Comments XR HAND 3+ VIEWS BILAT Routine 04/28/2024 9:12 AM EST Pain in both hands DXA BONE DENSITY STUDY 1+ SITS AXIAL SKEL Routine 09/11/2022 2:32 PM EDT Encounter for screening for osteoporosis COLONOSCOPY Routine 02/01/2022 LIPID PANEL Routine 05/19/2021 HEPATITIS C SCREENING Routine 01/15/2013 from Last 3 Months or Most Recently Relevant to Health Maintenance Results * XR Hand 3+ Views bilat (04/28/2024 9:12 AM EST) Anatomical Region Laterality Modality Upper Extremities, Hand [facility] 04/28/2024 12:2 1 PM EST Narrative [...] Signed Date: 04/28/2024 13:46 ET Workstation ID: [id number] Transcribed By: Self Edit Transcribed Date: 04/28/2024 [...] Signed Date: 04/28/2024 13:46 ET Workstation ID: [id number] Transcribed By: Self Edit Transcribed Date: 04/28/2024 12:21 ET us Linda MEJIA IMG XR PROCEDURES Final Re sult * DXA BONE DENSITY STUDY 1+ SITS [...] normal bone density by WHO criteria. The [facility] Department of Internal Medicine recommends using [...] alternative screening schedule based on nikki Freeman., [facility] [place] April 19, 2011 for patients with osteopenia [...] normal bone density by WHO criteria. The [facility] Department of Internal Medicinerecommends using National Osteoporosis [...] alternative screening schedule based on nikki Freeman., NEMJanuary 2011 for patients with osteopenia (based on hip BMD T-score) is as follows: * advanced osteopenia (T scores -2.00 to -2.49), BMD testing every year * moderate osteopenia (T scores -1.50 to -1.99), BMD testing every 5years mild osteopenia or normal BMD (T scores -1.50 and higher), BMD testingevery 15 years Result [facility] Jaziel MEJIA IMG DXA PROCEDURES Final Resul t * Colonoscopy (02/01/2022) [facility] Colonoscopy no interpretation , abstracted Anatomical Region Laterality Modality Other Result [facility] Provider HEALTH MAINTENANCE Final Result * Lipid panel (05/19/2021) [facility] LDL/HDL Ratio 2 0 - 4 Triglycerides 113 0 - 150 mg/dL Cholesterol 143 0 - 200 mg/dL HDL 77 >=40 mg/dL LDL Cholesterol 44 0 - 100 mg/dL Blood Venous blood specimen / Unknown Result [facility] Provider LAB BLOOD ORDERABLES Amy l Result * Hepatitis C Screening (01/15/2013) [facility] Hepatitis C Screening abstracted Result [facility] Provider HEALTH MAINTENANCE Final Result from Last 3 Months or Most Recently Relevant to Health Maintenance Insurance [place] [id number] Care Teams Oil Field Operator Relationship Specialty Start Date End Date Nova Dillon MD [address] [place] [id number] PCP - General Internal Medicine 11/24/18
--- OUTSIDE RECORDS SUMMARY | 2024-07-24 13:11 | XMS_ITS | Encounter Summary ---
Author Organization [facility] Address [address] [place] [address] Care Team Providers Care Regulatory Compliance Director Name Role Phone Luis Antoino Dillon MD Primary Care Provider +1 -[phone] Pernell Hess MD Unavailable Xiao Squires MD Unavailable Unavailable Dayanara Benton MD Unavailable Unavailable Reason for Visit * Reason Onset Date Comments Medication 01/18/2022 Encounter Details Date Type Department Care Team Description 01/18/2022 Refill Gastroenterology [facility] [address] [place] [id number] Joy Mchugh MD [address] [place] [id number] Medication Social History Tobacco Use Types Packs/Day Years [...] often do you attend chur ch or faith services? Never 01/13/2024 Do you belong to any clubs o r organizations such as mosque groups, unions, fraternal or athletic groups, or [...] on filedocumented in this encounter Care Teams Regulatory Compliance Director Relationship Specialty Start Date End Date Luis Antonio Dillon MD [address] [place], [place] PCP - General Internal Medicine 11/24/18 Pernell Hess MD [address] [place], [place] Internal Medicine 09/12/22 Xiao Perez MD [address] [place], [place] Referring Physician Rheumatology 09/12/22 Dayanara Benton MD [address] [place], [place] Hematology 09/12/22 documented as of this encounter
--- OUTSIDE RECORDS SUMMARY | 2024-07-24 13:11 | XMS_ITS | Encounter Summary ---
Author Organization [facility] Address [address] [place] [address] Care Team Providers Care Drug Room Operator Name Role Phone Luis Antonio Dillon MD Primary Care Provider +1 -[phone] Pernell Hess MD Unavailable Xiao Squires MD Unavailable Unavailable Dayanara Benton MD Unavailable Unavailable Reason for Visit * Reason Onset Date Comments Orders Call 10/26/2020 Encounter Details Date Type Department Care Team Description 10/26/2020 Telephone Adult Medicine [facility] [address] [place] [address] Luis Antonio Dillon MD [address] [place] [address] Orders Call Social History Tobacco Use Types Packs/Day Years [...] often do you attend chur ch or hinduism services? Never 01/13/2024 Do you belong to any clubs o r organizations such as taoist groups, unions, fraternal or athletic groups, or [...] encounter Miscellaneous Notes * Telephone Encounter - Tere Carrillo M.A. - 10/28/2020 11:09 AM EDT Patient advised that labs were signed. Reminded patient to fast for 12 hours prior. * Telephone Encounter - Crystal White M.A. - 10/27/2020 2:11 PM EDT Spoke to pt and her cardiac Dr Hess wants to check her Liver profile and cholesterol again as he is considering adjusting a med she is on. She states it is easier to get them done with us hereand would like to see you can order the tests for her. I pended order for review. * Telephone Encounter - Crystal White M.A. - 10/26/2020 1:26 PM EDT Left voicemail asking to return call regarding message below. 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 Patient was advised that would be eaiser to get these done at our office. Please advise and call patient when orders are put in . documented in this encounter Plan of Treatment Not on file documented as of this encounter Results * (ABNORMAL) COMPREHENSIVE METABOLIC PANEL (05/19/2021 8:58 AM EST) Blood Urea Nitrogen 22 5 - 25 mg/dL 05/19/2021 1:34 PM EST [facility] CREAT 0.79 0.5 - 1.1 mg/dL 05/19/2021 1:34 PM EST [facility] GLOMERULAR FILTRATION RATE > 60 05/19/2021 1:34 PM EST [facility] Comment: If patient is -[place]atorial [place], multiply result by 1.21 Chronic Kidney Disease: < 60 ml/min/1.73 square meters Kidney Failure: < 15 ml/min/1.73 square meters NA 141 135 - 145 mEq/L 05/19/2021 1:34 PM EST [facility] K 4.3 3.5 - 5.5 mmol/L 05/19/2021 1:34 PM EST [facility] CL 103 96 - 110 mmol/L 05/19/2021 1:34 PM EST [facility] CARBON DIOXIDE (CO2) 34(H) 21 - 32 mmol/L 05/19/2021 1:34 PM EST [facility] ANION GAP 4 3 - 11 05/19/2021 1:34 PM EST [facility] CALCIUM 9.5 8.5 - 10.5 mg/dL 05/19/2021 1:34 PM EST [facility] Albumin 3.6 3.2 - 5.0 G/dL 05/19/2021 1:34 PM EST [facility] GLUCOSE 80 70 - 100 mg/dL 05/19/2021 1:42 PM EST [facility] Comment:Reference range appl icable to fasting specimens only TOTAL PROTEIN (TP) 6.2 6.0 - 8.0 G/dL 05/19/2021 1:42 PM EST [facility] BILIRUBIN TOTAL 0.5 0.0 - 1.4 mg/dL 05/19/2021 1:42 PM EST [facility] SGOT 37 10 - 42 U/L 05/19/2021 1:42 PM EST [facility] SGPT 41 10 - 60 U/L 05/19/2021 1:42 PM EST [facility] ALK PHOS 67 42 - 121 U/L 05/19/2021 1:42 PM EST [facility] 05/19/2021 8:58 AM EST 05/19/2021 8:58 AM EST Narrative [facility] - 05/19/2021 1:42 PM EST Release to patient->Immediate Luis Antonio Dillon MD LAB [facility] * LIPID PROFILE (05/19/2021 8:58 AM EST) Cholesterol 143 0 - 200 mg/dL 05/19/2021 1:34 PM EST [facility] TRIGLYCERIDES 113 0 - 150 mg/dL 05/19/2021 1:42 PM EST [facility] HDL CHOLESTEROL 77 >40 mg/dL 1:42 PM EST [facility] LDL CALCULATED 44 0 - 100 mg/dL 05/19/2021 1:42 PM EST [facility] TC-HDLC RATIO 1.9 0 - 4.4 mg/dL 05/19/2021 1:42 PM EST [facility] 05/19/2021 8:58 AM EST 05/19/2021 8:58 AM EST Narrative [facility] - 05/19/2021 1:42 PM EST Release to patient->Immediate Luis Antonio Dillon MD LAB [facility] documented in this encounter Visit Diagnoses Diagnosis Hypercholesteremia- Primary Pure hypercholesterolemia Hypercholesteremia Pure hypercholesterolemia documented in this encounter Care Teams Drug Room Operator Relationship Specialty Start Date End Date Luis Antonio Dillon MD [address] [place] [address] PCP - General Internal Medicine 11/24/18 Pernell Hess MD [address] [place] [address] Internal Medicine 09/12/22 Xiao Perez MD [address] [place] [address] Referring Physician Rheumatology 09/12/22 Dayanara Benton MD [address] [place] [address] Hematology 09/12/22 documented as of this encounter
--- OUTSIDE RECORDS SUMMARY | 2024-07-24 13:11 | XMS_ITS | Encounter Summary ---
Author Organization [facility] Address [address] [place] [address] Care Team Providers Care Corporate Compliance Manager Name Role Phone Luis Antonio Dillon MD Primary Care Provider +1 -[phone] Pernell Hess MD Unavailable Xiao Squires MD Unavailable Unavailable Dayanara Benton MD Unavailable Unavailable Encounter Details Date Type Department Care Team Description 01/20/2019 [facility] Medical Records [address] [place] [address] Abstract, Provider Social History Tobacco Use Types [...] week 01/13/2024 How often do you attend [facility] or rastafarian services? Never 01/13/2024 Do you belong to any clubs o r organizations such as pentecostalism groups, unions, fraternal or athletic groups, or [...] on filedocumented in this encounter Care Teams Corporate Compliance Manager Relationship Specialty Start Date End Date Luis Antonio Dillon MD [address] [place], [place] PCP - General Internal Medicine 11/24/18 Pernell Hess MD [address] [place], [place] Internal Medicine 09/12/22 Xiao Perez MD [address] [place], [place] Referring Physician Rheumatology 09/12/22 Dayanara Benton MD [address] [place], [place] Hematology 09/12/22 documented as of this encounter
--- OUTSIDE RECORDS SUMMARY | 2024-07-24 13:11 | XMS_ITS | Encounter Summary ---
Author Organization [facility] Address [address] [place] [address] Care Team Providers Care Chainstitch Sewing Machine Operator Name Role Phone Luis Antonio Dillon MD Primary Care Provider [phone] -[phone] Pernell Hess MD Unavailable Xiao Squires MD Unavailable Unavailable Dayanara Benton MD Unavailable Unavailable Encounter Details Date Type Department Care Team Description 07/03/2019 Telephone Adult Medicine - [address] [address] Bong Perez PA-C Social History Tobacco Use [...] How often do you attend [facility] or adventist services? Never 01/13/2024 Do you belong to [...] on filedocumented in this encounter Care Teams Chainstitch Sewing Machine Operator Relationship Specialty Start Date End Date Luis Antonio Dillon MD [address] [place], [place] PCP - General Internal Medicine 11/24/18 Pernell Hess MD [address] [place], [place] Internal Medicine 09/12/22 Xiao Perez MD [address] [place], [place] Referring Physician Rheumatology 09/12/22 Dayanara Benton MD [address] [place], [place] Hematology 09/12/22 documented as of this encounter
--- OUTSIDE RECORDS SUMMARY | 2024-07-24 13:11 | XMS_ITS | Encounter Summary ---
Author Organization [facility] Address [address] [place] [address] Care Team Providers Care Cash Register Operator Name Role Phone Luis Antonio Dillon MD Primary Care Provider +1 -[phone] Pernell Hess MD Unavailable Xiao Squires MD Unavailable Unavailable Dayanara Benton MD Unavailable Unavailable Encounter Details Date Type Department Care Team Description 03/01/2020 Hospital Medical Records [address] [place], [place] [id number] [place] [address] Social History Tobacco Use Types Packs/Day Years [...] you attend [facility] or latter-day services? Never 01/13/2024 Do you belong to any clubs o r organizations such as sikh groups, unions, fraternal or athletic groups, or [...] on filedocumented in this encounter Care Teams Cash Register Operator Relationship Specialty Start Date End Date Luis Antonio Dillon MD [address] [place], [place] PCP - General Internal Medicine 11/24/18 Pernell Hess MD [address] [place], [place] Internal Medicine 09/12/22 Xiao Perez MD [address] [place], [place] Referring Physician Rheumatology 09/12/22 Dayanara Benton MD [address] [place], [place] Hematology 09/12/22 documented as of this encounter
--- OUTSIDE RECORDS SUMMARY | 2024-07-24 13:11 | XMS_ITS | Encounter Summary ---
Author Organization [facility] Address [address] [place] [address] Care Team Providers Care Addressograph Operator Name Role Phone Luis Antonio Dillon MD Primary Care Provider +1 -[phone] Pernell Hess MD Unavailable Xiao Squires MD Unavailable Unavailable Dayanara Benton MD Unavailable Unavailable Reason for Visit * Reason Onset Date Comments refill request 09/28/2021 Encounter Details Date Type Department Care Team Description 09/28/2021 Refill Adult Medicine - [place] [address] [place] [address] Luis Antonio Dillon MD [address] [place] [address] refill request Social History Tobacco Use Types [...] often do you attend chur ch or congregational services? Never 01/13/2024 Do you belong to any clubs o r organizations such as holiness groups, unions, fraternal or athletic groups, or [...] NONE DETECTED 06/13/2021 PAINCANNABIN NONE DETECTED 06/13/2021 Engineering Aid * Telephone Encounter - Gayla Linder - 09/28/2021 3:50 PM EDT REFILL LAST OFFICE VIST: 08/21/21 LAST PCP VISIT: 08/21/21 NEXT OFFICE VISIT: 11/22/21 Patient reports she is out of this medication documented in this encounter Plan of Treatment Not on file documented as of this encounter Visit Diagnoses Not on filedocumented in this encounter Care Teams Addressograph Operator Relationship Specialty Start Date End Date Luis Antonio Dillon MD [address] [place] [address] PCP - General Internal Medicine 11/24/18 Pernell Hess MD [address] [place] [address] Internal Medicine 09/12/22 Xiao Perez MD [address] [place] [address] Referring Physician Rheumatology 09/12/22 Dayanara Benton MD [address] [place] [address] Hematology 09/12/22 documented as of this encounter
--- OUTSIDE RECORDS SUMMARY | 2024-07-24 13:11 | XMS_ITS | Encounter Summary ---
Author Organization [facility] Address [address] [place] [address] Care Team Providers Care Laboratory Director Name Role Phone Luis Antonio Dillon MD Primary Care Provider +1 -[phone] Pernell Hess MD Unavailable Xiao Squires MD Unavailable Unavailable Dayanara Benton MD Unavailable Unavailable Encounter Details Date Type Department Care Team Description 02/11/2020 Ancillary Services Manager Therapy Report Medical Records [address] [place] [address] Abstract, Provider Social History Tobacco Use Types [...] week 01/13/2024 How often do you attend [facility] or gnosticist services? Never 01/13/2024 Do you [...] on filedocumented in this encounter Care Teams Laboratory Director Relationship Specialty Start Date End Date Luis Antonio Dillon MD [address] [place], [place] PCP - General Internal Medicine 11/24/18 Pernell Hess MD [address] [place], [place] Internal Medicine 09/12/22 Xiao Perez MD [address] [place], [place] Referring Physician Rheumatology 09/12/22 Dayanara Benton MD [address] [place], [place] Hematology 09/12/22 documented as of this encounter
--- OUTSIDE RECORDS SUMMARY | 2024-07-24 13:11 | XMS_ITS | Encounter Summary ---
Author Organization [facility] Address [address] [place] [address] Care Team Providers Care Validation Technician Name Role Phone Kairn Stephen MD Primary Care Provider UnavailLee Walsh Primary Care Provider Unavail Ronnie Flores Primary Care Provider UnavailLauren Rowe MD Primary Care Provide r Unavailable Luis Antonio Dillon MD Primary Care Provider +1 -[phone] Pernell Hess MD Unavailable Xiao Squires MD Unavailable Unavailable Dayanara Benton MD Unavailable Unavailable Encounter Details Date Type Department Care Team Description 09/19/2015 SHAKE LOADER/[facility] Report Medical Records [address] [place] [address] Abstract, Provider Social History Tobacco Use Types [...] How often do you attend chur or congregational services? Never 01/13/2024 Do you [...] on filedocumented in this encounter Care Teams Validation Technician Relationship Specialty Start Date End Date Karin Stephen MD PCP - General 10/26/10 01/27/17 Lee Hurst PCP - General Internal Medicine 01/28/17 09/29/18 Ronnie Bianchi PCP - General Internal Medicine 09/30/18 09/30/18 Lauren John MD PCP - General Internal Medicine 10/06/18 11/23/18 Luis Antonio Dillon MD [address] [place], [place] PCP - General Internal Medicine 11/24/18 Pernell Hess MD [address] [place], [place] Internal Medicine 09/12/22 Xiao Perez MD [address] [place], [place] Referring Physician Rheumatology 09/12/22 Dayanara Benton MD [address] [place], [place] Hematology 09/12/22 documented as of this encounter
--- OUTSIDE RECORDS SUMMARY | 2024-07-24 13:11 | XMS_ITS | Encounter Summary ---
Author Organization [facility] Address [address] [place] [address] Care Team Providers Care Continuous Absorption Process Operator Name Role Phone Luis Antonio Dillon MD Primary Care Provider +1 -[phone] Pernell Hess MD Unavailable Xiao Squires MD Unavailable Unavailable Dayanara Betnon MD Unavailable Unavailable Encounter Details Date Type Department Care Team Description 11/26/2018 [facility] Controlled Substance Contract Medical Records [address] [place] [address] Abstract, Provider Social History Tobacco Use Types [...] often do you attend [facility] or uatsdin services? Never 01/13/2024 Do you belong to any clubs o r organizations such as latter day groups, unions, fraternal or athletic groups, or [...] on filedocumented in this encounter Care Teams Continuous Absorption Process Operator Relationship Specialty Start Date End Date Luis Antonio Dillon MD [address] [place], [place] PCP - General Internal Medicine 11/24/18 Pernell Hess MD [address] [place], [place] Internal Medicine 09/12/22 Xiao Perez MD [address] [place], [place] Referring Physician Rheumatology 09/12/22 Dayanara Benton MD [address] [place], [place] Hematology 09/12/22 documented as of this encounter
--- OUTSIDE RECORDS SUMMARY | 2024-07-24 13:11 | XMS_ITS | Encounter Summary ---
Author Organization [facility] Address [address] [place] [address] Care Team Providers Care Credit Review Officer Name Role Phone Luis Antonio Dillon MD Primary Care Provider +1 -[phone] Pernell Hess MD Unavailable Xiao Squires MD Unavailable Unavailable Dayanara Benton MD Unavailable Unavailable Reason for Visit * Reason Onset Date Comments refill request 04/10/2019 Encounter Details Date Type Department Care Team Description 04/10/2019 Telephone Adult Medicine [facility] [address] [place] [address] Luis Antonio Dillon MD [address] [place] [address] refill request Social History Tobacco Use Types [...] often do you attend chur ch or islam services? Never 01/13/2024 Do you belong to any clubs o r organizations such as temple groups, unions, fraternal or athletic groups, or [...] FEP STANDARD $25 / Product Type: PPO [id number] documented in this encounter Plan of Treatment Not on file documented as of this encounter Visit Diagnoses Not on filedocumented in this encounter Care Teams Credit Review Officer Relationship Specialty Start Date End Date Luis Antonio Dillon MD [address] [place] [address] PCP - General Internal Medicine 11/24/18 Pernell Hess MD [address] [place] [address] Internal Medicine 09/12/22 Xiao Perez MD [address] [place] [address] Referring Physician Rheumatology 09/12/22 Dayanara Benton MD [address] [place] [address] Hematology 09/12/22 documented as of this encounter
--- OUTSIDE RECORDS SUMMARY | 2024-07-24 13:11 | XMS_ITS | Encounter Summary ---
Author Organization [facility] Address [address] [place] [address] Care Team Providers Care Electrical Manufacturing Engineer Name Role Phone Luis Antonio Dillon MD Primary Care Provider +1 -[phone] Pernell Hess MD Unavailable Xiao Squires MD Unavailable Unavailable Dayanara Benton MD Unavailable Unavailable Encounter Details Date Type Department Care Team Description 01/09/2019 [facility] Medical Records [address] [place] [address] Abstract, Provider Social History Tobacco Use Types [...] 01/13/2024 How often do you attend [facility] or buddhism services? Never 01/13/2024 Do you belong to [...] place to sleep or slept in a residential (including now)? No 01/13/2024 Sex Assigned at Date Recorded Not on file Job Start Date Occupation Industry Not on file Not on file Not on file documented as of this encounter Plan of Treatment Not on file documented as of this encounter Visit Diagnoses Not on filedocumented in this encounter Care Teams Electrical Manufacturing Engineer Relationship Specialty Start Date End Date Luis Antonio Dillon MD [address] [place], [place] PCP - General Internal Medicine 11/24/18 Pernell Hess MD [address] [place] Internal Medicine 09/12/22 Xiao Perez MD [address] [place], [place] Referring Physician Rheumatology 09/12/22 Dayanara Benton MD [address] [place], [place] Hematology 09/12/22 documented as of this encounter
--- OUTSIDE RECORDS SUMMARY | 2024-07-24 13:11 | XMS_ITS | Encounter Summary ---
Author Organization [facility] Address [address] [place] [address] Care Team Providers Care Vegetable Farmer Name Role Phone Luis Antonio Dillon MD Primary Care Provider +1 -[phone] Pernell Hess MD Unavailable Xiao Squires MD Unavailable Unavailable Dayanara Benton MD Unavailable Unavailable Encounter Details Date Type Department Care Team Description 08/21/2022 Orders Only Radiology - [address] [address] Radiology, Authorizing Social History Tobacco Use Types [...] week 01/13/2024 How often do you attend [facility] or hoahaoism services? Never 01/13/2024 Do you belong to any clubs o r organizations such as mandaen groups, unions, fraternal or athletic groups, or [...] on filedocumented in this encounter Care Teams Vegetable Farmer Relationship Specialty Start Date End Date Luis Antonio Dillon MD [address] [place], [place] PCP - General Internal Medicine 11/24/18 Pernell Hess MD [address] [place], [place] Internal Medicine 09/12/22 Xiao Perez MD [address] [place], [place] Referring Physician Rheumatology 09/12/22 Dayanara Benton MD [address] [place], [place] Hematology 09/12/22 documented as of this encounter
--- OUTSIDE RECORDS SUMMARY | 2024-07-24 13:11 | XMS_ITS | Encounter Summary ---
Author Organization [facility] [place] Address [address] [place] [address] Care Team Providers Care Nuclear Equipment Operator Name Role Phone Karin Stephen MD Primary Care Provider UnavailLee Walsh Primary Care Provider Unavail Ronnie Flores Primary Care Provider UnavailLauren Rowe MD Primary Care Provide r Unavailable Luis Antonio Dillon MD Primary Care Provider +1 -[phone] Pernell Hess MD Unavailable Xiao Squires MD Unavailable Unavailable Dayanara Benton MD Unavailable Unavailable Encounter Details Date Type Department Care Team Description 01/02/2017 Hospital Medical Records [address] [place] [address] Social History Tobacco Use Types Packs/Day Years [...] often do you attend chur ch or jainism services? Never 01/13/2024 Do you belong to [...] on filedocumented in this encounter Care Teams Nuclear Equipment Operator Relationship Specialty Start Date End Date Karin Stephen MD PCP - General 10/26/10 01/27/17 Lee Hurst PCP - General Internal Medicine 01/28/17 09/29/18 Ronnie Bianchi PCP - General Internal Medicine 09/30/18 09/30/18 Lauren John MD PCP - General Internal Medicine 10/06/18 11/23/18 Luis Antonio Dillon MD [address] [place], [place] PCP - General Internal Medicine 11/24/18 Pernell Hess MD [address] [place], [place] Internal Medicine 09/12/22 Xiao Perez MD [address] [place], [place] Referring Physician Rheumatology 09/12/22 Dayanara Benton MD [address] [place], [place] Hematology 09/12/22 documented as of this encounter
--- OUTSIDE RECORDS SUMMARY | 2024-07-24 13:11 | XMS_ITS | Encounter Summary ---
Author Organization [facility] Address [address] [place] [address] Care Team Providers Care Unionmelt Operator Name Role Phone Luis Antonio Dillon MD Primary Care Provider +1 -[phone] Pernell Hess MD Unavailable Xiao Squires MD Unavailable Unavailable Dayanara Benton MD Unavailable Unavailable Reason for Visit * Reason Onset Date Comments refill request 01/27/2020 Encounter Details Date Type Department Care Team Description 01/27/2020 Refill Adult Medicine - [place] [address] [place] [address] Luis Antonio Dillon MD [address] [place] [address] refill request Social History Tobacco Use Types [...] often do you attend chur ch or samaritan services? Never 01/13/2024 Do you belong to any clubs o r organizations such as restorationism groups, unions, fraternal or athletic groups, or [...] have Coronavirus / COVID-19? No / Unsure 01/22/2020 10:41 AM EDT documented as of this encounter Miscellaneous Notes * Telephone Encounter - Heydi Arellano L.P.N. - 01/27/2020 10:50 AM EDT Faxed to pharmacy * Telephone Encounter - Heydi Arellano L.P.N. - 01/27/2020 9:31 AM EDT [facility] to covering. Controlled substance contract and last issue date of medication reviewed. Patient is due for medication. Lab Results Component Value Date URBENZO NONE DETECTED 11/24/2018 UROPIATES NONE DETECTED 11/24/2018 URBARBITUATE NONE DETECTED 11/24/2018 PAINAMPHETAM NONE DETECTED 11/24/2018 PAINCOCAINE NONE DETECTED 11/24/2018 PAINCANNABIN POSITIVE 11/24/2018 Medication request pended for your review. * Telephone Encounter - Briana Chacko - 01/27/2020 9:11 AM EDT Patient would like script to be: E-PRESCRIBED/FAXED TO PHARMACY WHEN WAS THE PATIENT'S LAST APPOINTMENT IN ADULT MEDICINE? 12/18/2019 WHEN WAS THE LAST TIME THE PATIENT SAW THEIR PCP? Same as above Does patient have an upcoming appointment? Yes 03/24/2020 (THE MEDICATION REQUESTED IS ON THE MED [...] N/A Patients current insurance carrier is: Payor: [employer]/PPO POS / Plan: FEP STANDARD $25 / Product Type: PPO [id number] documented in this encounter Plan of Treatment Not on file documented as of this encounter Visit Diagnoses Not on filedocumented in this encounter Care Teams Unionmelt Operator Relationship Specialty Start Date End Date Luis Antonio Dillon MD [address] [place], [place] PCP - General Internal Medicine 11/24/18 Pernell Hess MD [address] [place] Internal Medicine 09/12/22 Xiao Perez MD [address] [place], [place] Referring Physician Rheumatology 09/12/22 Dayanara Benton MD [address] [place], [place] Hematology 09/12/22 documented as of this encounter
--- OUTSIDE RECORDS SUMMARY | 2024-07-24 13:11 | XMS_ITS | Data Portability ---
Author Organization [place] [facility] Markell Ibanez [facility] [place] Address [address] [place] [address] Assessment Encounter Date Assessment Date Assessment LastModified [...] in the hip and knee and satisfactory quaker of function in terms of activities of [...] work on hip and knee conditioning exercises. Yvef-pkh-wjhvaym medications as needed. Ultimate failure may occur due to mechanical wear, loosening or breakage. Follow-up is recommended to assess for the possibility of failure. She can follow-up at 5 years from surgery with repeat x-rays of the joints at that time. We can do all 3 joints at her next visit. [email or web address] Not available 11/09/2022 08:50:29 Plan of Treatment Reminders Order Date Submit Date Provider Last Modified By Organization Details Last Modified Time Details Appointments None record ed. Lab None record ed. Referral None record ed. Procedures None record ed. Surgeries None record ed. Imaging XR, knee, 3 view 023 11/10/19 [address] [place] [id number] [facility], [address], [place], [address], 3 08:49:22 XR, hip, unilat eral, 2 or 3 view 023 11/10/19 [address] [place] [id number] [facility], [address], [place], [address], 3 08:49:22 Medication Orders None record ed. Patient TargetsNo targets recorded. Patient InstructionsNo instructions recorded. Reason for Referral None Reported. Medical Equipment [...] SNOMED-CT Code Diagnosis ICD10 Code Diagnosis Note [id number] MD YESSENIA Farrell [address] [address] 11/09/2022 08:14:47 11/09/2022 08:49:21 History of total replacement of left hip joint [id number] Z96.642 History of left total knee replacement [id number] Z96.652 Aftercare [id number] Z47. 1 Health Concerns Section Related Observation LastModified by Organization Detai ls LastModified Time None Recorded Concern Status LastModified by Organization Details LastModified Time None Recorded Advance Directives Directive None Recorded Payers Encounter Date Sequence Insurance Name Policy Number Policy Toscano Covered Member ID Toscano Member ID Guarantor Name 11/09/2022 1 [facility] (MEDICARE REPLACEMENT/A DVANTAGE - HMO) [id number] Danelle Vallejo [id number] Danelle Vallejo OBGyn Episode No OBEpisode recorded.
--- OUTSIDE RECORDS SUMMARY | 2024-07-24 13:11 | XMS_ITS | Encounter Summary ---
Author Organization [facility] Address [address] [place] [address] Care Team Providers Care Tactical/Mobile Watch Officer Name Role Phone Luis Antonio Dillon MD Primary Care Provider [phone] [phone] Pernell Hess MD Unavailable Xiao Squires MD Unavailable Unavailable Dayanara Benton MD Unavailable Unavailable Encounter Details Date Type Department Care Team Description 04/03/2019 Release of Information Medical Records [address] [place] [address] Abstract, Provider Social History Tobacco Use Types [...] 01/13/2024 How often do you attend [facility] or evangelical services? Never 01/13/2024 Do you belong to any clubs o r organizations such as congregation groups, unions, fraternal or athletic groups, or [...] on filedocumented in this encounter Care Teams Tactical/Mobile Watch Officer Relationship Specialty Start Date End Date Luis Antonio Dillon MD [address] [place], [place] PCP - General Internal Medicine 11/24/18 Pernell Hess MD [address] [place], [place] Internal Medicine 09/12/22 Xiao Perez MD [address] [place], [place] Referring Physician Rheumatology 09/12/22 Dayanara Benton MD [address] [place], [place] Hematology 09/12/22 documented as of this encounter
--- OUTSIDE RECORDS SUMMARY | 2024-07-24 13:11 | XMS_ITS | Encounter Summary ---
Author Organization [facility] Address [address] [place] [address] Care Team Providers Care Copywriter Name Role Phone Luis Antonio Dillon MD Primary Care Provider [phone] [phone] Pernell Hess MD Unavailable Xiao Squires MD Unavailable Unavailable Dayanara Benton MD Unavailable Unavailable Encounter Details Date Type Department Care Team Description 10/10/2020 Face Cleaner Report Medical Records [address] [place] [address] Pernell Hess MD Social History Tobacco Use [...] How often do you attend [facility] or yazidism services? Never 01/13/2024 Do you belong to [...] place to sleep or slept in a halfway (including now)? No 01/13/2024 Sex Assigned at [...] on filedocumented in this encounter Care Teams Copywriter Relationship Specialty Start Date End Date Luis Antonio Dillon MD [address] [place], [place] PCP - General Internal Medicine 11/24/18 Pernell Hess MD [address] [place], [place] Internal Medicine 09/12/22 Xiao Perez MD [address] [place], [place] Referring Physician Rheumatology 09/12/22 Dayanara Benton MD [address] [place], [place] Hematology 09/12/22 documented as of this encounter
--- OUTSIDE RECORDS SUMMARY | 2024-07-24 13:11 | XMS_ITS | Encounter Summary ---
Author Organization [facility] Address [address] [place] [address] Care Team Providers Care Color Laboratory Technician Name Role Phone Luis Antonio Dillon MD Primary Care Provider [phone] -[phone] Pernell Hess MD Unavailable Xiao Squires MD Unavailable Unavailable Dayanara Benton MD Unavailable Unavailable Encounter Details Date Type Department Care Team Description 05/05/2019 [facility] Medical Records [address] [place] [id number] Abstract, Provider Social History Tobacco Use Types [...] week 01/13/2024 How often do you attend [facility] or shinto services? Never 01/13/2024 Do you belong to any clubs o r organizations such as spiritism groups, unions, fraternal or athletic groups, or [...] on filedocumented in this encounter Care Teams Color Laboratory Technician Relationship Specialty Start Date End Date Luis Antonio Dillon MD [address] [place], [place] PCP - General Internal Medicine 11/24/18 Pernell Hess MD [address] [place] Internal Medicine 09/12/22 Xiao Perez MD [address] [place], [place] Referring Physician Rheumatology 09/12/22 Dayanara Benton MD [address] [place], [place] Hematology 09/12/22 documented as of this encounter
--- OUTSIDE RECORDS SUMMARY | 2024-07-24 13:11 | XMS_ITS | Encounter Summary ---
Author Organization [facility] Address [address] [place] [address] Care Team Providers Care Research And Development Technician Name Role Phone Luis Antonio Dillon MD Primary Care Provider [phone] [phone] Pernell Hess MD Unavailable Xiao Squires MD Unavailable Unavailable Dayanara Benton MD Unavailable Unavailable Encounter Details Date Type Department Care Team Description 12/31/2019 [facility] Medical Records [address] [place] [address] Abstract, Provider Social History Tobacco Use Types [...] week 01/13/2024 How often do you attend [facility] or spiritism services? Never 01/13/2024 Do you belong to any clubs o r organizations such as caodaism groups, unions, fraternal or athletic groups, or [...] on filedocumented in this encounter Care Teams Research And Development Technician Relationship Specialty Start Date End Date Luis Antonio Dillon MD [address] [place], [place] PCP - General Internal Medicine 11/24/18 Pernell Hess MD [address] [place], [place] Internal Medicine 09/12/22 Xiao Perez MD [address] [place], [place] Referring Physician Rheumatology 09/12/22 Dayanara Benton MD [address] [place], [place] Hematology 09/12/22 documented as of this encounter
--- OUTSIDE RECORDS SUMMARY | 2024-07-24 13:11 | XMS_ITS | Encounter Summary ---
Author Organization [facility] Address [address] [place] [address] Care Team Providers Care Construction Ironworker Name Role Phone Luis Antonio Dillon MD Primary Care Provider [phone] [phone] Pernell Hess MD Unavailable Xiao Squires MD Unavailable Unavailable Dayanara Benton MD Unavailable Unavailable Encounter Details Date Type Department Care Team Description 01/23/2019 [facility] Medical Records [address] [place] [address] Abstract, Provider Social History Tobacco Use Types [...] week 01/13/2024 How often do you attend [facility] or synagogue services? Never 01/13/2024 Do you belong to any clubs o r organizations such as episcopalian groups, unions, fraternal or athletic groups, or [...] on filedocumented in this encounter Care Teams Construction Ironworker Relationship Specialty Start Date End Date Luis Antonio Dillon MD [address] [place], [place] PCP - General Internal Medicine 11/24/18 Pernell Hess MD [address] [place] Internal Medicine 09/12/22 Xiao Perez MD [address] [place], [place] Referring Physician Rheumatology 09/12/22 Dayanara Benton MD [address] [place], [place] Hematology 09/12/22 documented as of this encounter
--- OUTSIDE RECORDS SUMMARY | 2024-07-24 13:11 | XMS_ITS | Encounter Summary ---
Author Organization [facility] Address [address] [place] [address] Care Team Providers Care Fire Suppression Captain Name Role Phone Karin Stephen MD Primary Care Provider UnavailLee Walsh Primary Care Provider Unavail Ronnie Flores Primary Care Provider UnavailLauren Rowe MD Primary Care Provide r Unavailable Luis Antonio Dillon MD Primary Care Provider [phone] [phone] Pernell Hess MD Unavailable Xiao Squires MD Unavailable Unavailable Dayanara Benton MD Unavailable Unavailable Encounter Details Date Type Department Care Team Description 01/04/2017 [facility] Medical Records [address] [place] [address] Social History Tobacco Use Types Packs/Day Years [...] often do you attend chur ch or rastafarian services? Never 01/13/2024 Do you [...] on filedocumented in this encounter Care Teams Fire Suppression Captain Relationship Specialty Start Date End Date Karin Stephen MD PCP - General 10/26/10 01/27/17 Lee Hurst PCP - General Internal Medicine 01/28/17 09/29/18 Ronnie Bianchi PCP - General Internal Medicine 09/30/18 09/30/18 Lauren John MD PCP - General Internal Medicine 10/06/18 11/23/18 Luis Antonio Dillon MD [address] [place], [place] PCP - General Internal Medicine 11/24/18 Pernell Hess MD [address] [place], [place] Internal Medicine 09/12/22 Xiao Perez MD [address] [place], [place] Referring Physician Rheumatology 09/12/22 Dayanara Benton MD [address] [place], [place] Hematology 09/12/22 documented as of this encounter
--- OUTSIDE RECORDS SUMMARY | 2024-07-24 13:11 | XMS_ITS | Encounter Summary ---
Author Organization [facility] Address [address] [place] [address] Care Team Providers Care Facing Cutting Machine Operator Name Role Phone Karin Stephen MD Primary Care Provider UnavailLee Walsh Primary Care Provider Unavail Ronnie Flores Primary Care Provider UnavailLauren Rowe MD Primary Care Provide r Unavailable Luis Antonio Dillon MD Primary Care Provider [phone] [phone] Pernell Hess MD Unavailable Xiao Squires MD Unavailable Unavailable Dayanara Benton MD Unavailable Unavailable Encounter Details Date Type Department Care Team Description 11/05/2011 [facility] Doc Medical Records [address] [place] [address] Abstract, Provider Social History Tobacco Use Types [...] often do you attend chur ch or episcopalian services? Never 01/13/2024 Do you belong to any clubs o r organizations such as muslim groups, unions, fraternal or athletic groups, or [...] on filedocumented in this encounter Care Teams Facing Cutting Machine Operator Relationship Specialty Start Date End Date Karin Stephen MD PCP - General 10/26/10 01/27/17 Lee Hurst PCP - General Internal Medicine 01/28/17 09/29/18 Ronnie Bianchi PCP - General Internal Medicine 09/30/18 09/30/18 Laruen John MD PCP - General Internal Medicine 10/06/18 11/23/18 Luis Antonio Dillon MD [address] [place], [place] PCP - General Internal Medicine 11/24/18 Pernell Hess MD [address] [place] Internal Medicine 09/12/22 Xiao Perez MD [address] [place], [place] Referring Physician Rheumatology 09/12/22 Dayanara Benton MD [address] [place] Hematology 09/12/22 documented as of this encounter
== END ==
LOC: HO.CARD 12:29
PROVIDERS: PCP Internal Medicine; Visit Provider Internal Medicine
DX: I48.0 Paroxysmal atrial fibrillation (principal)
CPT/HCPCS: 93306

== ENCOUNTER → 2024-07-24 12:31 | Outpatient (BNV) | payer MEDICARE, SELFPAY | PROVIDERS: PCP Internal Medicine; Visit Provider Internal Medicine | DX: I42.2 Other hypertrophic cardiomyopathy (principal); I35.8 Other nonrheumatic aortic valve disorders; I34.81 Nonrheumatic mitral (valve) annulus calcification; I36.1 Nonrheumatic tricuspid (valve) insufficiency | CPT/HCPCS: 93306 ==

== ENCOUNTER 2024-08-12 13:36 | Outpatient (AMB) | payer MEDICARE, SELFPAY ==
--- OUTSIDE RECORDS SUMMARY | 2024-08-12 13:42 | XMS_ITS | Encounter Summary ---
Author Organization [facility] Address [address] [place] [address] Care Team Providers Care Barometers Calibrator Name Role Phone Luis Antonio Dillon MD Primary Care Provider [phone] [phone] Pernell Hess MD Unavailable Xiao Squires MD Unavailable Unavailable Dayanara Benton MD Unavailable Unavailable Encounter Details Date Type Department Care Team Description 11/25/2018 Orders Only Adult Medicine - [place] [address] [place] [address] Luis Antonio Dillon MD [address] [place] [address] Hypothyroidism, unspecified type (Primary Dx) Social History [...] How often do you attend [facility] or methodist services? Never 01/13/2024 Do you belong to any clubs o r organizations such as nondenominational groups, unions, fraternal or athletic groups, or [...] place to sleep or slept in a fdc (including now)? No 01/13/2024 Sex Assigned at [...] 9:29 AM EST 05/06/2019 9:29 AM EST Luis Antonio Dillon MD [facility] [employer] [facility] documented in this encounter Visit Diagnoses Diagnosis Hypothyroidism, unspecified type- Primary documented in this encounter Care Teams Barometers Calibrator Relationship Specialty Start Date End Date Luis Antonio Dillon MD [address] [place], [place] PCP - General Internal Medicine 11/24/18 Pernell Hess MD [address] [place] Internal Medicine 09/12/22 Xiao Perez MD [address] [place], [place] Referring Physician Rheumatology 09/12/22 Dayanara Benton MD [address] [place], [place] H[place]ology 09/12/22 documented as of this encounter
--- OUTSIDE RECORDS SUMMARY | 2024-08-12 13:42 | XMS_ITS | Encounter Summary ---
Author Organization [facility] Address [address] [place] [address] Care Team Providers Care Principal Developer Name Role Phone Karin Stephen MD Primary Care Provider UnavailLee Walsh Primary Care Provider Unavail Ronnie Flores Primary Care Provider UnavailLauren Rowe MD Primary Care Provide r Unavailable Luis Antonio Dillon MD Primary Care Provider [phone] [phone] Pernell Hess MD Unavailable Xiao Squires MD Unavailable Unavailable Dayanara Benton MD Unavailable Unavailable Reason for Visit * Reason Onset Date Comments APPOINTMENT 04/24/2016 Encounter Details Date Type Department Care Team Description 04/24/2016 Telephone [facility] [address] [place] [address] Zaria Cruz MD APPOINTMENT Social [...] How often do you attend chur or quaker services? Never 01/13/2024 Do you belong to any clubs o r organizations such as confucianism groups, unions, fraternal or athletic groups, or [...] Pt was previously seen by Dr. Cruz(at [facility]). We received a letter about her overdue mammo. She currently has no OBGYN care established with [place]. Dr. Cruz would like to know ifthe pt would like to continue care with her. Please ask pt, schedule AG. EDEN documented in this encounter Plan of Treatment Not on file documented as of this encounter Visit Diagnoses Not on filedocumented in this encounter Care Teams Principal Developer Relationship Specialty Start Date End Date Karin Stephen MD PCP - General 10/26/10 01/27/17 Lee Hurst PCP - General Internal Medicine 01/28/17 09/29/18 Ronnie Bianchi PCP - General Internal Medicine 09/30/18 09/30/18 Lauren John MD PCP - General Internal Medicine 10/06/18 11/23/18 Luis Antonio Dillon MD [address] [place] [address] PCP - General Internal Medicine 11/24/18 Pernell Hess MD [address] [place] [address] Internal Medicine 09/12/22 Xiao Perez MD [address] [place] [address] Referring Physician Rheumatology 09/12/22 Dayanara Benton MD [address] [place] [address] Hematology 09/12/22 documented as of this encounter
--- OUTSIDE RECORDS SUMMARY | 2024-08-12 13:42 | XMS_ITS | Encounter Summary ---
Author Organization [facility] Address [address] [place] [address] Care Team Providers Care Die Sinker Apprentice Name Role Phone Luis Antonio Dillon MD Primary Care Provider [phone] [phone] Pernell Hess MD Unavailable Xiao Squires MD Unavailable Unavailable Dayanara Benton MD Unavailable Unavailable Encounter Details Date Type Department Care Team Description 07/22/2023 Orders Only Medical Records [address] [place] [address] Pernell Hess MD Social History Tobacco Use [...] week 01/13/2024 How often do you attend [facility] or gnosticism services? Never 01/13/2024 Do you belong to any clubs o r organizations such as confucianist groups, unions, fraternal or athletic groups, or [...] Name Priority Date/Time Associated Diagnosis Comments OUTSIDE VASCULAR STUDY Routine 07/16/2023 documented in this encounter Results * OUTSIDE VASCULAR STUDY (07/16/2023) Pernell Hess MD CARDIOLOGY documented in this encounter Visit Diagnoses Not on filedocumented in this encounter Care Teams Die Sinker Apprentice Relationship Specialty Start Date End Date Luis Antonio Dillon MD [address] [place], [place] PCP - General Internal Medicine 11/24/18 Pernell Hess MD [address] [place] Internal Medicine 09/12/22 Xiao Perez MD [address] [place], [place] Referring Physician Rheumatology 09/12/22 Dayanara Benton MD [address] [place], [place] Hematology 09/12/22 documented as of this encounter
--- OUTSIDE RECORDS SUMMARY | 2024-08-12 13:42 | XMS_ITS | Encounter Summary ---
Author Organization [facility] Address [address] [place] [address] Care Team Providers Care Sales Promoter Name Role Phone Luis Antonio Dillon MD Primary Care Provider [phone] [phone] Pernell Hess MD Unavailable Xiao Squires MD Unavailable Unavailable Dayanara Benton MD Unavailable Unavailable Reason for Visit * Reason Onset Date Comments refill request 12/28/2019 Encounter Details Date Type Department Care Team Description 12/28/2019 Refill Adult Medicine - [place] [address] [place] [address] Luis Antonio Dillon MD [address] [place] [address] refill request Social History Tobacco Use Types [...] often do you attend chur ch or latter-day services? Never 01/13/2024 Do you belong to any clubs o r organizations such as denominational groups, unions, fraternal or athletic groups, or [...] FEP STANDARD $25 / Product Type: PPO [id number] documented in this encounter Plan of Treatment Not on file documented as of this encounter Visit Diagnoses Not on filedocumented in this encounter Care Teams Sales Promoter Relationship Specialty Start Date End Date Luis Antonio Dillon MD [address] [place] [address] PCP - General Internal Medicine 11/24/18 Pernell Hess MD [address] [place] [address] Internal Medicine 09/12/22 Xiao Perez MD [address] [place], [place] Referring Physician Rheumatology 09/12/22 Dayanara Benton MD [address] [place] [address] Hematology 09/12/22 documented as of this encounter
--- OUTSIDE RECORDS SUMMARY | 2024-08-12 13:42 | XMS_ITS | Encounter Summary ---
Author Organization [facility] Address [address] [place] [address] Care Team Providers Care Instructor Psychiatric Aide Name Role Phone Luis Antonio Dillon MD Primary Care Provider [phone] -[phone] Pernell Hess MD Unavailable Xiao Squires MD Unavailable Unavailable Dayanara Benton MD Unavailable Unavailable Encounter Details Date Type Department Care Team Description 05/25/2020 [facility] Medical Records [address] [place] [address] Abstract, Provider Social History Tobacco Use Types [...] week 01/13/2024 How often do you attend [facility] or tenriism services? Never 01/13/2024 Do you belong to any clubs o r organizations such as alevism groups, unions, fraternal or athletic groups, or [...] on filedocumented in this encounter Care Teams Instructor Psychiatric Aide Relationship Specialty Start Date End Date Luis Antonio Dillon MD [address] [place], [place] PCP - General Internal Medicine 11/24/18 Pernell Hess MD [address] [place], [place] Internal Medicine 09/12/22 Xiao Perez MD [address] [place], [place] Referring Physician Rheumatology 09/12/22 Dayanara Benton MD [address] [place], [place] Hematology 09/12/22 documented as of this encounter
--- OUTSIDE RECORDS SUMMARY | 2024-08-12 13:42 | XMS_ITS | Encounter Summary ---
Author Organization [facility] Address [address] [place] [address] Care Team Providers Care Pulp Piler Name Role Phone Luis Antonio Dillon MD Primary Care Provider [phone] -[phone] Pernell Hess MD Unavailable Xiao Squires MD Unavailable Unavailable Dayanara Benton MD Unavailable Unavailable Reason for Visit * Reason Onset Date Comments CSC Pill Count 06/20/2021 Encounter Details Date Type Department Care Team Description 06/20/2021 Telephone Adult Medicine - [place] [address] [place] [address] Luis Antonio Dillon MD [address] [place] [address] CSC Pill Count Social History Tobacco Use Types Packs/Day Years [...] often do you attend chur ch or pentecostalism services? Never 01/13/2024 Do you belong to [...] Telephone Encounter - Nova Izquierdo M.A. - 07/14/2021 11:07 AM EDT Patient took 2 tablets today this was deducted as well ?? Patient presents for a CSC pill count. ?? Last RX for TRAMADOL filled on 06/22/21 Quantity 168 Sig: Take 2 tablets by mouth every 8 hours as needed for pain Expected remaining tablets: 40 Actual Pill Count number: 50 Provider notified of result: YES Appearance of medication tablet verified in Epocrates/PDR or patients pharmacy: Pill count performed by Nova Izquierdo M.A.. Witnessed by: Violet Ireland M.A. ?? Electronically signed by: Nova Izquierdo M.A. 07/14/2021 10:53 AM * Telephone Encounter - Nova Izquierdo M.A. - 07/12/2021 8:38 AM EDT Pt was notified to appear with all control substance medications in their original containers for arandom Pill Count. Patient to bring in the following medication/s: TRAMADOL Pt was advised that they need to appear by 11am on 07/14/21. Instructed that failure to do so will jeopordize their Control Substance Contract with us. Pt expressed understanding and confirmed that they will arrive by that time. Nurse Visit schejimled for 07/14/21 - patient had to give enough notice for her job for her to come in for the pill count * Telephone Encounter - Nova Izquierdo M.A. - 06/30/2021 10:35 AM EDT Tramadol filled 06/22/21 Will contact patient around 07/06/21 mid-cycle for pill count * Telephone Encounter - Nova Izquierdo M.A. - 06/21/2021 10:05 AM EDT Will contact patient mid- cycle for pill count Should be requesting refill today or tomorrow * Telephone Encounter - Nova Izquierdo M.A. - 06/20/2021 11:24 AM EDT DUE to Negative UDS - Pill Count needed Will contact patient for pill count documented in this encounter Plan of Treatment Not on file documented as of this encounter Visit Diagnoses Not on filedocumented in this encounter Care Teams Pulp Piler Relationship Specialty Start Date End Date Luis Antonio Dillon MD [address] [place], [place] PCP - General Internal Medicine 11/24/18 Pernell Hess MD [address] [place], [place] Internal Medicine 09/12/22 Xiao Perez MD [address] [place], [place] Referring Physician Rheumatology 09/12/22 Dayanara Benton MD [address] [place], [place] Hematology 09/12/22 documented as of this encounter
--- OUTSIDE RECORDS SUMMARY | 2024-08-12 13:42 | XMS_ITS | Encounter Summary ---
Author Organization [facility] Address [address] [place] [address] Care Team Providers Care Cell Operation Supervisor Name Role Phone Luis Antonio Dillon MD Primary Care Provider [phone] [phone] Pernell Hess MD Unavailable Xiao Squires MD Unavailable Unavailable Dayanara Benton MD Unavailable Unavailable Encounter Details Date Type Department Care Team Description 01/09/2019 [facility] Medical Records [address] [place] [address] Abstract, Provider Social History Tobacco Use Types [...] How often do you attend [facility] or religion services? Never 01/13/2024 Do you belong to [...] on filedocumented in this encounter Care Teams Cell Operation Supervisor Relationship Specialty Start Date End Date Luis Antonio Dillon MD [address] [place], [place] PCP - General Internal Medicine 11/24/18 Pernell Hess MD [address] [place], [place] Internal Medicine 09/12/22 Xiao Perez MD [address] [place], [place] Referring Physician Rheumatology 09/12/22 Dayanara Benton MD [address] [place], [place] Hematology 09/12/22 documented as of this encounter
--- OUTSIDE RECORDS SUMMARY | 2024-08-12 13:42 | XMS_ITS | Encounter Summary ---
Author Organization [facility] Address [address] [place] [address] Care Team Providers Care Records Specialist Name Role Phone Luis Antonio Dillon MD Primary Care Provider +1 -[phone] Pernell eHss MD Unavailable Xiao Squires MD Unavailable Unavailable Dayanara Benton MD Unavailable Unavailable Reason for Visit * Reason Onset Date Comments refill request 01/27/2020 Encounter Details Date Type Department Care Team Description 01/27/2020 Refill Adult Medicine - [place] [address] [place] [address] Luis Antonio Dillon MD [address] [place] [address] refill request Social History Tobacco Use Types [...] often do you attend chur ch or sabianist services? Never 01/13/2024 Do you [...] FEP STANDARD $25 / Product Type: PPO [id number] documented in this encounter Plan of Treatment Not on file documented as of this encounter Visit Diagnoses Not on filedocumented in this encounter Care Teams Records Specialist Relationship Specialty Start Date End Date Luis Antonio Dillon MD [address] [place], [place] PCP - General Internal Medicine 11/24/18 Pernell Hess MD [address] [place], [place] Internal Medicine 09/12/22 Xiao Perez MD [address] [place], [place] Referring Physician Rheumatology 09/12/22 Dayanara Benton MD [address] [place], [place] Hematology 09/12/22 documented as of this encounter
--- OUTSIDE RECORDS SUMMARY | 2024-08-12 13:42 | XMS_ITS | Clinical Summary ---
Author Organization [facility] Address [address] [place] [address] Care Team Providers Care Trade Promotion Analyst Name Role Phone Nova Dillon MD [...] week. 0 Active Vitamin A 3 MG (91060 UT) TABS Take 1 tablet by mouth [...] COPD Father Emphysema Father Heart disease Father [place] Alzheimer's disease Mother COPD Mother Hypertension Mother [...] this topic Medical Devices Implanted Type Area Auto Service Instructor Device Identifier Shelf Expiration Date Model / Serial / Lot Insert Trident 0d E 36mm X3 Acetabular [facility] - [id number] - [id number] Implanted:Qty: 1 on 02/29/2020 by Marcos Velasquez MD at [facility] and [facility] Right: Hip [employer] [id number] 01/23/2025 623-00-36E / / [id number] Shell Trident Ii E 52mm Tritanium Acetabular Hip - 351312 - [id number] Implanted:Qty: 1 on 02/29/2020 by Marcos Velasquez MD at [facility] and [facility] Right: Hip [employer] [id number] 11/28/2023 709-04-52E / / [id number] Screw Trident Ii 30mm 6.5mm Low Profile Hexagonal Bone - 368430 - [id number] Implanted:Qty: 1 on 02/29/2020 by Marcos Velasquez MD at [facility] and [facility] Right: Hip [employer] [id number] 10/19/2024 6229-3489 / / [id number] Screw Bone Trident Ii L20 Mm Od6.5 Mm Low Profile Hexa - 799209 - [id number] Implanted:Qty: 1 on 02/29/2020 by Marcos Velasquez MD at [facility] and [facility] Right: Hip [employer] [id number] 06/02/2024 4109-4668 / / [id number] Screw Trident Ii 15mm 6.5mm Low Profile Hexagonal Bone - 547915 - [id number] Implanted:Qty: 1 on 02/29/2020 by Marcos Velasquez MD at [facility] and [facility] Right: Hip [employer] [id number] 08/11/2023 2187-2188 / / [id number] Stem Accolade Ii 3 132d Femoral - 291069 - [id number] Implanted:Qty: 1 on 02/29/2020 by Marcos Velasquez MD at [facility] and [facility] Right: Hip [employer] [id number] 01/11/2025 3296-4449 / / [id number] Head V40 -2.5mm 36mm Biolox Delta Femoral Hip - 934460 - [id number] Implanted:Qty: 1 on 02/29/2020 by Marcos Velasquez MD at [facility] and [facility] Right: Hip [employer] [id number] 01/09/2025 6570-0-436 / / [id number] Component Triathlon 4 Cruciate Retaining Cemented Femoral - 803510 - [id number] Implanted:Qty: 1 on 09/05/2020 by Marcos Velasquez MD at [facility] and [facility] Left: Knee [employer] [id number] 05/10/2025 5510-F-401 / / [id number] Component Triathlon 8mm 27mm Symmetric X3 Ptlar Knee - 157433 - [id number] Implanted:Qty: 1 on 09/05/2020 by Marcos Velasquez MD at [facility] and [facility] Left: Knee [employer] [id number] 12/02/2023 5550-G-278 / / [id number] Triathlon Cr Insert - Size 4 12mm X3 - 748343 - [id number] Implanted:Qty: 1 on 09/05/2020 by Marcos Velasquez MD at [facility] and Med Left: Knee [employer] [id number] 10/30/2022 5530-G-412 -E / / [id number] Baseplate Triathlon 4 Primary Cemented Tibial Knee - 608070 - [id number] Implanted:Qty: 1 on 09/05/2020 by Marcos Velasquez MD at [facility] and Med Left: Knee [employer] [id number] 09/16/2023 5520-B-400 / / [id number] Cement Simplex P Radiopaque Full Dose Bone 10 Pack - 734277 - [id number] Implanted:Qty: 1 on 09/05/2020 by Marcos Velasquez MD at [facility] and Med Left: Knee [employer] 12/29/2021 6191-1-010 / / [id number] Cement Simplex P Radiopaque Full Dose Bone 10 Pack - 372842 - [id number] Implanted:Qty: 1 on 09/05/2020 by Marcos Velasquez MD at [facility] and Med Left: Knee [employer] 12/29/2021 6191-1-010 / / [id number] [place] V40 Cemented Hip Stem 37.5 Offst 125mm Implanted:Qty: 1 on 10/23/2021 by Marcos Velasquez MD at [facility] and Med Left: Hip [employer] 04/26/2026 0580-3-371 / / [id number] Tritanium Cluster Hole Shell 52mm Stry-Howm 918-93-42q-770 473 - [id number] Implanted:Qty: 1 on 10/23/2021 by Marcos Velasquez MD at [facility] and Med Left: Hip [employer] [id number] 05/17/2026 702-04-52E / / [id number] ++Dnu+Disc Use [id number] Hip Insrt Trident 0d Silvio 36mm Stry-How 007-82-32a-200 918 - [id number] Implanted:Qty: 1 on 10/23/2021 by Marcos Velasquez MD at [facility] and Med Left: Hip [employer] [id number] 09/14/2026 623-00-36E / / [id number] Lp Hex Screw 6.5x30mm Stry-How 0845-3741-2949 78 - [id number] Implanted:Qty: 1 on 10/23/2021 by Marcos Velasquez MD at [facility] and Med Left: Hip [employer] [id number] 08/31/2026 8440-0856 / / [id number] Kit Prep Total Hip Bone Imp Smn-Orth 272534-405121 - [id number] Implanted:Qty: 1 on 10/23/2021 by Marcos Velaqsuez MD at [facility] and Med Left: Hip [employer] [id number] 09/13/2031 524312 / / [id number] Description:SMALL BONE PLUG USED FROM THE KIT Cement Bone Surg Simplex Radiopq Stry-Howm 7858-0-933-114 092 - [id number] Implanted:Qty: 1 on 10/23/2021 by Marcos Velasquez MD at [facility] and [facility] Left: Hip [employer] [id number] 10/30/2023 6191-1-010 / / [id number] Cement Bone Surg Simplex Radiopq Stry-Howm 2010-2-961-114 092 - [id number] Implanted:Qty: 1 on 10/23/2021 by Marcos Velasquez MD at [facility] and [facility] Left: Hip [employer] [id number] 02/28/2023 6191-1-010 / / [id number] Hip Head Delta Biolox 36mm -5 Stry-How 3168-1-901-549 190 - [id number] Implanted:Qty: 1 on 10/23/2021 by Marcos Velasquez MD at [facility] and [facility] Left: Hip [employer] [id number] 08/17/2026 6570-0-036 / / [id number] Advance Directives For more information, please contact: [phone] Documents on File Type Date Recorded Patient Motor Pool Clerk Expl 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 Care Teams Trade Promotion Analyst Relationship Specialty Start Date End Date Nova Dillon MD PCP - General Internal Medicine 12/21/19
--- OUTSIDE RECORDS SUMMARY | 2024-08-12 13:42 | XMS_ITS | Encounter Summary ---
Author Organization [facility] Address [address] [place] [address] Care Team Providers Care Butcher Head Name Role Phone Luis Antonio Dillon MD Primary Care Provider +1 -[phone] Pernell Hess MD Unavailable Xiao Squires MD Unavailable Unavailable Dayanara Benton MD Unavailable Unavailable Encounter Details Date Type Department Care Team Description 07/26/2020 [facility] Medical Records [address] [place] [address] Abstract, Provider Social History Tobacco Use Types [...] How often do you attend [facility] or shinto services? Never 01/13/2024 Do [...] on filedocumented in this encounter Care Teams Butcher Head Relationship Specialty Start Date End Date Luis Antonio Dillon MD [address] [place], [place] PCP - General Internal Medicine 11/24/18 Pernell Hess MD [address] [place], [place] Internal Medicine 09/12/22 Xiao Perez MD [address] [place], [place] Referring Physician Rheumatology 09/12/22 Dayanara Benton MD [address] [place], [place] Hematology 09/12/22 documented as of this encounter
--- OUTSIDE RECORDS SUMMARY | 2024-08-12 13:42 | XMS_ITS | Encounter Summary ---
Author Organization [facility] Address [address] [place] [address] Care Team Providers Care Women'S Activities Adviser Name Role Phone Luis Antonio Dillon MD Primary Care Provider +1 -[phone] Pernell Hess MD Unavailable Xiao Squires MD Unavailable Unavailable Dayanara Benton MD Unavailable Unavailable Reason for Visit * Reason Comments E-prescribe Rx Request Encounter Details Date Type Department Care Team Description 09/12/[address] [facility] [address] [place] [address] Jaziel Reno PA-C [address] [place] [address] E-prescribe Rx Request Social History Tobacco Use [...] How often do you attend chur or congregation services? Never 01/13/2024 Do you belong to [...] on filedocumented in this encounter Care Teams Women'S Activities Adviser Relationship Specialty Start Date End Date Luis Antonio Dillon MD [address] [place], [place] PCP - General Internal Medicine 11/24/18 Pernell Hess MD [address] [place], [place] Internal Medicine 09/12/22 Xiao Perez MD [address] [place], [place] Referring Physician Rheumatology 09/12/22 Dayanara Benton MD [address] [place], [place] Hematology 09/12/22 documented as of this encounter
--- OUTSIDE RECORDS SUMMARY | 2024-08-12 13:42 | XMS_ITS | Encounter Summary ---
Author Organization [facility] Address [address] [place] [address] Care Team Providers Care Line Helper Name Role Phone Karin Stephen MD Primary Care Provider UnavailLee Walsh Primary Care Provider Unavail Ronnie Flores Primary Care Provider UnavailLauren Rowe MD Primary Care Provide r Unavailable Luis Antonio Dillon MD Primary Care Provider +1 -[phone] Pernell Hess MD Unavailable Xiao Squires MD Unavailable Unavailable Dayanara Benton MD Unavailable Unavailable Encounter Details Date Type Department Care Team Description 09/19/2015 BATCHING OPERATOR/MassPat Report Medical Records [address] [place] [address] Abstract, Provider Social History Tobacco Use Types [...] How often do you attend chur or adventist services? Never 01/13/2024 Do you [...] on filedocumented in this encounter Care Teams Line Helper Relationship Specialty Start Date End Date Karin Stephen MD PCP - General 10/26/10 01/27/17 Lee Hurst PCP - General Internal Medicine 01/28/17 09/29/18 Ronnie Bianchi PCP - General Internal Medicine 09/30/18 09/30/18 Lauren John MD PCP - General Internal Medicine 10/06/18 11/23/18 Luis Antonio Dillon MD [address] [place], [place] PCP - General Internal Medicine 11/24/18 Pernell Hess MD [address] [place], [place] Internal Medicine 09/12/22 Xiao Perez MD [address] [place], [place] Referring Physician Rheumatology 09/12/22 Dayanara Benton MD [address] [place], [place] Hematology 09/12/22 documented as of this encounter
--- OUTSIDE RECORDS SUMMARY | 2024-08-12 13:42 | XMS_ITS | Encounter Summary ---
Author Organization [facility] Address [address] [place] [address] Care Team Providers Care Oral Surgeon Name Role Phone Luis Antonio Dillon MD Primary Care Provider +1 -[phone] Pernell Hess MD Unavailable Xiao Squires MD Unavailable Unavailable Dayanara Benton MD Unavailable Unavailable Encounter Details Date Type Department Care Team Description 06/04/2019 Globe Changer Report Medical Records [address] [place] [address] Daniel Ibarra MD Social History Tobacco Use [...] How often do you attend [facility] or pentecostal services? Never 01/13/2024 Do you [...] place to sleep or slept in a half-way (including now)? No 01/13/2024 Sex Assigned at Date Recorded Not on file Job Start Date Occupation Industry Not on file Not on file Not on file documented as of this encounter Plan of Treatment Not on file documented as of this encounter Visit Diagnoses Not on filedocumented in this encounter Care Teams Oral Surgeon Relationship Specialty Start Date End Date Luis Antonio Dillon MD [address] [place], [place] PCP - General Internal Medicine 11/24/18 Pernell eHss MD [address] [place], [place] Internal Medicine 09/12/22 Xiao Perez MD [address] [place], [place] Referring Physician Rheumatology 09/12/22 Dayanara Benton MD [address] [place], [place] Hematology 09/12/22 documented as of this encounter
--- OUTSIDE RECORDS SUMMARY | 2024-08-12 13:42 | XMS_ITS | Encounter Summary ---
Author Organization [facility] Address [address] [place] [address] Care Team Providers Care Nursing Center Tutor Name Role Phone Luis Antonio Dillon MD Primary Care Provider +1 -[phone] Pernell Hess MD Unavailable Xiao Squires MD Unavailable Unavailable Dayanara Benton MD Unavailable Unavailable Encounter Details Date Type Department Care Team Description 08/22/2020 Flat Sorting Machine Clerk Report Medical Records [address] [place], [place] [id number] [place] [address] Social History Tobacco Use Types Packs/Day Years [...] week 01/13/2024 How often do you attend [facility] or catholic services? Never 01/13/2024 Do you belong to [...] on filedocumented in this encounter Care Teams Nursing Center Tutor Relationship Specialty Start Date End Date Luis Antonio Dillon MD [address] [place], [place] PCP - General Internal Medicine 11/24/18 Pernell Hess MD [address] [place], [place] Internal Medicine 09/12/22 Xiao Perez MD [address] [place], [place] Referring Physician Rheumatology 09/12/22 Dayanara Benton MD [address] [place], [place] Hematology 09/12/22 documented as of this encounter
--- OUTSIDE RECORDS SUMMARY | 2024-08-12 13:42 | XMS_ITS | Encounter Summary ---
Author Organization [facility] Address [address] [place] [address] Care Team Providers Care Director Global Development Name Role Phone Luis Antonio Dillon MD Primary Care Provider +1 -[phone] Pernell Hess MD Unavailable Xiao Squires MD Unavailable Unavailable Dayanara Benton MD Unavailable Unavailable Encounter Details Date Type Department Care Team Description 02/11/2020 Hay Buckler Report Medical Records [address] [place] [address] Abstract, Provider Social History Tobacco Use Types [...] How often do you attend [facility] or pentecostalism services? Never 01/13/2024 Do you [...] filedocumented in this encounter Care Teams Director Global Development Relationship Specialty Start Date End Date Luis Antonio Dillon MD [address] [place], [place] PCP - General Internal Medicine 11/24/18 Pernell Hess MD [address] [place], [place] Internal Medicine 09/12/22 Xiao Perez MD [address] [place], [place] Referring Physician Rheumatology 09/12/22 Dayanara Benton MD [address] [place], [place] Hematology 09/12/22 documented as of this encounter
--- OUTSIDE RECORDS SUMMARY | 2024-08-12 13:42 | XMS_ITS | Encounter Summary ---
Author Organization [facility] Address [address] [place] [address] Care Team Providers Care Staff Therapist Name Role Phone Karin Stephen MD Primary Care Provider UnavailLee Walsh Primary Care Provider Unavail Ronnie Flores Primary Care Provider UnavailLauren Rowe MD Primary Care Provide r Unavailable Luis Antonio Dillon MD Primary Care Provider +1 -[phone] Pernell Hess MD Unavailable Xiao Squires MD Unavailable Unavailable Dayanara Benton MD Unavailable Unavailable Encounter Details Date Type Department Care Team Description 01/04/2017 Hospital Medical Records [address] [place] [address] Social History Tobacco Use Types Packs/Day Years [...] often do you attend chur ch or oriental orthodox services? Never 01/13/2024 Do [...] on filedocumented in this encounter Care Teams Staff Therapist Relationship Specialty Start Date End Date Karin Stephen MD PCP - General 10/26/10 01/27/17 Lee Hurst PCP - General Internal Medicine 01/28/17 09/29/18 Ronnie Bianchi PCP - General Internal Medicine 09/30/18 09/30/18 Lauren John MD PCP - General Internal Medicine 10/06/18 11/23/18 Luis Antonio Dillon MD [address] [place], [place] PCP - General Internal Medicine 11/24/18 Pernell Hess MD [address] [place], [place] Internal Medicine 09/12/22 Xiao Perez MD [address] [place], [place] Referring Physician Rheumatology 09/12/22 Dayanara Benton MD [address] [place], [place] Hematology 09/12/22 documented as of this encounter
--- OUTSIDE RECORDS SUMMARY | 2024-08-12 13:42 | XMS_ITS | Encounter Summary ---
Author Organization [facility] Address [address] [place] [address] Care Team Providers Care Construction Crew Member Name Role Phone Luis Antonio Dillon MD Primary Care Provider +1 -[phone] Pernell Hess MD Unavailable Xiao Squires MD Unavailable Unavailable Dayanara Benton MD Unavailable Unavailable Encounter Details Date Type Department Care Team Description 05/21/2019 [facility] Medical Records [address] [place] [address] Abstract, Provider Social History Tobacco Use Types [...] week 01/13/2024 How often do you attend [facility] or evangelical services? Never 01/13/2024 Do [...] filedocumented in this encounter Care Teams Construction Crew Member Relationship Specialty Start Date End Date Luis Antonio Dillon MD [address] [place], [place] PCP - General Internal Medicine 11/24/18 Pernell Hess MD [address] [place], [place] Internal Medicine 09/12/22 Xiao Perez MD [address] [place], [place] Referring Physician Rheumatology 09/12/22 Dayanara Benton MD [address] [place], [place] Hematology 09/12/22 documented as of this encounter
--- OUTSIDE RECORDS SUMMARY | 2024-08-12 13:42 | XMS_ITS | Encounter Summary ---
Author Organization [facility] Address [address] [place] [address] Care Team Providers Care Gluer And Wedger Name Role Phone Luis Antonio Dillon MD Primary Care Provider +1 -[phone] Pernell Hess MD Unavailable Xiao Squires MD Unavailable Unavailable Dayanara Benton MD Unavailable Unavailable Reason for Visit * Reason Onset Date Comments refill request 06/20/2020 Encounter Details Date Type Department Care Team Description 06/20/2020 Refill Adult Medicine - [place] [address] [place] [address] Luis Antonio Dillon MD [address] [place] [address] refill request Social History Tobacco Use Types [...] often do you attend chur ch or hindu services? Never 01/13/2024 Do you belong to [...] have Coronavirus / COVID-19? No / Unsure 05/31/2020 12:57 PM EST documented as of this encounter Miscellaneous Notes * Telephone Encounter - Heydi Arellano L.P.N. - 06/20/2020 2:20 PM EDT Faxed to pharmacy * Telephone Encounter - Zaria Green M.A. - 06/20/2020 12:10 PM EDT Chery - 04/21/20 Nov - 06/24/20 Contract checked. Pt is due. [facility] below Lab Results Component Value Date TSH 0.35 11/04/2019 05/24/2020 1 03/24/2020 GABAPENTIN 600 MG TABLET 180.0 60 [facility] [id number] [facility]/0 Medicaid [place] 05/23/2020 1 05/23/2020 TRAMADOL HCL 50 MG TABLET 168.0 28 PA BARB [id number] [facility] 0/0 30.0 [place] 04/21/2020 1 04/21/2020 TRAMADOL HCL 50 MG TABLET 168.0 28 [facility] [id number] [facility] ([facility] 0/0 30.0 [place] 03/24/2020 1 03/24/2020 TRAMADOL HCL 50 MG TABLET 168.0 28 HAY [id number] [facility] 0/0 30.0 [place] 03/07/2020 1 03/07/2020 GABAPENTIN 600 MG TABLET 180.0 90 PA MANISHA [id number] [facility] 02/26/2020 1 02/26/2020 TRAMADOL HCL 50 MG TABLET 162.0 27 [place] H[place] [id number] [facility] 0/0 30.[place] 01/27/2020 1 01/27/2020 TRAMADOL HCL 50 MG TABLET 168.0 28 HAY [id number] [facility] 0/0 30.[place] 12/28/2019 1 12/28/2019 TRAMADOL HCL 50 MG TABLET 168.0 28 HAY [id number] [facility] ([facility] 0/0 30.0 [place] 12/08/2019 1 12/08/2019 GABAPENTIN 600 MG TABLET 180.0 90 PA MANISHA [id number] [facility] ([facility]66[facility] 0/0 [place] * Telephone Encounter - Erum Oc - 06/20/2020 11:16 AM EDT Patient would like script to be: E-PRESCRIBED/FAXED TO PHARMACY WHEN WAS THE PATIENT'S LAST APPOINTMENT IN ADULT MEDICINE? 04/21/2020 WHEN WAS THE LAST TIME THE PATIENT SAW THEIR PCP? 03/24/2020 Does patient have an upcoming appointment? Yes 06/24/2020 (THE MEDICATION REQUESTED IS ON THE MED [...] N/A Patients current insurance carrier is: Payor: -[place]/PPO POS / Plan: FEP STANDARD $25 / Product Type: PPO [id number] documented in this encounter Plan of Treatment Not on file documented as of this encounter Visit Diagnoses Diagnosis Hypothyroidism, unspecified type documented in this encounter Care Teams Gluer And Wedger Relationship Specialty Start Date End Date Luis Antonio Dillon MD [address] [place] [address] PCP - General Internal Medicine 11/24/18 Pernell Hess MD [address] [place] [address] Internal Medicine 09/12/22 Xiao Perez MD [address] [place] [address] Referring Physician Rheumatology 09/12/22 Dayanara Benton MD [address] [place] [address] Hematology 09/12/22 documented as of this encounter
--- OUTSIDE RECORDS SUMMARY | 2024-08-12 13:42 | XMS_ITS | Data Portability ---
Author Organization [place] [facility] [place] Address [address] [place] [address] Assessment Encounter Date Assessment Date Assessment LastModified [...] in the hip and knee and satisfactory jehovah's witness of function in terms of activities of [...] work on hip and knee conditioning exercises. Mpei-xzg-oxhrrax medications as needed. Ultimate failure may occur [...] XR, knee, 3 view 023 11/10/19 [address] [place] [address] [facility], [address], [place], [address], 3 08:49:22 XR, hip, unilat eral, 2 or 3 view 023 11/10/19 [address] [place] [address] [facility], [address], [place], [address], 3 08:49:22 Medication Orders None record ed. [...] SNOMED-CT Code Diagnosis ICD10 Code Diagnosis Note [id number] MD YESSENIA Farrell [address] [address] 11/09/2022 08:14:47 11/09/2022 08:49:21 History of total replacement of left hip joint [id number] Z96.642 History of left total knee replacement [id number] 712224 Z96.652 Aftercare [id number] Z47. 1 Health Concerns Section Related Observation LastModified by Organization Detai ls LastModified Time None Recorded Concern Status LastModified by Organization Details LastModified Time None Recorded Advance Directives Directive None Recorded Payers Encounter Date Sequence Insurance Name Policy Number Policy [place] Covered Member ID [place] Member ID Guarantor Name 11/09/2022 1 [facility] (MEDICARE REPLACEMENT/A DVANTAGE - HMO) [id number] Danelle Vallejo [id number] Danelle Vallejo OBGyn Episode No OBEpisode recorded.
--- OUTSIDE RECORDS SUMMARY | 2024-08-12 13:42 | XMS_ITS | Encounter Summary ---
Author Organization [facility] Address [address] [place] [address] Care Team Providers Care Residential Sales Name Role Phone Luis Antonio Dillon MD Primary Care Provider +1 -[phone] Pernell Hess MD Unavailable Xiao Squires MD Unavailable Unavailable Dayanara Benton MD Unavailable Unavailable Encounter Details Date Type Department Care Team Description 07/24/2022 Hide Puller Report Medical Records [address] [place] [address] Xiao Perez MD Social History Tobacco Use [...] week 01/13/2024 How often do you attend [facility] or quaker services? Never 01/13/2024 Do you [...] on filedocumented in this encounter Care Teams Residential Sales Relationship Specialty Start Date End Date Luis Antonio Dillon MD [address] [place], [place] PCP - General Internal Medicine 11/24/18 Pernell Hess MD [address], [place] Internal Medicine 09/12/22 Xiao Perez MD [address], [place] Referring Physician Rheumatology 09/12/22 Dayanara Benton MD [address], [place] Hematology 09/12/22 documented as of this encounter
--- OUTSIDE RECORDS SUMMARY | 2024-08-12 13:42 | XMS_ITS | Encounter Summary ---
Author Organization [facility] Address [address] [place] [address] Care Team Providers Care Associate Director Finance Name Role Phone Luis Antonio Dillon MD Primary Care Provider +1 -[phone] Pernell Hess MD Unavailable Xiao Squires MD Unavailable Unavailable Dayanara Benton MD Unavailable Unavailable Encounter Details Date Type Department Care Team Description 03/18/2023 Grease Maker Head Report Medical Records [address] [place] [address] Xiao Perez MD Social History Tobacco Use [...] week 01/13/2024 How often do you attend [facility] or worship services? Never 01/13/2024 Do [...] in this encounter Care Teams Associate Director Finance Relationship Specialty Start Date End Date Luis Antonio Dillon MD [address] [place], [place] PCP - General Internal Medicine 11/24/18 Pernell Hess MD [address] [place], [place] Internal Medicine 09/12/22 Xiao Perez MD [address] [place], [place] Referring Physician Rheumatology 09/12/22 Dayanara Benton MD [address] [place], [place] Hematology 09/12/22 documented as of this encounter
--- OUTSIDE RECORDS SUMMARY | 2024-08-12 13:42 | XMS_ITS | Encounter Summary ---
Author Organization [facility] Address [address] [place] [address] Care Team Providers Care Rotary Shear Cutter Name Role Phone Luis Antonio Dillon MD Primary Care Provider +1 -[phone] Pernell Hess MD Unavailable Xiao Squires MD Unavailable Unavailable Dayanara Benton MD Unavailable Unavailable Encounter Details Date Type Department Care Team Description 01/23/2019 [facility] Medical Records [address] [place] [address] Abstract, Provider Social History Tobacco Use Types [...] week 01/13/2024 How often do you attend [facility] or zoroastrian services? Never 01/13/2024 Do you belong to any clubs o r organizations such as amish groups, unions, fraternal or athletic groups, or [...] on filedocumented in this encounter Care Teams Rotary Shear Cutter Relationship Specialty Start Date End Date Luis Antonio Dillon MD [address] [place], [place] PCP - General Internal Medicine 11/24/18 Pernell Hess MD [address] [place], [place] Internal Medicine 09/12/22 Xiao Perez MD [address] [place], [place] Referring Physician Rheumatology 09/12/22 Dayanara Benton MD [address] [place], [place] Hematology 09/12/22 documented as of this encounter
--- OUTSIDE RECORDS SUMMARY | 2024-08-12 13:42 | XMS_ITS | Encounter Summary ---
Author Organization [facility] Address [address] [place] [address] Care Team Providers Care Head Usher Name Role Phone Luis Antonio Dillon MD Primary Care Provider +1 -[phone] Pernell Hess MD Unavailable Xiao Squires MD Unavailable Unavailable Dayanara Benton MD Unavailable Unavailable Encounter Details Date Type Department Care Team Description 07/10/2022 Telephone Adult Medicine - [place] [address] [place] [address] Luis Antonio Dillon MD [address] [place] [address] Social History Tobacco Use Types Packs/Day Years [...] do you attend [facility] or church services? Never 01/13/2024 Do you belong to any clubs o r organizations such as yazidism groups, unions, fraternal or athletic groups, or [...] encounter Miscellaneous Notes * Telephone Encounter - Stacey Escalante M.A. - 07/10/2022 4:21 PM EDT Referral has been sent over to fax #[phone] successfully and they will be receiving a call 7-10 business days to se up appointment, if not pt will call to schedule her appointment. documented in this encounter Plan of Treatment Not on file documented as of this encounter Visit Diagnoses Not on filedocumented in this encounter Care Teams Head Usher Relationship Specialty Start Date End Date Luis Antonio Dillon MD [address] [place], [place] PCP - General Internal Medicine 11/24/18 Pernell Hess MD [address] [place], [place] Internal Medicine 09/12/22 Xiao Perez MD [address] [place], [place] Referring Physician Rheumatology 09/12/22 Dayanara Benton MD [address] [place], [place] Hematology 09/12/22 documented as of this encounter
--- OUTSIDE RECORDS SUMMARY | 2024-08-12 13:42 | XMS_ITS | Encounter Summary ---
Author Organization [facility] Address [address] [place] [address] Care Team Providers Care Fuse Maker Name Role Phone Luis Antonio Dillon MD Primary Care Provider +1 -[phone] Pernell Hess MD Unavailable Xiao Squires MD Unavailable Unavailable Dayanara Benton MD Unavailable Unavailable Reason for Visit * Reason Onset Date Comments Orders Call 10/26/2020 Encounter Details Date Type Department Care Team Description 10/26/2020 Telephone Adult Medicine [facility] [address] [place] [address] Luis Antonio Dillon MD [address] [place] [address] Orders Call Social History Tobacco Use Types [...] often do you attend chur ch or voodoo services? Never 01/13/2024 Do you belong to any clubs o r organizations such as lutheran groups, unions, fraternal or athletic groups, or [...] PM EDT Patient was seen by her manager sas ( [facility]) is requsting the provider to order [...] EST [facility] Comment: If patient is -Kyrgyz, multiply result by 1.21 Chronic Kidney Disease: [...] patient->Immediate Luis Antonio Dillon MD LAB [facility] * LIPID PROFILE (05/19/2021 8:58 AM EST) [...] hypercholesterolemia documented in this encounter Care Teams Fuse Maker Relationship Specialty Start Date End Date Luis Antonio Dillon MD [address] [place] [address] PCP - General Internal Medicine 11/24/18 Pernell Hess MD [address] [place] [address] Internal Medicine 09/12/22 Xiao Perez MD [address] [place] [address] Referring Physician Rheumatology 09/12/22 Dayanara Benton MD [address] [place] [address] Hematology 09/12/22 documented as of this encounter
--- OUTSIDE RECORDS SUMMARY | 2024-08-12 13:42 | XMS_ITS | Encounter Summary ---
Author Organization [facility] Address [address] [place] [address] Care Team Providers Care Pan Operator Name Role Phone Luis Antonio Dillon MD Primary Care Provider +1 -[phone] Pernell Hess MD Unavailable Xiao Squires MD Unavailable Unavailable Dayanara Benton MD Unavailable Unavailable Reason for Visit * Reason Onset Date Comments refill request 05/23/2020 Encounter Details Date Type Department Care Team Description 05/23/2020 Refill Adult Medicine - [place] [address] [place] [address] Luis Antonio Dillon MD [address] [place] [address] refill request Social History Tobacco Use Types [...] any clubs o r organizations such as congregational groups, unions, fraternal or athletic groups, or [...] Telephone Encounter - Heydi Arellano L.P.N. - 05/23/2020 12:53 PM EST Faxed to pharmacy * Telephone Encounter - Heydi Arellano L.P.N. - 05/23/2020 10:38 AM EST [facility] to covering. Controlled substance contract and last issue date of medication reviewed. Patient is due for medication. Lab Results Component Value Date URBENZO NONE DETECTED 11/24/2018 UROPIATES NONE DETECTED 11/24/2018 URBARBITUATE NONE DETECTED 11/24/2018 PAINAMPHETAM NONE DETECTED 11/24/2018 PAINCOCAINE NONE DETECTED 11/24/2018 PAINCANNABIN POSITIVE 11/24/2018 Medication request pended for your review. UDS DUE AND PENDED Total Prescriptions 15 Total Private Pay 0 Total Prescribers 4 Total Pharmacies 1 Opioids* (excluding buprenorphine) Current Qty 0.0 Current MME/day 0.0 30 Day Avg MME/day 25.0 Buprenorphine* Current Qty 0.0 Current mg/day 0.0 30 Day Avg mg/day 0.0 Prescriptions (all columns are sortable) Filled ID Written Drug QTY Days Prescriber Rx # Pharmacy * Refills Daily Dose Pymt Type CAR CHECKER 04/21/2020 1 04/21/2020 TRAMADOL HCL 50 MG TABLET 168.0 28 [facility] [id number] 03/24/2020 1 03/24/2020 TRAMADOL HCL 50 MG TABLET 168.0 28 [facility] [id number] [facility]/[place] 30.[place] 03/07/2020 1 03/07/2020 GABAPENTIN 600 MG TABLET 180.0 90 [place] [facility] [id number] [facility] 0/[place] 02/26/2020 1 02/26/2020 TRAMADOL HCL 50 MG TABLET 162.0 27 [facility] [id number] [facility] 0/0 30.[place] 01/27/2020 1 01/27/2020 TRAMADOL HCL 50 MG TABLET 168.0 28 [facility] [id number] [facility] 0/0 30.[place] 12/28/2019 1 12/28/2019 TRAMADOL HCL 50 MG TABLET 168.0 28 [place] [facility] [id number] [facility] 0/0 30.[place] 12/08/2019 1 12/08/2019 GABAPENTIN 600 MG TABLET 180.0 90 [place] [id number] [facility] ([facility] 0/0 [place] 12/01/2019 1 11/30/2019 TRAMADOL HCL 50 MG TABLET 168.0 28 [place] [id number] [facility] 0/0 30.[place] 10/30/2019 1 10/30/2019 TRAMADOL HCL 50 MG TABLET 168.0 28 [place] [facility] [id number] [facility] ([facility] 0/0 30.[place] 09/29/2019 1 09/29/2019 TRAMADOL HCL 50 MG TABLET 168.0 28 [place] [facility] [id number] [facility] ([facility] 0/0 30.[place] 09/07/2019 1 09/07/2019 GABAPENTIN 600 MG TABLET 180.0 90 [place] [id number] [facility] ([facility] 0/0 [place] 08/26/2019 1 08/26/2019 TRAMADOL HCL 50 MG TABLET 168.0 28 [facility] [id number] [facility] (0466[facility] 0/0 30.0 M[place] 07/22/2019 1 07/22/2019 TRAMADOL HCL 50 MG TABLET 168.0 28 [place] [facility] [id number] [facility] (0466) 0/0 30.0 MME Medicaid [place] 06/19/2019 1 06/19/2019 TRAMADOL HCL 50 MG TABLET 168.0 28 [place] [facility] [id number] [facility] ([facility] 0/0 30.0 [place] 06/15/2019 1 06/15/2019 GABAPENTIN 600 MG TABLET 180.0 90 [place] [id number] [facility] (0466) 0/0 [place] *Pharmacy is created using a combination of pharmacy name and the last four digits of the pharmacy license number. * Telephone Encounter - Erum Renae - 05/23/2020 10:35 AM EST Patient would like script to [...] N/A Patients current [place] carrier is: [place] / Plan: FEP STANDARD $25 / Product Type: PPO [id number] documented in this encounter Plan of Treatment Scheduled Orders Name Type Priority Associated Diagnoses Orde r Schedule CHG DRUG SCREENING CANNABINOIDS NATURAL Lab Routine Encounter for long-term (current) use of medications Expected: 05/23/2020, Expires: 05/23/2021 [facility] DRUG SCREENING COCAINE Lab Routine Encounter for long-term (current) use of medications Expected: 05/23/2020, Expires: 05/23/2021 CHG DRUG SCREEN QUANT AMPHETAMINES 3 OR 4 Lab Routine Encounter for long-term (current) use of medications Expected: 05/23/2020, Expires: 05/23/2021 [facility] DRUG/SUBSTANCE DEFINITIVE QUAL/QUANT NOS 1-3 (BARBITUATES) Lab Routine Encounter for long-term (current) use of medications Expected: 05/23/2020, Expires: 05/23/2021 CHG DRUG SCREENING BENZODIAZEPINES 1-12 Lab Routine Encounter for long-term (current) use of medications Expected: 05/23/2020, Expires: 05/23/2021 documented as of this encounter Results * OXYCODONE, URINE (05/31/2020 12:57 PM EST) URINE OXYCODONE NONE DETECTED ND 05/31/2020 3:40 PM EST [email or web address] Comment: Assay cutoff 100 ng/mL Semi-quantitative assay for screening purposes only. Unconfirmed screening result should not be used for non-medical purposes. *ALTERNATE METHOD CONFIRMATION DONE UPON REQUEST ONLY* 05/31/2020 12:5 7 PM EST 05/31/2020 12:57 PM EST Jaziel Reno PA-C LAB [email or web address] * (ABNORMAL) DRUG OF ABUSE SCREEN (05/31/2020 12:57 PM EST) BENZODIAZEPINE, URINE NONE DETECTED ND 05/31/2020 3:40 PM EST [email or web address] Comment: Assay cutoff 200 ng/mL Semi-quantitative assay for screening purposes only. Unconfirmed screening result should not be used for non-medical purposes. *ALTERNATE METHOD CONFIRMATION DONE UPON REQUEST ONLY* OPIATES, URINE NONE DETECTED ND 05/31/2020 3:40 PM EST [email or web address] Comment: Assay cutoff 300 ng/mL Semi-quantitative assay for screening purposes only. Unconfirmed screening result should not be used for non-medical purposes. *ALTERNATE METHOD CONFIRMATION DONE UPON REQUEST ONLY* BARBITURATES, URINE NONE DETECTED ND 05/31/2020 3:40 PM EST [email or web address] Comment: Assay cutoff 200 ng/mL Semi-quantitative assay for screening purposes only. Unconfirmed screening result should not be used for non-medical purposes. *ALTERNATE METHOD CONFIRMATION DONE UPON REQUEST ONLY* PAIN AMPHETAMINES NONE DETECTED ND 05/31/2020 3:40 PM EST [email or web address] Comment: Assay cutoff 1000 ng/mL Semi-quantitative assay for screening purposes only. Unconfirmed screening result should not be used for non-medical purposes. *POSITIVE RESULTS ARE AUTOMATICALLY SENT FOR ALTERNATE METHOD CONFIRMATION* PAIN COCAINE NONE DETECTED ND 05/31/2020 3:40 PM EST [email or web address] Comment: Assay cutoff 300 ng/mL Semi-quantitative assay for screening purposes only. Unconfirmed screening result should not be used for non-medical purposes. *POSITIVE RESULTS ARE AUTOMATICALLY SENT FOR ALTERNATE METHOD CONFIRMATION* PAIN CANNABINOID POSITIVE(A) ND 021 3:40 PM EST [email or web address] Comment: Assay cutoff 50 ng/mL Semi-quantitative assay for screening purposes only. Unconfirmed screening result should not be used for non-medical purposes. *POSITIVE RESULTS ARE AUTOMATICALLY SENT FOR ALTERNATE METHOD CONFIRMATION* 05/31/2020 12:5 7 PM EST 05/31/2020 12:57 PM EST Jaziel Reno PA-C LAB [facility] C8 [employer] * CHG DRUG SCREENING OPIATES 1 OR MORE (05/31/2020 12:57 PM EST) [facility] Signature Codeine GCMS Negative ng/mL 06/03/2020 3:42 PM EST [facility] Morphine GCMS Negative ng/mL 06/03/2020 3:42 PM EST [facility] Hydromorphone GCMS Negative ng/mL 03/05/ 2021 3:42 PM EST [facility] Hydrocodone GCMS Negative ng/mL 06/04/19 3:42 PM EST [facility] PAIN OPIATE CREAT 35 20 - 250 mg/dL 06/03/2020 3:42 PM EST [facility] PAIN OPIATE ADULTERANT Negative 06/03/2020 3:42 PM EST [facility] Comment: ? Confirmation (LC/MS/MS) Decision Limits ??Morphine ?25 ng/mL ??Codeine ? 25 ng/mL ??Hydrocodone ? 25 ng/mL ??Hydromorphone ? 25 ng/mL ??Oxycodone ? 25 ng/mL ??Oxymorphone ? 25 ng/mL ??Adulterant Decision Limit: ?? General Oxidants ? 200 ug/mL ??The adulterant assay tests for General Oxidants, ??including Chromates and Nitrites. ??Adulterants are ??substances either ingested or added directly to a ??urine specimen to prevent the detection of drug use. If applicable, any drug confirmation testing reported here was developed and the performance characteristics determined by [facility]. This confirmation testing has not been cleared or approved by the FDA. The laboratory is regulated under CLIA as qualified to perform high-complexity testing. This test is used for patient testing purposes. It should not be regarded as investigational or for research. Test performed at [facility], [facility] [address], [place], [place] ??[address] ? [phone] Cody Hurst MD ??- Reporting Consultant Oxycodone GCMS Negative ng/mL 06/03/2020 3:42 PM EST [facility] Oxymorphone GCMS Negative ng/mL 06/04/19 3:42 PM EST [facility] 05/31/2020 12:5 7 PM EST 05/31/2020 12:57 PM EST Jaziel Reno PA-C LAB [facility] documented in this encounter Visit Diagnoses Diagnosis Encounter for long-term (current) use of medications- Primary Encounter for long-term (current) use of other medications documented in this encounter Care Teams Pan Operator Relationship Specialty Start Date End Date Luis Antonio Dillon MD [address] [place] [address] PCP - General Internal Medicine 11/24/18 Pernell Hess MD [address] [place], [place] Internal Medicine 09/12/22 Xiao Perez MD [address] [place], [place] Referring Physician Rheumatology 09/12/22 Dayanara Benton MD [address] [place], [place] Hematology 09/12/22 documented as of this encounter
--- OUTSIDE RECORDS SUMMARY | 2024-08-12 13:42 | XMS_ITS | Encounter Summary ---
Author Organization [facility] Address [address] [place] [address] Care Team Providers Care Co Founder And Chairman Name Role Phone Karin Stephen MD Primary Care Provider UnavailLee Walsh Primary Care Provider Unavail Ronnie Flores Primary Care Provider UnavailLauren Rowe MD Primary Care Provide r Unavailable Luis Antonio Dillon MD Primary Care Provider +1 -[phone] Pernell Hess MD Unavailable Xiao Squires MD Unavailable Unavailable Dayanara Benton MD Unavailable Unavailable Encounter Details Date Type Department Care Team Description 02/08/2011 Controlled Substance Contract with [facility] Medical Records [address] [place] [address] Abstract, Provider Social History Tobacco Use Types Packs/Day Years Used Date Smoking Tobacco: Former Cigarettes 2 22 Q uit: 04/01/1990 Smokeless Tobacco: Never Alcohol Use Standard Drinks/Week Comments Yes 0 (1 standard drink = 0.6 oz pur e alcohol) occasional Alcohol Habits Answer Date Recorded How often [...] any clubs o r organizations such as yazidi groups, unions, fraternal or athletic groups, or [...] Chairman Relationship Specialty Start Date End Date Karin Stephen MD PCP - General 10/26/10 01/27/17 Lee Hurst PCP - General Internal Medicine 01/28/17 09/29/18 Ronnie Bianchi PCP - General Internal Medicine 09/30/18 09/30/18 Lauren John MD PCP - General Internal Medicine 10/06/18 11/23/18 Luis Antonio Dillon MD [address] [place], [place] PCP - General Internal Medicine 11/24/18 Pernell Hess MD [address] [place], [place] Internal Medicine 09/12/22 Xiao Perez MD [address] [place], [place] Referring Physician Rheumatology 09/12/22 Dayanara Benton MD [address] [place], [place] Hematology 09/12/22 documented as of this encounter
--- OUTSIDE RECORDS SUMMARY | 2024-08-12 13:42 | XMS_ITS | Encounter Summary ---
Author Organization [facility] Address [address] [place] [address] Care Team Providers Care Muck Boss Name Role Phone Luis Antonio Dillon MD Primary Care Provider +1 -[phone] Pernell Hess MD Unavailable Xiao Squires MD Unavailable Unavailable Dayanara Benton MD Unavailable Unavailable Encounter Details Date Type Department Care Team Description 09/06/2020 [facility] Medical Records [address] [place], [place] [id number] [place] [address] Social History Tobacco Use Types Packs/Day Years [...] often do you attend [facility] or mandaeism services? Never 01/13/2024 Do you belong to [...] on filedocumented in this encounter Care Teams Muck Boss Relationship Specialty Start Date End Date Luis Antonio Dillon MD [address] [place], [place] PCP - General Internal Medicine 11/24/18 Pernell Hess MD [address] [place], [place] Internal Medicine 09/12/22 Xiao Perez MD [address] [place], [place] Referring Physician Rheumatology 09/12/22 Dayanara Benton MD [address] [place], [place] Hematology 09/12/22 documented as of this encounter
--- OUTSIDE RECORDS SUMMARY | 2024-08-12 13:42 | XMS_ITS | Encounter Summary ---
Author Organization [facility] Address [address] [place] [address] Care Team Providers Care Photogrammetric Tech Name Role Phone Luis Antonio Dillon MD Primary Care Provider [phone] -[phone] Pernell Hess MD Unavailable Xiao Squires MD Unavailable Unavailable Dayanara Benton MD Unavailable Unavailable Encounter Details Date Type Department Care Team Description 09/20/2020 Orders Only Adult Medicine - [place] [address] [place] [address] Luis Antonio Dillon, [address] [place] [address] Hypothyroidism, unspecified type Social History Tobacco Use Types Packs/Day Years [...] often do you attend chur ch or anglican services? Never 01/13/2024 Do you belong to [...] type documented in this encounter Care Teams Photogrammetric Tech Relationship Specialty Start Date End Date Luis Antonio Dillon MD [address] [place], [place] PCP - General Internal Medicine 11/24/18 Pernell Hess MD [address] [place], [place] Internal Medicine 09/12/22 Xiao Perez MD [address] [place], [place] Referring Physician Rheumatology 09/12/22 Dayanara Benton MD [address] [place], [place] Hematology 09/12/22 documented as of this encounter
--- OUTSIDE RECORDS SUMMARY | 2024-08-12 13:42 | XMS_ITS | Encounter Summary ---
Author Organization [facility] Address [address] [place] [address] Care Team Providers Care Deliver Driver Name Role Phone Karin Stephen MD Primary Care Provider UnavailLee Walsh Primary Care Provider Unavail Ronnie Flores Primary Care Provider UnavailLauren Rowe MD Primary Care Provide r Unavailable Luis Antonio Dillon MD Primary Care Provider +1 -[phone] Pernell Hess MD Unavailable Xiao Squires MD Unavailable Unavailable Dayanara Benton MD Unavailable Unavailable Encounter Details Date Type Department Care Team Description 12/31/2016 [facility] Medical Records [address] [place] [address] Social History Tobacco Use Types Packs/Day Years [...] on filedocumented in this encounter Care Teams Deliver Driver Relationship Specialty Start Date End Date Karin Stephen MD PCP - General 10/26/10 01/27/17 Lee Hurst PCP - General Internal Medicine 01/28/17 09/29/18 Ronnie Bianchi PCP - General Internal Medicine 09/30/18 09/30/18 Lauren John MD PCP - General Internal Medicine 10/06/18 11/23/18 Luis Antonio Dillon MD [address] [place], [place] PCP - General Internal Medicine 11/24/18 Pernell Hess MD [address] [place], [place] Internal Medicine 09/12/22 Xiao Perez MD [address] [place], [place] Referring Physician Rheumatology 09/12/22 Dayanara Benton MD [address] [place], [place] Hematology 09/12/22 documented as of this encounter
--- OUTSIDE RECORDS SUMMARY | 2024-08-12 13:42 | XMS_ITS | Encounter Summary ---
Author Organization [facility] Address [address] [place] [address] Care Team Providers Care Transportation Broker Name Role Phone Luis Antonio Dillon MD Primary Care Provider [phone] [phone] Pernell Hess MD Unavailable Xiao Squires MD Unavailable Unavailable Dayanara Benton MD Unavailable Unavailable Encounter Details Date Type Department Care Team Description 12/31/2019 [facility] Medical Records [address] [place] [address] Abstract, Provider Social History Tobacco Use Types [...] How often do you attend [facility] or mandaeism services? Never 01/13/2024 Do [...] on filedocumented in this encounter Care Teams Transportation Broker Relationship Specialty Start Date End Date Luis Antonio Dillon MD [address] [place], [place] PCP - General Internal Medicine 11/24/18 Pernell Hess MD [address] [place], [place] Internal Medicine 09/12/22 Xiao Perez MD [address] [place], [place] Referring Physician Rheumatology 09/12/22 Dayanara Benton MD [address] [place], [place] Hematology 09/12/22 documented as of this encounter
--- OUTSIDE RECORDS SUMMARY | 2024-08-12 13:43 | XMS_ITS | Encounter Summary ---
Author Organization [facility] Address [address] [place] [address] Care Team Providers Care Faculty Research Physician Name Role Phone Luis Antonio Dillon MD Primary Care Provider [phone] [phone] Pernell Hess MD Unavailable Xiao Squires MD Unavailable Unavailable Dayanara Benton MD Unavailable Unavailable Reason for Visit * Reason Onset Date Comments refill request 04/10/2019 Encounter Details Date Type Department Care Team Description 04/10/2019 Telephone Adult Medicine [facility] [address] [place] [address] Luis Antonio Dillon MD [address] [place] [address] refill request Social History Tobacco Use Types [...] any clubs o r organizations such as mormon groups, unions, fraternal or athletic groups, or [...] FEP STANDARD $25 / Product Type: PPO [id number] documented in this encounter Plan of Treatment Not on file documented as of this encounter Visit Diagnoses Not on filedocumented in this encounter Care Teams Faculty Research Physician Relationship Specialty Start Date End Date Luis Antonio Dillon MD [address] [place] [address] PCP - General Internal Medicine 11/24/18 Pernell Hess MD [address] [place] [address] Internal Medicine 09/12/22 Xiao Perez MD [address] [place] [address] Referring Physician Rheumatology 09/12/22 Dayanara Benton MD [address] [place] [address] Hematology 09/12/22 documented as of this encounter
--- OUTSIDE RECORDS SUMMARY | 2024-08-12 13:43 | XMS_ITS | Encounter Summary ---
Author Organization [facility] Address [address] [place] [address] Care Team Providers Care Butter Maker Name Role Phone Luis Antonio Dillon MD Primary Care Provider [phone] [phone] Pernell Hess MD Unavailable Xiao Squires MD Unavailable Unavailable Dayanara Benton MD Unavailable Unavailable Reason for Visit * Reason Onset Date Comments Medication 01/18/2022 Encounter Details Date Type Department Care Team Description 01/18/2022 Refill Gastroenterology [facility] [address] [facility] [address] [place] [phone] Joy Mchugh MD [address] [place] [address] [id number] Medication Social History Tobacco Use Types Packs/Day [...] often do you attend chur ch or amish services? Never 01/13/2024 Do you belong to [...] on filedocumented in this encounter Care Teams Butter Maker Relationship Specialty Start Date End Date Luis Antonio Dillon MD [address] [place], [place] PCP - General Internal Medicine 11/24/18 Pernell Hess MD [address] [place], [place] Internal Medicine 09/12/22 Xiao Perez MD [address] [place], [place] Referring Physician Rheumatology 09/12/22 Dayanara Benton MD [address] [place], [place] Hematology 09/12/22 documented as of this encounter
--- OUTSIDE RECORDS SUMMARY | 2024-08-12 13:43 | XMS_ITS | Clinical Summary ---
Author Organization 175 [facility] Address [address] [place] [address] Phone Care Team Providers Care Theatrical Rigger Name Role Phone Nova Dillon MD Primary [...] Take by mouth. Activ e medical marijuana LABEL FUSER TENDER med Active biotin 5 mg tablet Take [...] cap. 16 g 5 025 2025 Active ciclopirox (LOPROX) 0.77 % gel Apply 1 Application topically 1 (one) time each day. 45 g 2 Active clotrimazole (LOTRIMIN) 1 % external solution Apply topically 2 (two) times a day. 30 mL 025 2024 Active gabapentin (NEURONTIN) 600 mg tablet Take 1 tablet (600 mg total) by mouth 3 (three) times a day. 270 each 1 025 2024 Active traMADoL (ULTRAM) 50 mg tablet Take 2 tablets (100 mg total) by mouth every 8 (eight) hours if needed (pain). Max Daily Amount: 300 mg 174 tablet 025 2024 Active atorvastatin (LIPITOR) 80 mg tablet TAKE 1 TABLET BY MOUTH ONCE DAILY 100 tablet 1 Active atorvastatin (LIPITOR) 80 mg tablet TAKE 1 TABLET BY MOUTH ONCE DAILY 90 tablet 1 025 2024 Discontinued traMADoL (ULTRAM) 50 mg tablet Take 2 tablets (100 mg total) by mouth every 8 (eight) hours if needed (pain) for up to 28 days. Max Daily Amount: 300 mg 168 tablet 025 2024 Discontinued(R eorder) Active Problems Problem Noted Date Diagnosed Date Psoriatic arthritis ([facility] V24, [facility] V28) 0 04/28/2024 Chronic pain syndrome 04/06/2024 Carotid stenosis, right 12/27/2021 Overview (12/31/2023): 50-79% [facility] CARDS Iron deficiency anemia jake ferrari to inadequate dietary iron intake 10/18/2021 Obesity (BMI 30-39.9) 06/24/2020 COPD (chronic obstructive pu lmonary disease) ([facility] V24, [facility] V28) 03/18/2020 Arthritis of right hip 12/31/2019 Aortic atherosclerosis ([facility] V24) 12/17/2018 Chronic bilateral low back pain with sciatica Depression 12/17/2018 Neuropathy 12/17/2018 Osteoarthritis 12/17/2018 Overview (12/31/2023): Cervical, Thoracic, & Lumbosacral Spine, Hips, Knees Vitamin D deficiency 12/17/2018 Atrial fibrillation ([facility] V24, [facility] V28) 0 11/26/2018 Bilateral chronic knee pain [...] 3:30 PM EDT Office Visit Adult Medicine [address] [phone] Nova Dillon MD Arthritis of right hip (Primary Dx); Atrial fibrillation, unspecified type ([facility] V24, [facility] V28); BMI 29.0-29.9,adult 06/30/2024 1:00 PM EDT Office Visit Orthopedic Surgery - [place] [address] [facility] [address] [place] [phone] Vlad Lamb DPM Psoriatic arthritis ([facility] V24, [facility] V28) (Primary Dx); Hammer toe of left foot; Dermatophytosis of nail; Acquired hammer toe of right foot 06/17/2024 9:00 AM EDT Consult Adult Medicine [address] [phone] Jaziel Reno PA Age-related cataract of both eyes, unspecified age-related cataract type (Primary Dx); Hypothyroidism, unspecified type; Hypercholesteremia; Spinal stenosis of lumbar region, unspecified whether neurogenic claudication present from Last 3 Months Immunizations Name Administration Dates Next Due Influenza trivalent, 0.5mL ( Fluzone High-dose) 65yo and older 01/03/2023,12/14/2021,12/18/2019,12/03 Influenza trivalent, with pr eservative (Fluzone; Afluria) 6mo and older 12/20/2021,01/21/2014,01/07/2013,01/15 Influenza, Unspecified 12/03/2018 Moderna (age 6mo & older) Bi valent, COVID-19, 0.5 mL or 0.25 mL dosage 12/20/2021 Innogenetics SARS-CoV-2 COVID-19, mRNA, LNP-S, preservative free 01/03/2023,01/19/2021,06/10/2020 [...] TOTAL HIP; Surgeon: Marcos Velasquez MD; Location: [facility]; Service: Orthopedics; Laterality: Right; COLONOSCOPY PROCEDURE:COLONOSCOPY TOTAL KNEE ARTHROPLASTY 08/2020 Left PROCEDURE:TOTAL KNEE ARTHROPLASTY TOTAL HIP ARTHROPLASTY 10/23/2021 Left PROCEDURE:TOTAL HIP ARTHROPLASTY;COMMENT:Procedure : REPLACEMENT TOTAL HIP; Surgeon: Marcos Velasquez MD; Location: [facility]; Service: Orthopedics; Laterality: Left; OTHER SURGICAL [...] bypass OTHER SURGICAL HISTORY 03/01/2020 Right PROCEDURE: [place] ARTHRP ACETBLR/PROX FEM PROSTC AGRFT/ALGRFT TOTAL KNEE ARTHROPLASTY 09/05/2020 Left PROCEDURE: [place] ARTHRP KNE CONDYLE&PLATU MEDIAL&LAT COMPARTMENTS Medical History Medical History Date Comments Hypertension DX:Hypertension; COMMENT:resolved since bariatric Osteoarthritis DX:Osteoarthriti s A-fib ([facility] V24, [facility] V28) DX:A-fib ([facility]);COMMENT:postoperatively bariatric surgery Sleep apnea DX:Sleep apnea;C OMMENT:NONCOMPLIANT WITH CPAP DUE TO WT. LOSS COPD (chronic obstructive pu lmonary disease) ([facility] V24, [facility] V28) DX:COPD (chronic o bstructive pulmonary disease) ([facility]);COMMENT:Just from hx of smoking no PFTs previous [...] knee pain; COMMENT: Dr Boyce Atrial fibrillation ([facility] V24, [facility] V28) 11/26/2018 DX:Atrial fibrillation ([facility]) GARRETT (obstructive sleep apnea) 10/16/2016 DX :GARRETT (obstructive sleep apnea) Aortic atherosclerosis ([facility] V24) 12/17/2018 DX:Aortic atherosclerosis ([facility]) Osteoarthritis 12/17/2018 DX:Osteoarthriti s; COMMENT: Cervical, Thoracic, [...] DX:Neuropathy COPD (chronic obstructive pu lmonary disease) ([facility] V24, [facility] V28) 03/18/2020 DX:COPD (chronic o bstructive pulmonary disease) ([facility]) HTN (hypertension) 03/18/2020 DX:HTN (hyper tension) Carotid stenosis, right 12/27/2021 DX:Carot id stenosis, right; COMMENT: 50-79% [facility] CARDS Irritable bowel syndrome DX:Irri table bowel syndrome Family History Medical History Relation Name Comments Scleroderma Aunt No Known Problems Brother 1 No Known Problems Brother 2 No Known Problems Brother 3 Other: adrenal tumor Daughter Other: uterine polps Daughter COPD Father Emphysema Father Heart attack Father Heart disease Father OR Hypertension Maternal Grandmother Alzheimer's disease Mother COPD [...] Record ed Within the last 3 months, geovanny tirado many times did you visit the emergency [...] for your loved ones. For example, child guidance counselor or elderly care for an older adult? [...] 09/24/2024 3:10 PM EDT Appointment Radiology Department [address] [address] 10/06/2024 1:00 PM EDT Office Visit Orthopedic Surgery - [place] [address] [phone] Vlad Lamb, DPM [address] [address] 10/07/2024 2:30 PM EDT Office Visit Adult Medicine [facility] [address] [place] [address] Nova Dillon MD [address] [place] [address] 01/05/2025 1:15 PM EDT Office Visit [facility] [address] [place] [phone] Nova Dillon MD [address] [place] [address] Health Maintenance Due Date Last Done Comments [...] this topic Medical Devices Implanted Type Area Clinical Quality Assurance Associate Device Identifier Shelf Expiration Date Model / Serial / Lot Insert Trident 0d E 36mm X3 Acetabular Hip - [id number] Implanted:Qty: 1 on 02/29/2020 by Marcos Velasquez MD Right: Hip [employer] [id number] 01/23/2025 623-00-36E / / [id number] Shell Trident Ii E 52mm Tritanium Acetabular Hip - [id number] Implanted:Qty: 1 on 02/29/2020 by Marcos Velasquez MD Right: Hip [employer] [id number] 11/28/2023 709-04-52E / / [id number] Screw Trident Ii 30mm 6.5mm Low Profile Hexagonal Bone - [id number] Implanted:Qty: 1 on 02/29/2020 by Marcos Velasquez MD Right: Hip [employer] [id number] 10/19/2024 4725-5509 / / [id number] Screw Bone Trident Ii L20 Mm Od6.5 Mm Low Profile Hexa - [id number] Implanted:Qty: 1 on 02/29/2020 by Marcos Velasquez MD Right: Hip [employer] [id number] 06/02/2024 0584-4309 / / [id number] Screw Trident Ii 15mm 6.5mm Low Profile Hexagonal Bone - [id number] Implanted:Qty: 1 on 02/29/2020 by Marcos Velasquez MD Right: Hip [employer] [id number] 08/11/20232745-5479 / / [id number] Stem Accolade Ii 3 132d Femoral - [id number] Implanted:Qty: 1 on 02/29/2020 by Marcos Velasquez MD Right: Hip [employer] [id number] 01/11/2025 0376-6948 / / [id number] Head V40 -2.5mm 36mm Biolox Delta Femoral Hip - [id number] Implanted:Qty: 1 on 02/29/2020 by Marcos Velasquez MD Right: Hip [employer] [id number] 01/09/2025 6570-0-436 / / [id number] Component Triathlon 4 Cruciate Retaining Cemented Femoral - [id number] Implanted:Qty: 1 on 09/05/2020 by Marcos Velasquez MD Left: Knee [employer] [id number] 05/10/2025 5510-F-401 / / [id number] Component Triathlon 8mm 27mm Symmetric X3 Ptlar Knee - [id number] Implanted:Qty: 1 on 09/05/2020 by Marcos Velasquez MD Left: Knee [employer] [id number] 12/02/2023 5550-G-278 / / [id number] Triathlon Cr Insert - Size 4 12mm X3 - [id number] Implanted:Qty: 1 on 09/05/2020 by Marcos Velasquez MD Left: Knee [employer] [id number] 10/30/2022 5530-G-412 -E / / [id number] Baseplate Triathlon 4 Primary Cemented Tibial Knee - [id number] Implanted:Qty: 1 on 09/05/2020 by Marcos Velasquez MD Left: Knee [employer] [id number] 09/16/2023 5520-B-400 / / [id number] Cement Simplex P Radiopaque Full Dose Bone 10 Pack - Implanted:Qty: 1 on 09/05/2020 by Marcos Velaqsuez MD Left: Knee [employer] 12/29/2021 6191-1-010 / / [id number] Cement Simplex P Radiopaque Full Dose Bone 10 Pack - Implanted:Qty: 1 on 09/05/2020 by Marcos Velasquez MD Left: Knee [employer] 12/29/2021 6191-1-010 / / [id number] Fithian V40 Cemented Hip Stem 37.5 Offst 125mm Implanted:Qty: 1 on 10/23/2021 by Marcos Velasquez MD Left: Hip [employer] 04/26/2026 0580-3-371 / / [id number] Tritanium Cluster Hole Shell 52mm Stry-Howm 110-60-59o-[id number] Implanted:Qty: 1 on 10/23/2021 by Marcos Velasquez MD Left: Hip [employer] [id number] 05/17/2026 702-04-52E / / [id number] ++Dnu+Disc Use [id number] Hip Insrt Trident 0d Silvio 36mm Stry-How 490-58-95a-[id number] [id number] Implanted:Qty: 1 on 10/23/2021 by Marcos Velasquez MD Left: Hip [employer] [id number] 09/14/2026 623-00-36E / / [id number] Lp Hex Screw 6.5x30mm Stry-How [id number] 78 Implanted:Qty: 1 on 10/23/2021 by Marcos Velasquez MD Left: Hip [employer] [id number] 08/31/2026 7141-9990 / / [id number] Kit Prep Total Hip Bone Imp [facility] [id number] Implanted:Qty: 1 on 10/23/2021 by Marcos Velasquez MD Left: Hip [facility] [id number] 09/13/2031 [id number] / / [id number] Description:SMALL BONE PLUG USED FROM THE KIT Cement Bone Surg Simplex Radiopq Stry-Howm [id number] 092 Implanted:Qty: 1 on 10/23/2021 by Marcos Velasquez MD Left: Hip [employer] [id number] 10/30/2023 6191-1-010 / / [id number] Cement Bone Surg Simplex Radiopq Strcora-How 4262-2-450-114 092 Implanted:Qty: 1 on 10/23/2021 by Marcos Velasquez MD Left: Hip [employer] [id number] 02/28/2023 6191-1-010 / / [id number] Hip Head Delta Biolox 36mm -5 Medina-Radha [id number] 190 Implanted:Qty: 1 on 10/23/2021 by Marcos Velasquez MD Left: Hip [employer] [id number] 08/17/2026 6570-0-036 / / [id number] Procedures Procedure Name Priority Date/Time Associated Diagnosis Comments DXA BONE DENSITY STUDY 1+ SITS AXIAL SKEL Routine 09/11/2022 2:32 PM EDT Encounter for screening for osteoporosis COLONOSCOPY Routine 02/01/2022 LIPID PANEL Routine 05/19/2021 HEPATITIS C SCREENING Routine 01/15/2013 from Last 3 Months or Most Recently Relevant to Health Maintenance Results * DXA BONE DENSITY STUDY 1+ SITS [...] normal bone density by WHO criteria. [facility] Department of Internal Medicine recommends using National [...] alternative screening schedule based on nikki Freeman., [facility] April 19, 2011 for patients with [...] normal bone density by WHO criteria. [facility] Department of Internal Medicinerecommends using National Osteoporosis [...] FRAX. Optional alternative screening schedule based on maral Freeman al., NEJMJanuary 2011 for patients with osteopenia (based on hip BMD T-score) is as follows: * advanced osteopenia (T scores -2.00 to -2.49), BMD testing every year * moderate osteopenia (T scores -1.50 to -1.99), BMD testing every 5years mild osteopenia or normal BMD (T scores -1.50 and higher), BMD testingevery 15 years Jaziel BROTHERS DXA PROCEDURES Final Resul t * Colonoscopy (02/01/2022) [facility] Colonoscopy no interpretation , abstracted Anatomical Region Laterality Modality Other Historical Provider HEALTH MAINTENANCE Final Result * Lipid panel (05/19/2021) [facility] LDL/HDL Ratio 2 0 - 4 Triglycerides 113 0 - 150 mg/dL Cholesterol 143 0 - 200 mg/dL HDL 77 >=40 mg/dL LDL Cholesterol 44 0 - 100 mg/dL Blood Venous blood specimen / Unknown us Historical Provider LAB BLOOD ORDERABLES Amy l Result * Hepatitis C Screening (01/15/2013) Hepatitis C Screening abstracted us Historical Provider HEALTH MAINTENANCE Final Result from Last 3 Months or Most Recently Relevant to Health Maintenance Insurance [employer] MEDICARE Care Teams Theatrical Rigger Relationship Specialty Start Date End Date Nova Dillon MD [address] [place] [phone] PCP - General Internal Medicine 11/24/18
--- OUTSIDE RECORDS SUMMARY | 2024-08-12 13:43 | XMS_ITS | Encounter Summary ---
Author Organization [facility] Address [address] [place] [address] Care Team Providers Care Community Services Officer Name Role Phone Karin Stephen MD Primary Care Provider UnavailLee Walsh Primary Care Provider Unavail Ronnie Flores Primary Care Provider UnavailLauren Rowe MD Primary Care Provide r Unavailable Luis Antonio Dillon MD Primary Care Provider [phone] [phone] Pernell Hess MD Unavailable Xiao Squires MD Unavailable Unavailable Dayanara Benton MD Unavailable Unavailable Encounter Details Date Type Department Care Team Description 11/05/2011 Night Triage Doc Medical Records [address] [place] [id number] Abstract, Provider Social History Tobacco Use Types [...] any clubs o r organizations such as religion groups, unions, fraternal or athletic groups, or [...] on filedocumented in this encounter Care Teams Community Services Officer Relationship Specialty Start Date End Date Karin Stephen MD PCP - General 10/26/10 01/27/17 Lee Hurst PCP - General Internal Medicine 01/28/17 09/29/18 Ronnie Bianchi PCP - General Internal Medicine 09/30/18 09/30/18 Lauren John MD PCP - General Internal Medicine 10/06/18 11/23/18 Luis Antonio Dillon MD [address] [place], [place] PCP - General Internal Medicine 11/24/18 Pernell Hess MD [address] [place], [place] Internal Medicine 09/12/22 Xiao Perez MD [address] [place], [place] Referring Physician Rheumatology 09/12/22 Dayanara Benton MD [address] [place], [place] Hematology 09/12/22 documented as of this encounter
--- OUTSIDE RECORDS SUMMARY | 2024-08-12 13:43 | XMS_ITS | Encounter Summary ---
Author Organization [facility] Address [address] [place] [address] Care Team Providers Care Washing Tub Operator Name Role Phone Luis Antonio Dillon MD Primary Care Provider [phone] [phone] Pernell Hess MD Unavailable Xiao Squires MD Unavailable Unavailable Dayanara eBnton MD Unavailable Unavailable Encounter Details Date Type Department Care Team Description 04/03/2019 Release of Information Medical Records [address] [place] [address] Abstract, Provider Social History Tobacco Use Types [...] you attend [facility] or synagogue services? Never 01/13/2024 Do you [...] on filedocumented in this encounter Care Teams Washing Tub Operator Relationship Specialty Start Date End Date Luis Antonio Dillon MD [address] [place], [place] PCP - General Internal Medicine 11/24/18 Pernell Hess MD [address] [place] Internal Medicine 09/12/22 Xiao Perez MD [address] [place], [place] Referring Physician Rheumatology 09/12/22 Dayanara Benton MD [address] [place], [place] Hematology 09/12/22 documented as of this encounter
--- OUTSIDE RECORDS SUMMARY | 2024-08-12 13:43 | XMS_ITS | Encounter Summary ---
Author Organization [facility] Address [address] [place] [address] Care Team Providers Care Mechanical Engineering Advisor Name Role Phone Karin Stephen MD Primary Care Provider UnavailLee Walsh Primary Care Provider Unavail Ronnie Flores Primary Care Provider UnavailLauren Rowe MD Primary Care Provide r Unavailable Luis Antonio Dillon MD Primary Care Provider [phone] Pernell Hess MD Unavailable Xiao Squires MD Unavailable Unavailable Dayanara Benton MD Unavailable Unavailable Encounter Details Date Type Department Care Team Description 09/26/2016 Release of Information Medical Records [address] [place] [id number] Abstract, Provider Social History Tobacco Use Types [...] often do you attend chur ch or mandaeism services? Never 01/13/2024 Do you [...] on filedocumented in this encounter Care Teams Mechanical Engineering Advisor Relationship Specialty Start Date End Date Karin Stephen MD PCP - General 10/26/10 01/27/17 Lee Hurst PCP - General Internal Medicine 01/28/17 09/29/18 Ronnie Bianchi PCP - General Internal Medicine 09/30/18 09/30/18 Lauren John MD PCP - General Internal Medicine 10/06/18 11/23/18 Luis Antonio Dillon MD [address] [place], [place] PCP - General Internal Medicine 11/24/18 Pernell Hess MD [address] [place], [place] Internal Medicine 09/12/22 Xiao Perez MD [address] [place], [place] Referring Physician Rheumatology 09/12/22 Dayanara Benton MD [address] [place], [place] Hematology 09/12/22 documented as of this encounter
[2024-08-12 13:51] VITALS: BP 126/68; PULSE 68; BMI 30.2
--- NOTE | 2024-08-12 13:51 | A.OFFVIS_ITS ---
Vital Signs 08/12/24 13:51 Height 5 ft 2 in Weight 165 lb 5.547 oz BMI 30.2 BP 126/68 Blood Pressure Location Lt brachial Position Sitting Pulse 68 Pulse Source Pulse Oximeter Intake Visit Reasons: follow up/echo/holter Allergies NSAIDS (Non-Steroidal Anti-Inflamma Adverse Reaction (Unknown, Verified 05/19/24 14:35) not to take d/t hx of bariatric surg Medication List - Last Reviewed 08/12/24 by Linda Monroe apixaban 5 mg PO BID atorvastatin 80 mg PO DAILY esomeprazole magnesium (Nexium 24HR) 40 mg PO DAILY folic acid 3 mg (3 x 1 mg) PO DAILY gabapentin 600 mg PO TID levothyroxine 125 mcg PO DAILY mecobalamin (vitamin B12) mcg PO DAILY methotrexate sodium 15 mg (6 x 2.5 mg) PO QWEEK 90 days metoprolol succinate ER 50 mg PO DAILY multivitamin 1 tab PO DAILY ondansetron 4 mg PO Q8H PRN semaglutide (Ozempic) 0.25 mg subcut QWEEK tramadol 100 mg PO TID PRN HPI Comments Details: Danelle is back for follow-up regarding atrial fibrillation and carotid disease. To recall, she was initially seen several years ago prior to bariatric surgery for cardiac risk stratification. The surgery itself was uneventful. However, she developed postoperative atrial fibrillation. Then she was started on amiodarone and was also on Arixtra. However, she developed a rectus sheath hematoma, after which the anticoagulation was stopped. Amiodarone was also then stopped. She remained on beta-blockers. Recently, she had palpitations that led to ER visit. It seems that EKG in the ER showed only sinus rhythm but there is a concern if she had any other arrhythmias. She also has chronic dizziness type episodes but that has got no correlation with palpitations. Subsequently, underwent Holter monitoring. That showed atrial fibrillation. Beta-corona dose has been increased. She is also on Eliquis. Palpitations seem improved. [facility] Medical History (Updated 05/19/24 @ 15:11 by Adele Muniz MD) Osteoarthritis of hands, bilateral Positive antinuclear antibody Other and unspecified hyperlipidemia Carotid stenosis, right PAF (paroxysmal atrial fibrillation) Surgical History History of right hip replacement (~01/2020) History of left knee replacement (~09/05/20) History of gastric bypass History of cholecystectomy Family History Father Heart attack Mother No problems noted. Social History Household Members: Spouse and Family Alcohol intake: current Alcohol intake frequency: holidays/special occasions only Patient Tobacco Use Status: Former Tobacco user Review of Systems Const Denies weakness ENT Denies dizziness Card Denies chest pain, Denies chest pain with activity, Denies syncope, Denies rapid heart rate, Denies pedal edema, Denies edema, Denies leg edema, Denies lightheadedness, Reports palpitations, Denies dyspnea, Denies dyspnea on exertion and Denies orthopnea Resp Denies cough, Denies dyspnea and Denies dyspnea on exertion GI Denies hematochezia and Denies change in stool character Musc Denies abnormal gait, Denies muscle cramps, Denies muscle weakness, Denies numbness, Denies radiating pain into limb and Denies tingling Neuro Denies abnormal gait, Denies dizziness, Denies syncope, Denies numbness, Denies tingling and Denies weakness Endo Reports palpitations Physical Exam Vital Signs: Last Vital Signs Pulse 68 08/12/24 13:51 BP 126/68 08/12/24 13:51 BMI result Body Mass Index 30.2 Const General: comfortable and no acute distress Orientation/consciousness: patient oriented x3 HEENT Other: Unremarkable Head: Yes normal to inspection Neck Neck: Yes normal visual inspection Chest Chest palpation & inspection: normal inspection of the chest Resp Auscultation: clear to auscultation bilaterally Cardio Palpation: normal PMI Heart sounds: S1 normal heart sound present, S2 normal heart sound present, no gallops, no murmurs and no rubs GI Palpation (GI): Soft to palpation Back/Spine/Pelvis Other: unremarkable Skin General skin exam: no rashes or lesions noted Neuro General: patient oriented x3 Extrem General: Yes normal to inspection Psych Mental Status: mental status grossly normal Assessment & Plan Assessment & Plan (1) PAF (paroxysmal atrial fibrillation): Code(s): I48.0 - Paroxysmal atrial fibrillation Category: Medical Plan: Recent EKG from the ER shows underlying sinus rhythm with prolonged AR but otherwise unremarkable. In the Holter monitor, underlying flutter/fibrillation with a burden of about 7%. Longest episode was 3 hours and 58 minutes with the fastest rate of 163/Min. Average ventricular rate during sinus was 74/Min. We recently increased the beta-corona dosing and she feels fine with it. No changes. Continue anticoagulation. She has had a history of rectus sheath hematoma with the anticoagulated several years ago. Currently, has minor bruising but nothing extensive. If indeed she gets recurring bleeding/bruising, then consider Watchman device. We discussed about that as well today. (2) First degree atrioventricular block: Code(s): I44.0 - Atrioventricular block, first degree Category: Medical Plan: May follow on EKGs. (3) Carotid stenosis, right: Code(s): I65.21 - Occlusion and stenosis of right carotid artery Category: Medical Plan: Carotid ultrasound from 2023 shows minimal, 0-49% stenosis bilaterally. Study from 2022-moderate stenosis in the right side and minimal on the left side Orders: Orders ECG 7 day holter monitor 6 Months I48.0 - Paroxysmal atrial fibrillation, R00.2 - Palpitations Coding Level of Care Code Est Pt Level 4 (25304) Complex EM visit Add On G2211 Diagnoses PAF (paroxysmal atrial fibrillation) I48.0 First degree atrioventricular block I44.0 Carotid stenosis, right I65.21
== END 2024-08-12 14:16 | disposition home or self-care (01) ==
LOC: HO.HCS 13:37
PROVIDERS: PCP Internal Medicine; Visit Provider Internal Medicine
DX: I48.0 Paroxysmal atrial fibrillation (principal); I44.0 Atrioventricular block, first degree; I65.21 Occlusion and stenosis of right carotid artery
CPT/HCPCS: 99214; G2211

== ENCOUNTER → 2024-08-12 13:36 | Outpatient (BNVA) | payer MEDICARE, SELFPAY | PROVIDERS: PCP Internal Medicine; Visit Provider Internal Medicine | DX: I48.0 Paroxysmal atrial fibrillation (principal); I44.0 Atrioventricular block, first degree; I65.21 Occlusion and stenosis of right carotid artery; R00.2 Palpitations | CPT/HCPCS: 99212 ==

== ENCOUNTER 2024-09-17 12:27 | Outpatient (REF) | payer MEDICARE, SELFPAY ==
[2024-09-17 12:56] LABS: MANUAL DIFF FLAG NO
[2024-09-17 13:19] LABS: Basophils Percent Auto 0.5 % (0-2); Eosinophils Absolute Auto 0.1 X10*3/uL (0.0-0.4); Eosinophils Percent Auto 2.3 % (0-4); Hematocrit 40.9 % (37.0-47.0); Hemoglobin 12.9 g/dl (12.0-16.0); Imm Gran Abs Auto 0.02 X10*3/uL (0.00-0.03); Imm Gran Pct Auto 0.5 % (0.0-0.4); Lymphocytes Absolute Auto 1.3 X10*3/uL (1.2-4.9); Lymphocytes Percent Auto 29.7 % (20-40); Mean Corpuscular HGB Conc 31.5 g/dl (31.0-35.0); Mean Corpuscular Hemoglobin 30.5 pg (27.0-33.0); Mean Corpuscular Volume 96.7 fL (80.0-98.0); Mean Platelet Volume 10.3 fL (9.4-12.3); Monocytes Absolute Auto 0.4 X10*3/uL (0.1-1.2); Monocytes Percent Auto 8.2 % (2-11); Neutrophils Absolute Auto 2.5 x10*3/uL (2.0-8.3); Neutrophils Percent Auto 58.8 % (45-73); Platelet Count 176 X10*3/uL (160-400); Red Blood Count 4.23 X10*6/uL (4.20-5.50); Red Cell Distribution Width 15.9 % (11.0-16.0); White Blood Count 4.3 X10*3/uL (4.8-10.8)
--- OUTSIDE RECORDS SUMMARY | 2024-09-17 13:35 | XMS_ITS | Data Portability ---
Author Organization [place] [facility] Markell Ibanez [facility] [place] Address [address] [place] [address] Assessment Encounter Date Assessment Date Assessment LastModified by Organization Details LastModified Time 11/09/2022 11/09/2022 HPI : Patient is here for 1 year follow-up [...] with the outcome in all 3 joints. Overall,. Patient reports good pain relief in the hip and knee and satisfactory nondenominational of function in terms of activities of [...] work on hip and knee conditioning exercises. Tfhe-nax-rvbzifn medications as needed. Ultimate failure may occur [...] XR, knee, 3 view 023 11/10/19 [address] [place] [address] [facility], [address], [place], [address], 3 08:49:22 XR, hip, unilat eral, 2 or 3 view 023 11/10/19 23 [place] [address] [facility], [address], [place], [address], 3 08:49:22 Medication Orders None record ed. [...] mg tablet,exten ded release 24 hr TAKE /2 TABLET BY MOUTH EVERY DAY active Not [...] SNOMED-CT Code Diagnosis ICD10 Code Diagnosis Note [id number] Marcos Velasquez MD [facility]OT[facility] [address] [address] 11/09/2022 08:14:47 11/09/2022 08:49:21 History of total replacement of left hip joint [id number] Z96.642 History of left total knee replacement [id number] Z96.652 Aftercare [id number] Z47. 1 Health Concerns Section Related Observation LastModified by Organization Detai ls LastModified Time None Recorded Concern Status LastModified by Organization Details LastModified Time None Recorded Advance Directives Directive None Recorded Payers None recorded. OBGyn Episode No OBEpisode recorded.
[2024-09-17 14:12] LABS: Erythrocyte Sedimentation Rate 18 MM/HR (0-20)
[2024-09-17 14:26] LABS: Alanine Aminotransferase 16 U/L (0-31); Albumin Level 4.1 g/dL (3.5-5.0); Alkaline Phosphatase 53 U/L (39-117); Anion Gap 11 (12-20); Aspartate Amino Transferase 23 U/L (5-31); Bilirubin Total 0.7 mg/dL (0.0-1.0); Blood Urea Nitrogen 13 mg/dL (9-16); C Reactive Protein < 0.10 mg/dL (< or = 0.50); Calcium 9.8 mg/dL (8.4-10.2); Carbon Dioxide 30 mmol/L (22-29); Chloride 105 mmol/L (96-108); Estimated Glomerular Filt Rate > 60; Glucose Random 82 mg/dL (60-115); Iron 47 mcg/dL (30-160); Percent Iron Saturation 15 % (15-50); Potassium 4.4 mmol/L (3.3-5.1); Sodium 142 mmol/L (135-145); Total Iron Binding Capacity 321 mcg/dL (228-428); Total Protein 6.7 g/dL (6.5-8.0); Unsaturated Iron Binding 274 ug/dL
[2024-09-17 14:47] LABS: Ferritin 13 ng/mL (10-250)
[2024-09-18 08:15] LABS: HBS Num1 1.55 mIU/mL (0-7.99); HBc Num1 0.07 S/CO (0.00-0.79); HBsAGNum1 0.36 S/CO (0.00-0.99); Hepatitis A Antibody IgM 0.18 Index (0-0.79); Hepatitis B Core Antibody Nonreactive (Nonreactive); Hepatitis B Surface Antigen Negative (Negative); ~HepC Num1 0.09 S/CO (0.00-0.79); ~Hepatitis A Antibody IgM Nonreactive (Nonreactive); ~Hepatitis B Surface Antibody NONREACTIVE (Nonreactive); ~Hepatitis C Antibody Nonreactive (Nonreactive)
[2024-09-18 17:04] LABS: Transferrin 296 mg/dL (188-341)
[2024-09-19 22:23] LABS: TS Negative Control Passed; TS Panel A 0; TS Panel B 0; TS Positive Control Passed; TSpotTB Negative (Negative)
== END 2024-09-17 12:28 | disposition home or self-care (01) ==
LOC: HO.LAB 12:27
PROVIDERS: PCP Internal Medicine; Visit Provider Student in an Organized Health Care Education/Training Program
DX: L40.50 Arthropathic psoriasis, unspecified (principal); Z79.631 Long term (current) use of antimetabolite agent
CPT/HCPCS: 36415; 80053; 82728; 83540; 84466; 85025; 85652; 86140; 86481; 86704; 86706; 86709; 86803; 87340

== ENCOUNTER 2024-09-22 12:46 | Outpatient (AMB) | payer MEDICARE, SELFPAY ==
--- NOTE | 2024-09-22 12:49 | MHC.OFFVIS ---
Vital Signs 09/22/24 12:55 Height 5 ft 2 in Weight 150 lb 2.157 oz BMI 27.5 BP 120/64 Blood Pressure Location Rt brachial Position Sitting Respiration 16 Pulse 69 Pulse Source Pulse Oximeter Pulse Oximetry (%) 98 Oxygen Delivery Method Room Air Intake Visit Reasons: PsA Intake Note: Patient presents for PsA follow up. Allergies NSAIDS (Non-Steroidal Anti-Inflamma Adverse Reaction (Unknown, Verified 09/22/24 12:54) not to take d/t hx of bariatric surg HPI Comments Details: Patient is a 74-year-old female with hypertension complicated by carotid stenosis, paroxysmal atrial fibrillation, hyperlipidemia, GERD, hypothyroidism, polyarticular osteoarthritis (hands, hips s/p bilateral hip replacement and knees s/p left knee replacement) and psoriatic arthritis here today for follow up Interval History: Patient last seen 05/19/24 with me. At that time she was following up for her polyarticular osteoarthritis and psoriatic arthritis. She was doing well with improved trigger finger after injection noting pain over the Heberden nodes in her hands. No changes were made to her medication at that time and she was recommended a paraffin wax bath for her hand OA. Today, Doing well Complaining of left thumb triggering Rheumatologic History: dx 09/2022 MTX 10/21 effective lowered to 15 mg 11/2022 due to transamintis increased to 20 mg 03/2023 due to flare lowered to 15 mg again 09/2023 due to transaminitis Initial history: This is a 72 year old female who presents for evaluation of left hand pain. Back in 2019 patient was evaluated by Gurjit Montoya at [place] for trigger finger of her left 2nd and 3rd fingers, she received cortisone injections with significant improvement. Over the last year patient has been having pain and stiffness of her left hand. Occasional pain and stiffness of her ankles. Patient takes Tylenol with some relief, she takes tramadol for her back pain. She denies any fevers, weight loss, joint swelling. Denies fever few years no history of DVT/PE Current Rheumatology Medication(s): Methotrexate 15 mg weekly Folic acid 3 mg daily [facility] Medical History (Updated 05/19/24 @ 15:11 by Adele Muniz MD) Osteoarthritis of hands, bilateral Positive antinuclear antibody Other and unspecified hyperlipidemia Carotid stenosis, right PAF (paroxysmal atrial fibrillation) Surgical History History of right hip replacement (~01/2020) History of left knee replacement (~09/05/20) History of gastric bypass History of cholecystectomy Family History Father Heart attack Mother No problems noted. Social History Household Members: Spouse and Family Alcohol intake: current Alcohol intake frequency: holidays/special occasions only Patient Tobacco Use Status: Former Tobacco user Review of Systems Const Details: Review of Systems Constitutional: Denies fever, chills, weight loss ENT: Denies vision changes, eye pain or eye redness, dental caries, dry mouth GI: Denies nausea, vomiting, diarrhea, abdominal pain, change in BM Pulm: Denies SOB, GUERIN, hemoptysis, wheezing Cards: Denies chest pain, palpitations Skin: Denies Raynaud's, rash, nail changes, photosensitivity, ABALONE DIVER: Denies headaches, weakness, paresthesias, recurrent falls MSK: as per HPI All other systems reviewed and are unremarkable except noted above Physical Exam Vital Signs: Last Vital Signs Pulse 69 09/22/24 12:55 Resp 16 09/22/24 12:55 BP 120/64 09/22/24 12:55 Pulse Ox 98 09/22/24 12:55 Oxygen Delivery Method Room Air 09/22/24 12:55 BMI result Body Mass Index 27.5 Vital signs reviewed Physical Examination CONSTITUITIONAL Patient alert and cooperative. Well appearing and in no apparent painful distress HEENT Conjunctiva and sclera clear. ?Pupils equal round and reactive to light. ?No lymphadenopathy. ? CHEST/RESPIRATORY SYSTEM Normal respiratory effort and able to speak in complete sentences. ?Clear to auscultation bilaterally. ?No crackles, rales, rhonchi, wheezes heard. CARDIAC SYSTEM Regular rate and rhythm. ?S1 and S2 heard no murmurs. ?Radial pulses intact bilaterally MSK Hands: ?Good launch steward strength bilaterally. No deformities noted. ?No synovitis noted to the MCPs, PIPs or DIPs. ?No tenderness to palpation of these joints. Prominent Heberden nodes TTP of the A1 gonzalez of the thumb Wrists: ?Full range of motion at the wrists without pain. ?No tenderness to palpation or synovitis noted to the wrists. Elbows: Full range of motion without pain. No tenderness, weakness, swelling, increased warmth or erythema. Shoulders: Full range of motion without pain. No tenderness, weakness, swelling, increased warmth or erythema. Hips: Full range of motion without pain. Hip bursa: No tenderness to palpation Knees: ?Full range of motion. ?No tenderness, swelling, increased warmth or erythema.? Crepitation of the right knee felt Ankles: Full range of motion. ?No tenderness, swelling, increased warmth or erythema.? Feet: ?Negative squeeze test. ?No tenderness to palpation or swelling of the MTPs. Tender points:?No tenderness to palpation of the bilateral trapezius, supraspinatus, greater trochanters, anterior costochondral junctions, bilateral gluteal areas, bilateral suboccipital muscle insertions SKIN Skin intact without rashes. Results Reviewed Results Reviewed: Laboratory Tests 09/17/24 09/17/24 12:46 12:53 WBC 4.3 L RBC 4.23 Hgb 12.9 Hct 40.9 Plt Count 176 D ESR 18 Sodium 142 Potassium 4.4 Chloride 105 Carbon Dioxide 30 H BUN 13 Creatinine 0.59 AST 23 ALT 16 Alkaline Phosphatase 53 C-Reactive Protein < 0.10 Rheumatology labs 07/24/22 14:01 Rheumatoid Factor < 13.0 Cycl Citrul Peptide IgG <16 SS-A/Ro Antibody <1.0 NEG SS-B/La Antibody <1.0 NEG Sm (Dodson) Antibody <1.0 NEG U1 snRNA A Antibody <11 U1 snRNA C Antibody <11 U1 snRNA 70kD Antibody <11 SM/HEALTH PROMOTION EDUCATOR IgG Antibody <1.0 NEG Scl-70 Scleroderma Ab <11 A-PM Scleroderma 75 Ab <11 A-PM Scleroderma 100 Ab <11 Double Strand DNA Ab <1 Anti-ds DNA (Crithidia) Negative Th/To HEALTH PROMOTION EDUCATOR Ab <11 U3-HEALTH PROMOTION EDUCATOR (Fibrillarin) Ab <11 RNA Polymerase III RP11 Ab <11 RNA Polymerase III RP155 Ab <11 Centromere B Antibody <11 Centromere Protein A Ab <11 Complement C3 146 Complement C4 27 XR Bilateral Hands 06/2022 FINDINGS: RIGHT HAND: No fracture or dislocation. Moderate degenerative changes of the first metacarpophalangeal joint with loss of joint space and subchondral cystic change. Mild negative ulnar variance. Ankylosis of the fifth DIP joint with hypertrophic changes. Bony proliferation noted along the fourth DIP joint with loss of joint space involving the second through third DIP joints. No cortical erosion. Soft tissues are unremarkable. LEFT HAND: No fracture or dislocation. Mild negative ulnar variance. Ankylosis of the fifth DIP joint. Moderate degenerative changes of the first carpometacarpal joint with subchondral sclerosis and loss of joint space. Loss of distal interphalangeal joint space with some bony proliferation noted along the second DIP joint and a marginal cortical erosion. Soft tissues are unremarkable. IMPRESSION: Loss of distal interphalangeal joint space with ankylosis of the of the fifth distal interphalangeal joints bilaterally, with some demonstrating bony proliferation and a single marginal cortical erosion along the left second PIP joint. Findings could be seen in the setting of erosive arthropathy including psoriatic arthritis or reactive arthritis, however is not the typical distribution for rheumatoid arthritis. Mild negative ulnar variance bilaterally. Moderate degenerative changes of the first metacarpophalangeal joints bilaterally. Assessment & Plan Assessment & Plan (1) Psoriatic arthritis: Comment: dx 09/2022 MTX 10/21 effective lowered to 15 mg 11/2022 due to transamintis increased to 20 mg 03/2023 due to flare lowered to 15 mg again 09/2023 due to transaminitis Code(s): L40.50 - Arthropathic psoriasis, unspecified Category: Medical Plan: #PsA Patient is a 73-year-old female with psoriatic arthritis currently in remission. Doing well on methotrexate and tolerating Plan - Methotrexate 15mg every week - Folic acid 3 mg daily - RTC 4 months - Labs before visit: CBC, CMP, ESR, CRP, hepatitis panel, T spot (2) Osteoarthritis of hands, bilateral: Code(s): M19.041 - Primary osteoarthritis, right hand; M19.042 - Primary osteoarthritis, left hand Category: Medical Qualifiers: Osteoarthritis type: primary Qualified Code(s): M19.041 - Primary osteoarthritis, right hand; M19.042 - Primary osteoarthritis, left hand Plan: #Bilateral hand OA Patient with prominent Heberden's nodes and x-rays shown on phone consistent with degenerative/osteoarthritis of the hands. 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 Limit alcohol and avoid Bactrim ? Monitoring: ?CBC, BMP, LFTs every 3-4 months and hepatitis serologies as needed Plan I spent 32 minutes reviewing the record and labs, taking a history, examining the patient, discussing the treatment plan and documenting in the medical record Coding Level of Care Code Est Pt Level 4 (68335) Complex EM visit Add On G2211 Diagnoses Psoriatic arthritis L40.50 Primary osteoarthritis of both hands M19.041; M19.042 Osteoarthritis type: primary custodial methotrexate user Z79.631
[2024-09-22 12:55] VITALS: BP 120/64; PULSE 69; RESP 16; O2SAT 98; BMI 27.5
== END 2024-09-22 13:38 | disposition home or self-care (01) ==
LOC: HO.RHE 12:47
PROVIDERS: PCP Internal Medicine; Visit Provider Student in an Organized Health Care Education/Training Program
DX: L40.50 Arthropathic psoriasis, unspecified (principal); M19.041 Primary osteoarthritis, right hand; M19.042 Primary osteoarthritis, left hand; Z79.631 Long term (current) use of antimetabolite agent
CPT/HCPCS: 99214; G2211

== ENCOUNTER → 2024-09-22 12:46 | Outpatient (BNVA) | payer MEDICARE, SELFPAY | PROVIDERS: PCP Internal Medicine; Visit Provider Student in an Organized Health Care Education/Training Program | DX: M19.042 Primary osteoarthritis, left hand (principal); L40.50 Arthropathic psoriasis, unspecified; M19.041 Primary osteoarthritis, right hand; Z79.631 Long term (current) use of antimetabolite agent | CPT/HCPCS: 99212 ==

== ENCOUNTER → 2024-12-30 13:09 | Outpatient (REF) | payer MEDICARE, SELFPAY ==
--- NOTE | 2024-12-30 13:12 | HM_ITS ---
* Total monitoring time 7 days. * Underlying rhythm is sinus with an average rate of 75/Min. * Supraventricular ectopy noted with a burden of 1.2%. Short atrial runs. One episode lasted for about 3 hours during sleep hours, but the ventricular rate is 87/Min. Possible accelerated junctional rhythm. * Rare ventricular ectopy. * No significant pauses or high-grade AV blocks. * Patient markers correlate with supraventricular and ventricular ectopy. * 'Vertigo' in patient diary correlates with supraventricular and ventricular ectopy. MTDD
--- OUTSIDE RECORDS SUMMARY | 2024-12-30 14:25 | XMS_ITS | Encounter Summary ---
Author Organization [facility] Address [address] [place] [address] Phone Care Team Providers Care Frame Feeder Name Role Phone Ronnie Bianchi MD Primary Care Provider Nova Dillon MD Primary Care Pr ovider Encounter Details Date Type Department Care Team (Late st Contact Info) Description 06/10/2020 Ancillary Orders Virtual Department [address] [place] [address] Nova Dillon MD [address] [place] [address] Breast screening Social History Tobacco Use Types Packs/Day Years Used Date Smoking Tobacco: Former Cigarettes 2 23 1 968 - 1990 Smokeless Tobacco: Never Alcohol Use Standard Drinks/Week Comments No 0 (1 standard drink = 0.6 oz pur e alcohol) Comments No Sex and Gender Information Value Date Recorded Sex Assigned at Not on file Legal Sex Female 10:03 PM EDT Gender Identity Not on file Sexual Orientation Not on file documented as of this encounter Plan of Treatment Not on file documented as of this encounter Results * BI MAMMOGRAM SCREENING WITH TOMOSYNTHESIS WITH CAD (BILATERAL) (06/16/2020 1:10 PM EDT) Anatomical Region Laterality Modality Breast Left, Breast Right, Breast Bilateral Bila teral Mammography 06/16/2020 4:10 PM EDT Impressions 06/16/2020 6:14 PM EDT BILATERAL BREASTS: Negative, no evidence of malignancy. Normal interval follow- up is recommended in 12 months. Bi-RADS: BI-RADS CATEGORY: 1 - Negative. DENSITY: There are scattered fibroglandular densities. Narrative 06/16/2020 6:14 PM EDT STUDY: Bilateral screening mammography with tomosynthesis and CAD TECHNIQUE: Bilateral full-field digital screening mammography is obtained and read in conjunction with computer-aided detection. Tomosynthesis as well as 2-D C view imaging were obtained. COMPARISON: Comparison made to August 13, 2018 BREAST COMPOSITION: There are scattered areas of fibroglandular density BILATERAL BREASTS: No significant masses, suspicious calcifications or other abnormalities are seen. Procedure Note Beverly Guzmán MD - 06/16/2020 STUDY: Bilateral screening mammography with tomosynthesis and CAD TECHNIQUE: Bilateral full-field digital screening mammography is obtainedand read in conjunction with computer-aided detection. Tomosynthesis aswell as 2-D C view imaging were obtained. COMPARISON: Comparison made to August 13, 2018 BREAST COMPOSITION: There are scattered areas of fibroglandulardensity BILATERAL BREASTS: No significant masses, suspicious calcifications orother abnormalities are seen. IMPRESSION: BILATERAL BREASTS: Negative, no evidence of malignancy. Normal intervalfollow-up is recommended in 12 months. Bi-RADS: BI-RADS CATEGORY: 1 - Negative. DENSITY: There are scattered fibroglandular densities. Nova Dillon MD IMG MG EXAMS Final Result documented in this encounter Visit Diagnoses Diagnosis Breast screening Breast screening, unspecified Breast screening Breast screening, unspecified documented in this encounter Care Teams Frame Feeder Relationship Specialty Start Date End Date Ronnie Bianchi MD [address] [place] [address] [place] [address] PCP - General Internal Medicine 06/03/18 06/15/20 Nova Dillon MD [address] [place] [address] PCP - General Internal Medicine 06/16/20 documented as of this encounter Additional Source Comments The information contained in this document represents components of the legal health record. It is not the complete legal health record.[facility]
--- OUTSIDE RECORDS SUMMARY | 2024-12-30 14:25 | XMS_ITS | Encounter Summary ---
Author Organization [facility] Address [address] [place] [address] Phone Care Team Providers Care Astronomy Instructor Name Role Phone Lee Hurst MD Primary Care Provider Ronnie Bianchi MD Primary Care Provider [phone] Nova Dillon MD Primary Care Pr ovider Encounter Details Date Type Department Care Team (Late st Contact Info) Description 06/10/2017 Ancillary Orders Virtual Department [address] [place] [address] Lee Hurst MD [address] [place] [address] Breast screening Social History Tobacco Use Types Packs/Day Years Used Date Smoking Tobacco: Never Assessed Comments Unknown Sex and Gender Information Value Date Recorded Sex Assigned at Not on file Legal Sex Female 10:03 PM EDT Gender Identity Not on file Sexual Orientation Not on file documented as of this encounter Plan of Treatment Not on file documented as of this encounter Results * BI MAMMOGRAM SCREENING WITH TOMOSYNTHESIS WITH CAD (BILATERAL) (07/16/2017 2:32 PM EDT) Anatomical Region Laterality Modality Breast Left, Breast Right, Breast Bilateral Bila teral Mammography 07/16/2017 5:00 PM EDT Impressions 07/16/2017 5:07 PM EDT No mammographic signs of malignancy. Annual screening is recommended. BI-RADS CATEGORY: 2 - Benign finding. DENSITY: There are scattered fibroglandular densities. POS - [id number] Narrative 07/16/2017 5:07 PM EDT Bilateral mammography is performed in conjunction with computed aided detection. 3-D tomography along with 2-D C view imaging was also performed. Comparison made to previous dated as far back as 02/12/2011 and as recent as 07/02/16. No suspicious masses, areas of architectural distortion or suspicious microcalcifications. Subcentimeter intramammary lymph node in the posterior upper outer left breast is stable. Procedure Note Fuad Aggarwal MD - 07/16/2017 Bilateral mammography is performed in conjunction with computed aideddetection. 3-D tomography along with 2-D C view imaging was alsoperformed. Comparison made to previous dated as far back as 02/12/2011 andas recent as 07/02/16. No suspicious masses, areas of architectural distortion or suspiciousmicrocalcifications. Subcentimeter intramammary lymph node in theposterior upper outer left breast is stable. IMPRESSION: No mammographic signs of malignancy. Annual screening is recommended. BI-RADS CATEGORY: 2 - Benign finding. DENSITY: There are scattered fibroglandular densities. POS - CDHMAMA Lee Hurst MD IMG MG EXAMS Final R esult documented in this encounter Visit Diagnoses Diagnosis Breast screening Breast screening, unspecified Breast screening Breast screening, unspecified documented in this encounter Care Teams Astronomy Instructor Relationship Specialty Start Date End Date Lee Hurst MD [address] [place] [address] [address] [place] [address] PCP - General Pulmonary Disease 06/10/17 06/02/18 Ronnie Bianchi MD [address] [place] [address] [address] [place] [address] PCP - General Internal Medicine 06/03/18 06/15/20 Nova Dillon MD [address] [place] [address] PCP - General Internal Medicine 06/16/20 documented as of this encounter Additional Source Comments The information contained in this document represents components of the legal health record. It is not the complete legal health record.[facility]
--- OUTSIDE RECORDS SUMMARY | 2024-12-30 14:25 | XMS_ITS | Encounter Summary ---
Author Organization [facility] Address [address] [place] [address] Phone Care Team Providers Care Fabrication Mig Welder Name Role Phone Ronnie Bianchi MD Primary Care Provider [phone] Nova Dillon MD Primary Care Pr ovider Encounter Details Date Type Department Care Team (Late st Contact Info) Description 06/10/2020 Procedure Pass [facility], [address] [address] Social History Tobacco Use Types Packs/Day Years [...] on filedocumented in this encounter Care Teams Fabrication Mig Welder Relationship Specialty Start Date End Date Ronnie Bianchi MD [address] [place] [address] [place] [address] PCP - General Internal Medicine 06/03/18 06/15/20 Nova Dillon MD [address] [place] [address] PCP - General Internal Medicine 06/16/20 documented as of this encounter Additional Source Comments The information contained in this document represents components of the legal health record. It is not the complete legal health record.[facility]
--- OUTSIDE RECORDS SUMMARY | 2024-12-30 14:25 | XMS_ITS | Encounter Summary ---
Author Organization [facility] Address [address] [place] [phone] Phone Care Team Providers Care Plaster Maker Name Role Phone Ronnie Bianchi MD Primary Care Provider [phone] Nova Dillon MD Primary Care Pr ovider Encounter Details Date Type Department Care Team (Late st Contact Info) Description 06/03/2018 Ancillary Orders Virtual Department [address] [place] [address] Ronnie Bianchi MD [address] [place] [address] [address] Breast screening Social History Tobacco Use Types [...] MAMMOGRAM SCREENING WITH TOMOSYNTHESIS WITH CAD (BILATERAL) (08/13/2018 12:50 PM EDT) Anatomical Region Laterality Modality Breast Left, Breast Right, Breast Bilateral Bila teral Mammography 08/13/2018 1:1 4 PM EDT Impressions 08/13/2018 1:18 PM EDT No mammographic evidence of malignancy. Recommend routine annual surveillance. BI-RADS CATEGORY: 2 - Benign finding. DENSITY: There are scattered fibroglandular densities. POS - [id number] Narrative 08/13/2018 1:18 PM EDT 68-year-old female with no current breast symptoms. Comparison made to previous on 07/16/2017 and as far back as 02/29/2012. Interpretation made in conjunction with computer-aided detection and tomosynthesis. There are scattered areas of fibroglandular density. Stable left upper outer quadrant lymph node. There are no suspicious masses, areas of architectural distortion, or suspicious clusters of microcalcifications. Procedure Note Jyotsna Mckenna MD - 08/13/2018 68-year-old female with no current breast symptoms. Comparison made toprevious on 07/16/2017 and as far back as 02/29/2012. Interpretation madein conjunction with computer-aided detection and tomosynthesis. There are scattered areas of fibroglandular density. Stable left upperouter quadrant lymph node. There are no suspicious masses, areas of architectural distortion, orsuspicious clusters of microcalcifications. IMPRESSION: No mammographic evidence of malignancy. Recommend routine annualsurveillance. BI-RADS CATEGORY: 2 - Benign finding. DENSITY: There are scattered fibroglandular densities. POS - [id number] Ronnie Bianchi MD IMG MG EXAMS Final Result documented in this encounter Visit Diagnoses Diagnosis Breast screening Breast screening, unspecified Breast screening Breast screening, unspecified documented in this encounter Care Teams Plaster Maker Relationship Specialty Start Date End Date Ronnie Bianchi MD [address] [place] [address] [place] [address] PCP - General Internal Medicine 06/03/18 06/15/20 Nova Dillon MD [address] [place] [address] PCP - General Internal Medicine 06/16/20 documented as of this encounter Additional Source Comments The information contained in this document represents components of the legal health record. It is not the complete legal health record.[facility]
--- OUTSIDE RECORDS SUMMARY | 2024-12-30 14:25 | XMS_ITS | Encounter Summary ---
Author Organization [facility] Address [address] [place] [address] Phone Care Team Providers Care Research And Development Scientist Name Role Phone Lee Hurst MD Primary Care Provider Ronnie Bianchi MD Primary Care Provider [phone] Nova Dillon MD Primary Care Pr ovider Encounter Details Date Type Department Care Team (Late st Contact Info) Description 05/13/2018 Procedure Pass OR Admitting Dept - Virtual Department [address] [place] [address] Social History Tobacco Use Types Packs/Day Years Used Date Smoking Tobacco: Former Cigarettes 2 23 1 968 - 1991 Smokeless Tobacco: Never Alcohol Use Standard Drinks/Week [...] this encounter Care Teams Research And Development Scientist Relationship Specialty Start Date End Date Lee Hurst MD [address] [place] [address] Drive [address] [place] [address] PCP - General Pulmonary Disease 06/10/17 06/02/18 Ronnie Bianchi MD [address] [place] [address] [place] [address] PCP - General Internal Medicine 06/03/18 06/15/20 Nova Dillon MD [address] [place] [address] PCP - General Internal Medicine 06/16/20 documented as of this encounter Additional Source Comments The information contained in this document represents components of the legal health record. It is not the complete legal health record.[facility]
--- OUTSIDE RECORDS SUMMARY | 2024-12-30 14:25 | XMS_ITS | Clinical Summary ---
Author Organization [facility] Address [address] [place] [address] Phone Care Team Providers Care Environmental Health Officer Name Role Phone Nova Dillon MD Primary Care Pr ovider Allergies No known active allergies Medications levothyroxine (SYNTHROID, LEVOTHROID) 112 MCG tablet Take 112 mcg by mouth every morning. Active pantoprazole (PROTONIX) 40 MG tablet Take 40 mg by mouth daily. Active metoprolol succinate (TOPROL-XL) 25 MG 24 hr tablet Take 12.5 mg by mouth daily. Active rOPINIRole (REQUIP) 0.5 MG tablet Take 0.5 mg by mouth 3 (three) times a day. Active cyanocobalamin 100 MCG tablet Take 100 mcg by mouth daily. Active cyanocobalamin (VIT B-12) 1000 MCG tablet Take 100 mcg by mouth daily. Active zinc sulfate 220 mg Tab Take 220 mg by mouth daily. Active therapeutic multivitamin tablet Take 1 tablet by mouth daily. Active calcium citrate-vitamin D3 (CITRACAL+D) 950 mg (200 mg elemental)-250 units Tab Take 1 tablet by mouth 2 (two) times a day with meals. Active vitamin A 60919 UNIT capsule Take 10,000 Units by mouth daily. Active bimatoprost (LATISSE) 0.03 % ophthalmic solution 1 drop to affected area 5 mL 5 8 Active Active Problems Problem Noted Date Diagnosed Date Abdominal pannus 12/23/2017 Family History Medical History Relation Comments COPD Father Heart disease Father Hypertension Mother Breast cancer Neg Hx Relation Status Comments Father Mother Social History Tobacco Use Types Packs/Day Years Used Date Smoking Tobacco: Former Cigarettes 2 23 1 968 - 1991 Smokeless Tobacco: Never Alcohol Use Standard Drinks/Week Comments No 0 (1 standard drink = 0.6 oz pur e alcohol) Education Answer Date Recorded Are you interested in more education? Not on serene e 07/27/2022 Are you concerned about learning? Not on file 07/27/2022 No 07/27/2022 No 07/27/2022 Digital Access Answer Date Recorded No 08/25/2022 No 08/25/2022 Reliable internet access at home? Not on file 08/25/2022 Device with a working camera? Not on file Comments No Sex and Gender Information Value Date Recorded Sex Assigned at Not on file Legal Sex Female 10:03 PM EDT Gender Identity Not on file Sexual Orientation Not on file Last Filed Vital Signs Vital Sign Reading Time Taken Comments Blood Pressure 118/48 12/23/2017 1:11 PM EDT Pulse 60 12/23/2017 1:11 PM EDT Temperature - - Respiratory Rate - - Oxygen Saturation - - Inhaled Oxygen Concentration - - Weight 69.4 kg (153 lb) 12/23/2017 1:11 PM EDT Height 159.4 cm (5' 2.75 ) 12/23/2017 1:11 PM ED T Body Mass Index 27.32 12/23/2017 1:11 PM EDT Plan of Treatment Health Maintenance Due Date Last Done Comments LIPID PANEL 1949 TSH LEVEL 1949 DEPRESSION SCREENING 1961 SMOKING Hx and SMOKELESS TOBACCO SCREENING 1962 HEPATITIS C SCREENING 07/05/1967 COLOGUARD 1994 COLONOSCOPY 1994 COLORECTAL CANCER SCREENING 1994 FIT TEST 1994 FOBT 1994 SIGMOIDOSCOPY 1994 VIRTUAL COLONOSCOPY 1994 OSTEOPOROSIS SCREENING INITIAL (ONE-TIME) 2014 ZOSTER VACCINES (2 of 2) 11/09/2018 09/14/2018 Adult Td,Tdap Booster 02/05/2021 02/05/2011 RSV VACCINE (1 - 1-dose 75+ series) 2024 INFLUENZA VACCINE (#1) 2024 0, 01/21/2014, 01/07/2013, Additional history exists COVID-19 VACCINE ( season) 2024 05/03/2020 PNEUMOCOCCAL VACCINES (50+ years) Completed 06/14/2016, 11/15/2014 HEPATITIS A VACCINES Aged Out No long er eligible based on patient's age to complete this topic HIB VACCINES Aged Out No longer eligi ble based on patient's age to complete this topic MENINGOCOCCAL VACCINES (ACWY) Aged Out No longer eligible based on patient's age to complete this topic MENINGOCOCCAL VACCINES (B) Aged Out N o longer eligible based on patient's age to complete this topic Medical Devices Not on file Insurance MEDICARE A MEDICARE A MEDICARE A MEDICARE A [facility] MEDICARE A MEDICARE A MEDICARE A MEDICARE A [facility] MEDICARE A Care Teams Environmental Health Officer Relationship Specialty Start Date End Date Nova Dillon MD [address] [place] [address] PCP - General Internal Medicine 06/16/20 Additional Source Comments The information contained in this document represents components of the legal health record. It is not the complete legal health record.[facility]
--- OUTSIDE RECORDS SUMMARY | 2024-12-30 14:25 | XMS_ITS | Clinical Summary ---
Author Organization [facility] Address [address] [place] [address] Care Team Providers Care Frontend Engineer Name Role Phone Nova Dillon MD Primary [...] week. 0 Active Vitamin A 3 MG (51291 UT) TABS Take 1 tablet by mouth [...] 57 07/23/2023 11:31 AM EDT Temperature 36.9 C (98.4 F) 07/23/2023 11:31 AM EDT Respiratory Rate 20 12/05/2021 11:3 [...] 2) 11/09/2018 09/14/2018 BMI Counseling 10/20/2022 10/20/2021 RSV Adult > 60+ Yrs or (1 - 1-dose 75+ series) 2024 COVID-19 Vaccine ( season) 2024 01/03/2023, 01/19/2021, 06/10/2020, Additional history exists Influenza Vaccine (#1) 2024 , 12/20/2021, 12/14/2021, Additional history exists DTap [...] this topic Medical Devices Implanted Type Area Valuer Device Identifier Shelf Expiration Date Model / Serial / Lot Insert Trident 0d E 36mm X3 Acetabular [facility] - 252925 - [id number] Implanted:Qty: 1 on 02/29/2020 by Marcos Velasquez MD at [facility] and Med Right: Hip [employer] [id number] 01/23/2025 623-00-36E / / [id number] Shell Trident Ii E 52mm Tritanium Acetabular Hip - 154268 - [id number] Implanted:Qty: 1 on 02/29/2020 by Marcos Velasquez MD at [facility] and [facility] Right: Hip [employer] [id number] 11/28/2023 709-04-52E / / [id number] Screw Trident Ii 30mm 6.5mm Low Profile Hexagonal Bone - 870747 - [id number] Implanted:Qty: 1 on 02/29/2020 by Marcos Velasquez MD at [facility] and [facility] Right: Hip [employer] [id number] 10/19/2024 3433-3297 / / [id number] Screw Bone Trident Ii L20 Mm Od6.5 Mm Low Profile Hexa - 538294 - [id number] Implanted:Qty: 1 on 02/29/2020 by Marcos Velasquez MD at [facility] and [facility] Right: Hip [employer] [id number] 06/02/2024 9582-2471 / / [id number] Screw Trident Ii 15mm 6.5mm Low Profile Hexagonal Bone - 965922 - [id number] Implanted:Qty: 1 on 02/29/2020 by Marcos Velasquez MD at [facility] and [facility] Right: Hip [employer] [id number] 08/11/2023 4420-1702 / / [id number] Stem Accolade Ii 3 132d Femoral - 612822 - [id number] Implanted:Qty: 1 on 02/29/2020 by Marcos Velasquez MD at [facility] and [facility] Right: Hip [employer] [id number] 01/11/2025 3862-2212 / / [id number] Head V40 -2.5mm 36mm Biolox Delta Femoral Hip - 910269 - [id number] Implanted:Qty: 1 on 02/29/2020 by Marcos Velasquez MD at [facility] and [facility] Right: Hip [employer] [facility] [id number] 01/09/2025 6570-0-436 / / [id number] Component Triathlon 4 Cruciate Retaining Cemented Femoral - 982843 - [id number] Implanted:Qty: 1 on 09/05/2020 by Marcos Velasquez MD at [facility] and [facility] Left: Knee [employer] [id number] 05/10/2025 5510-F-401 / / [id number] Component Triathlon 8mm 27mm Symmetric X3 Ptlar Knee - 051565 - [id number] Implanted:Qty: 1 on 09/05/2020 by Marcos Velasquez MD at [facility] and [facility] Left: Knee [employer] [id number] 12/02/2023 5550-G-278 / / [id number] Triathlon Cr Insert - Size 4 12mm X3 - 430054 - [id number] Implanted:Qty: 1 on 09/05/2020 by Marcos Velasquez MD at [facility] and [facility] Left: Knee [employer] [id number] 10/30/2022 5530-G-412 -E / / [id number] Baseplate Triathlon 4 Primary Cemented Tibial Knee - 618864 - [id number] Implanted:Qty: 1 on 09/05/2020 by Marcos Velasquez MD at [facility] and [facility] Left: Knee [facility] [id number] 09/16/2023 5520-B-400 / / [id number] Cement Simplex P Radiopaque Full Dose Bone 10 Pack - 304770 - [id number] Implanted:Qty: 1 on 09/05/2020 by Marcos Velasquez MD at [facility] and [facility] Left: Knee [employer] [facility] 12/29/2021 6191-1-010 / / [id number] Cement Simplex P Radiopaque Full Dose Bone 10 Pack - 917937 - [id number] Implanted:Qty: 1 on 09/05/2020 by Marcos Velasquez MD at [facility] and Med Left: Knee [employer] [facility] 12/29/2021 6191-1-010 / / [id number] Hustler V40 Cemented Hip Stem 37.5 Offst 125mm Implanted:Qty: 1 on 10/23/2021 by Marcos Velasquez MD at [facility] and [facility] Left: Hip [facility] [facility] 04/26/2026 0580-3-371 / / [id number] Tritanium Cluster Hole Shell 52mm Stry-Howm 367-62-10w-770 473 - [id number] Implanted:Qty: 1 on 10/23/2021 by Marcos Velasquez MD at [facility] and Med Left: Hip [facility] [id number] 05/17/2026 702-04-52E / / [id number] ++Dnu+Disc Use [id number] Hip Insrt Trident 0d Silvio 36mm Stry-How 429-42-78e-200 918 - [id number] Implanted:Qty: 1 on 10/23/2021 by Marcos Velasquez MD at [facility] and Med Left: Hip [facility] [id number] 09/14/2026 623-00-36E / / [id number] Lp Hex Screw 6.5x30mm Stry-How 7656-1532-9105 78 - [id number] Implanted:Qty: 1 on 10/23/2021 by Marcos Velasquez MD at [facility] and Med Left: Hip [facility] [facility] [id number] 08/31/2026 4911-2957 / / [id number] Kit Prep Total Hip Bone Imp Sm[facility]-Orth 534607-704473 - [id number] Implanted:Qty: 1 on 10/23/2021 by Marcos Velasquez MD at [facility] and Med Left: Hip [employer] [facility] [id number] 09/13/2031 405470 / / [id number] Description:SMALL BONE PLUG USED FROM THE KIT Cement Bone Surg Simplex Radiopq Stry-Howm 7753-9-562-114 092 - [id number] Implanted:Qty: 1 on 10/23/2021 by Marcos Velasquez MD at [facility] and [facility] Left: Hip [facility] [id number] 10/30/2023 6191-1-010 / / [id number] Cement Bone Surg Simplex Radiopq Stry-Howm 6323-5-950-114 092 - [id number] Implanted:Qty: 1 on 10/23/2021 by Marcos Velasquez MD at [facility] and [facility] Left: Hip [employer] [facility] [id number] 02/28/2023 6191-1-010 / / [id number] Hip Head Delta Biolox 36mm -5 Stry-How 5830-8-026-549 190 - [id number] Implanted:Qty: 1 on 10/23/2021 by Marcos Velasquez MD at [facility] and [facility] Left: Hip [facility] [id number] 08/17/2026 6570-0-036 / / [id number] Advance Directives For more information, please contact: [phone] Documents on File Type Date Recorded Patient 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 Care Teams Frontend Engineer Relationship Specialty Start Date End Date Nova Dillon MD PCP - General Internal Medicine 12/21/19
--- OUTSIDE RECORDS SUMMARY | 2024-12-30 14:25 | XMS_ITS ---
Author Name [facility] Organization Unknown History of Medication Use Medication Directions Dispensed Refills Start Date End Date Stat us atorvastatin 80 mg tablet TAKE 1 TABLET BY MOUTH EVERY DAY active clopidogrel 75 mg tablet TAKE 1 TABLET BY MOUTH EVERY DAY active folic acid 1 mg tablet TAKE 1 TABLET BY MOUTH EVERY DAY active gabapentin 600 mg tablet TAKE 1 TABLET BY MOUTH EVERY 8 HOURS active Encounters Encounter Type Encounter Reason Primary Diagnosis Location Date Ambulatory [facility] [place] 12/19/2022 Ambulatory [facility] [place] 11/09/2022 Ambulatory [facility] [place] 11/09/2022 Ambulatory [facility] [place] 11/07/2022 Ambulatory [facility] [place] 11/02/2022 Ambulatory [facility] [place] 11[facility]02/2022 Ambulatory [facility] [place] 11/02/2022 Ambulatory [facility] [place] 11/02/2022 Care Team Organization Name Specialty Phone Email Start Date End Da te [facility] [place] MARIAMA AGUILA Primary Care 03/01/2022 11/18/2023
--- OUTSIDE RECORDS SUMMARY | 2024-12-30 14:25 | XMS_ITS | Clinical Summary ---
Author Organization [facility] Address [address] [place] [address] Phone Care Team Providers Care Internet Sales Consultant Name Role Phone Nova Dillon MD Primary Care Prov ider Allergies Active Allergy Reactions Criticality Noted Date Comments Nsaids (Non-Steroidal Anti-Inflammatory Drug) 02/29/2020 Bariatric surgery Medications metoprolol succinate (TOPROL-XL) 25 mg 24 hr tablet 2 tablets (50 mg total) 1 (one) time each day. 05/20/19 24 Active esomeprazole (NexIUM) 20 mg [...] Take by mouth. 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 45 g 2 07/01/19 25 Active gabapentin (NEURONTIN) 600 mg tablet Take 1 tablet (600 mg total) by mouth 3 (three) times a day. 270 each 1 07/07/19 25 025 Active atorvastatin (LIPITOR) 80 mg tablet TAKE 1 TABLET BY MOUTH ONCE DAILY 100 tablet 1 08/08/19 25 Active fluticasone propionate (FLONASE) 50 mcg/actuation nasal spray SPRAY 2 SPRAYS INTO EACH NOSTRIL EVERY DAY SHAKE GENTLY. CLEAN TIP AND REPLACE CAP AFTER USE. 48 mL 1 10/07/19 25 Active ciclopirox (PENLAC) 8 % solution Apply topically at bedtime. Apply over nail and surrounding skin. Apply daily over previous coat. After seven (7) days, may remove with alcohol and continue cycle. 6.6 mL 3 10/07/19 25 025 Active apixaban (ELIQUIS) 5 mg tablet Take 1 tablet (5 mg total) by mouth 2 (two) times a day. Patient is taking this BID Active semaglutide (WEGOVY SUBQ) Inject under the skin. Active amoxicillin (AMOXIL) 500 mg capsule TAKE 4 CAPSULES ONE HOUR PRIOR TO DENTAL PROCEDURE 12/16/19 22 Active bromfenac (XIBROM) 0.09 % ophthalmic solution PUT 1 DROP INTO INTO LEFT EYE EVERY DAY FOR 6 WEEKS 06/20/19 25 Active chlorhexidine (PERIDEX) 0.12 % solution RINSE MOUTH WITH 15ML (1 CAPFUL) FOR 30 SECONDS IN MORNING AND EVENING AFTER BRUSHING, THEN SPIT Active clopidogreL (PLAVIX) 75 mg tablet Take 1 tablet (75 mg total) by mouth 1 (one) time each day. Active ketorolac (ACULAR) 0.5 % ophthalmic solution PUT 1 DROP INTO LEFT EYE 4 TIMES A DAY FOR 4 WEEKS AFTER SURGERY 06/30/19 25 Active neomycin-polymyxin -dexamethamethason e (POLYDEX) 3.5 mg/g-10,000 unit/g-0.1 % ointment APPLY 1/4 INCH TO EYELIDS TWICE DAILY NEEDED FOR BLEPHARITIS. 07/10/19 25 Active polyethylene glycol (GaviLyte-G) 236-22.74-6.74 -5.86 gram solution PLEASE SEE ATTACHED FOR DETAILED DIRECTIONS Active levothyroxine (SYNTHROID, LEVOTHROID) 125 mcg tablet TAKE 1 TABLET BY MOUTH DAILY 100 tablet 11/10/19 25 Active albuterol HFA (ProAir HFA) 90 mcg/actuation inhalerIndications :Abnormal CT scan Inhale 2 puffs by mouth 3 (three) times a day. 25.5 g 11/10/19 25 026 Active traMADoL (ULTRAM) 50 mg tabletIndications: Spinal stenosis of lumbar region, unspecified whether neurogenic claudication present Take 2 tablets (100 mg total) by mouth every 8 (eight) hours if needed (pain) for up to 28 days. Max Daily Amount: 300 mg 168 tablet 12/03/19 25 025 Active traMADoL (ULTRAM) 50 mg tablet Take 2 tablets (100 mg total) by mouth every 8 (eight) hours if needed (pain) for up to 28 days. Max Daily Amount: 300 mg 168 tablet 10/31/19 25 025 Discontin ued(Reord er) Active Problems Problem Noted Date Diagnosed Date Psoriatic arthritis ([facility] V24, [facility] V28) 0 04/28/2024 Chronic pain syndrome 04/06/2024 Carotid stenosis, right 12/27/2021 Overview (12/31/2023): 50-79% [facility] CARDS Iron deficiency anemia secon vonda to inadequate dietary iron intake 10/18/2021 Obesity (BMI 30-39.9) 06/24/2020 COPD (chronic obstructive pu lmonary disease) ([facility] V24, [facility] V28) 03/18/2020 Arthritis of right hip 12/31/2019 Aortic atherosclerosis ([facility] V24) 12/17/2018 Chronic bilateral low back pain with sciatica Depression 12/17/2018 Neuropathy 12/17/2018 Osteoarthritis 12/17/2018 Overview (12/31/2023): Cervical, Thoracic, & Lumbosacral Spine, Hips, Knees Vitamin D deficiency 12/17/2018 Atrial fibrillation ([facility] V24, [facility] V28) 0 11/26/2018 Bilateral chronic knee pain [...] Encounters Date Type Department Care Team Description 11/12/2024 1:15 PM EDT Ancillary Procedure Pulmonology - [address] [phone] Chronic bronchitis, unspecified chronic bronchitis type ([facility] V24, [facility] V28) (Primary Dx) 11/04/2024 1:00 PM EDT Consult Pulmonology - [address] [phone] Yola Birmingham MD Pulmonary nodule (Primary Dx); Abnormal CT scan; Seasonal allergic rhinitis due to pollen; Gastroesophageal reflux disease without esophagitis; Shortness of breath 10/13/2024 12:33 PM EDT - 10/13/2024 11:59 PM EDT Hospital Encounter CT Scan - [address] [phone] Chronic bronchitis, unspecified chronic bronchitis type ([facility] V24, [facility] V28) Discharge Disposition: Home or Self Care 10/07/2024 2:30 PM EDT Office Visit Adult Medicine [facility] [address] [place] [address] Nova Dillon MD Chronic bronchitis, unspecified chronic bronchitis type ([facility] V24, [facility] V28) (Primary Dx); Arthritis of right hip; Atrial fibrillation, unspecified type ([facility] V24, [facility] V28); Post-nasal drainage; BMI 29.0-29.9,adult 10/06/2024 1:00 PM EDT Office Visit Orthopedic Surgery - [facility] [address] [place] [address] [address] [place] [address] Vlad Lamb DPM Dermatophytosis of nail (Primary Dx); Psoriatic arthritis ([facility] V24, [facility] V28); Hammer toe of left foot; Acquired hammer toe of right foot; Ingrowing nail from Last 3 Months Immunizations Immunization Administration Dates Next Due Influenza trivalent, 0.5mL ( Fluzone High-dose) 65yo and older 01/03/2023,12/14/2021,12/18/2019,12/03 Influenza trivalent, with pr eservative (Fluzone; Afluria) 6mo and older 12/20/2021,01/21/2014,01/07/2013,01/15 Influenza, Unspecified 12/03/2018 Moderna (age 6mo & older) Bi valent, COVID-19, 0.5 mL or 0.25 mL dosage 12/20/2021 [facility] SARS-CoV-2 COVID-19, mRNA, LNP-S, preservative free 01/03/2023,01/19/2021,06/10/2020 [...] TOTAL HIP; Surgeon: Marcos Velasquez MD; Location: [facility]; Service: Orthopedics; Laterality: Right; COLONOSCOPY PROCEDURE:COLONOSCOPY TOTAL KNEE ARTHROPLASTY 08/2020 Left PROCEDURE:TOTAL KNEE ARTHROPLASTY TOTAL HIP ARTHROPLASTY 10/23/2021 Left PROCEDURE:TOTAL HIP ARTHROPLASTY;COMMENT:Procedure : REPLACEMENT TOTAL HIP; Surgeon: Marcos Velasquez MD; Location: [facility]; Service: Orthopedics; Laterality: Left; OTHER SURGICAL HISTORY [...] bypass OTHER SURGICAL HISTORY 03/01/2020 Right PROCEDURE: [place] ARTHRP ACETBLR/PROX FEM PROSTC AGRFT/ALGRFT TOTAL KNEE ARTHROPLASTY 09/05/2020 Left PROCEDURE: [place] ARTHRP KNE CONDYLE&PLATU MEDIAL&LAT COMPARTMENTS Medical History Medical History Date Comments Hypertension DX:Hypertension; COMMENT:resolved since bariatric Osteoarthritis DX:Osteoarthriti s A-fib ([facility] V24, [facility] V28) DX:A-fib ([facility]);COMMENT:postoperatively bariatric surgery Sleep apnea DX:Sleep apnea;C OMMENT:NONCOMPLIANT WITH CPAP DUE TO WT. LOSS COPD (chronic obstructive pu lmonary disease) ([facility] V24, [facility] V28) DX:COPD (chronic o bstructive pulmonary disease) ([facility]);COMMENT:Just from hx of smoking no PFTs previous [...] knee pain; COMMENT: Dr Boyce Atrial fibrillation ([facility] V24, [facility] V28) 11/26/2018 DX:Atrial fibrillation (HCC) GARRETT (obstructive sleep apnea) 10/16/2016 DX :GARRETT (obstructive sleep apnea) Aortic atherosclerosis ([facility] V24) 12/17/2018 DX:Aortic atherosclerosis ([facility]) Osteoarthritis 12/17/2018 DX:Osteoarthriti s; COMMENT: Cervical, Thoracic, [...] DX:Neuropathy COPD (chronic obstructive pu lmonary disease) ([facility] V24, [facility] V28) 03/18/2020 DX:COPD (chronic o bstructive pulmonary disease) ([facility]) HTN (hypertension) 03/18/2020 DX:HTN (hyper tension) Carotid stenosis, right 12/27/2021 DX:Carot id stenosis, right; COMMENT: 50-79% [facility] [place] CARDS Irritable bowel syndrome DX:Irri table bowel syndrome Family History Medical History Relation Name Comments Scleroderma Aunt No Known Problems Brother 1 No Known Problems Brother 2 No Known Problems Brother 3 Other: adrenal tumor Daughter Other: uterine polps Daughter COPD Father Emphysema Father Heart attack Father Heart disease Father [place] Hypertension Maternal Grandmother Alzheimer's disease Mother COPD [...] ed Within the last 3 months, ho libra many times did you visit the emergency [...] care for your loved ones. For example, director of early childhood or elderly care for an older adult? [...] Sexual Orientation Not on file Obstetrics History Para Term AB IAB SAB Ectopic Multiple Livin g Live Births 2 2 2 2 Date Outcome GA Total Labor Labor/2nd/3rd Weight Sex Type Anes PTL Sarah A1 A5 Name Clin Term Term Last Filed Vital Signs Vital Sign Reading Time Taken Comments Blood Pressure 123/50 11/04/2024 1:05 PM EDT Pulse 72 11/04/2024 1:05 PM EDT Temperature 35.4 C (95.8 F) 11/04/2024 1:05 PM EDT Respiratory Rate - - Oxygen Saturation 90% 11/04/2024 1:05 PM EDT Inhaled Oxygen Concentration - - Weight 65.8 kg (145 lb) 11/04/2024 1:05 PM EDT Height 157.5 cm (5' 2 ) 10/07/2024 2:14 PM EDT Body Mass Index 26.52 10/07/2024 2:14 PM EDT Plan of Treatment Upcoming Encounters Date Type Department Care Team (Late st Contact Info) Description 01/05/2025 1:15 PM EDT Office Visit Adult Medicine - [address] [phone] Nova Dillon MD [address] [place] [address] 01/06/2025 1:00 PM EDT Office Visit Orthopedic Surgery - [facility] [address] [facility] [address] [place] [phone] Vlad Labm DPM [address] [facility] [address] [place] [phone] 01/07/2025 1:[address] Scan [address] [place] [phone] 01/20/2025 1:00 PM EDT Office Visit Pulmonology - [facility] [address] [facility] [address] [place] [phone] Yola Birmingham MD [address] [place] [phone] 04/13/2025 1:15 PM EST Office Visit Adult Medicine - [facility] [address] [place] [address] Nova Dillon MD [address] [place] [address] Health Maintenance Due Date Last Done Comments Hepatitis A Vaccines (1 of 2 - Risk 2-dose series) 1968 Hepatitis B Vaccines (1 of 3 - Risk 3-dose series) 2009 Medicare Annual Wellness Visit 03/08/2022 RSV Immunization Adult Patients (1 - 1-dose 75+ series) 2024 COVID-19 Vaccine (8 - Pfizer risk season) 2024 12/20/2023, 01/03/2023, 12/20/2021, Additional history exists Influenza Vaccine (#1) 2024 , 01/03/2023, 12/20/2021, Additional history exists Social Influencers of Health Screening 06/10/2025 06/10/2024 Falls Risk Assessment 01/05/2026 01/05/2025 Cholesterol Screening (Lipid Panel) 01/19/2029 01/20/2024, 05/19/2021 Colorectal Cancer Screening: Colonoscopy 02/02/2032 02/01/2022 DTaP,Tdap,and Td Vaccines (3 - Td or Tdap) 02/27/2032 02/26/2022, 02/05/2011 Osteoporosis Screening (Bone Density Screening) 09/11/2032 09/11/2022 Hepatitis C Screening Completed 01/15/2013 Pneumococcal Vaccine: 50+ Years Completed 06/14/2016, 11/15/2014 Zoster Vaccines Completed 11/24/2018, 09/14/2018 Breast Cancer Screening Discontinued 09/24/2024, 06/16 Depression Screening Completed 12/30/2024 HIB Vaccines Aged Out No longer eligi [...] this topic Medical Devices Implanted Type Area Recoating Machine Operator Device Identifier Shelf Expiration Date Model / Serial / Lot Insert Trident 0d E 36mm X3 Acetabular Hip - [id number] Implanted:Qty: 1 on 02/29/2020 by Marcos Velasquez MD Right: Hip [employer] [id number] 01/23/2025 623-00-36E / / [id number] Shell Trident Ii E 52mm Tritanium Acetabular Hip - [id number] Implanted:Qty: 1 on 02/29/2020 by Marcos Velasquez MD Right: Hip [employer] [id number] 11/28/2023 709-04-52E / / [id number] Screw Trident Ii 30mm 6.5mm Low Profile Hexagonal Bone - [id number] Implanted:Qty: 1 on 02/29/2020 by Marcos Velasquez MD Right: Hip [employer] [id number] 10/19/2024 1108-8853 / / [id number] Screw Bone Trident Ii L20 Mm Od6.5 Mm Low Profile Hexa - [id number] Implanted:Qty: 1 on 02/29/2020 by Marcos Velasquez MD Right: Hip [employer] [id number] 06/02/2024 0792-5139 / / [id number] Screw Trident Ii 15mm 6.5mm Low Profile Hexagonal Bone - [id number] Implanted:Qty: 1 on 02/29/2020 by Marcos Velasquez MD Right: Hip [employer] [id number] 08/11/2023 6684-4128 / / [id number] Stem Accolade Ii 3 132d Femoral - [id number] Implanted:Qty: 1 on 02/29/2020 by Marcos Velasquez MD Right: Hip [employer] [id number] 01/11/2025 6789-2462 / / [id number] Head V40 -2.5mm 36mm Biolox Delta Femoral Hip - [id number] Implanted:Qty: 1 on 02/29/2020 by Marcos Velasquez MD Right: Hip [employer] [id number] 01/09/2025 6570-0-436 / / [id number] Component Triathlon 4 Cruciate Retaining Cemented Femoral - [id number] Implanted:Qty: 1 on 09/05/2020 by Marcos Velasquez MD Left: Knee [employer] [id number] 05/10/2025 5510-F-401 / / [id number] Component Triathlon 8mm 27mm Symmetric X3 Ptlar Knee - [id number] Implanted:Qty: 1 on 09/05/2020 by Marcos Velasquez MD Left: Knee [employer] [id number] 12/02/2023 5550-G-278 / / [id number] Triathlon Cr Insert - Size 4 12mm X3 - [id number] Implanted:Qty: 1 on 09/05/2020 by Marcos Velasquez MD Left: Knee [employer] [id number] 10/30/2022 5530-G-412 -E / / [id number] Baseplate Triathlon 4 Primary Cemented Tibial Knee - [id number] Implanted:Qty: 1 on 09/05/2020 by Marcos Velasquez MD Left: Knee [employer] [id number] 09/16/2023 5520-B-400 / / [id number] Cement Simplex P Radiopaque Full Dose Bone 10 Pack - Implanted:Qty: 1 on 09/05/2020 by Marcos Velasquez MD Left: Knee [employer] 12/29/2021 6191-1-010 / / [id number] Cement Simplex P Radiopaque Full Dose Bone 10 Pack - Implanted:Qty: 1 on 09/05/2020 by Marcos Velasquez MD Left: Knee [employer] 12/29/2021 6191-1-010 / / [id number] [place] V40 Cemented Hip Stem 37.5 Offst 125mm Implanted:Qty: 1 on 10/23/2021 by Marcos Velasquez MD Left: Hip [employer] 04/26/2026 0580-3-371 / / [id number] Tritanium Cluster Hole Shell 52mm Stry-Howm [id number] Implanted:Qty: 1 on 10/23/2021 by Marcos Velasquez MD Left: Hip [employer] [id number] 05/17/2026 702-04-52E / / [id number] ++Dnu+Disc Use [id number] Hip Insrt Trident 0d Silvio 36mm Stry-Howm [id number]-[id number] [id number] Implanted:Qty: 1 on 10/23/2021 by Marcos Velasquez MD Left: Hip [employer] [id number] 09/14/2026 623-00-36E / / [id number] Lp Hex Screw 6.5x30mm Stry-Howm [id number] 78 Implanted:Qty: 1 on 10/23/2021 by Marcos Velasquez MD Left: Hip [employer] [id number] 08/31/2026 9346-5239 / / [id number] Kit Prep Total Hip Bone Imp Smn-Orth [id number] Implanted:Qty: 1 on 10/23/2021 by Marcos Velasquez MD Left: Hip [employer] [id number] 09/13/2031 [id number] / / [id number] Description:SMALL BONE PLUG USED FROM THE KIT Cement Bone Surg Simplex Radiopq Stry-Howm [id number] 092 Implanted:Qty: 1 on 10/23/2021 by Marcos Velasquez MD Left: Hip [employer] [id number] 10/30/2023 6191-1-010 / / [id number] Cement Bone Surg Simplex Radiopq Stry-Howm [id number] 092 Implanted:Qty: 1 on 10/23/2021 by Marcos Velasquez MD Left: Hip [employer] [id number] 02/28/2023 6191-1-010 / / [id number] Hip Head Delta Biolox 36mm -5 Stry-Howm [id number] 190 Implanted:Qty: 1 on 10/23/2021 by Marcos Velasquez MD Left: Hip [employer] [id number] 08/17/2026 6570-0-036 / / [id number] Procedures Procedure Name Priority Date/Time Associated Diagnosis Comments PULMONARY FUNCTION TESTING Routine 11/12/2024 1:58 PM EDT Chronic bronchitis, unspecified chronic bronchitis type (CMS/HCC V24, CMS/HCC V28) CT CHEST WO CONTRAST Routine 10/13/2024 12:51 PM EDT Chronic bronchitis, unspecified chronic bronchitis type (CMS/HCC V24, CMS/HCC V28) MG MAMMO DIGITAL SCREENING W TAIWO BILAT Routine 09/24/2024 2:53 PM EDT Encounter for screening mammogram for malignant neoplasm of breast DXA BONE DENSITY STUDY 1+ SITS AXIAL SKEL Routine 09/11/2022 2:32 PM EDT Encounter for screening for osteoporosis COLONOSCOPY Routine 02/01/2022 LIPID PANEL Routine 05/19/2021 HEPATITIS C SCREENING Routine 01/15/2013 from Last 3 Months or Most Recently Relevant to Health Maintenance Results * Pulmonary function testing: Spirometry with Bronchodilator (11/12/2024 1:58 PM EDT) Impressions Desirae Cross MD - 11/12/2024 1:58 PM EDT FEV1/FVC 86%. FEV1 1.93 100%. FVC 87%. No bronchodilator response. TLC 112%. RV 127%. RV/TLC 113%. DLCO 112%. Shape of flow-volume showed neither intrathoracic nor extrathoracic obstruction. Mild obstruction with air trapping. No restriction and no decrease in diffusion. Finding consistent mild obstructive lung disease. us Nova Dillon MD PFT ORDERABLES Fi nal Result * CT Chest wo Contrast (10/13/2024 12:51 PM EDT) Anatomical Region Laterality Modality Body Computed Tomogra phy 10/14/2024 8:20 AM EDT Impressions 10/15/2024 11:06 AM EDT Mucous plugging with bronchial wall thickening associated with nodules and nodular areas of consolidation in the right lower lobe and to a much lesser degree in the right upper lobe. Grouping of nodules in the left lower lobe. Findings could be inflammatory or infectious. Follow-up chest CT recommended in 3 months. POS - [id number] -------- FINAL REPORT -------- Dictated By: Alma Delia Owens Dictated Date: 10/14/2024 08:20 ET Assigned Physician: Alma Delia Owens Reviewed and Electronically Signed By: Alma Delia Owens Signed Date: 10/15/2024 11:06 ET Workstation ID: [id number] Transcribed By: Self Edit Transcribed Date: 10/14/2024 08:55 ET Narrative 10/15/2024 11:06 AM EDT EXAM: Chest CT HISTORY: Chronic cough. Possible chronic bronchitis. Previous history of tobacco use. COMPARISON: None TECHNIQUE: Multidetector CT is obtained from lung apex to base without IV contrast. Sagittal and coronal reformatted images obtained. Automated exposure control utilized. TOTAL CTDIvol: 13.28 mGy FINDINGS: Lungs/pleura: Areas of mucus plugging with bronchial wall thickening associated with multiple tiny nodules and nodular consolidation in the medial right lower lobe. Small area of tiny nodularity and mucous plugging in the posterior inferior right upper lobe images 137-139. Grouping of nodules in the left lower lobe measuring up to 0.4 cm, axial images 247-257. 1.4 cm subpleural irregular opacity in the right apical region on image 61 and a smaller area more laterally on image 73 could represent areas of scarring. No pleural effusions. Lymph nodes: Sensitivity for lymphadenopathy is limited without IV contrast. Subcentimeter mediastinal lymph nodes. No definite enlarged hilar lymph nodes. Cardiovascular: Heart is not enlarged. No pericardial effusion. Coronary calcifications. Calcifications of the mitral valve annulus. Scattered atherosclerotic calcifications in the thoracic aorta and great vessels. No thoracic aortic aneurysm. Soft tissues: Thyroid gland is diminutive. No esophageal abnormality. Upper abdomen: Minimal thickening of the adrenal glands. Cholecystectomy clips. Postsurgical changes of previous gastric bypass. Very small hiatal hernia. Bones: Degenerative changes throughout the imaged spine. Procedure Note Alma Delia Owens MD - 10/15/2024 EXAM: Chest CT HISTORY: Chronic cough. Possible chronic bronchitis. Previous history oftobacco use. COMPARISON: None TECHNIQUE: Multidetector CT is obtained from lung apex to base without IVcontrast. Sagittal and coronal reformatted images obtained. Automatedexposure control utilized. TOTAL CTDIvol: 13.28 mGy FINDINGS: Lungs/pleura: Areas of mucus plugging with bronchial wall thickeningassociated with multiple tiny nodules and nodular consolidation in themedial right lower lobe. Small area of tiny nodularity and mucous pluggingin the posterior inferior right upper lobe images 137-139. Grouping ofnodules in the left lower lobe measuring up to 0.4 cm, axial -945. 1.4 cm subpleural irregular opacity in the right apical region onimage 61 and a smaller area more laterally on image 73 could representareas of scarring. No pleural effusions. Lymph nodes: Sensitivity for lymphadenopathy is limited without IVcontrast. Subcentimeter mediastinal lymph nodes. No definite enlargedhilar lymph nodes. Cardiovascular: Heart is not enlarged. No pericardial effusion. Coronarycalcifications. Calcifications of the mitral valve annulus. Scatteredatherosclerotic calcifications in the thoracic aorta and great vessels. Nothoracic aortic aneurysm. Soft tissues: Thyroid gland is diminutive. No esophageal abnormality. Upper abdomen: Minimal thickening of the adrenal glands. Cholecystectomyclips. Postsurgical changes of previous gastric bypass. Very small hiatalhernia. Bones: Degenerative changes throughout the imaged spine. IMPRESSION: Mucous plugging with bronchial wall thickening associated with nodules andnodular areas of consolidation in the right lower lobe and to a muchlesser degree in the right upper lobe. Grouping of nodules in the leftlower lobe. Findings could be inflammatory or infectious. Follow-up chestCT recommended in 3 months. POS - [id number] -------- FINAL REPORT -------- Dictated By: Alma Delia Owens Dictated Date: 10/14/2024 08:20 ET Assigned Physician: Alma Delia Owens Reviewed and Electronically Signed By: Alma Delia Owens Signed Date: 10/15/2024 11:06 ET Workstation ID: [id number] Transcribed By: Self Edit Transcribed Date: 10/14/2024 08:55 ET Nova Dillon MD IMG CT PROCEDURES Final Result * MG Mammo Digital Screening w Taiwo bilat (09/24/2024 2:53 PM EDT) Anatomical Region Laterality Modality Breast Bilateral Mammography 09/29/2024 3:32 PM EDT Impressions 09/29/2024 3:34 PM EDT No mammographic evidence for malignancy. BI-RADS CATEGORY: 1 - NEGATIVE RECOMMENDATION: Screening bilateral mammogram is recommended in 1 year. Mammo Location: [facility], [address] [place] [address], [id number], . -------- FINAL REPORT -------- Dictated By: Shanna Paula Dictated Date: 09/29/2024 15:32 ET Assigned Physician: Shanna Paula Reviewed and Electronically Signed By: Shanna aPula Signed Date: 09/29/2024 15:34 ET Workstation ID: [id number] Transcribed By: Self Edit Transcribed Date: 09/29/2024 15:32 ET Narrative 09/29/2024 3:34 PM EDT Bilateral screening mammogram. CLINICAL: 74 years old, Female, routine annual exam. COMPARISON: Prior studies, latest from 06/16/2020. TECHNIQUE: Bilateral MLO and CC views were obtained digitally with 2-D C views 3-D mammogram (digital breast tomosynthesis). Computer-aided detection was utilized in evaluation of this exam (CAD). FINDINGS: There is no evidence of suspicious mass or architectural distortion. No worrisome calcifications are evident. There has been no significant change from prior exam(s). BREAST DENSITY: B - There are scattered areas of fibroglandular density. Procedure Note Shanna Paula MD - 09/29/2024 Bilateral screening mammogram. CLINICAL: 74 years old, Female, routine annual exam. COMPARISON: Prior studies, latest from 06/16/2020. TECHNIQUE: Bilateral MLO and CC views were obtained digitally with 2-D Cviews 3- D mammogram (digital breast tomosynthesis). Computer-aideddetection was utilized in evaluation of this exam (CAD). FINDINGS: There is no evidence of suspicious mass or architectural distortion. Noworrisome calcifications are evident. There has been no significantchange from prior exam(s). BREAST DENSITY: B - There are scattered areas of fibroglandular density. IMPRESSION: No mammographic evidence for malignancy. BI-RADS CATEGORY: 1 - NEGATIVE RECOMMENDATION: Screening bilateral mammogram is recommended in 1 year. Mammo Location: [facility], [address] [place] [address], [id number], . -------- FINAL REPORT -------- Dictated By: Shanna Paula Dictated Date: 09/29/2024 15:32 ET Assigned Physician: Shanna Paula Reviewed and Electronically Signed By: Shanna Paula Signed Date: 09/29/2024 15:34 ET Workstation ID: [id number] Transcribed By: Self Edit Transcribed Date: 09/29/2024 15:32 ET Nova Dillon MD IMG BI PROCEDURES Final Result * DXA BONE DENSITY STUDY 1+ SITS AXIAL SKEL (09/11/2022 2:32 PM EDT) Anatomical Region Laterality Modality Bone Densitometr y 02/26/2022 1:15 PM EST Narrative 09/11/2022 2:50 PM EDT BONE DENSITY (DEXA) Lumbar Spine T-score is [...] normal bone density by WHO criteria. The [facility] recommends using National [...] alternative screening schedule based on nikki Freeman., [facility] April 19, 2011 for patients [...] normal bone density by WHO criteria. [facility] Medicine[facility]commends using National Osteoporosis [...] alternative screening schedule based on nikki Freeman., [facility] for patients with osteopenia (based on hip BMD T-score) is as follows: * advanced osteopenia (T scores -2.00 to -2.49), BMD testing every year * moderate osteopenia (T scores -1.50 to -1.99), BMD testing every 5years mild osteopenia or normal BMD (T scores -1.50 and higher), BMD testingevery 15 years Result [facility] Jaziel MEJIA IMG DXA PROCEDURES Final Resul t * Colonoscopy (02/01/2022) [facility] Colonoscopy no interpretation , abstracted Anatomical Region Laterality Modality Other Result [facility] Historical Provider HEALTH MAINTENANCE Final Result * Lipid panel (05/19/2021) [facility] LDL/HDL Ratio 2 0 - 4 Triglycerides 113 0 - 150 mg/dL Cholesterol 143 0 - 200 mg/dL HDL 77 >=40 mg/dL LDL Cholesterol 44 0 - 100 mg/dL Blood Venous blood specimen / Unknown Result [facility] Historical Provider LAB BLOOD ORDERABLES Amy l Result * Hepatitis C Screening (01/15/2013) [facility] Hepatitis C Screening abstracted Result [facility] Provider HEALTH MAINTENANCE Final Result from Last 3 Months or Most Recently Relevant to Health Maintenance Insurance [facility] MEDICARE Care Teams Internet Sales Consultant Relationship Specialty Start Date End Date Nova Dillon MD [address] [place] [id number] PCP - General Internal Medicine 11/24/18
== END ==
LOC: HO.CARD 13:09
PROVIDERS: PCP Internal Medicine; Visit Provider Internal Medicine
DX: R00.2 Palpitations (principal); I48.0 Paroxysmal atrial fibrillation
CPT/HCPCS: 93242

== ENCOUNTER → 2024-12-30 13:12 | Outpatient (BNV) | payer MEDICARE, SELFPAY | PROVIDERS: PCP Internal Medicine; Visit Provider Internal Medicine | DX: I49.3 Ventricular premature depolarization (principal); I49.49 Other premature depolarization | CPT/HCPCS: 93244 ==

== ENCOUNTER 2025-01-14 13:23 | Outpatient (AMB) | payer MEDICARE, SELFPAY ==
--- NOTE | 2025-01-14 13:41 | A.OFFVIS_ITS ---
Vital Signs 01/14/25 13:48 Height 5 ft 2 in Weight 137 lb 9.095 oz BMI 25.2 BP 134/72 Blood Pressure Location Lt brachial Position Sitting Pulse 68 Pulse Source Pulse Oximeter Pulse Oximetry (%) 98 Oxygen Delivery Method Room Air Intake Visit Reasons: PsA Intake Note: Patient presents for PsA follow up. Allergies NSAIDS (Non-Steroidal Anti-Inflamma Adverse Reaction (Unknown, Verified 01/14/25 13:48) not to take d/t hx of bariatric surg Medication List - Last Reconciled 01/14/25 by Adele Muniz MD apixaban 5 mg PO BID atorvastatin 80 mg PO DAILY esomeprazole magnesium (Nexium 24HR) 40 mg PO DAILY folic acid 3 mg (3 x 1 mg) PO DAILY gabapentin 600 mg PO TID levothyroxine 125 mcg PO DAILY mecobalamin (vitamin B12) mcg PO DAILY methotrexate sodium 15 mg (6 x 2.5 mg) PO QWEEK 90 days metoprolol succinate ER 50 mg PO DAILY multivitamin 1 tab PO DAILY ondansetron 4 mg PO Q8H PRN semaglutide (Ozempic) 0.25 mg subcut QWEEK tramadol 100 mg PO TID PRN HPI Comments Details: Patient is a 74-year-old female with hypertension complicated by carotid stenosis, paroxysmal atrial fibrillation, hyperlipidemia, GERD, hypothyroidism, polyarticular osteoarthritis (hands, hips s/p bilateral hip replacement and knees s/p left knee replacement) and psoriatic arthritis here today for follow up Interval History: Patient last seen 09/22/24 with me. - On methotrexate 15 mg weekly, folic acid 3 mg daily - Doing well - Complaining of left thumb triggering - Recommended splinting Today - On methotrexate 15 mg weekly, folic acid 3 mg daily - Doing well overall - Had a syncopal episode with fall and facial trauma - Currently following with cardiology - Complaining of hair loss Rheumatologic History: dx 09/2022 MTX 10/21 effective lowered to 15 mg 11/2022 due to transamintis increased to 20 mg 03/2023 due to flare lowered to 15 mg again 09/2023 due to transaminitis Initial history: This is a 72 year old female who presents for evaluation of left hand pain. Back in 2019 patient was evaluated by Gurjit Montoya at [place] for trigger finger of her left 2nd and 3rd fingers, she received cortisone injections with significant improvement. Over the last year patient has been having pain and stiffness of her left hand. Occasional pain and st iffness of her ankles. Patient takes Tylenol with some relief, she takes tramadol for her back pain. She denies any fevers, weight loss, joint swelling. Denies fever few years no history of DVT/PE Current Rheumatology Medication(s): Methotrexate 15 mg weekly Folic acid 3 mg daily [facility] Medical History (Updated 05/19/24 @ 15:11 by Adele Muniz MD) Osteoarthritis of hands, bilateral Positive antinuclear antibody Other and unspecified hyperlipidemia Carotid stenosis, right PAF (paroxysmal atrial fibrillation) Surgical History History of right hip replacement (~01/2020) History of left knee replacement (~09/05/20) History of gastric bypass History of cholecystectomy Family History Father Heart attack Mother No problems noted. Social History Household Members: Spouse and Family Alcohol intake: current Alcohol intake frequency: holidays/special occasions only Patient Tobacco Use Status: Former Tobacco user Review of Systems Const Details: Review of Systems Constitutional: Denies fever, chills, weight loss ENT: Denies vision changes, eye pain or eye redness, dental caries, dry mouth GI: Denies nausea, vomiting, diarrhea, abdominal pain, change in BM Pulm: Denies SOB, GUERIN, hemoptysis, wheezing Cards: Denies chest pain, palpitations Skin: Denies Raynaud's, rash, nail changes, photosensitivity, BULK SAUSAGE CASING TIER OFF: Denies headaches, weakness, paresthesias, recurrent falls MSK: as per HPI All other systems reviewed and are unremarkable except noted above Physical Exam Exam Exam: Vital signs reviewed Physical Examination CONSTITUITIONAL Patient alert and cooperative. Well appearing and in no apparent painful distress MSK Hands * Right Hand: Able to make a fist. No swelling or tenderness to palpation of the MCPs, PIPs or DIPs. * Left Hand: Able to make a fist. No swelling or tenderness to palpation of the MCPs, PIPs or DIPs. * Prominent Herbedens and Bouchards nodes noted bilaterally Wrists * Right Wrist: Full ROM to flexion and extension. No swelling or TTP * Left Wrist: Full ROM to flexion and extension. No swelling or TTP Elbows * Right Elbow: Full ROM. No swelling or TTP. No TTP of the medial epicondyle. No TTP of the lateral epicondyle * Left Elbow: Full ROM. No swelling or TTP. No TTP of the medial epicondyle. No TTP of the lateral epicondyle Shoulders * Right shoulder: Full ROM. No swelling noted. No TTP of the AC joint. No TTP of the subacromial bursa. No TTP of the posterior shoulder * Left shoulder: Full ROM. No swelling noted. No TTP of the AC joint. No TTP of the subacromial bursa. No TTP of the posterior shoulder Knees * Right knee: Full ROM. No swelling noted. No TTP of the knee joint line. No TTP of pes anserine bursa * Left knee: Full ROM. No swelling noted. No TTP of the knee joint line. No TTP of pes anserine bursa. * Crepitations felt bilaterally Ankles * Right ankle: Good ankle dorsiflexion and plantar flexion. No swelling. No TTP of the ankle joint * Left ankle: Good ankle dorsiflexion and plantar flexion. No swelling. No TTP of the ankle joint Feet * Right foot: Negative squeeze test * Left foot: Negative squeeze test Tender points? * No tenderness to palpation of the bilateral trapezius, supraspinatus, anterior costochondral junctions, bilateral suboccipital muscle insertions SKIN No rashes Vital Signs: Last Vital Signs Pulse 68 01/14/25 13:48 BP 134/72 01/14/25 13:48 Pulse Ox 98 01/14/25 13:48 Oxygen Delivery Method Room Air 01/14/25 13:48 BMI result Body Mass Index 25.2 Results Reviewed Results Reviewed: Laboratory Tests 09/17/24 09/17/24 12:46 12:53 WBC 4.3 L RBC 4.23 Hgb 12.9 Hct 40.9 Plt Count 176 D ESR 18 Sodium 142 Potassium 4.4 Chloride 105 Carbon Dioxide 30 H BUN 13 Creatinine 0.59 AST 23 ALT 16 Alkaline Phosphatase 53 C-Reactive Protein < 0.10 Rheumatology labs 07/24/22 14:01 Rheumatoid Factor < 13.0 Cycl Citrul Peptide IgG <16 SS-A/Ro Antibody <1.0 NEG SS-B/La Antibody <1.0 NEG Sm (Dodson) Antibody <1.0 NEG U1 snRNA A Antibody <11 U1 snRNA C Antibody <11 U1 snRNA 70kD Antibody <11 SM/FOILING MACHINE OPERATOR IgG Antibody <1.0 NEG Scl-70 Scleroderma Ab <11 A-PM Scleroderma 75 Ab <11 A-PM Scleroderma 100 Ab <11 Double Strand DNA Ab <1 Anti-ds DNA (Crithidia) Negative Th/To FOILING MACHINE OPERATOR Ab <11 U3-FOILING MACHINE OPERATOR (Fibrillarin) Ab <11 RNA Polymerase III RP11 Ab <11 RNA Polymerase III RP155 Ab <11 Centromere B Antibody <11 Centromere Protein A Ab <11 Complement C3 146 Complement C4 27 XR Bilateral Hands 06/2022 FINDINGS: RIGHT HAND: No fracture or dislocation. Moderate degenerative changes of the first metacarpophalangeal joint with loss of joint space and subchondral cystic change. Mild negative ulnar variance. Ankylosis of the fifth DIP joint with hypertrophic changes. Bony proliferation noted along the fourth DIP joint with loss of joint space involving the second through third DIP joints. No cortical erosion. Soft tissues are unremarkable. LEFT HAND: No fracture or dislocation. Mild negative ulnar variance. Ankylosis of the fifth DIP joint. Moderate degenerative changes of the first carpometacarpal joint with subchondral sclerosis and loss of joint space. Loss of distal interphalangeal joint space with some bony proliferation noted along the second DIP joint and a marginal cortical erosion. Soft tissues are unremarkable. IMPRESSION: Loss of distal interphalangeal joint space with ankylosis of the of the fifth distal interphalangeal joints bilaterally, with some demonstrating bony proliferation and a single marginal cortical erosion along the left second PIP joint. Findings could be seen in the setting of erosive arthropathy including psoriatic arthritis or reactive arthritis, however is not the typical distribution for rheumatoid arthritis. Mild negative ulnar variance bilaterally. Moderate degenerative changes of the first metacarpophalangeal joints bilaterally. Assessment & Plan Assessment & Plan (1) Psoriatic arthritis: Comment: dx 09/2022 MTX 10/21 effective lowered to 15 mg 11/2022 due to transamintis increased to 20 mg 03/2023 due to flare lowered to 15 mg again 09/2023 due to transaminitis Code(s): L40.50 - Arthropathic psoriasis, unspecified Category: Medical Plan: #PsA Patient is a 74-year-old female with psoriatic arthritis currently in remission. Doing well on methotrexate and tolerating Will trail leucovorin due to continued hair loss Plan - Methotrexate 15mg every week - Stop folic acid - Start leucovorin 5mg weekly - Labs today: CBC, CMP, ESR, CRP - RTC 4 months - Labs before visit: CBC, CMP, ESR, CRP (2) Osteoarthritis of hands, bilateral: Code(s): M19.041 - Primary osteoarthritis, right hand; M19.042 - Primary osteoarthritis, left hand Category: Medical Qualifiers: Osteoarthritis type: primary Qualified Code(s): M19.041 - Primary osteoarthritis, right hand; M19.042 - Primary osteoarthritis, left hand Plan: #Bilateral hand OA Patient with prominent Heberden's nodes and x-rays shown on phone consistent with degenerative/osteoarthritis of the hands. Splinting has been helpful Plan - Continue Thumb splint - Paraffin wax (3) prison methotrexate user: Code(s): Z79.631 - termite inspector (current) use of antimetabolite agent Category: Medical Plan: #Long-term Current Use of Methotrexate Discussed with patient the benefits and risks of methotrexate for managing their rheumatic condition Benefits include reduced pain, reduced mortality, maintenance of remission and reduction of flares Risks include oral ulcers, photosensitivity, hepatotoxicity, hematologic toxicity, pneumonitis, flu-like symptoms (especially day after administration), nodulosis, lymphomas ? Limit alcohol and avoid Bactrim ? Monitoring: ?CBC, BMP, LFTs every 3-4 months and hepatitis serologies as needed Plan I spent 30 minutes reviewing the record and labs, taking a history, examining the patient, discussing the treatment plan and documenting in the medical record Orders: Orders Complete Blood Count Auto Diff Today Z79.899 - Other watermelon harvesting supervisor (current) drug therapy Comprehensive Met. Panel Today Z79.899 - Other assisted (current) drug therapy C Reactive Protein Today Z79.899 - Other watermelon harvesting supervisor (current) drug therapy IRON PROFILE Today D50.9 - Iron deficiency anemia, unspecified, Z86.2 - Personal history of diseases of the blood and blood-forming organs and certain disorders involving the immune mechanism Ferritin 6 Months D50.9 - Iron deficiency anemia, unspecified IRON PROFILE 6 Months D50.9 - Iron deficiency anemia, unspecified Transferrin 6 Months D50.9 - Iron deficiency anemia, unspecified Erythrocyte Sedimentation Rate Today Z79.899 - Other watermelon harvesting supervisor (current) drug therapy Ferritin Today Z86.2 - Personal history of diseases of the blood and blood- forming organs and certain disorders involving the immune mechanism Transferrin Today D50.9 - Iron deficiency anemia, unspecified, Z86.2 - Personal history of diseases of the blood and blood-forming organs and certain disorders involving the immune mechanism Complete Blood Count Auto Diff 6 Months Z. - Other watermelon harvesting supervisor (current) drug therapy Comprehensive Met. Panel 6 Months - Other watermelon harvesting supervisor (current) drug therapy C Reactive Protein 6 Months - Other watermelon harvesting supervisor (current) drug therapy Erythrocyte Sedimentation Rate 6 Months . - Other watermelon harvesting supervisor (current) drug therapy Medications: New leucovorin calcium Take pill 12 hours after methotrexate 5 mg PO QWEEK 13 tabs 1RF 90 days L40.50 - Arthropathic psoriasis, unspecified Refilled methotrexate sodium 15 mg (6 x 2.5 mg) PO QWEEK 78 tabs 1RF 90 days L40.50 - Arthropathic psoriasis, unspecified Discontinued folic acid Discontinued Reason: Doctor's Order 3 mg (3 x 1 mg) PO DAILY 300 tabs 1RF L40.50 - Arthropathic psoriasis, unspecified Coding Level of Care Code Est Pt Level 4 (75324) Complex EM visit Add On G2211 Diagnoses Psoriatic arthritis L40.50 Primary osteoarthritis of both hands M19.041; M19.042 Osteoarthritis type: primary prison methotrexate user Z79.631
[2025-01-14 13:48] VITALS: BP 134/72; PULSE 68; O2SAT 98; BMI 25.2
--- OUTSIDE RECORDS SUMMARY | 2025-01-14 16:48 | XMS_ITS | Clinical Summary ---
Author Organization [facility] Address [address] [place] [phone] Phone Care Team Providers Care Prop Drawer Name Role Phone Nova Dillon MD Primary [...] a day with meals. Active vitamin A 45589 UNIT capsule Take 10,000 Units by mouth [...] A MEDICARE A MEDICARE A MEDICARE A [facility] MEDICARE A MEDICARE A MEDICARE A MEDICARE A [facility] MEDICARE A Care Teams Prop Drawer Relationship Specialty Start Date End Date Nova Dillon MD [address] [place] [id number] PCP - General Internal Medicine 06/16/20 Additional Source Comments The information contained in this document represents components of the legal health record. It is not the complete legal health record.[facility]
--- OUTSIDE RECORDS SUMMARY | 2025-01-14 16:48 | XMS_ITS | Clinical Summary ---
Author Organization [facility] Address [address] [place] [address] Care Team Providers Care Charter Pilot Name Role Phone Nova Dillon MD Primary [...] week. 0 Active Vitamin A 3 MG (43018 UT) TABS Take 1 tablet by mouth [...] COPD Father Emphysema Father Heart disease Father LA Alzheimer's disease Mother COPD Mother Hypertension Mother [...] this topic Medical Devices Implanted Type Area Impregnating Machine Operator Device Identifier Shelf Expiration Date Model / Serial / Lot Insert Trident 0d E 36mm X3 Acetabular [facility] - 070137 - [id number] Implanted:Qty: 1 on 02/29/2020 by Marcos Velasquez MD [place] [facility] Right: Hip [employer] [id number] 01/23/2025 623-00-36E / / [id number] Shell Trident Ii E 52mm Tritanium Acetabular Hip - 165647 - [id number] Implanted:Qty: 1 on 02/29/2020 by Marcos Velasquez MD [facility] Right: Hip [employer] [id number] 11/28/2023 709-04-52E / / [id number] Screw Trident Ii 30mm 6.5mm Low Profile Hexagonal Bone - 796867 - [id number] Implanted:Qty: 1 on 02/29/2020 by Marcos Velasquez MD at [facility] Right: Hip [employer] [id number] 10/19/2024 3366-8262 / / [id number] Screw Bone Trident Ii L20 Mm Od6.5 Mm Low Profile Hexa - 208335 - [id number] Implanted:Qty: 1 on 02/29/2020 by Marcos Velasquez MD at [facility] Right: Hip [employer] [id number] 06/02/2024 9724-3153 / / [id number] Screw Trident Ii 15mm 6.5mm Low Profile Hexagonal Bone - 617358 - [id number] Implanted:Qty: 1 on 02/29/2020 by Marcos Velasquez MD at [facility] Right: Hip [employer] [id number] 08/11/2023 1525-5693 / / [id number] Stem Accolade Ii 3 132d Femoral - 153666 - [id number] Implanted:Qty: 1 on 02/29/2020 by Marcos Velasquez MD at [facility] Right: Hip [employer] [id number] 01/11/2025 9926-0769 / / [id number] Head V40 -2.5mm 36mm Biolox Delta Femoral Hip - 054805 - [id number] Implanted:Qty: 1 on 02/29/2020 by Marcos Velasquez MD at [facility] Right: Hip [employer] [id number] 01/09/2025 6570-0-436 / / [id number] Component Triathlon 4 Cruciate Retaining Cemented Femoral - 521867 - [id number] Implanted:Qty: 1 on 09/05/2020 by Marcos Velasquez MD at [facility] Left: Knee [employer] [id number] 05/10/2025 5510-F-401 / / [id number] Component Triathlon 8mm 27mm Symmetric X3 Ptlar Knee - 987261 - [id number] Implanted:Qty: 1 on 09/05/2020 by Marcos Velasquez MD at [facility] Left: Knee [employer] [id number] 12/02/2023 5550-G-278 / / [id number] Triathlon Cr Insert - Size 4 12mm X3 - 368220 - [id number] Implanted:Qty: 1 on 09/05/2020 by Marcos Velasquez MD at [facility] Left: Knee [employer] [id number] 10/30/2022 5530-G-412 -E / / [id number] Baseplate Triathlon 4 Primary Cemented Tibial Knee - 531015 - [id number] Implanted:Qty: 1 on 09/05/2020 by Marcos Velasquez MD at [facility] Left: Knee [employer] [id number] 09/16/2023 5520-B-400 / / [id number] Cement Simplex P Radiopaque Full Dose Bone 10 Pack - 156312 - [id number] Implanted:Qty: 1 on 09/05/2020 by Marcos Velasquez MD at [facility] Left: Knee [employer] 12/29/2021 6191-1-010 / / [id number] Cement Simplex P Radiopaque Full Dose Bone 10 Pack - 612853 - [id number] Implanted:Qty: 1 on 09/05/2020 by Marcos Velasquez MD at [facility] Left: Knee [employer] 12/29/2021 6191-1-010 / / [id number] [place] V40 Cemented Hip Stem 37.5 Offst 125mm Implanted:Qty: 1 on 10/23/2021 by Marcos Velasquez MD at [facility] Left: Hip [employer] 04/26/2026 0580-3-371 / / [id number] Tritanium Cluster Hole Shell 52mm Stry-Howm 921-62-53w-770 473 - [id number] Implanted:Qty: 1 on 10/23/2021 by Marcos Velasquez MD at [facility] Left: Hip [employer] [id number] 05/17/2026 702-04-52E / / [id number] ++Dnu+Disc Use [id number] Hip Insrt Trident 0d Silvio 36mm Stry-How 729-44-30x-200 918 - [id number] Implanted:Qty: 1 on 10/23/2021 by Marcos Velasquez MD at [facility] Left: Hip [employer] [id number] 09/14/2026 623-00-36E / / [id number] Lp Hex Screw 6.5x30mm Stry-How 3664-5117-1765 78 - [id number] Implanted:Qty: 1 on 10/23/2021 by Marcos Velasquez MD at [facility] Left: Hip [employer] [id number] 08/31/2026 4990-7992 / / [id number] Kit Prep Total Hip Bone Imp Smn-Orth 048806-095686 - [id number] Implanted:Qty: 1 on 10/23/2021 by Marcos Velasquez MD at [facility] Left: Hip [employer] [id number] 09/13/2031 999990 / / [id number] Description:SMALL BONE PLUG USED FROM THE KIT Cement Bone Surg Simplex Radiopq Stry-Howm 3246-4-463-114 092 - [id number] Implanted:Qty: 1 on 10/23/2021 by Marcos Velasquez MD at [facility] Left: Hip [employer] [id number] 10/30/2023 6191-1-010 / / [id number] Cement Bone Surg Simplex Radiopq Stry-Howm 9674-8-181-114 092 - [id number] Implanted:Qty: 1 on 10/23/2021 by Marcos Velasquez MD at [facility] Left: Hip [employer] [id number] 02/28/2023 6191-1-010 / / [id number] Hip Head Delta Biolox 36mm -5 Stry-How 4884-4-899-549 190 - [id number] Implanted:Qty: 1 on 10/23/2021 by Marcos Velasquez MD at [facility] Left: Hip [employer] [id number] 08/17/2026 6570-0-036 / / [id number] Advance Directives For more information, please contact: [phone] Documents on File Type Date Recorded 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 Care Teams Charter Pilot Relationship Specialty Start Date End Date Nova Dillon MD PCP - General Internal Medicine 12/21/19
--- OUTSIDE RECORDS SUMMARY | 2025-01-14 16:48 | XMS_ITS | Encounter Summary ---
Author Organization [facility] Address [address] [place] [address] Phone Care Team Providers Care Security Developer Name Role Phone Lee Hurst MD Primary Care Provider Ronnie Bianchi MD Primary Care Provider Nova Dillon MD Primary Care Pr ovider Encounter Details Date Type Department Care Team (Late st Contact Info) Description 06/10/2017 Ancillary Orders Virtual Department [address] [place] [address] Lee Hurst MD [address] [place] [address] Breast screening Social History Tobacco Use Types [...] unspecified documented in this encounter Care Teams Security Developer Relationship Specialty Start Date End Date Lee Hurst MD [address] [place] [address] Drive [address] [place] [address] PCP - General Pulmonary Disease 06/10/17 06/02/18 Ronnie Bianchi MD [address] [place] [address] [address] [place] [address] PCP - General Internal Medicine 06/03/18 06/15/20 Nova Dillon MD [address] [place] [id number] PCP - General Internal Medicine 06/16/20 documented as of this encounter Additional Source Comments The information contained in this document represents components of the legal health record. It is not the complete legal health record.[facility]
--- OUTSIDE RECORDS SUMMARY | 2025-01-14 16:48 | XMS_ITS | Encounter Summary ---
Author Organization [facility] Address [address] [place] [address] Phone Care Team Providers Care Department Head [employer] Name Role Phone Lee Hurst MD Primary Care Provider Ronnie Bianchi MD Primary Care Provider [phone] Nova Dillon MD Primary Care Pr ovider Encounter Details Date Type Department Care Team (Late st Contact Info) Description 05/13/2018 Procedure Pass [place] Admitting Dept - Virtual Department [address] [place] [id number] Social History Tobacco Use Types Packs/Day Years [...] on filedocumented in this encounter Care Teams Department [employer] Relationship Specialty Start Date End Date Lee Hurst MD [address] [place] [address] Drive [address] [place] [address] PCP - General Pulmonary Disease 06/10/17 06/02/18 Ronnie Bianchi MD [address] [place] [address] [place] [address] PCP - General Internal Medicine 06/03/18 06/15/20 Nova Dillon MD [address] [place] [id number] PCP - General Internal Medicine 06/16/20 documented as of this encounter Additional Source Comments The information contained in this document represents components of the legal health record. It is not the complete legal health record.[facility]
--- OUTSIDE RECORDS SUMMARY | 2025-01-14 16:48 | XMS_ITS | Encounter Summary ---
Author Organization [facility] Address [address] [place] [address] Phone Care Team Providers Care Telecom Engineer Name Role Phone Ronnie Bianchi MD Primary Care Provider [phone] Nova Dillon MD Primary Care Pr ovider Encounter Details Date Type Department Care Team (Late st Contact Info) Description 06/10/2020 Procedure Pass [facility], [address] [address] Social History Tobacco Use Types Packs/Day Years [...] on filedocumented in this encounter Care Teams Telecom Engineer Relationship Specialty Start Date End Date Ronnie Bianchi MD [address] [place] [address] [place] [address] PCP - General Internal Medicine 06/03/18 06/15/20 Nova Dillon MD [address] [place] [address] PCP - General Internal Medicine 06/16/20 documented as of this encounter Additional Source Comments The information contained in this document represents components of the legal health record. It is not the complete legal health record.[facility]
--- OUTSIDE RECORDS SUMMARY | 2025-01-14 16:48 | XMS_ITS | Encounter Summary ---
Author Organization [facility] Address [address] [place] [address] Phone Care Team Providers Care Labeling Specialist Name Role Phone Ronnie Bianchi MD Primary Care Provider [phone] Nova Dillon MD Primary Care Pr ovider Encounter Details Date Type Department Care Team (Late st Contact Info) Description 06/10/2020 Ancillary Orders Virtual Department [address] [place] [address] Nova Dillon MD [address] [place] [address] Breast screening Social History Tobacco Use Types [...] unspecified documented in this encounter Care Teams Labeling Specialist Relationship Specialty Start Date End Date Ronnie Bianchi MD [address] [place] [address] [place] [address] PCP - General Internal Medicine 06/03/18 06/15/20 Nova Dillon MD [address] [place] [address] PCP - General Internal Medicine 06/16/20 documented as of this encounter Additional Source Comments The information contained in this document represents components of the legal health record. It is not the complete legal health record.[facility]
--- OUTSIDE RECORDS SUMMARY | 2025-01-14 16:48 | XMS_ITS | Encounter Summary ---
Author Organization [facility] Address [address] [place] [address] Phone Care Team Providers Care Pharmacy Student Name Role Phone Ronnie Bianchi MD Primary Care Provider [phone] Nova Dillon MD Primary Care Pr ovider Encounter Details Date Type Department Care Team (Late st Contact Info) Description 06/03/2018 Ancillary Orders Virtual Department [address] [place] [address] Ronnie Bianchi MD [address] [place] [address] [address] Breast screening Social History Tobacco Use Types [...] There are scattered fibroglandular densities. POS - [id number] Narrative 08/13/2018 1:18 PM EDT 68-year-old female [...] There are scattered fibroglandular densities. POS - [id number] Ronnie Bianchi MD IMG MG EXAMS Final Result documented in this encounter Visit Diagnoses Diagnosis Breast screening Breast screening, unspecified Breast screening Breast screening, unspecified documented in this encounter Care Teams Pharmacy Student Relationship Specialty Start Date End Date Ronnie Bianchi MD [address] [place] [address] [place] [address] PCP - General Internal Medicine 06/03/18 06/15/20 Nova Dillon MD [address] [place] [address] PCP - General Internal Medicine 06/16/20 documented as of this encounter Additional Source Comments The information contained in this document represents components of the legal health record. It is not the complete legal health record.[facility]
--- OUTSIDE RECORDS SUMMARY | 2025-01-14 16:48 | XMS_ITS | Clinical Summary ---
Author Organization [facility] Address [address] [place] [address] Phone Care Team Providers Care General Road Foreman Name Role Phone Nova Dillon MD Primary Care Prov ider Allergies Active Allergy Reactions Criticality Noted Date Comments Nsaids (Non-Steroidal Anti-Inflammatory Drug) 02/29/2020 Bariatric surgery Medications metoprolol succinate (TOPROL-XL) 25 mg 24 hr tablet 2 tablets (50 mg total) 1 (one) time each day. 024 Active esomeprazole (NexIUM) [address] [...] daily as needed for Nausea. 023 Active medical marijuana FAGOTER med Active biotin 5 mg tablet Take [...] dizziness. 30 tablet 1 025 2025 Active ciclopirox (LOPROX) 0.77 % gel Apply 1 Application topically 1 (one) time each day. 45 g 2 Active fluticasone propionate (FLONASE) 50 mcg/actuation nasal spray SPRAY 2 SPRAYS INTO EACH NOSTRIL EVERY DAY SHAKE GENTLY. CLEAN TIP AND REPLACE CAP AFTER USE. 48 mL 1 Active ciclopirox (PENLAC) 8 % solution Apply topically at bedtime. Apply over nail and surrounding skin. Apply daily over previous coat. After seven (7) days, may remove with alcohol and continue cycle. 6.6 mL 3 Active apixaban (ELIQUIS) 5 mg tablet Take 1 tablet (5 mg total) by mouth 2 (two) times a day. Patient is taking this BID Active semaglutide (WEGOVY SUBQ) Inject under the skin. Active chlorhexidine (PERIDEX) 0.12 % solution RINSE MOUTH WITH 15ML (1 CAPFUL) FOR 30 SECONDS IN MORNING AND EVENING AFTER BRUSHING, THEN SPIT Active levothyroxine (SYNTHROID, LEVOTHROID) 125 mcg tablet TAKE 1 TABLET BY MOUTH DAILY 100 tablet Active atorvastatin (LIPITOR) 80 mg tablet TAKE 1 TABLET BY MOUTH ONCE DAILY 100 tablet Active gabapentin (NEURONTIN) 600 mg tabletIndications :Spinal stenosis of lumbar region, unspecified whether neurogenic claudication present Take 1 tablet (600 mg total) by mouth 3 (three) times a day. 270 each 1 025 2025 Active traMADoL (ULTRAM) 50 mg tabletIndications :Spinal stenosis of lumbar region, unspecified whether neurogenic claudication present Take 2 tablets (100 mg total) by mouth every 8 (eight) hours if needed (pain) for up to 28 days. Max Daily Amount: 300 mg 168 tablet 025 2024 Active albuterol HFA (ProAir HFA) 90 mcg/actuation inhalerIndication s:Abnormal CT scan Inhale 2 puffs by mouth 3 (three) times a day. 25.5 g 1 025 2025 Active ciclopirox (LOPROX) 0.77 % gel Apply topically 2 (two) times a day. 45 g 3 025 2025 Active aspirin 81 mg EC tablet Take by mouth. 2024 Discontinued(T herapy completed) magnesium 250 mg tablet Take by mouth. 2024 Discontinued(T herapy completed) gabapentin (NEURONTIN) 600 mg tablet Take 1 tablet (600 mg total) by mouth 3 (three) times a day. 270 each 1 025 2024 Discontinued(R eorder) atorvastatin (LIPITOR) 80 mg tablet TAKE 1 TABLET BY MOUTH ONCE DAILY 100 tablet 1 025 2024 Discontinued amoxicillin (AMOXIL) 500 mg capsule TAKE 4 CAPSULES ONE HOUR PRIOR TO DENTAL PROCEDURE 022 2024 Discontinued(T herapy completed) bromfenac (XIBROM) 0.09 % ophthalmic solution PUT 1 DROP INTO INTO LEFT EYE EVERY DAY FOR 6 WEEKS 025 2024 Discontinued(T herapy completed) clopidogreL (PLAVIX) 75 mg tablet Take 1 tablet (75 mg total) by mouth 1 (one) time each day. 2024 Discontinued(T herapy completed) ketorolac (ACULAR) 0.5 % ophthalmic solution PUT 1 DROP INTO LEFT EYE 4 TIMES A DAY FOR 4 WEEKS AFTER SURGERY 025 2024 Discontinued(T herapy completed) neomycin-polymyxi n-dexamethamethas one (POLYDEX) 3.5 mg/g-10,000 unit/g-0.1 % ointment APPLY 1/4 INCH TO EYELIDS TWICE DAILY NEEDED FOR BLEPHARITIS. 025 2024 Discontinued(T herapy completed) polyethylene glycol (GaviLyte-G) 236-22.74-6.74 -5.86 gram solution PLEASE SEE ATTACHED FOR DETAILED DIRECTIONS 2024 Discontinued(T herapy completed) albuterol HFA (ProAir HFA) 90 mcg/actuation inhalerIndication s:Abnormal CT scan Inhale 2 puffs by mouth 3 (three) times a day. 25.5 g 025 2024 Discontinued(R eorder) traMADoL (ULTRAM) 50 mg tabletIndications :Spinal stenosis of lumbar region, unspecified whether neurogenic claudication present Take 2 tablets (100 mg total) by mouth every 8 (eight) hours if needed (pain) for up to 28 days. Max Daily Amount: 300 mg 168 tablet 025 2024 Discontinued(R eorder) Active Problems Problem Noted Date Diagnosed Date Psoriatic arthritis ([facility] V24, [facility] V28) 0 04/28/2024 Chronic pain syndrome 04/06/2024 Carotid stenosis, right 12/27/2021 Overview (12/31/2023): 50-79% [facility] CARDS Iron deficiency anemia secon vonda to inadequate dietary iron intake 10/18/2021 Obesity (BMI 30-39.9) 06/24/2020 COPD (chronic obstructive pu lmonary disease) ([facility] V24, [facility] V28) 03/18/2020 Arthritis of right hip 12/31/2019 Aortic atherosclerosis ([facility] V24) 12/17/2018 Chronic bilateral low back pain with sciatica Depression 12/17/2018 Neuropathy 12/17/2018 Osteoarthritis 12/17/2018 Overview (12/31/2023): Cervical, Thoracic, & Lumbosacral Spine, Hips, Knees Vitamin D deficiency 12/17/2018 Atrial fibrillation ([facility] V24, [facility] V28) 0 11/26/2018 Bilateral chronic knee pain [...] Encounters Date Type Department Care Team Description 01/07/2025 11:46 AM EDT - 01/07/2025 11:59 PM EDT Hospital Encounter [facility] CT Scan [address] [place] [phone] scan; Pulmonary nodule Discharge Disposition: Home or Self Care 01/06/2025 1:00 PM EDT Office Visit Orthopedic Surgery [facility] [address] [phone] Vlad Lamb DPM Psoriatic arthritis (CMS/HCC V24, CMS/HCC V28) (Primary Dx); Hammer toe of left foot; Dermatophytosis of nail; Acquired hammer toe of right foot; Ingrowing nail 01/05/2025 1:15 PM EDT Office Visit Adult Medicine [address] [phone] Nova Dillon MD Fall, subsequent encounter (Primary Dx); Spinal stenosis of lumbar region, unspecified whether neurogenic claudication present; Abnormal CT scan; Chronic bronchitis, unspecified chronic bronchitis type (CMS/HCC V24, CMS/HCC V28) 11/12/2024 1:15 PM EDT Ancillary Procedure Pulmonology [facility] [address] [phone] Chronic bronchitis, unspecified chronic bronchitis type (CMS/HCC V24, CMS/HCC V28) (Primary Dx) 11/04/2024 1:00 PM EDT Consult Pulmonology [facility] [address] [phone] Yloa Birmingham MD Pulmonary nodule (Primary Dx); Abnormal CT scan; Seasonal allergic rhinitis due to pollen; Gastroesophageal reflux disease without esophagitis; Shortness of breath from Last 3 Months Immunizations Immunization Administration Dates Next Due Influenza trivalent, 0.5mL ( Fluzone High-dose) 65yo and older 01/03/2023,12/14/2021,12/18/2019,12/03 Influenza trivalent, with pr eservative (Fluzone; Afluria) 6mo and older 12/20/2021,01/21/2014,01/07/2013,01/15 Influenza, Unspecified 12/03/2018 Moderna (age 6mo & older) Bi valent, COVID-19, 0.5 mL or 0.25 mL dosage 12/20/2021 [email or web address] SARS-CoV-2 COVID-19, mRNA, LNP-S, preservative free 01/03/2023,01/19/2021,06/10/2020 [...] TOTAL HIP; Surgeon: Marcos Velasquez MD; Location: [facility] Service: Orthopedics; Laterality: Right; COLONOSCOPY PROCEDURE:COLONOSCOPY TOTAL KNEE ARTHROPLASTY 08/2020 Left PROCEDURE:TOTAL KNEE ARTHROPLASTY TOTAL HIP ARTHROPLASTY 10/23/2021 Left PROCEDURE:TOTAL HIP ARTHROPLASTY;COMMENT:Procedure : REPLACEMENT TOTAL HIP; Surgeon: Marcos Velasquez MD; Location: [facility]); Service: Orthopedics; Laterality: Left; OTHER SURGICAL HISTORY [...] bypass OTHER SURGICAL HISTORY 03/01/2020 Right PROCEDURE: MO ARTHRP ACETBLR/PROX FEM PROSTC AGRFT/ALGRFT TOTAL KNEE ARTHROPLASTY 09/05/2020 Left PROCEDURE: MO ARTHRP KNE CONDYLE&PLATU MEDIAL&LAT COMPARTMENTS Medical History Medical History Date Comments Hypertension DX:Hypertension; COMMENT:resolved since bariatric Osteoarthritis DX:Osteoarthriti s A-fib [place] [place], [facility] V28) DX:A-fib ([facility]);COMMENT:postoperatively bariatric surgery Sleep apnea DX:Sleep apnea;C OMMENT:NONCOMPLIANT WITH CPAP DUE TO WT. LOSS COPD (chronic obstructive pu lmonary disease) ([facility] [place], [facility] V28) DX:COPD (chronic o bstructive pulmonary disease) ([facility]);COMMENT:Just from hx of smoking no PFTs previous [...] knee pain; COMMENT: Dr Boyce Atrial fibrillation ([facility] [place], [facility] V28) 11/26/2018 DX:Atrial fibrillation (HCC) GARRETT (obstructive sleep apnea) 10/16/2016 DX :GARRETT (obstructive sleep apnea) Aortic atherosclerosis ([facility] [place]) 12/17/2018 DX:Aortic atherosclerosis ([facility]) Osteoarthritis 12/17/2018 DX:Osteoarthriti s; COMMENT: Cervical, Thoracic, [...] DX:Neuropathy COPD (chronic obstructive pu lmonary disease) ([facility] [place], [facility] V28) 03/18/2020 DX:COPD (chronic o bstructive pulmonary disease) ([facility]) HTN (hypertension) 03/18/2020 DX:HTN (hyper tension) Carotid stenosis, right 12/27/2021 DX:Carot id stenosis, right; COMMENT: 50-79% [facility] Irritable bowel syndrome DX:Irri table bowel syndrome Family History Medical History Relation Name Comments Scleroderma Aunt No Known Problems Brother 1 No Known Problems Brother 2 No Known Problems Brother 3 Other: adrenal tumor Daughter Other: uterine polps Daughter COPD Father Emphysema Father Heart attack Father Heart disease Father [place] Hypertension Maternal Grandmother Alzheimer's disease Mother COPD [...] care for your loved ones. For example, infant childcare provider or elderly care for an older [...] Sign Reading Time Taken Comments Blood Pressure 118/47 01/05/2025 1:21 PM EDT Pulse 67 01/05/2025 1:21 PM EDT Temperature 36.4 C (97.6 F) 01/05/2025 1:21 PM EDT Respiratory Rate - - Oxygen Saturation 90% 11/04/2024 1:05 PM EDT Inhaled Oxygen Concentration - - Weight 62.8 kg (138 lb 6.4 oz) 01/05/2025 1:21 P M EDT Height 157.5 cm (5' 2 ) 10/07/2024 2:14 PM EDT Body Mass Index 25.31 10/07/2024 2:14 PM EDT Plan of Treatment Upcoming Encounters Date Type Department Care Team ([facility] st Contact Info) Description 01/20/2025 1:00 PM EDT Office Visit Pulmonology [facility] 175 [facility] [address] [place] [phone] Yola Birmingham MD [address] [place] [phone] 04/07/2025 1:30 PM EST Office Visit Orthopedic Surgery [facility] [address] [phone] Vlad Lamb DPM [address] [phone] 04/13/2025 1:15 PM EST Office Visit Adult Medicine [facility] [address] [place] [phone] Nova Dillon MD [address] [place] [address] 07/06/2025 1:15 PM EDT Office Visit Adult Medicine [facility] [address] [place] [phone] Nova Dillon MD [facility] [place] [address] Health Maintenance Due Date Last Done Comments Hepatitis A Vaccines (1 of 2 - Risk 2-dose series) 1968 Hepatitis B Vaccines (1 of 3 - Risk 3-dose series) 2009 Medicare Annual Wellness Visit 03/08/2022 RSV Immunization Adult Patients (1 - 1-dose 75+ series) 2024 COVID-19 Vaccine (8 - Pfizer risk season) 2024 12/20/2023, 01/03/2023, 12/20/2021, Additional history exists Social Influencers [...] 06/14/2016, 11/15/2014 Zoster Vaccines Completed 11/24/2018, 09/14/2018 Influenza Vaccine Discontinued 12/20/2023, , 12/20/2021, Additional history exists Breast Cancer Screening Discontinued 09/24/2024, 06/16 Depression [...] this topic Medical Devices Implanted Type Area Block Greaser Device Identifier Shelf Expiration Date Model / Serial / Lot Insert Trident 0d E 36mm X3 Acetabular Hip - [id number] Implanted:Qty: 1 on 02/29/2020 by Marcos Velasquez MD Right: Hip [employer] [id number] 01/23/2025 623-00-36E / / [id number] Shell Trident Ii E 52mm Tritanium Acetabular Hip - [id number] Implanted:Qty: 1 on 02/29/2020 by Marcos Velasquez MD Right: Hip [employer] [id number] 11/28/2023 709-04-52E / / [id number] Screw Trident Ii 30mm 6.5mm Low Profile Hexagonal Bone - [id number] Implanted:Qty: 1 on 02/29/2020 by Marcos Velasquez MD Right: Hip [employer] [id number] 10/19/2024 0802-4995 / / [id number] Screw Bone Trident Ii L20 Mm Od6.5 Mm Low Profile Hexa - [id number] Implanted:Qty: 1 on 02/29/2020 by Marcos Velasquez MD Right: Hip [employer] [id number] 06/02/2024 5129-7410 / / [id number] Screw Trident Ii 15mm 6.5mm Low Profile Hexagonal Bone - [id number] Implanted:Qty: 1 on 02/29/2020 by Marcos Velasquez MD Right: Hip [employer] [id number] 08/11/2023 6481-3180 / / [id number] Stem Accolade Ii 3 132d Femoral - [id number] Implanted:Qty: 1 on 02/29/2020 by Marcos Velasquez MD Right: Hip [employer] [id number] 01/11/2025 8237-7422 / / [id number] Head V40 -2.5mm 36mm Biolox Delta Femoral Hip - [id number] Implanted:Qty: 1 on 02/29/2020 by Marcos Velasquez MD Right: Hip [employer] [id number] 01/09/2025 6570-0-436 / / [id number] Component Triathlon 4 Cruciate Retaining Cemented Femoral - [id number] Implanted:Qty: 1 on 09/05/2020 by Marcos Velasquez MD Left: Knee [employer] [id number] 05/10/2025 5510-F-401 / / [id number] Component Triathlon 8mm 27mm Symmetric X3 Ptlar Knee - [id number] Implanted:Qty: 1 on 09/05/2020 by Marcos Velasquez MD Left: Knee [employer] [id number] 12/02/2023 5550-G-278 / / [id number] Triathlon Cr Insert - Size 4 12mm X3 - [id number] Implanted:Qty: 1 on 09/05/2020 by Marcos Velasquez MD Left: Knee [employer] [id number] 10/30/2022 5530-G-412 -E / / [id number] Baseplate Triathlon 4 Primary Cemented Tibial Knee - [id number] Implanted:Qty: 1 on 09/05/2020 by Marcos Velasquez MD Left: Knee [employer] [id number] 09/16/2023 5520-B-400 / / [id number] Cement Simplex P Radiopaque Full Dose Bone 10 Pack - [id number] Implanted:Qty: 1 on 09/05/2020 by Marcos Velasquez MD Left: Knee [employer] 12/29/2021 6191-1-010 / / [id number] Cement Simplex P Radiopaque Full Dose Bone 10 Pack - [id number] Implanted:Qty: 1 on 09/05/2020 by Marcos Velasquez MD Left: Knee [employer] 12/29/2021 6191-1-010 / / [id number] [place] V40 Cemented Hip Stem 37.5 Offst 125mm Implanted:Qty: 1 on 10/23/2021 by Marcos Velasquez MD Left: Hip [employer] 04/26/2026 0580-3-371 / / [id number] Tritanium Cluster Hole Shell 52mm Stry-Howm [id number] Implanted:Qty: 1 on 10/23/2021 by Marcos Velasquez MD Left: Hip [employer] [id number] 05/17/2026 702-04-52E / / [id number] ++Dnu+Disc Use [id number] Hip Insrt Trident 0d Silvio 36mm Stry-Howm [id number]-[id number] [id number] Implanted:Qty: 1 on 10/23/2021 by Marcos Velasquez MD Left: Hip [employer] [id number] 09/14/2026 623-0036E / / [id number] Lp Hex Screw 6.5x30mm Stry-Howm [id number] Implanted:Qty: 1 on 10/23/2021 by Marcos Velasquez MD Left: Hip [employer] [id number] 08/31/2026 4039-7872 / / [id number] Kit Prep Total Hip Bone Imp [facility] [id number] Implanted:Qty: 1 on 10/23/2021 by Marcos Velasquez MD Left: Hip [facility] [employer] [facility] [id number] 09/13/2031 104217 / / [id number] Description:SMALL BONE PLUG USED FROM THE KIT Cement Bone Surg Simplex Radiopq Stry-Howm [id number] 092 Implanted:Qty: 1 on 10/23/2021 by Marcos Velasquez MD Left: Hip [employer] [id number] 10/30/2023 6191-1-010 / / [id number] Cement Bone Surg Simplex Radiopq Stry-Howm [id number] 092 Implanted:Qty: 1 on 10/23/2021 by Marcos Velasquez MD Left: Hip [employer] [id number] 02/28/2023 6191-1-010 / / [id number] Hip Head Delta Biolox 36mm -5 Stry-Howm [id number] 190 Implanted:Qty: 1 on 10/23/2021 by Marcos Velasquez MD Left: Hip [employer] [id number] 08/17/2026 6570-0-036 / / [id number] Procedures Procedure Name Priority Date/Time Associated Diagnosis [...] MD PFT ORDERABLES Fi nal Result * MG Mammo Digital Screening w Taiwo bilat (09/24/2024 2:53 PM EDT) Anatomical Region Laterality Modality Breast Bilateral Mammography 09/29/2024 3:32 PM EDT Impressions 09/29/2024 3:34 PM EDT No mammographic evidence for malignancy. BI-RADS CATEGORY: 1 - NEGATIVE RECOMMENDATION: Screening bilateral mammogram is recommended in 1 year. Mammo Location: [facility], [address] [place] [address], [id number], . -------- FINAL REPORT -------- Dictated By: Shanna Paula Dictated Date: 09/29/2024 15:32 ET Assigned Physician: Shanna Paula Reviewed and Electronically Signed By: Shanna Paula Signed Date: 09/29/2024 15:34 ET Workstation ID: [id number] Transcribed By: Self Edit Transcribed Date: 09/29/2024 [...] is recommended in 1 year. Mammo Location: [facility], [address] [place] [address], [phone], . -------- FINAL REPORT -------- Dictated By: Shanna Paula Dictated Date: 09/29/2024 15:32 ET Assigned Physician: Shanna Paula Reviewed and Electronically Signed By: Shanna Paula Signed Date: 09/29/2024 15:34 ET Workstation ID: [id number] Transcribed By: Self Edit Transcribed Date: 09/29/2024 [...] normal bone density by WHO criteria. [facility] Department of Internal Medicine recommends using National [...] alternative screening schedule based on nikki Freeman., [facility] April 19, 2011 for [...] normal bone density by WHO criteria. [facility] Department of Internal Medicinerecommends using National [...] alternative screening schedule based on nikki Freeman., [place] 2011 for patients with osteopenia (based on hip BMD T-score) is as follows: * advanced osteopenia (T scores -2.00 to -2.49), BMD testing every year * moderate osteopenia (T scores -1.50 to -1.99), BMD testing every 5years mild osteopenia or normal BMD (T scores -1.50 and higher), BMD testingevery 15 years Jaziel MEJIA IMG DXA PROCEDURES Final Resul t * Colonoscopy (02/01/2022) [facility] Colonoscopy no interpretation , abstracted Anatomical Region Laterality Modality Other [facility] Provider HEALTH MAINTENANCE Final Result * Lipid panel (05/19/2021) [facility] LDL/HDL Ratio 2 0 - 4 Triglycerides 113 0 - 150 mg/dL Cholesterol 143 0 - 200 mg/dL HDL 77 >=40 mg/dL LDL Cholesterol 44 0 - 100 mg/dL Blood Venous blood specimen / Unknown Historical Provider LAB BLOOD ORDERABLES Amy l Result * Hepatitis C Screening (01/15/2013) [facility] Hepatitis C Screening abstracted [facility] Provider HEALTH MAINTENANCE Final Result from Last 3 Months or Most Recently Relevant to Health Maintenance Insurance [employer] MEDICARE Care Teams General Road Foreman Relationship Specialty Start Date End Date Nova Dillon MD [address] [place] [phone] PCP - General Internal Medicine 11/24/18
== END 2025-01-14 14:12 | disposition home or self-care (01) ==
LOC: HO.RHES 13:24
PROVIDERS: PCP Internal Medicine; Visit Provider Student in an Organized Health Care Education/Training Program
DX: L40.50 Arthropathic psoriasis, unspecified (principal); M19.041 Primary osteoarthritis, right hand; M19.042 Primary osteoarthritis, left hand; Z79.631 Long term (current) use of antimetabolite agent
CPT/HCPCS: 99214; G2211

== ENCOUNTER 2025-01-14 13:23 | Outpatient (REF) | payer MEDICARE, SELFPAY ==
[2025-01-14 17:37] LABS: MANUAL DIFF FLAG NO
[2025-01-14 17:47] LABS: Hematocrit 38.7 % (37.0-47.0); Hemoglobin 12.2 g/dl (12.0-16.0); Imm Gran Abs Auto 0.02 X10*3/uL (0.00-0.03); Imm Gran Pct Auto 0.5 % (0.0-0.4); Lymphocytes Absolute Auto 1.4 X10*3/uL (1.2-4.9); Mean Corpuscular HGB Conc 31.5 g/dl (31.0-35.0); Mean Corpuscular Hemoglobin 31.7 pg (27.0-33.0); Mean Corpuscular Volume 100.5 fL (80.0-98.0); NRBC Abs Auto 0.000 X10*3/uL (0.0-0.012); NRBC Pct Auto 0.0 /100WBC (0.0-0.2); Platelet Count 150 X10*3/uL (160-400); Red Blood Count 3.85 X10*6/uL (4.20-5.50); White Blood Count 4.3 X10*3/uL (4.8-10.8)
[2025-01-14 18:05] LABS: Alanine Aminotransferase 43 U/L (0-31); Albumin Level 4.2 g/dL (3.5-5.0); Alkaline Phosphatase 49 U/L (39-117); Anion Gap 10 (12-20); Aspartate Amino Transferase 38 U/L (5-31); Blood Urea Nitrogen 14 mg/dL (9-16); Calcium 9.4 mg/dL (8.4-10.2); Carbon Dioxide 30 mmol/L (22-29); Chloride 107 mmol/L (96-108); Estimated Glomerular Filt Rate > 60; Iron 60 mcg/dL (30-160); Percent Iron Saturation 21 % (15-50); Potassium 3.9 mmol/L (3.3-5.1); Sodium 143 mmol/L (135-145); Total Iron Binding Capacity 280 mcg/dL (228-428); Total Protein 6.5 g/dL (6.5-8.0); Unsaturated Iron Binding 220 ug/dL
[2025-01-14 18:19] LABS: Ferritin 34 ng/mL (10-250)
[2025-01-15 07:29] LABS: Transferrin 272 mg/dL (188-341)
== END 2025-01-14 13:24 | disposition home or self-care (01) ==
LOC: HO.HKASLDS 13:23
PROVIDERS: PCP Internal Medicine; Visit Provider Student in an Organized Health Care Education/Training Program
DX: L40.50 Arthropathic psoriasis, unspecified (principal); M19.041 Primary osteoarthritis, right hand; M19.042 Primary osteoarthritis, left hand; D50.9 Iron deficiency anemia, unspecified; Z79.631 Long term (current) use of antimetabolite agent; Z79.899 Other long term (current) drug therapy; Z86.2 Personal history of diseases of the blood and blood-forming organs and certain disorders involving the immune mechanism
CPT/HCPCS: 36415; 80053; 82728; 83540; 84466; 85025; 85652; 86140; 99212

== ENCOUNTER 2025-01-19 13:21 | Outpatient (AMB) | payer MEDICARE, SELFPAY ==
--- OUTSIDE RECORDS SUMMARY | 2024-11-04 13:00 | XMS_ITS | Encounter Summary ---
Author Organization [facility] Address [address] [place] [address] Care Team Providers Care Office Receptionist Name Role Phone Nova Dillon MD Primary Care Prov ider Reason for Referral * Imaging (Routine) - Pending Review Specialty Diagnoses / Procedures Referred By Jarocho cole Referred To Contact Radiology Diagnoses Abnormal CT scan Pulmonary nodule Shortness of breath Procedures CT Chest wo Contrast Yola Birmingham MD [address] [place] [address] Phone: tel: fax: [facility] Referral ID Status Reason Start Date Expiration Date V isits Requested Visits Authorized [id number] Pending Review 01/15/2025 01/15/2026 1 1 * Imaging (Routine) - Closed Specialty Diagnoses / Procedures Referred By Jarocho cole Referred To Contact Radiology Diagnoses Abnormal CT scan Pulmonary nodule Procedures CT Chest wo Contrast Yola Birmingham MD [address] [facility] [address] [place] [address] Phone: tel: fax: [facility] CT Scan [address] [place] [address] Phone: tel: Referral ID Status Reason Start Date Expiration Date Visits Re quested Visits Authorized [id number] Closed 11/04/2024 11/04/2025 1 1 Reason for Visit * Reason Comments Consult * Consultation (Urgent) - Closed Specialty Diagnoses / Procedures Referred By Jarocho cole Referred To Contact Pulmonary Disease / Pulmonology Diagnoses Abnormal CT scan Nova Dillon MD [address] [place] [address] Phone: tel: fax: Pulmonology [address] [address] Phone: tel: fax: Referral ID Status Reason Start Date Expiration Date V isits Requested Visits Authorized [id number] Closed Specialty Services Required 10/15/2024 10/15/2025 1 1 Encounter Details Date Type Department Care Team ([facility] st Contact Info) Description 11/04/2024 1:00 PM EDT Consult [address] [phone] Yola Birmingham MD [address] [place] [phone] Pulmonary nodule (Primary Dx); Abnormal CT scan; Seasonal allergic rhinitis due to pollen; Gastroesophageal reflux disease without esophagitis; Shortness of breath Social History Tobacco Use Types Packs/Day Years [...] ed Within the last 3 months, geovanny w many times did you visit the [...] do you feel lonely or isolated from ose around you? Never 06/10/2024 Food Risk [...] care for your loved ones. For example, early childhood education specialist or elderly care for an older adult? [...] Date Recorded What is your living situation? Unrecognized valu e 06/10/2024 Comments No Sex and Gender Information Value Date Recorded Sex Assigned at Not on file Legal Sex Female 3:18 PM EST Gender Identity Not on file Sexual Orientation Not on file documented as of this encounter Last Filed Vital Signs Vital Sign Reading Time Taken Comments Blood Pressure 123/50 11/04/2024 1:05 PM EDT Pulse 72 11/04/2024 1:05 PM EDT Temperature 35.4 C (95.8 F) 11/04/2024 1:05 PM EDT Respiratory Rate - - Oxygen Saturation 90% 11/04/2024 1:05 PM EDT Inhaled Oxygen Concentration - - Weight 65.8 kg (145 lb) 11/04/2024 1:05 PM EDT Height - - Body Mass Index 26.52 10/07/2024 2:14 PM EDT documented in this encounter Progress Notes * Yola Birmingham MD - 11/04/2024 1:00 PM EDTAddended by: YOLA BIRMINGHAM on: 01/15/2025 11:50 AM Modules accepted: Orders * Yola Birmingham MD - 11/04/2024 1:00 PM EDT ADULT PULMONARY initial pulmonary consultation. CHIEF COMPLAINT : Consult Shortness of breath. HISTORY OF PRESENT ILLNESS: Danelle Vallejo is a 74 y.o. 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 Grouping of nodules in the left lower lobe. Findings could be inflammatory or infectious., Patient was evaluated by her primary care provider and was treated with Levaquin with significant improvement, however patient states that now she feels that her cough is coming back, she also complain of some postnasal drip,does complain of occasional cough but denies any shortness of breath or dyspnea on exertion at thistime. REVIEW OF SYSTEMS: Review of Systems HENT: Postnasal drip. Respiratory: Positive for cough. All other systems reviewed and are negative. ALLERGIES: Allergies Allergen Reactions Nsaids (Non-Steroidal Anti-Inflammatory Drug) Bariatric surgery ACTIVE MEDICATIONS: Outpatient Medications Marked as Taking for the 11/04/24 encounter (Consult) with Yola Birmingham MD Medication Sig Dispense Refill albuterol HFA (ProAir HFA) 90 mcg/actuation inhaler Inhale 2 puffs by mouth 3 (three) times a day. 8.5 g 0 amoxicillin (AMOXIL) 500 mg capsule TAKE 4 CAPSULES ONE HOUR PRIOR TO DENTAL PROCEDURE apixaban (ELIQUIS) 5 mg tablet Take 1 tablet (5 mg total) by mouth 2 (two) times a day. Patient is taking this BID atorvastatin (LIPITOR) 80 mg tablet TAKE 1 TABLET BY MOUTH ONCE DAILY 100 tablet 1 biotin 5 mg tablet Take by mouth daily. bromfenac (XIBROM) 0.09 % ophthalmic solution PUT 1 DROP INTO INTO LEFT EYE EVERY DAY FOR 6 WEEKS CALCIUM CITRATE ORAL Take by mouth daily. 1000 mg calcium with 500 mg D3 chlorhexidine (PERIDEX) 0.12 % solution RINSE MOUTH WITH 15ML (1 CAPFUL) FOR 30 SECONDS IN MORNING AND EVENING AFTER BRUSHING, THEN SPIT ciclopirox (LOPROX) 0.77 % gel Apply 1 Application topically 1 (one) time each day. 45 g 2 ciclopirox (PENLAC) 8 % solution Apply topically at bedtime. Apply over nail and surrounding skin. Apply daily over previous coat. After seven (7) days, may remove with alcohol and continue cycle. 6.6 mL 3 CYANOCOBALAMIN, VITAMIN B-12, ORAL Take 1,000 mcg by mouth daily. gummie esomeprazole (NexIUM) [address] capsule Take 1 Capsule by mouth every morning (before breakfast). fluticasone propionate (FLONASE) 50 mcg/actuation nasal spray SPRAY 2 SPRAYS INTO EACH NOSTRIL EVERY DAY SHAKE GENTLY. CLEAN TIP AND REPLACE CAP AFTER USE. 48 mL 1 folic acid (FOLVITE) 1 mg tablet Take 3 tablets (3,000 mcg total) by mouth 1 (one) time each day. gabapentin (NEURONTIN) 600 mg tablet Take 1 tablet (600 mg total) by mouth 3 (three) times a day. 270 each 1 levothyroxine (SYNTHROID, LEVOTHROID) 125 mcg tablet Take 1 tablet (125 mcg total) by mouth 1 (one)time each day. meclizine (ANTIVERT) 12.5 mg tablet Take 1 tablet (12.5 mg total) by mouth 3 (three) times a day ifneeded for dizziness. 30 tablet 1 medical marijuana [employer] med methotrexate 2.5 mg tablet Take 8 tablets (20 mg total) by mouth 1 (one) time per week metoprolol succinate (TOPROL-XL) 25 mg 24 hr tablet 2 tablets (50 mg total) 1 (one) time each day. multivitamin (MULTIPLE VITAMINS ORAL) Take by mouth daily. mukywugh-afclfywcn-jnbmermvwzyzopirdm (POLYDEX) 3.5 mg/g-10,000 unit/g-0.1 % ointment APPLY 1/4 INCH TO EYELIDS TWICE DAILY NEEDED FOR BLEPHARITIS. ondansetron ODT (ZOFRAN-ODT) 4 mg disintegrating tablet Take 1 Tablet by mouth 3 times daily as needed for Nausea. polyethylene glycol (GaviLyte-G) 236-22.74-6.74 -5.86 gram solution PLEASE SEE ATTACHED FOR DETAILED DIRECTIONS semaglutide (WEGOVY SUBQ) Inject under the skin. traMADoL (ULTRAM) 50 mg tablet Take 2 tablets (100 mg total) by mouth every 8 (eight) hours if needed (pain) for up to 28 days. Max Daily Amount: 300 mg 168 tablet 0 vitamin A 3,000 mcg (10,000 unit) tablet Take by mouth daily. PROVIDER ATTESTS THAT THE MEDICATION LIST WAS OBTAINED, REVIEWED AND UPDATED. PAST MEDICAL HISTORY: Patient Active Problem List Diagnosis Date Noted Psoriatic arthritis ([facility] V24, [facility] V28) 04/28/2024 Chronic pain syndrome 04/06/2024 Carotid stenosis, right 12/27/2021 Iron deficiency anemia secondary to inadequate dietary iron intake 10/18/2021 Obesity (BMI 30-39.9) 06/24/2020 COPD (chronic obstructive pulmonary disease) ([facility] V24, [facility] V28) 03/18/2020 Arthritis of right hip 12/31/2019 Aortic atherosclerosis ([facility] V24) 12/17/2018 Chronic bilateral low back pain with sciatica 12/17/2018 Depression 12/17/2018 Neuropathy 12/17/2018 Osteoarthritis 12/17/2018 Vitamin D deficiency 12/17/2018 Atrial fibrillation ([facility] V24, [facility] V28) 11/26/2018 Bilateral chronic knee pain 10/16/2016 Esophageal reflux 10/16/2016 GARRETT (obstructive sleep apnea) 10/16/2016 Endometrial thickening on ultrasound 10/08/2016 Fatty liver 10/08/2016 Hypercholesteremia 03/23/2011 Fibrocystic breast 11/08/2010 Hypothyroidism 11/08/2010 Lumbar spinal stenosis 11/08/2010 Past Surgical History: Procedure Laterality Date BACK SURGERY PROCEDURE:BACK SURGERY BACK SURGERY 03/2002 PROCEDURE: HISTORICAL BACK SURGERY; COMMENT: L5-S1 microdiscectomy BARIATRIC SURGERY PROCEDURE:BARIATRIC SURGERY CHOLECYSTECTOMY PROCEDURE:CHOLECYSTECTOMY CHOLECYSTECTOMY 10/2011 PROCEDURE: HISTORICAL CHOLECYSTECTOMY; COMMENT: open COLONOSCOPY PROCEDURE:COLONOSCOPY COLONOSCOPY 03/23/2011 PROCEDURE: HISTORICAL COLONOSCOPY; COMMENT: melanosis coli; repeat in ten yrs GASTRIC BYPASS PROCEDURE:GASTRIC BYPASS HERNIA REPAIR PROCEDURE:HERNIA REPAIR;COMMENT:DIAPHRAGMATIC OTHER SURGICAL HISTORY 07/21/2008 PROCEDURE: HISTORY OTHER; COMMENT: bilateral brachioplasty OTHER SURGICAL HISTORY 11/23/2010 PROCEDURE: HISTORY OTHER; COMMENT: phlebectomy right varicose veins OTHER SURGICAL HISTORY 12/31/2016 PROCEDURE: HISTORY OTHER; COMMENT: bariatric surgery- gastric bypass OTHER SURGICAL HISTORY Right 03/01/2020 PROCEDURE: CA ARTHRP ACETBLR/PROX FEM PROSTC AGRFT/ALGRFT TONSILLECTOMY PROCEDURE: HISTORICAL TONSILLECTOMY; COMMENT: adenoids also TOTAL HIP ARTHROPLASTY Right 02/29/2020 PROCEDURE:TOTAL HIP ARTHROPLASTY;COMMENT:Procedure: REPLACEMENT TOTAL HIP; Surgeon: Aixa Velasquez MD; Location: [facility]; Service: Orthopedics; Laterality: Right; TOTAL HIP ARTHROPLASTY Left 10/23/2021 PROCEDURE:TOTAL HIP ARTHROPLASTY;COMMENT:Procedure: REPLACEMENT TOTAL HIP; Surgeon: Aixa Velasquez MD; Location: [facility]; Service: Orthopedics; Laterality: Left; TOTAL KNEE ARTHROPLASTY Left 08/2020 PROCEDURE:TOTAL KNEE ARTHROPLASTY TOTAL KNEE ARTHROPLASTY Left 09/05/2020 PROCEDURE: CA ARTHRP KNE CONDYLE&PLATU MEDIAL&LAT COMPARTMENTS VEIN LIGATION AND STRIPPING 2009 PROCEDURE:VEIN LIGATION AND STRIPPING;COMMENT:R/L Past Surgical History: Procedure Laterality Date BACK SURGERY PROCEDURE:BACK SURGERY BACK SURGERY 03/2002 PROCEDURE: HISTORICAL BACK SURGERY; COMMENT: L5-S1 microdiscectomy BARIATRIC SURGERY PROCEDURE:BARIATRIC SURGERY CHOLECYSTECTOMY PROCEDURE:CHOLECYSTECTOMY CHOLECYSTECTOMY 10/2011 PROCEDURE: HISTORICAL CHOLECYSTECTOMY; COMMENT: open COLONOSCOPY PROCEDURE:COLONOSCOPY COLONOSCOPY 03/23/2011 PROCEDURE: HISTORICAL COLONOSCOPY; COMMENT: melanosis coli; repeat in ten yrs GASTRIC BYPASS PROCEDURE:GASTRIC BYPASS HERNIA REPAIR PROCEDURE:HERNIA REPAIR;COMMENT:DIAPHRAGMATIC OTHER SURGICAL HISTORY 07/21/2008 PROCEDURE: HISTORY OTHER; COMMENT: bilateral brachioplasty OTHER SURGICAL HISTORY 11/23/2010 PROCEDURE: HISTORY OTHER; COMMENT: phlebectomy right varicose veins OTHER SURGICAL HISTORY 12/31/2016 PROCEDURE: HISTORY OTHER; COMMENT: bariatric surgery- gastric bypass OTHER SURGICAL HISTORY Right 03/01/2020 PROCEDURE: CA ARTHRP ACETBLR/PROX FEM PROSTC AGRFT/ALGRFT TONSILLECTOMY PROCEDURE: HISTORICAL TONSILLECTOMY; COMMENT: adenoids also TOTAL HIP ARTHROPLASTY Right 02/29/2020 PROCEDURE:TOTAL HIP ARTHROPLASTY;COMMENT:Procedure: REPLACEMENT TOTAL HIP; Surgeon: Aixa Velasquez MD; Location: [facility]); Service: Orthopedics; Laterality: Right; TOTAL HIP ARTHROPLASTY Left 10/23/2021 PROCEDURE:TOTAL HIP ARTHROPLASTY;COMMENT:Procedure: REPLACEMENT TOTAL HIP; Surgeon: Aixa Velasquez MD; Location: [facility]); Service: Orthopedics; Laterality: Left; TOTAL KNEE ARTHROPLASTY Left 08/2020 PROCEDURE:TOTAL KNEE ARTHROPLASTY TOTAL KNEE ARTHROPLASTY Left 09/05/2020 PROCEDURE: CA ARTHRP KNE CONDYLE&PLATU MEDIAL&LAT COMPARTMENTS VEIN LIGATION AND STRIPPING 2009 PROCEDURE:VEIN LIGATION AND STRIPPING;COMMENT:R/L FAMILY HISTORY: Family History Problem Relation Name Age of Onset Hypertension Mother CHF, COPD COPD Mother Alzheimer's disease Mother Heart disease Father 65 [place] COPD Father Emphysema Father No Known Problems Sister No Known Problems Brother Heart attack Father Other (Other: Spinal stenosis) Mother Other (Other: adrenal tumor) Daughter Other (Other: uterine polps) Daughter No Known Problems Son No Known Problems Brother No Known Problems Brother Other (Other: graves disease) Sister Hypertension Maternal Grandmother Scleroderma Aunt SOCIAL HISTORY Social History Socioeconomic History Marital status: Spouse name: Not on file Number of children: Not on file Years of education: Associates Highest education level: Not on file Occupational History Not on file Tobacco Use Smoking status: Former Current packs/day: 0.00 Types: Cigarettes Quit date: 04/01/1990 Years since quittin.6 Smokeless tobacco: Never Substance and Sexual Activity Alcohol use: Yes Drug use: Yes Types: Marijuana/Cannabis Sexual activity: Defer Other Topics Concern Not on file Social History Narrative Lives with and grand daughter and great grandson. IMMUNIZATION: Immunization History Administered Date(s) Administered COVID-19 (Pfizer/Comirnaty) 12yo and older 12/20/2023 Influenza trivalent, 0.5mL (Fluzone High-dose) 65yo and older 12/03/2018, 12/18/2019, 12/14/2021, 01/03/2023 Influenza trivalent, with preservative (Fluzone; Afluria) 6mo and older 01/16/2012, 01/07/2013, 01/21/2014, 12/20/2021 Influenza, Unspecified 12/03/2018 Moderna (age 6mo & older) Bivalent, COVID-19, 0.5 mL or 0.25 mL dosage 12/20/2021 eDreams Edusoft SARS-CoV-2 COVID-19, mRNA, LNP-S, preservative free 04/12/2020, 05/03/2020, 06/10/2020, 01/19/2021, 01/03/2023 Pneumococcal conjugate 13 valent (Prevnar 13, PCV13) 2mo and older 11/15/2014 Pneumococcal polysaccharide 23 valent (Pneumovax 23) 2yo and older 06/14/2016 Tdap Tetanus diptheria acellular pertussis (Boostrix; Adacel) 7yo and older 02/05/2011, 02/26/2022 Zoster recombinant (Shingrix) 19yo and older 09/14/2018 PHYSICAL EXAM: Visit Vitals BP 123/50 (BP Location: Left arm, Patient Position: Sitting, BP Cuff Size: Adult) Pulse 72 Temp (!) 35.4 ??C (95.8 ??F) Wt 65.8 kg (145 lb) SpO2 90% BMI 26.52 kg/m?? OB Status Postmenopausal Smoking Status Former BSA 1.67 m?? Physical Exam Vitals and nursing note reviewed. Constitutional: Appearance: Normal appearance. HENT: Head: Normocephalic and atraumatic. Right Ear: Tympanic membrane, ear canal and external ear normal. Left Ear: Tympanic membrane, ear canal and external ear normal. Nose: Nose normal. Mouth/Throat: Mouth: Mucous membranes are moist. Pharynx: Oropharynx is clear. Eyes: Extraocular Movements: Extraocular movements intact. Conjunctiva/sclera: Conjunctivae normal. Pupils: Pupils are equal, round, and reactive to light. Comments: Bilateral intraocular lens implant. Cardiovascular: Rate and Rhythm: Normal rate and regular rhythm. Pulses: Normal pulses. Heart sounds: Normal heart sounds. Pulmonary: Effort: Pulmonary effort is normal. Breath sounds: Normal breath sounds. Abdominal: General: Abdomen is flat. Bowel sounds are normal. Palpations: Abdomen is soft. Musculoskeletal: General: Normal range of motion. Cervical back: Normal range of motion and neck supple. Skin: General: Skin is warm. Capillary Refill: Capillary refill takes 2 to 3 seconds. Neurological: General: No focal deficit present. Mental Status: She is alert and oriented to person, place, and time. Mental status is at baseline. Psychiatric: Mood and Affect: Mood normal. Behavior: Behavior normal. Thought Content: Thought content normal. Judgment: Judgment normal. Diagnostic: CURRENTS ICD-10 PULMONARY DIAGNOSIS 1. Pulmonary nodule 2. 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, past medical history significant for hyperlipidemia, GERD, psoriatic arthritis for which she has been on methotrexate and folic acid for overa year, status post chronic atrial fibrillation, has been on Eliquis, bariatric surgery and 2017 and lost 100 pounds, cholecystectomy, left arm brachioplasty, bilateral lower extremity, left total knee replacement in August 2020, bilateral intraocular lens implant, L5-S1 discectomy in 2001, right hiparthroplasty February 29, 2020, who was recently treated for pneumonia with Levaquin after a CAT scan of the chest revealed abnormal finding as mentioned above. 1. I will repeat a CAT scan of the chest in 2 months to ensure resolution of infiltrative process. This has been discussed with patient. 2. Patient will be scheduled for a full pulmonary function test prior to making any further recommendations. 3. History of psoriatic arthritis, has been on methotrexate and folic acid therefore a PFT will be a reasonable option to rule out any pulmonary fibrosis. Restrictive lung disease. 4. GERD, allergic rhinitis, continue with fluticasone nasal spray 2 spray in each nostril twice a day on as-needed basis. 5. Disposition, follow-up after completion of PFT and a CAT scan of the chest. 6. Thank you for courtesy of this kind referral. Problem List Items Addressed This Visit None Visit Diagnoses Pulmonary nodule - Primary Relevant Orders CT Chest wo Contrast Abnormal CT scan Relevant Orders CT Chest wo Contrast -Follow up with Nova Dillon MD for the other co-morbilities. RETURN TO THE NEXT VISIT: Based on physical exam, symptomatology, tests requested and baseline pulmonary evaluation/disease, I instructed the patient to come back to see me in for reevaluation after the test has been done or earlier if the patient needed. Thanks Nova Dillon MD for allowing me to have the opportunity to assist in the careof this patient. This chart was generated by the [employer] EMR system and [id number] speech recognition software and may contain inherent errors or omissions not intended by the user. Grammatical errors, random word insertions, deletions, pronoun errors and incomplete sentences are occasional consequences of this technologydue to software limitations. Not all errors are caught or corrected. If there are questions or concerns about the content of this note or information contained within the body of this dictation they should be addressed directly with the author for clarification. Electronically Signed By:Yola Birmingham MD Answers submitted by the patient for this visit: Pulmonology Questionnaire (Submitted on 10/28/2024) Chief Complaint: Primary symptoms Do you experience frequent throat clearing?: Yes Chronicity: chronic When did you first notice your symptoms?: more than 1 month ago How often do your symptoms occur?: constantly Since you first noticed this problem, how has it changed?: gradually improving Do you have a runny nose?: Yes Which of the following makes your symptoms worse?: nothing Which of the following makes your symptoms better?: nothing documented in this encounter Plan of Treatment Upcoming Encounters Date Type Department Care Team (Late st Contact Info) Description 01/20/2025 1:00 PM EDT Office Visit Pulmonology - [address] [place] [phone] Yola Birmingham MD [address] [place] [phone] 04/07/2025 1:30 PM EST Office Visit Orthopedic Surgery - [place] [address] [phone] Vlad Lamb, DPAngelo [address] [phone] 04/13/2025 1:15 PM EST Office Visit Adult Medicine - [address] [phone] Nova Dillon MD [address] [place] [address] 07/06/2025 1:15 PM EDT Office Visit Adult [facility] [address] [place] [phone] Nova Dillon MD [address] [place] [address] Scheduled Orders Name Type Priority Associated Diagnoses Orde r Schedule CT Chest wo Contrast Imaging Routine Abnormal CT scan Pulmonary nodule Shortness of breath Expected: 07/21/2025, Expires: 01/15/2026 documented as of this encounter Results * CT Chest wo Contrast (01/07/2025 11:56 AM EDT) Anatomical Region Laterality Modality Body Computed Tomogra phy 01/15/2025 8:18 AM EDT Impressions 01/15/2025 8:36 AM EDT There are persistent small nodular densities in the posteromedial right lower lobe and in the lateral left lower lobe. The appearance could be related to inspissated material within dilated airways but has persisted. No new suspicious lung findings. Recommend continued CT surveillance with repeat in 6 months. -------- FINAL REPORT -------- Dictated By: Jabier Benitez Dictated Date: 01/15/2025 08:18 ET Assigned Physician: Jabier Benitez Reviewed and Electronically Signed By: Jabier Benitez Signed Date: 01/15/2025 08:36 ET Workstation ID: [id number] Transcribed By: Self Edit Transcribed Date: 01/15/2025 08:18 ET Narrative 01/15/2025 8:36 AM EDT EXAMINATION: CT CHEST WITHOUT CONTRAST CLINICAL INFORMATION: Lung nodule. Previous abnormal chest CT. The report of chest CT 10/13/24 includes-mucous plugging with bronchial wall thickening associated with nodules and nodular areas of consolidation in the right lower lobe and to a much lesser degree in the right upper lobe. Grouping of nodules in the left lower lobe. COMPARISON: Portions of previous 10/13/24 TECHNIQUE: Multidetector CT. Examination of the chest. Examination of the chest without IV contrast. Reformatting in the coronal and sagittal planes. DLP: 360 mGy-cm Dose optimization was performed including the use of low-dose iterative reconstruction technique with automatic exposure control based on patient size. Type of contrast: None Volume of IV contrast: None Volume of contrast discarded: 0 mL FINDINGS: LUNG: No suspicious abnormality the trachea or mainstem bronchi. There are some residual nodular and linear abnormalities in the posteromedial right lower lobe. This has slightly improved (5/210). The airway thickening in the central aspect of the right upper lobe demonstrated on previous study has resolved. Some small regional nodules in the lateral aspect of the left lower lobe (5/199 - 212) are unchanged. Pleural associated irregular thickening posteromedial right apex 01/08/25-1.3 x 0.5 cm (5/47) 10/13/24-1.3 x 0.5 cm (2/62) Pleural associated nodule posterolateral right apex measuring 0.4 cm (5/55) is unchanged. No new suspicious mass or nodule. I suspect some underlying emphysema. There is no honeycomb formation. MEDIASTINUM: There are no enlarged mediastinal or hilar lymph nodes. No suspicious abnormality of the esophagus CARDIAC: The heart is not enlarged. No pericardial fluid or thickening. There is calcification of the mitral annulus. There is calcification in the region of the aortic valve. CORONARY CALCIFICATION: There are moderate coronary calcifications. VASCULAR: There is no thoracic aortic aneurysm. The main pulmonary artery is normal caliber PLEURA: There is no pleural fluid or pneumothorax AXILLA/CHEST WALL: There are no enlarged axillary lymph nodes. No chest wall mass demonstrated VISUALIZED UPPER ABDOMEN: No suspicious abnormality on limited assessment of the visualized upper abdomen. Suspect previous bariatric surgery. MUSCULOSKELETAL: No suspicious focal bony lesion. Procedure Note Jabier Benitez MD - 01/15/2025 EXAMINATION: CT CHEST WITHOUT CONTRAST CLINICAL INFORMATION: Lung nodule. Previous abnormal chest CT. The report of chest CT 10/13/24includes-mucous plugging with bronchial wall thickening associated withnodules and nodular areas of consolidation in the right lower lobe and toa much lesser degree in the right upper lobe. Grouping of nodules in theleft lower lobe. COMPARISON: Portions of previous 10/13/24 TECHNIQUE: Multidetector CT. Examination of the chest. Examination of the chest without IV contrast. Reformatting in the coronal and sagittal planes. DLP: 360 mGy-cm Dose optimization was performed including the use of low-dose iterativereconstruction technique with automatic exposure control based on patientsize. Type of contrast: None Volume of IV contrast: None Volume of contrast discarded: 0 mL FINDINGS: LUNG: No suspicious abnormality the trachea or mainstem bronchi. There are some residual nodular and linear abnormalities in theposteromedial right lower lobe. This has slightly improved (5/210). The airway thickening in the central aspect of the right upper lobedemonstrated on previous study has resolved. Some small regional nodules in the lateral aspect of the left lower lobe(/199 - 212) are unchanged. Pleural associated irregular thickening posteromedial right apex 01/08/25-1.3 x 0.5 cm (5/47) 10/13/24-1.3 x 0.5 cm (2/62) Pleural associated nodule posterolateral right apex measuring 0.4 cm(/55) is unchanged. No new suspicious mass or nodule. I suspect some underlying emphysema. There is no honeycomb formation. MEDIASTINUM: There are no enlarged mediastinal or hilar lymph nodes. Nosuspicious abnormality of the esophagus CARDIAC: The heart is not enlarged. No pericardial fluid or thickening.There is calcification of the mitral annulus. There is calcification inthe region of the aortic valve. CORONARY CALCIFICATION: There are moderate coronary calcifications. VASCULAR: There is no thoracic aortic aneurysm. The main pulmonary arteryis normal caliber PLEURA: There is no pleural fluid or pneumothorax AXILLA/CHEST WALL: There are no enlarged axillary lymph nodes. No chestwall mass demonstrated VISUALIZED UPPER ABDOMEN: No suspicious abnormality on limited assessmentof the visualized upper abdomen. Suspect previous bariatric surgery. MUSCULOSKELETAL: No suspicious focal bony lesion. IMPRESSION: There are persistent small nodular densities in the posteromedial rightlower lobe and in the lateral left lower lobe. The appearance could be related to inspissated material within dilatedairways but has persisted. No new suspicious lung findings. Recommend continued CT surveillance with repeat in 6 months. -------- FINAL REPORT -------- Dictated By: Jabier Benitez Dictated Date: 01/15/2025 08:18 ET Assigned Physician: Jabier Benitez Reviewed and Electronically Signed By: Jabier Benitez Signed Date: 01/15/2025 08:36 ET Workstation ID: [id number] Transcribed By: Self Edit Transcribed Date: 01/15/2025 08:18 ET us Yola Birmingham MD IMG CT PROCEDURES Final Resu lt documented in this encounter Visit Diagnoses Diagnosis Pulmonary nodule- Primary Other diseases of lung, not elsewhere classified Abnormal CT scan Other nonspecific (abnormal) findings on radiological and other examinations of body structure Seasonal allergic rhinitis due to pollen Gastroesophageal reflux disease without esophagitis Esophageal reflux Shortness of breath Abnormal CT scan Other nonspecific (abnormal) findings on radiological and other examinations of body structure Pulmonary nodule Other diseases of lung, not elsewhere classified documented in this encounter Historical Medications * This list may reflect changes made after this encounter. chlorhexidine (PERIDEX) 0.12 % solution RINSE MOUTH WITH 15ML (1 CAPFUL) FOR 30 SECONDS IN MORNING AND EVENING AFTER BRUSHING, THEN SPIT polyethylene glycol (GaviLyte-G) 236-22.74-6.74 -5.86 gram solution PLEASE SEE ATTACHED FOR DETAILED DIRECTIONS 5 neomycin-polymyx in-dexamethameth asone (POLYDEX) 3.5 mg/g-10,000 unit/g-0.1 % ointment APPLY 1/4 INCH TO EYELIDS TWICE DAILY NEEDED FOR BLEPHARITIS. 07/09/2024 5 ketorolac (ACULAR) 0.5 % ophthalmic solution PUT 1 DROP INTO LEFT EYE 4 TIMES A DAY FOR 4 WEEKS AFTER SURGERY 06/29/2024 5 clopidogreL (PLAVIX) 75 mg tablet Take 1 tablet (75 mg total) by mouth 1 (one) time each day. 5 bromfenac (XIBROM) 0.09 % ophthalmic solution PUT 1 DROP INTO INTO LEFT EYE EVERY DAY FOR 6 WEEKS 06/19/2024 5 amoxicillin (AMOXIL) 500 mg capsule TAKE 4 CAPSULES ONE HOUR PRIOR TO DENTAL PROCEDURE 12/15/2021 5 added in this encounter Orders Outpatient Referral Count Last Ordered Date Fir st Ordered Date AMB REFERRAL TO PULMONOLOGY 1 11/04/2024 documented in this encounter Additional Health Concerns Assessment Noted Time PHQ-9 Depression Total Score: 6 06/11/19 25 11:24 AM EDT documented as of this encounter Care Teams Office Receptionist Relationship Specialty Start Date End Date Nova Dillon MD [address] [place] [address] PCP - General Internal Medicine 11/24/18 documented as of this encounter
--- NOTE | 2025-01-19 13:43 | A.OFFVIS_ITS ---
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 Accompanied by: Self / Same As Patient Allergies NSAIDS (Non-Steroidal Anti-Inflamma Adverse Reaction (Unknown, Verified 01/14/25 13:48) not to take d/t hx of bariatric surg Medication List - Last Reconciled 01/19/25 by Pernell Hess MD apixaban 5 mg PO BID atorvastatin 80 mg PO DAILY esomeprazole magnesium (Nexium 24HR) 40 mg PO DAILY gabapentin 600 mg PO TID leucovorin calcium 5 mg PO QWEEK 90 days levothyroxine 125 mcg PO DAILY mecobalamin (vitamin B12) mcg PO DAILY methotrexate sodium 15 mg (6 x 2.5 mg) PO QWEEK 90 days metoprolol succinate ER 50 mg PO DAILY multivitamin 1 tab PO DAILY ondansetron 4 mg PO Q8H PRN semaglutide (Ozempic) 0.25 mg subcut QWEEK tramadol 100 mg PO TID PRN HPI Comments Details: Danelle is back for follow-up regarding atrial fibrillation and carotid disease. To recall, she was initially seen several years ago prior to bariatric surgery for cardiac risk stratification. The surgery itself was uneventful. However, she developed postoperative atrial fibrillation. Then she was started on amiodarone and was also on Arixtra. However, she developed a rectus sheath h ematoma, after which the anticoagulation was stopped. Amiodarone was also then stopped. She remained on beta-blockers. She was doing well for many years but this year she had recurrence of atrial fib rillation. Then we went up on the beta-corona dosing. Also put back on Eliquis. No definitive recurrence of the arrhythmias itself but it seems she continues to have the chronic dizziness issues that has got no correlation with the atrial fibrillation. Not clear if she is having any orthostatic hypotension or not. Recently in fact had a fall and facial bruising but thankfully no intracranial bleed or anything along those lines more serious. [facility] Medical History (Reviewed 01/19/25 @ 13:46 by Fabienne Merrill [facility]) Osteoarthritis of hands, bilateral Positive antinuclear antibody Other and unspecified hyperlipidemia Carotid stenosis, right PAF (paroxysmal atrial fibrillation) Surgical History History of right hip replacement (~01/2020) History of left knee replacement (~09/05/20) History of gastric bypass History of cholecystectomy Family History Father Heart attack Mother No problems noted. Social History Household Members: Spouse and Family Alcohol intake: current Alcohol intake frequency: holidays/special occasions only Patient Tobacco Use Status: Former Tobacco user Review of Systems Const Denies chills, Denies fatigue, Denies fever(s), Denies frequent falls, Denies weakness, Denies weight gain and Denies weight loss ENT Denies dizziness Card Denies chest pain, Denies leg edema, Denies lightheadedness, Denies palpitat ions, Denies dyspnea and Denies dyspnea on exertion Resp Denies cough, Denies dyspnea and Denies dyspnea on exertion GI Denies hematochezia Musc Denies abnormal gait, Denies muscle weakness, Denies numbness, Denies radiating pain into limb and Denies tingling Neuro Denies abnormal gait, Denies dizziness, Denies frequent falls, Denies numbness, Denies tingling and Denies weakness Endo Denies fatigue and Denies palpitations Physical Exam Vital Signs: Last Vital Signs Pulse 66 01/19/25 13:45 BP 130/62 01/19/25 13:45 BMI result Body Mass Index 24.8 Const General: comfortable and no acute distress Orientation/consciousness: patient oriented x3 HEENT Other: Unremarkable Head: Yes normal to inspection Neck Neck: Yes normal visual inspection Chest Chest palpation & inspection: normal inspection of the chest Resp Auscultation: clear to auscultation bilaterally Cardio Palpation: normal PMI Heart sounds: S1 normal heart sound present, S2 normal heart sound present, no gallops, no murmurs and no rubs GI Palpation (GI): Soft to palpation Back/Spine/Pelvis Other: unremarkable Skin General skin exam: no rashes or lesions noted Neuro General: patient oriented x3 Extrem General: Yes normal to inspection Psych Mental Status: mental status grossly normal Assessment & Plan Assessment & Plan (1) PAF (paroxysmal atrial fibrillation): Code(s): I48.0 - Paroxysmal atrial fibrillation Category: Medical Plan: In the Holter from earlier this year, she had atrial fibrillation burden of about 7%. In the repeat study, no clear atrial fibrillation. Supraventricular ectopy was about 1.2%. Possibly accelerated junctional rhythm during sleep hours. 'Vertigo' in patient diary correlates with supraventricular/ventricular ectopy and sinus rhythm. She can continue beta-blockers without changes. Continue anticoagulation. There is a history of rectus sheath hematoma which has not recurred. Otherwise, she did have facial bruising from reason fall. If there are continuing issues with bleeding, then needs Watchman device. (2) First degree atrioventricular block: Code(s): I44.0 - Atrioventricular block, first degree Category: Medical Plan: May follow on EKGs. (3) Syncope: Code(s): R55 - Syncope and collapse Category: Medical Plan: Had a recent fall and facial bruising. Not clear if it is orthostatic hypotension. She did lose a lot of weight and that may play some role. Advised her to hold off many more weight loss. If it is still records, then consider tilt-table testing. (4) Carotid stenosis, right: Code(s): I65.21 - Occlusion and stenosis of right carotid artery Category: Medical Plan: Carotid ultrasound from 2023 shows minimal, 0-49% stenosis bilaterally. Study from 2022-moderate stenosis in the right side and minimal on the left side. On statins and lipids monitored through PCP. Plan Discussion Notes During the visit, we discussed the patient's recent syncopal episode, possibly due to orthostatic hypotension, and the importance of monitoring her blood pressure. We also reviewed her atrial fibrillation management with metoprolol and the need for regular follow-up. The patient was advised to maintain her current weight to prevent further dizziness and syncope. For her upcoming oral surgery, we discussed withholding Eliquis the day before and the morning of the procedure. Patient was informed and verbally consented to the use of an ambient scribe for clinic note documentation during this visit. Patient Instructions: - Monitor your blood pressure regularly and avoid rapid position changes. - Continue taking metoprolol as prescribed and attend regular follow-up appointments. - Maintain your current weight to prevent further dizziness and syncope. - Withhold Eliquis the day before and the morning of your oral surgery. Coding Level of Care Code Est Pt Level 4 (18885) Complex EM visit Add On G2211 Diagnoses PAF (paroxysmal atrial fibrillation) I48.0 First degree atrioventricular block I44.0 Syncope R55 Carotid stenosis, right I65.21
[2025-01-19 13:45] VITALS: BP 130/62; PULSE 66; BMI 24.8
--- OUTSIDE RECORDS SUMMARY | 2025-01-19 17:27 | XMS_ITS | Encounter Summary ---
Author Organization [facility] Address [address] [place] [address] Phone Care Team Providers Care Principal Bioinformatics Specialist Name Role Phone Lee Hurst MD Primary Care Provider Ronnie Bianchi MD Primary Care Provider [phone] Nova Dillon MD Primary Care Pr ovider Encounter Details Date Type Department Care Team (Late st Contact Info) Description 06/10/2017 Ancillary Orders Virtual Department [address] [place] [address] Lee Hurst MD [address] [place] [address] Breast screening Social History Tobacco Use Types [...] unspecified documented in this encounter Care Teams Principal Bioinformatics Specialist Relationship Specialty Start Date End Date Lee Hurst MD [address] [place] [address] Drive [address] [place] [address] PCP - General Pulmonary Disease 06/10/17 06/02/18 Ronnie Bianchi MD [address] [place] [address] [address] [place] [id number] PCP - General Internal Medicine 06/03/18 06/15/20 Nova Dillon MD [address] [place] [address] PCP - General Internal Medicine 06/16/20 documented as of this encounter Additional Source Comments The information contained in this document represents components of the legal health record. It is not the complete legal health record.[facility]
--- OUTSIDE RECORDS SUMMARY | 2025-01-19 17:28 | XMS_ITS | Encounter Summary ---
Author Organization [facility] Address [address] [place] [address] Care Team Providers Care Field Service Analyst Name Role Phone Nova Dillon MD Primary Care Prov ider Encounter Details Date Type Department Care Team ([facility] st Contact Info) Description 01/15/2025 Results Follow-Up Pulmonology - [place] [address] [place] [phone] Yola Birmingham MD [address] [place] [phone] Social History Tobacco Use Types Packs/Day Years [...] for your loved ones. 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 [...] as of this encounter Plan of Treatment Upcoming Encounters Date Type Department Care Team (Late st Contact Info) Description 01/20/2025 1:00 PM EDT Office Visit Pulmonology - [address] [place] [address] Yola Birmingham MD [address] [place] [address] 04/07/2025 1:30 PM EST Office Visit Orthopedic Surgery - [place] [address] [phone] Vlad Lamb, DPM [address] [phone] 04/13/2025 1:15 PM EST Office Visit Adult Medicine [address] [phone] Nova Dillon MD [address] [place] [address] 07/06/2025 1:15 PM EDT Office Visit Adult [address] [phone] Nova Dillon MD [address] [place] [address] documented as of this encounter Visit Diagnoses Not on filedocumented in this encounter Additional Health Concerns Assessment Noted Time PHQ-9 Depression Total Score: 6 06/11/19 25 11:24 AM EDT documented as of this encounter Care Teams Field Service Analyst Relationship Specialty Start Date End Date Nova Dillon MD [address] [place] [address] PCP - General Internal Medicine 11/24/18 documented as of this encounter
--- OUTSIDE RECORDS SUMMARY | 2025-01-19 17:28 | XMS_ITS | Encounter Summary ---
Author Organization [facility] Address [address] [place] [address] Phone Care Team Providers Care International Freight Forwarder Name Role Phone Ronnie Bianchi MD Primary Care Provider [phone] Nova Dillon MD Primary Care Pr ovider Encounter Details Date Type Department Care Team (Late st Contact Info) Description 06/03/2018 Ancillary Orders Virtual Department [address] [place] [address] Ronnie Bianchi MD [address] [place] [address] [address] Breast screening Social History Tobacco Use Types [...] There are scattered fibroglandular densities. POS - [id number] Narrative 08/13/2018 1:18 PM EDT 68-year-old female [...] There are scattered fibroglandular densities. POS - [id number] Ronnie Bianchi MD IMG MG EXAMS Final Result documented in this encounter Visit Diagnoses Diagnosis Breast screening Breast screening, unspecified Breast screening Breast screening, unspecified documented in this encounter Care Teams International Freight Forwarder Relationship Specialty Start Date End Date Ronnie Bianchi MD [address] [place] [address] [place] [address] PCP - General Internal Medicine 06/03/18 06/15/20 Nova Dillon MD [address] [place] [address] PCP - General Internal Medicine 06/16/20 documented as of this encounter Additional Source Comments The information contained in this document represents components of the legal health record. It is not the complete legal health record.[facility]
--- OUTSIDE RECORDS SUMMARY | 2025-01-19 17:28 | XMS_ITS | Encounter Summary ---
Author Organization [facility] Address [address] [place] [address] Phone Care Team Providers Care Oven Heater Helper Name Role Phone Ronnie Bianchi MD Primary Care Provider [phone] Nova Dillon MD Primary Care Pr ovider Encounter Details Date Type Department Care Team (Late st Contact Info) Description 06/10/2020 Procedure Pass [facility], [address] [address] Social History Tobacco Use Types Packs/Day Years [...] filedocumented in this encounter Care Teams Oven Heater Helper Relationship Specialty Start Date End Date Ronnie Bianchi MD [address] [place] [address] [place] [address] PCP - General Internal Medicine 06/03/18 06/15/20 Noav Dillon MD [address] [place] [address] PCP - General Internal Medicine 06/16/20 documented as of this encounter Additional Source Comments The information contained in this document represents components of the legal health record. It is not the complete legal health record.[facility]
--- OUTSIDE RECORDS SUMMARY | 2025-01-19 17:28 | XMS_ITS | Encounter Summary ---
Author Organization [facility] Address [address] [place] [address] Phone Care Team Providers Care Employee Relation Manager Name Role Phone Ronnie Bianchi MD Primary Care Provider [phone] Nova Dillon MD Primary Care Pr ovider Encounter Details Date Type Department Care Team (Late st Contact Info) Description 06/10/2020 Ancillary Orders Virtual Department [address] [place] [address] Nova Dillon MD [address] [place] [address] Breast screening Social History Tobacco Use Types [...] unspecified documented in this encounter Care Teams Employee Relation Manager Relationship Specialty Start Date End Date Ronnie Bianchi MD [address] [place] [address] [place] [address] PCP - General Internal Medicine 06/03/18 06/15/20 Nova Dillon MD [address] [place] [address] PCP - General Internal Medicine 06/16/20 documented as of this encounter Additional Source Comments The information contained in this document represents components of the legal health record. It is not the complete legal health record.[facility]
--- OUTSIDE RECORDS SUMMARY | 2025-01-19 17:28 | XMS_ITS | Encounter Summary ---
Author Organization [facility] Address [address] [place] [address] Phone Care Team Providers Care Director Content Marketing Name Role Phone Lee Hurst MD Primary Care Provider Ronnie Bianchi MD Primary Care Provider [phone] Nova Dillon MD Primary Care Pr ovider Encounter Details Date Type Department Care Team (Late st Contact Info) Description 05/13/2018 Procedure Pass [place] Admitting Dept - Virtual Department [address] [place] [address] Social History Tobacco Use Types Packs/Day Years [...] filedocumented in this encounter Care Teams Director Content Marketing Relationship Specialty Start Date End Date Lee Hurst MD [address] [place] [address] Drive [address] [place] [address] PCP - General Pulmonary Disease 06/10/17 06/02/18 Ronnie Bianchi MD [address] [place] [address] [place] [address] PCP - General Internal Medicine 06/03/18 06/15/20 Nova Dillon MD [address] [place] [address] PCP - General Internal Medicine 06/16/20 documented as of this encounter Additional Source Comments The information contained in this document represents components of the legal health record. It is not the complete legal health record.[facility]
--- OUTSIDE RECORDS SUMMARY | 2025-01-19 17:29 | XMS_ITS | Clinical Summary ---
Author Organization [facility] Address [address] [place] [address] Phone Care Team Providers Care Child Nutrition Assistant Name Role Phone Nova Dillon MD Primary [...] needed for Nausea. 023 Active medical marijuana RELIGIOUS STUDIES PROFESSOR med Active biotin 5 mg tablet Take [...] Problem Noted Date Diagnosed Date Psoriatic arthritis ([facility] V24, [facility] V28) 0 04/28/2024 Chronic pain syndrome 04/06/2024 Carotid stenosis, right 12/27/2021 Overview (12/31/2023): 50-79% [facility] Iron deficiency anemia secon vonda to inadequate dietary iron intake 10/18/2021 Obesity (BMI 30-39.9) 06/24/2020 COPD (chronic obstructive pu lmonary disease) ([facility] V24, [facility] V28) 03/18/2020 Arthritis of right hip 12/31/2019 Aortic atherosclerosis ([facility] V24) 12/17/2018 Chronic bilateral low back pain with sciatica Depression 12/17/2018 Neuropathy 12/17/2018 Osteoarthritis 12/17/2018 Overview (12/31/2023): Cervical, Thoracic, & Lumbosacral Spine, Hips, Knees Vitamin D deficiency 12/17/2018 Atrial fibrillation ([facility] V24, [facility] V28) 0 11/26/2018 Bilateral chronic knee pain [...] Encounters Date Type Department Care Team Description 01/15/2025 Results Follow-Up Pulmonology - [place] [address] [facility] [address] [place] [phone] Yola Birmingham MD 01/07/2025 11:46 AM EDT - 01/07/2025 11:59 PM EDT Hospital Encounter [facility] CT Scan [address] [place] [phone] scan; Pulmonary nodule Discharge Disposition: Home or Self Care 01/06/2025 1:00 PM EDT Office Visit Orthopedic Surgery - [place] [address] [facility] [address] [place] [phone] Vlad Lamb DPM Psoriatic arthritis ([facility] V24, CMS/HCC V28) (Primary Dx); Hammer toe of left foot; Dermatophytosis of nail; Acquired hammer toe of right foot; Ingrowing nail 01/05/2025 1:15 PM EDT Office Visit Adult Medicine - [address] [phone] Nova Dillon MD Fall, subsequent encounter (Primary Dx); Spinal stenosis of lumbar region, unspecified whether neurogenic claudication present; Abnormal CT scan; Chronic bronchitis, unspecified chronic bronchitis type (CMS/HCC V24, CMS/HCC V28) 11/12/2024 1:15 PM EDT Ancillary Procedure Pulmonology - [place] [address] [facility] [address] [place] [phone] Chronic bronchitis, unspecified chronic bronchitis type (CMS/HCC V24, CMS/HCC V28) (Primary Dx) 11/04/2024 1:00 PM EDT Consult Pulmonology - [place] [address] [facility] [address] [place] [phone] Yola Birmingham MD Pulmonary nodule (Primary Dx); [...] 0.5 mL or 0.25 mL dosage 12/20/2021 [employer] SARS-CoV-2 COVID-19, mRNA, LNP-S, preservative free 01/03/2023,01/19/2021,06/10/2020 [...] TOTAL HIP; Surgeon: Marcos Velasquez MD; Location: [facility] Service: Orthopedics; Laterality: Right; COLONOSCOPY PROCEDURE:COLONOSCOPY TOTAL KNEE ARTHROPLASTY 08/2020 Left PROCEDURE:TOTAL KNEE ARTHROPLASTY TOTAL HIP ARTHROPLASTY 10/23/2021 Left PROCEDURE:TOTAL HIP ARTHROPLASTY;COMMENT:Procedure : REPLACEMENT TOTAL HIP; Surgeon: Marcos Velasquez MD; Location: [facility] ([facility]); Service: Orthopedics; Laterality: Left; OTHER SURGICAL HISTORY [...] bypass OTHER SURGICAL HISTORY 03/01/2020 Right PROCEDURE: MI ARTHRP ACETBLR/PROX FEM PROSTC AGRFT/ALGRFT TOTAL KNEE ARTHROPLASTY 09/05/2020 Left PROCEDURE: MI ARTHRP KNE CONDYLE&PLATU MEDIAL&LAT COMPARTMENTS Medical History Medical History Date Comments Hypertension DX:Hypertension; COMMENT:resolved since bariatric Osteoarthritis DX:Osteoarthriti s A-fib ([facility] V24, [facility] V28) DX:A-fib ([facility]);COMMENT:postoperatively bariatric surgery Sleep apnea DX:Sleep apnea;C OMMENT:NONCOMPLIANT WITH CPAP DUE TO WT. LOSS COPD (chronic obstructive pu lmonary disease) ([facility] V24, [facility] V28) DX:COPD (chronic o bstructive pulmonary disease) ([facility]);COMMENT:Just from hx of smoking no PFTs previous [...] knee pain; COMMENT: Dr Boyce Atrial fibrillation ([facility] V24, [facility] V28) 11/26/2018 DX:Atrial fibrillation ([facility]) GARRETT (obstructive sleep apnea) 10/16/2016 DX :GARRETT (obstructive sleep apnea) Aortic atherosclerosis ([facility] V24) 12/17/2018 DX:Aortic atherosclerosis ([facility]) Osteoarthritis 12/17/2018 DX:Osteoarthriti s; COMMENT: Cervical, Thoracic, [...] DX:Neuropathy COPD (chronic obstructive pu lmonary disease) ([facility] V24, [facility] V28) 03/18/2020 DX:COPD (chronic o bstructive pulmonary disease) ([facility]) HTN (hypertension) 03/18/2020 DX:HTN (hyper tension) Carotid stenosis, right 12/27/2021 DX:Carot id stenosis, right; COMMENT: 50-79% [facility] Irritable bowel syndrome DX:Irri table bowel [...] for your loved ones. For example, child care nurse or elderly care for an older adult? [...] 1:00 PM EDT Office Visit Pulmonology - [place] [address] [facility] [address] [place] [phone] Yola Birmingham MD [address] [place] [address] 04/07/2025 1:30 PM EST Office Visit Orthopedic Surgery - [place] [address] [facility] [address] [place] [phone] Vlad Lamb DPM [address] [phone] 04/13/2025 1:15 PM EST Office Visit Adult Medicine - [place] [address] [place] [address] Nova Dillon MD [address] [place] [address] 07/06/2025 1:15 PM EDT Office Visit Adult Medicine - [place] [address] [place] [phone] Nova Dillon MD [address] [place] [address] Health Maintenance Due Date Last Done Comments [...] this topic Medical Devices Implanted Type Area Copy Chaser Device Identifier Shelf Expiration Date Model / Serial / Lot Insert Trident 0d E 36mm X3 Acetabular Hip - [id number] Implanted:Qty: 1 on 02/29/2020 by Marcos Velasquez MD Right: Hip [employer] [id number] 01/23/2025 623-00-36E / / [id number] Shell Trident Ii E 52mm Tritanium Acetabular Hip - [id number] Implanted:Qty: 1 on 02/29/2020 by Marcos Velasquez MD Right: Hip [employer] [id number] 11/28/2023 709-04-52E / / [id number] Screw Trident Ii 30mm 6.5mm Low Profile Hexagonal Bone - [id number] Implanted:Qty: 1 on 02/29/2020 by Marcos Velasquez MD Right: Hip [employer] [id number] 10/19/2024 5930-0960 / / [id number] Screw Bone Trident Ii L20 Mm Od6.5 Mm Low Profile Hexa - [id number] Implanted:Qty: 1 on 02/29/2020 by Marcos Velasquez MD Right: Hip [employer] [id number] 06/02/2024 0798-6511 / / [id number] Screw Trident Ii 15mm 6.5mm Low Profile Hexagonal Bone - [id number] Implanted:Qty: 1 on 02/29/2020 by Marcos Velasquez MD Right: Hip [employer] [id number] 08/11/20232510-7170 / / [id number] Stem Accolade Ii 3 132d Femoral - [id number] Implanted:Qty: 1 on 02/29/2020 by Marcos Velasquez MD Right: Hip [employer] [id number] 01/11/2025 9667-8928 / / [id number] Head V40 -2.5mm 36mm Biolox Delta Femoral Hip - [id number] Implanted:Qty: 1 on 02/29/2020 by Marcos Velasquez MD Right: Hip [employer] [id number] 01/09/2025 6570-0-436 / / [id number] Component Triathlon 4 Cruciate Retaining Cemented Femoral - [id number] Implanted:Qty: 1 on 09/05/2020 by Marcos Velasquez MD Left: Knee [employer] [id number] 05/10/2025 5510-F-401 / / [id number] Component Triathlon 8mm 27mm Symmetric X3 Ptlar Knee - [id number] Implanted:Qty: 1 on 09/05/2020 by Marcos Velasquez MD Left: Knee [employer] [id number] 12/02/2023 5550-G-278 / / [id number] Triathlon Cr Insert - Size 4 12mm X3 - [id number] Implanted:Qty: 1 on 09/05/2020 by Marcos Velasquez MD Left: Knee [employer] [id number] 10/30/2022 5530-G-412 -E / / [id number] Baseplate Triathlon 4 Primary Cemented Tibial Knee - [id number] Implanted:Qty: 1 on 09/05/2020 by Marcos Velasquez MD Left: Knee [employer] [id number] 09/16/2023 5520-B-400 / / [id number] Cement Simplex P Radiopaque Full Dose Bone 10 Pack - Implanted:Qty: 1 on 09/05/2020 by Marcos Velasquez MD Left: Knee [employer] 12/29/2021 6191-1-010 / / [id number] Cement Simplex P Radiopaque Full Dose Bone 10 Pack - [id number] Implanted:Qty: 1 on 09/05/2020 by Marcos Velasquez MD Left: Knee [employer] 12/29/2021 6191-1-010 / / [id number] [place] V40 Cemented Hip Stem 37.5 Offst 125mm Implanted:Qty: 1 on 10/23/2021 by Marcos Velasquez MD Left: Hip [employer] 04/26/2026 0580-3-371 / / [id number] Tritanium Cluster Hole Shell 52mm Stry-Howm 981-20-20e-770 473 Implanted:Qty: 1 on 10/23/2021 by Marcos Velasquez MD Left: Hip [employer] [id number] 05/17/2026 702-04-52E / / [id number] ++Dnu+Disc Use [id number] Hip Insrt Trident 0d Silvio 36mm Stry-Howm 978-09-84u-200 918 Implanted:Qty: 1 on 10/23/2021 by Marcos Velasquez MD Left: Hip [employer] [id number] 09/14/2026 623-00-36E / / [id number] Lp Hex Screw 6.5x30mm Stry-How 9253-7478-1061 78 Implanted:Qty: 1 on 10/23/2021 by Marcos Velasquez MD Left: Hip [employer] [id number] 08/31/2026 2245-3923 / / X5R Kit Prep Total Hip Bone Imp [facility] [id number] Implanted:Qty: 1 on 10/23/2021 by Marcos Velasquez MD Left: Hip [employer] [id number] 09/13/2031 647692 / / [id number] Description:SMALL BONE PLUG USED FROM THE KIT Cement Bone Surg Simplex Radiopq Stry-Howm [id number] 092 Implanted:Qty: 1 on 10/23/2021 by Marcos Velasquez MD Left: Hip [employer] [id number] 10/30/2023 6191-1-010 / / [id number] Cement Bone Surg Simplex Radiopq Stry-Howm 7116-2-090-114 092 Implanted:Qty: 1 on 10/23/2021 by Marcos Velasquez MD Left: Hip [employer] [id number] 02/28/2023 6191-1-010 / / [id number] Hip Head Delta Biolox 36mm -5 Stry-Howm 4519-8-205-549 190 Implanted:Qty: 1 on 10/23/2021 by Marcos Velasquez MD Left: Hip [employer] [id number] 08/17/2026 6570-0-036 / / [id number] Procedures Procedure Name Priority Date/Time Associated Diagnosis Comments CT CHEST WO CONTRAST Routine 01/07/2025 11:[address] scan Pulmonary nodule PULMONARY FUNCTION TESTING Routine 11/12/2024 1:58 PM [...] Recently Relevant to Health Maintenance Results * CT Chest wo Contrast (01/07/2025 [...] Signed Date: 01/15/2025 08:36 ET Workstation ID: [id number] Transcribed By: Self Edit Transcribed Date: 01/15/2025 [...] right lower lobe. This has slightly improved (/210). The airway thickening in the central aspect [...] Signed Date: 01/15/2025 08:36 ET Workstation ID: [id number] Transcribed By: Self Edit Transcribed Date: 01/15/2025 08:18 ET us Yola Birmingham MD IMG CT PROCEDURES Final Resu lt * Pulmonary function testing: Spirometry with Bronchodilator [...] is recommended in 1 year. Mammo Location: [facility], [address] [place] [address], [address], . -------- FINAL REPORT -------- Dictated By: Shanna Paula Dictated Date: 09/29/2024 15:32 ET Assigned Physician: Shanna Paula Reviewed and Electronically Signed By: Shanna Paula Signed Date: 09/29/2024 15:34 ET Workstation ID: [id number] Transcribed By: Self Edit Transcribed Date: 09/29/2024 [...] is recommended in 1 year. Mammo Location: [facility], [address] [place] [address], [address], . -------- FINAL REPORT -------- Dictated By: Shanna Paula Dictated Date: 09/29/2024 15:32 ET Assigned Physician: Shnana Paula Reviewed and Electronically Signed By: Shanna Paula Signed Date: 09/29/2024 15:34 ET Workstation ID: [id number] Transcribed By: Self Edit Transcribed Date: 09/29/2024 15:32 ET us Nova Dillon MD IMG BI PROCEDURES Final [...] normal bone density by WHO criteria. The [facility] Department of Internal Medicine recommends using [...] alternative screening schedule based on nikki Freeman., [facility] April 19, 2011 for patients [...] normal bone density by WHO criteria. The [facility] Department of Internal Medicinerecommends using National Osteoporosis [...] t * Colonoscopy (02/01/2022) [facility] Colonoscopy no interpretation , abstracted Anatomical Region Laterality Modality Other Historical Provider HEALTH MAINTENANCE Final Result * Lipid panel (05/19/2021) [facility] LDL/HDL Ratio 2 0 - 4 Triglycerides 113 0 - 150 mg/dL Cholesterol 143 0 - 200 mg/dL HDL 77 >=40 mg/dL LDL Cholesterol 44 0 - 100 mg/dL Blood Venous blood specimen / Unknown Result [facility] Historical Provider LAB BLOOD ORDERABLES Amy l Result * Hepatitis C Screening (01/15/2013) [facility] Hepatitis C Screening abstracted Result [facility] Historical Provider HEALTH MAINTENANCE Final Result from Last 3 Months or Most Recently Relevant to Health Maintenance Insurance [employer] MEDICARE Care Teams Child Nutrition Assistant Relationship Specialty Start Date End Date Nova Dillon MD [address] [place] [address] PCP - General Internal Medicine 11/24/18
--- OUTSIDE RECORDS SUMMARY | 2025-01-19 17:29 | XMS_ITS | Clinical Summary ---
Author Organization [facility] Address [address] [place] [address] Care Team Providers Care Frame Feeder Name Role Phone Nova Dillon MD Primary [...] week. 0 Active Vitamin A 3 MG (67962 UT) TABS Take 1 tablet by mouth [...] COPD Father Emphysema Father Heart disease Father [place] Alzheimer's disease Mother COPD Mother Hypertension Mother [...] this topic Medical Devices Implanted Type Area Chief Writer Device Identifier Shelf Expiration Date Model / Serial / Lot Insert Trident 0d E 36mm X3 Acetabular [facility] - 588218 - [id number] Implanted:Qty: 1 on 02/29/2020 by Marcos Velasquez MD at [facility] Right: Hip [employer] [id number] 01/23/2025 623-00-36E / / [id number] Shell Trident Ii E 52mm Tritanium Acetabular Hip - 828932 - [id number] Implanted:Qty: 1 on 02/29/2020 by Marcos Velasquez MD at [facility] and [facility] Right: Hip [employer] [id number] 11/28/2023 709-04-52E / / [id number] Screw Trident Ii 30mm 6.5mm Low Profile Hexagonal Bone - 892294 - [id number] Implanted:Qty: 1 on 02/29/2020 by Marcos Velasquez MD at [facility] and [facility] Right: Hip [employer] [id number] 10/19/2024 3812-4542 / / [id number] Screw Bone Trident Ii L20 Mm Od6.5 Mm Low Profile Hexa - 487298 - [id number] Implanted:Qty: 1 on 02/29/2020 by Marcos Velasquez MD at [facility] and [facility] Right: Hip [employer] [id number] 06/02/2024 9493-8382 / / 2NRH Screw Trident Ii 15mm 6.5mm Low Profile Hexagonal Bone - 170753 - [id number] Implanted:Qty: 1 on 02/29/2020 by Marcos Velasquez MD at [facility] and [facility] Right: Hip [employer] [id number] 08/11/2023 9384-4335 / / [id number] Stem Accolade Ii 3 132d Femoral - 397989 - [id number] Implanted:Qty: 1 on 02/29/2020 by Marcos Velasquez MD at [facility] and [facility] Right: Hip [employer] [id number] 01/11/2025 6811-8863 / / [id number] Head V40 -2.5mm 36mm Biolox Delta Femoral Hip - 702757 - [id number] Implanted:Qty: 1 on 02/29/2020 by Marcos Velasquez MD at [facility] and [facility] Right: Hip [employer] [id number] 01/09/2025 6570-0-436 / / [id number] Component Triathlon 4 Cruciate Retaining Cemented Femoral - 980079 - [id number] Implanted:Qty: 1 on 09/05/2020 by Marcos Velasquez MD at [facility] and [facility] Left: Knee [employer] [id number] 05/10/2025 5510-F-401 / / [id number] Component Triathlon 8mm 27mm Symmetric X3 Ptlar Knee - 637684 - [id number] Implanted:Qty: 1 on 09/05/2020 by Marcos Velasquez MD at [facility] and [facility] Left: Knee [employer] [id number] 12/02/2023 5550-G-278 / / [id number] Triathlon Cr Insert - Size 4 12mm X3 - [id number] - [id number] Implanted:Qty: 1 on 09/05/2020 by Marcos Velasquez MD at [facility] and [facility] Left: Knee [employer] [id number] 10/30/2022 5530-G-412 -E / / [id number] Baseplate Triathlon 4 Primary Cemented Tibial Knee - 265924 - [id number] Implanted:Qty: 1 on 09/05/2020 by Marcos Velasquez MD at [facility] and [facility] Left: Knee [employer] [id number] 09/16/2023 5520-B-400 / / [id number] Cement Simplex P Radiopaque Full Dose Bone 10 Pack - 140015 - [id number] Implanted:Qty: 1 on 09/05/2020 by Marcos Velasquez MD at [facility] and [facility] Left: Knee [employer] 12/29/2021 6191-1-010 / / [id number] Cement Simplex P Radiopaque Full Dose Bone 10 Pack - 641635 - [id number] Implanted:Qty: 1 on 09/05/2020 by Marcos Velasquez MD at [facility] Left: Knee [employer] 12/29/2021 6191-1-010 / / [id number] [place] V40 Cemented Hip Stem 37.5 Offst 125mm Implanted:Qty: 1 on 10/23/2021 by Marcos Velasquez MD at [facility] and [facility] Left: Hip [employer] 04/26/2026 0580-3-371 / / [id number] Tritanium Cluster Hole Shell 52mm Stry-Howm 778-42-36i-770 473 - [id number] Implanted:Qty: 1 on 10/23/2021 by Marcos Velasquez MD at [facility] Left: Hip [employer] [id number] 05/17/2026 702-04-52E / / [id number] ++Dnu+Disc Use [id number] Hip Insrt Trident 0d Silvio 36mm Stry-How 274-89-23a-200 918 - [id number] Implanted:Qty: 1 on 10/23/2021 by Marcos Velasquez MD at [facility] Left: Hip [employer] [id number] 09/14/2026 623-00-36E / / [id number] Lp Hex Screw 6.5x30mm Stry-How 1260-2045-6993 78 - [id number] Implanted:Qty: 1 on 10/23/2021 by Marcos Velasquez MD at [facility] Left: Hip [employer] [id number] 08/31/2026 1755-8523 / / X5R Kit Prep Total Hip Bone Imp [facility] 384219-959634 - [id number] Implanted:Qty: 1 on 10/23/2021 by Marcos Velasquez MD at [facility] Left: Hip [employer] [id number] 09/13/2031 056158 / / [id number] Description:SMALL BONE PLUG USED FROM THE KIT Cement Bone Surg Simplex Radiopq Stry-Howm 7463-4-645-114 092 - [id number] Implanted:Qty: 1 on 10/23/2021 by Marcos Velasquez MD at [facility] and [facility] Left: Hip [employer] [id number] 10/30/2023 6191-1-010 / / [id number] Cement Bone Surg Simplex Radiopq Stry-Howm 7883-4-751-114 092 - [id number] Implanted:Qty: 1 on 10/23/2021 by Marcos Velasquez MD at [facility] and [facility] Left: Hip [employer] [id number] 02/28/2023 6191-1-010 / / [id number] Hip Head Delta Biolox 36mm -5 Stry-How 4042-6-685-549 190 - [id number] Implanted:Qty: 1 on 10/23/2021 by Marcos Velasquez MD at [facility] and [facility] Left: Hip [employer] [id number] 08/17/2026 6570-0-036 / / [id number] Advance Directives For more information, please contact: [phone] Documents on File Type Date Recorded Patient Airport Ramp Agent Expl 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 Care Teams Frame Feeder Relationship Specialty Start Date End Date Nova Dillon MD PCP - General Internal Medicine 12/21/19
--- OUTSIDE RECORDS SUMMARY | 2025-01-19 17:29 | XMS_ITS | Clinical Summary ---
Author Organization [facility] Address [address] [place] [phone] Phone Care Team Providers Care Senior Recruiter Name Role Phone Nova Dillon MD Primary [...] a day with meals. Active vitamin A 28853 UNIT capsule Take 10,000 Units by mouth [...] topic Medical Devices Not on file Insurance [facility] Address: [facility] [id number] [place], [place] [id number] MEDICARE A MEDICARE A MEDICARE A [facility] Address: [facility] [id number] [place], [place] [id number] MEDICARE A [facility] A MEDICARE A MEDICARE A [facility]ICARE A [facility] Address: [facility] [id number] [place], [place] [id number] MEDICARE A Care Teams Senior Recruiter Relationship Specialty Start Date End Date Nova Dillon MD [address] [place] [phone] PCP - General Internal Medicine 06/16/20 Additional Source Comments The information contained in this document represents components of the legal health record. It is not the complete legal health record.[facility]
== END 2025-01-19 14:04 | disposition home or self-care (01) ==
LOC: HO.HCS 13:22
PROVIDERS: PCP Internal Medicine; Visit Provider Internal Medicine
DX: I48.0 Paroxysmal atrial fibrillation (principal); I44.0 Atrioventricular block, first degree; R55 Syncope and collapse; I65.21 Occlusion and stenosis of right carotid artery
CPT/HCPCS: 99214; G2211

== ENCOUNTER → 2025-01-19 13:21 | Outpatient (BNVA) | payer MEDICARE, SELFPAY | PROVIDERS: PCP Internal Medicine; Visit Provider Internal Medicine | DX: I48.0 Paroxysmal atrial fibrillation (principal); I44.0 Atrioventricular block, first degree; I65.21 Occlusion and stenosis of right carotid artery; R55 Syncope and collapse | CPT/HCPCS: 99212 ==

== ENCOUNTER 2025-03-01 10:53 | Outpatient (REF) | payer MEDICARE, SELFPAY ==
[2025-03-01 14:00] LABS: Alanine Aminotransferase 66 U/L (0-31); Albumin Level 4.2 g/dL (3.5-5.0); Alkaline Phosphatase 51 U/L (39-117); Anion Gap 9 (12-20); Aspartate Amino Transferase 52 U/L (5-31); Blood Urea Nitrogen 15 mg/dL (9-16); Calcium 9.3 mg/dL (8.4-10.2); Carbon Dioxide 32 mmol/L (22-29); Chloride 107 mmol/L (96-108); Estimated Glomerular Filt Rate > 60; Potassium 3.9 mmol/L (3.3-5.1); Sodium 144 mmol/L (135-145); Total Protein 6.5 g/dL (6.5-8.0)
--- OUTSIDE RECORDS SUMMARY | 2025-03-01 14:08 | XMS_ITS | Encounter Summary ---
Author Organization [facility] Address [address] [place] [address] Phone Care Team Providers Care Geologist Name Role Phone Ronnie Bianchi MD Primary Care Provider Nova Dillon MD Primary Care Pr ovider Encounter Details Date Type Department Care Team (Late st Contact Info) Description 06/10/2020 Ancillary Orders Virtual Department [address] [place] [address] Nova Dillon MD [address] [place] [address] Breast screening Social History Tobacco Use Types [...] unspecified documented in this encounter Care Teams Geologist Relationship Specialty Start Date End Date Ronnie Bianchi MD [address] [place] [address] [place] [address] PCP - General Internal Medicine 06/03/18 06/15/20 Nova Dillon MD [address] [place] [address] PCP - General Internal Medicine 06/16/20 documented as of this encounter Additional Source Comments The information contained in this document represents components of the legal health record. It is not the complete legal health record.[facility]
--- OUTSIDE RECORDS SUMMARY | 2025-03-01 14:08 | XMS_ITS | Clinical Summary ---
Author Organization [facility] Address [address] [place] [address] Care Team Providers Care Cartographic Drafter Name Role Phone Nova Dillon MD Primary [...] week. 0 Active Vitamin A 3 MG (42225 UT) TABS Take 1 tablet by mouth [...] COPD Father Emphysema Father Heart disease Father AL Alzheimer's disease Mother COPD Mother Hypertension Mother [...] this topic Medical Devices Implanted Type Area Ironworker Foreman Device Identifier Shelf Expiration Date Model / Serial / Lot Insert Trident 0d E 36mm X3 Acetabular [facility] - 233497 - [id number] Implanted:Qty: 1 on 02/29/2020 by Marcos Velasquez MD at [facility] Right: Hip [employer] [id number] 01/23/2025 623-00-36E / / [id number] Shell Trident Ii E 52mm Tritanium Acetabular Hip - 586568 - [id number] Implanted:Qty: 1 on 02/29/2020 by Marcos Velasquez MD at [facility] Right: Hip [employer] [id number] 11/28/2023 709-04-52E / / [id number] Screw Trident Ii 30mm 6.5mm Low Profile Hexagonal Bone - 911175 - [id number] Implanted:Qty: 1 on 02/29/2020 by Marcos Velasquez MD at [facility] Right: Hip [employer] [id number] 10/19/2024 2954-2128 / / [id number] Screw Bone Trident Ii L20 Mm Od6.5 Mm Low Profile Hexa - 990915 - [id number] Implanted:Qty: 1 on 02/29/2020 by Marcos Velasquez MD at [facility] Right: Hip [employer] [id number] 06/02/2024 2097-5528 / / [id number] Screw Trident Ii 15mm 6.5mm Low Profile Hexagonal Bone - 698032 - [id number] Implanted:Qty: 1 on 02/29/2020 by Marcos Velasquez MD at [facility] Right: Hip [employer] [id number] 08/11/2023 4738-9057 / / [id number] Stem Accolade Ii 3 132d Femoral - 238418 - [id number] Implanted:Qty: 1 on 02/29/2020 by Marcos Velasquez MD at [facility] Right: Hip [employer] [id number] 01/11/2025 8403-0849 / / [id number] Head V40 -2.5mm 36mm Biolox Delta Femoral Hip - 596243 - [id number] Implanted:Qty: 1 on 02/29/2020 by Marcos Velasquez MD at [facility] Right: Hip [employer] [id number] 01/09/2025 6570-0-436 / / [id number] Component Triathlon 4 Cruciate Retaining Cemented Femoral - 894291 - [id number] Implanted:Qty: 1 on 09/05/2020 by Marcos Velasquez MD at [facility] Left: Knee [employer] [id number] 05/10/2025 5510-F-401 / / [id number] Component Triathlon 8mm 27mm Symmetric X3 Ptlar Knee - 929705 - [id number] Implanted:Qty: 1 on 09/05/2020 by Marcos Velasquez MD at [facility] Left: Knee [employer] [id number] 12/02/2023 5550-G-278 / / [id number] Triathlon Cr Insert - Size 4 12mm X3 - 289822 - [id number] Implanted:Qty: 1 on 09/05/2020 by Marcos Velasquez MD at [facility] Left: Knee [employer] [id number] 10/30/2022 5530-G-412 -E / / [id number] Baseplate Triathlon 4 Primary Cemented Tibial Knee - 107144 - [id number] Implanted:Qty: 1 on 09/05/2020 by Marcos Velasquez MD at [facility] Left: Knee [employer] [id number] 09/16/2023 5520-B-400 / / [id number] Cement Simplex P Radiopaque Full Dose Bone 10 Pack - 937090 - [id number] Implanted:Qty: 1 on 09/05/2020 by Marcos Velasquez MD at [facility] Left: Knee [employer] 12/29/2021 6191-1-010 / / [id number] Cement Simplex P Radiopaque Full Dose Bone 10 Pack - 920244 - [id number] Implanted:Qty: 1 on 09/05/2020 by Marcos Velasquez MD at [facility] Left: Knee [employer] 12/29/2021 6191-1-010 / / [id number] [place] V40 Cemented Hip Stem 37.5 Offst 125mm Implanted:Qty: 1 on 10/23/2021 by Marcos Velasquez MD at [facility] Left: Hip [employer] 04/26/2026 0580-3-371 / / [id number] Tritanium Cluster Hole Shell 52mm Stry-Howm 954-86-28d-770 473 - [id number] Implanted:Qty: 1 on 10/23/2021 by Marcos Velasquez MD at [facility] Left: Hip [employer] [id number] 05/17/2026 702-04-52E / / [id number] ++Dnu+Disc Use [id number] Hip Insrt Trident 0d Silvio 36mm Stry-How 400-48-91c-200 918 - [id number] Implanted:Qty: 1 on 10/23/2021 by Marcos Velasquez MD at [facility] Left: Hip [employer] [id number] 09/14/2026 623-00-36E / / [id number] Lp Hex Screw 6.5x30mm Stry-How 7700-2056-9242 78 - [id number] Implanted:Qty: 1 on 10/23/2021 by Marcos Velasquez MD at [facility] Left: Hip [employer] [id number] 08/31/2026 4102-2971 / / [id number] Kit Prep Total Hip Bone Imp Smn-Orth 380349-106522 - [id number] Implanted:Qty: 1 on 10/23/2021 by Marcos Velasquez MD at [facility] Left: Hip [employer] [id number] 09/13/2031 651752 / / [id number] Description:SMALL BONE PLUG USED FROM THE KIT Cement Bone Surg Simplex Radiopq Stry-Howm 8240-5-923-114 092 - [id number] Implanted:Qty: 1 on 10/23/2021 by Marcos Velasquez MD at [facility] Left: Hip [employer] [facility] [id number] 10/30/2023 6191-1-010 / / [id number] Cement Bone Surg Simplex Radiopq Stry-Howm 5952-1-967-114 092 - [id number] Implanted:Qty: 1 on 10/23/2021 by Marcos Velasquez MD at [facility] Left: Hip [employer] [id number] 02/28/2023 6191-1-010 / / [id number] Hip Head Delta Biolox 36mm -5 Stry-How 6285-9-746-549 190 - [id number] Implanted:Qty: 1 on 10/23/2021 by Marcos Velasquez MD at [facility] Left: Hip [employer] [facility] [id number] 08/17/2026 6570-0-036 / / [id number] Advance Directives For more information, please contact: [phone] Documents on File Type Date Recorded 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 Care Teams Cartographic Drafter Relationship Specialty Start Date End Date Nova Dillon MD PCP - General Internal Medicine 12/21/19
--- OUTSIDE RECORDS SUMMARY | 2025-03-01 14:08 | XMS_ITS | Encounter Summary ---
Author Organization [facility] Address [address] [place] [address] Care Team Providers Care A/C Tech Name Role Phone Nova Dillon MD Primary Care Prov ider Encounter Details Date Type Department Care Team ([facility] st Contact Info) Description 01/15/2025 Results Follow-Up Pulmonology - [place] [address] [place] [phone] Yola Birmingham MD [address] [place] [phone] Social History Tobacco Use Types Packs/Day Years [...] care for your loved ones. For example, childhood teacher or elderly care for an older adult? [...] Care Team (Late st Contact Info) Description 04/07/2025 1:30 PM EST Office Visit Orthopedic Surgery - [place] [address] [address] Vlad Lamb, DPM [address] [phone] 04/13/2025 1:15 PM EST Office Visit Adult Medicine - [place] [address] [place] [phone] Nova Dillon MD [address] [place] [address] 07/06/2025 1:15 PM EDT Office Visit Adult Medicine - [place] [address] [place] [address] Nova Dillon MD [address] [place] [address] 08/24/2025 1:00 PM EDT Office Visit Pulmonology - [address] [place] [phone] Yola Birmingham MD [address] [place] [phone] documented as of this encounter Visit Diagnoses Not on filedocumented in this encounter Additional Health Concerns Assessment Noted Time PHQ-9 Depression Total Score: 6 06/11/19 25 11:24 AM EDT documented as of this encounter Care Teams A/C Tech Relationship Specialty Start Date End Date Nova Dillon MD [address] [place] [id number] PCP - General Internal Medicine 11/24/18 documented as of this encounter
--- OUTSIDE RECORDS SUMMARY | 2025-03-01 14:08 | XMS_ITS | Clinical Summary ---
Author Organization [facility] Address [address] [place] [address] Phone Care Team Providers Care Body Builder Name Role Phone Nova Dillon MD Primary [...] needed for Nausea. 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 48 mL 1 Active apixaban (ELIQUIS) 5 mg tablet Take 1 tablet (5 mg total) by mouth 2 (two) times a day. Patient is taking this BID Active semaglutide (WEGOVY SUBQ) Inject under the skin. Active chlorhexidine (PERIDEX) 0.12 % solution RINSE MOUTH WITH 15ML (1 CAPFUL) FOR 30 SECONDS IN MORNING AND EVENING AFTER BRUSHING, THEN SPIT Active atorvastatin (LIPITOR) 80 mg tablet TAKE 1 TABLET BY MOUTH ONCE DAILY 100 tablet Active gabapentin (NEURONTIN) 600 mg tabletIndications :Spinal stenosis of lumbar region, unspecified whether neurogenic claudication present Take 1 tablet (600 mg total) by mouth 3 (three) times a day. 270 each 1 025 2025 Active albuterol HFA (ProAir HFA) 90 mcg/actuation inhalerIndication s:Abnormal CT scan Inhale 2 puffs by mouth 3 (three) times a day. 25.5 g 1 025 2025 Active ciclopirox (LOPROX) 0.77 % gel Apply topically 2 (two) times a day. 45 g 3 025 2025 Active cetirizine (ZyrTEC) 10 mg tablet Take 1 tablet (10 mg total) by mouth 1 (one) time each day. 30 each 11 025 2025 Active traMADoL (ULTRAM) 50 mg tabletIndications :Spinal stenosis of lumbar region, unspecified whether neurogenic claudication present Take 2 tablets (100 mg total) by mouth every 8 (eight) hours if needed (pain) for up to 28 days. Max Daily Amount: 300 mg 168 tablet 025 2024 Active levothyroxine (SYNTHROID, LEVOTHROID) 125 mcg tablet TAKE 1 TABLET BY MOUTH DAILY 100 tablet 2 Active levothyroxine (SYNTHROID, LEVOTHROID) 125 mcg tablet TAKE 1 TABLET BY MOUTH DAILY 100 tablet 025 2024 Discontinued traMADoL (ULTRAM) 50 mg tabletIndications :Spinal stenosis of lumbar region, unspecified whether neurogenic claudication present Take 2 tablets (100 mg total) by mouth every 8 (eight) hours if needed (pain) for up to 28 days. Max Daily Amount: 300 mg 168 tablet 025 2024 Discontinued(R eorder) Active Problems Problem Noted Date Diagnosed Date Psoriatic arthritis ([facility] V24, [facility] V28) 0 04/28/2024 Chronic pain syndrome 04/06/2024 Carotid stenosis, right 12/27/2021 Overview (12/31/2023): 50-79% [facility] CARDS Iron deficiency anemia secon vonda to inadequate dietary iron intake 10/18/2021 Obesity (BMI 30-39.9) 06/24/2020 COPD (chronic obstructive pu lmonary disease) ([facility] V24, [facility] V28) 03/18/2020 Arthritis of right hip 12/31/2019 Aortic atherosclerosis ([facility] V24) 12/17/2018 Chronic bilateral low back pain with sciatica Depression 12/17/2018 Neuropathy 12/17/2018 Osteoarthritis 12/17/2018 Overview (12/31/2023): Cervical, Thoracic, & Lumbosacral Spine, Hips, Knees Vitamin D deficiency 12/17/2018 Atrial fibrillation ([facility] V24, [facility] V28) 0 11/26/2018 Bilateral chronic knee pain [...] Encounters Date Type Department Care Team Description 01/20/2025 1:00 PM EDT Office Visit Pulmonology - [place] [facility] [address] [place] [phone] Yola Birmingham MD Pulmonary nodule (Primary Dx); Seasonal allergic rhinitis due to pollen 01/15/2025 Results Follow-Up Pulmonology - [place] [address] [facility] [address] [place] [phone] Yola Birmingham MD 01/07/2025 11:46 AM EDT - 01/07/2025 11:59 PM EDT Hospital Encounter [facility] CT Scan [address] [place] [phone] scan; Pulmonary nodule Discharge Disposition: Home or Self Care 01/06/2025 1:00 PM EDT Office Visit Orthopedic Surgery [facility] [address] [facility] [address] [place] [phone] Vlad Lamb DPM Psoriatic arthritis (CMS/HCC V24, CMS/HCC V28) (Primary Dx); Hammer toe of left foot; Dermatophytosis of nail; Acquired hammer toe of right foot; Ingrowing nail 01/05/2025 1:15 PM EDT Office Visit Adult Medicine [address] [phone] Nova Dillon MD Fall, subsequent encounter (Primary Dx); Spinal stenosis of lumbar region, unspecified whether neurogenic claudication present; Abnormal CT scan; Chronic bronchitis, unspecified chronic bronchitis type (CMS/HCC V24, CMS/HCC V28) from Last 3 Months Immunizations Immunization Administration Dates Next Due Influenza trivalent, 0.5mL ( Fluzone High-dose) 65yo and older 01/03/2023,12/14/2021,12/18/2019,12/03 Influenza trivalent, with pr eservative (Fluzone; Afluria) 6mo and older 12/20/2021,01/21/2014,01/07/2013,01/15 Influenza, Unspecified 12/03/2018 Moderna (age 6mo & older) Bi valent, COVID-19, 0.5 mL or 0.25 mL dosage 12/20/2021 Pfizer SARS-CoV-2 COVID-19, mRNA, LNP-S, preservative free 01/03/2023,01/19/2021,06/10/2020 [...] TOTAL HIP; Surgeon: Marcos Velasquez MD; Location: [facility]); Service: Orthopedics; Laterality: Right; COLONOSCOPY PROCEDURE:COLONOSCOPY TOTAL KNEE ARTHROPLASTY 08/2020 Left PROCEDURE:TOTAL KNEE ARTHROPLASTY TOTAL HIP ARTHROPLASTY 10/23/2021 Left PROCEDURE:TOTAL HIP ARTHROPLASTY;COMMENT:Procedure : REPLACEMENT TOTAL HIP; Surgeon: Marcos Velasquez MD; Location: [facility] ([facility]); Service: Orthopedics; Laterality: Left; OTHER SURGICAL [...] bypass OTHER SURGICAL HISTORY 03/01/2020 Right PROCEDURE: [place] ARTHRP ACETBLR/PROX FEM PROSTC AGRFT/ALGRFT TOTAL KNEE ARTHROPLASTY 09/05/2020 Left PROCEDURE: MA ARTHRP KNE CONDYLE&PLATU MEDIAL&LAT COMPARTMENTS Medical History Medical History Date Comments Hypertension DX:Hypertension; COMMENT:resolved since bariatric Osteoarthritis DX:Osteoarthriti s A-fib ([facility] V24, [facility] V28) DX:A-fib ([facility]);COMMENT:postoperatively bariatric surgery Sleep apnea DX:Sleep apnea;C OMMENT:NONCOMPLIANT WITH CPAP DUE TO WT. LOSS COPD (chronic obstructive pu lmonary disease) ([facility] V24, [facility] V28) DX:COPD (chronic o bstructive pulmonary disease) ([facility]);COMMENT:Just from hx of smoking no PFTs [...] knee pain; COMMENT: Dr Boyce Atrial fibrillation ([facility] V24, [facility] V28) 11/26/2018 DX:Atrial fibrillation ([facility]) GARRETT (obstructive sleep apnea) 10/16/2016 DX :GARRETT (obstructive sleep apnea) Aortic atherosclerosis ([facility] V24) 12/17/2018 DX:Aortic atherosclerosis ([facility]) Osteoarthritis 12/17/2018 DX:Osteoarthriti s; COMMENT: Cervical, [...] DX:Neuropathy COPD (chronic obstructive pu lmonary disease) ([facility] V24, [facility] V28) 03/18/2020 DX:COPD (chronic o bstructive pulmonary disease) ([facility]) HTN (hypertension) 03/18/2020 DX:HTN (hyper tension) Carotid stenosis, right 12/27/2021 DX:Carot id stenosis, right; COMMENT: 50-79% [facility] CARDS Irritable bowel syndrome DX:Irri table bowel [...] for your loved ones. For example, child nurse or elderly care for an older [...] Sign Reading Time Taken Comments Blood Pressure 87/49 01/20/2025 12:58 PM EDT Pulse 63 01/20/2025 12:58 PM EDT Temperature 36.1 C (97 F) 01/20/2025 12:58 PM EDT Respiratory Rate 20 01/20/2025 12:58 PM EDT Oxygen Saturation 100% 01/20/2025 12:58 PM EDT Inhaled Oxygen Concentration - - Weight 59.9 kg (132 lb) 01/20/2025 12:58 PM EDT Height 157.5 cm (5' 2 ) 01/20/2025 12:58 PM EDT Body Mass Index 24.14 01/20/2025 12:58 PM EDT Plan of Treatment Upcoming Encounters Date Type Department Care Team (Late st Contact Info) Description 04/07/2025 1:30 PM EST Office Visit Orthopedic Surgery - [place] [address] [phone] Vlad Lamb DPM [address] [phone] 04/13/2025 1:15 PM EST Office Visit Adult Medicine - [address] [phone] Nova Dillon MD [address] [place] [address] 07/06/2025 1:15 PM EDT Office Visit Adult Medicine [facility] [address] [place] [phone] Nova Dillon MD [address] [place] [address] 08/24/2025 1:00 PM EDT Office Visit Pulmonology - [place] 175 [facility] [address] [place] [address] Yola Birmingham MD [address] [place] [address] Health Maintenance Due Date Last Done Comments Hepatitis A Vaccines (1 of 2 - Risk 2-dose series) 1968 Hepatitis B Vaccines (1 of 3 - Risk 3-dose series) 2009 Medicare Annual Wellness Visit 03/08/2022 RSV Immunization Adult Patients (1 - 1-dose 75+ series) 2024 Social Influencers of Health Screening 06/10/2025 06/10/2024 COVID-19 Vaccine (9 - Pfizer risk 2024- season) 2025 02/09/2025, 12/20/2023, 01/03/2023, Additional history exists Falls Risk Assessment 01/05/2026 01/05/2025 Cholesterol Screening (Lipid Panel) 01/19/2029 01/20/2024, 05/19/2021 Colorectal Cancer Screening: Colonoscopy 02/02/2032 02/01/2022 DTaP,Tdap,and Td Vaccines (3 - Td or Tdap) 02/27/2032 02/26/2022, 02/05/2011 Osteoporosis Screening (Bone Density Screening) 09/11/2032 09/11/2022 Hepatitis C Screening Completed 01/15/2013 Pneumococcal Vaccine: 50+ Years Completed 06/14/2016, 11/15/2014 Zoster Vaccines Completed 11/24/2018, 09/14/2018 Breast Cancer Screening Discontinued 09/24/2024, 06/16 Depression Screening Completed 12/30/2024 Influenza Vaccine Discontinued 02/09/2025, , 01/03/2023, Additional history exists HIB Vaccines Aged Out [...] this topic Medical Devices Implanted Type [employer] Analyst Device Identifier Shelf Expiration Date Model / Serial / Lot Insert Trident 0d E 36mm X3 Acetabular Hip - [id number] Implanted:Qty: 1 on 02/29/2020 by Marcos Velasquez MD Right: Hip [employer] [id number] 01/23/2025 623-00-36E / / [id number] Shell Trident Ii E 52mm Tritanium Acetabular Hip - [id number] Implanted:Qty: 1 on 02/29/2020 by Marcos Velasquez MD Right: Hip [employer] [id number] 11/28/2023 709-04-52E / / [id number] Screw Trident Ii 30mm 6.5mm Low Profile Hexagonal Bone - [id number] Implanted:Qty: 1 on 02/29/2020 by Marcos Velasquez MD Right: Hip [employer] [id number] 10/19/2024 6754-9107 / / [id number] Screw Bone Trident Ii L20 Mm Od6.5 Mm Low Profile Hexa - [id number] Implanted:Qty: 1 on 02/29/2020 by Marcos Velasquez MD Right: Hip [employer] [id number] 06/02/2024 0574-7338 / / [id number] Screw Trident Ii 15mm 6.5mm Low Profile Hexagonal Bone - [id number] Implanted:Qty: 1 on 02/29/2020 by Marcos Velasquez MD Right: Hip [employer] [id number] 08/11/2023 8838-0944 / / [id number] Stem Accolade Ii 3 132d Femoral - [id number] Implanted:Qty: 1 on 02/29/2020 by Marcos Velasquez MD Right: Hip [employer] [id number] 01/11/2025 4226-6373 / / [id number] Head V40 -2.5mm 36mm Biolox Delta Femoral Hip - [id number] Implanted:Qty: 1 on 02/29/2020 by Marcos Velasquez MD Right: Hip [employer] [id number] 01/09/2025 6570-0-436 / / [id number] Component Triathlon 4 Cruciate Retaining Cemented Femoral - [id number] Implanted:Qty: 1 on 09/05/2020 by Marcos Velasquez MD Left: Knee [employer] [id number] 05/10/2025 5510-F-401 / / [id number] Component Triathlon 8mm 27mm Symmetric X3 Ptlar Knee - [id number] Implanted:Qty: 1 on 09/05/2020 by Marcos Velasquez MD Left: Knee [employer] [id number] 12/02/2023 5550-G-278 / / [id number] Triathlon Cr Insert - Size 4 12mm X3 - [id number] Implanted:Qty: 1 on 09/05/2020 by Marcos Velasquez MD Left: Knee [employer] [id number] 10/30/2022 5530-G-412 -E / / [id number] Baseplate Triathlon 4 Primary Cemented Tibial Knee - [id number] Implanted:Qty: 1 on 09/05/2020 by Marcos Velasquez MD Left: Knee [employer] [id number] 09/16/2023 5520-B-400 / / [id number] Cement Simplex P Radiopaque Full Dose Bone 10 Pack - Implanted:Qty: 1 on 09/05/2020 by Marcos Velasquez MD Left: Knee [employer] 12/29/2021 6191-1-010 / / [id number] Cement Simplex P Radiopaque Full Dose Bone 10 Pack - Implanted:Qty: 1 on 09/05/2020 by Marcos Velasquez MD Left: Knee [employer] 12/29/2021 6191-1-010 / / [id number] Townsend V40 Cemented Hip Stem 37.5 Offst 125mm Implanted:Qty: 1 on 10/23/2021 by Marcos Velasquez MD Left: Hip [employer] 04/26/2026 0580-3-371 / / [id number] Tritanium Cluster Hole Shell 52mm Stry-Howm 381-63-55m-[id number] 473 Implanted:Qty: 1 on 10/23/2021 by Marcos Velasquez MD Left: Hip [employer] [id number] 05/17/2026 702-52E / / [id number] ++Dnu+Disc Use [id number] Hip Insrt Trident 0d Silvio 36mm Stry-Howm 214-39-13r-200 918 Implanted:Qty: 1 on 10/23/2021 by Marcos Velasquez MD Left: Hip [employer] [id number] 09/14/2026 623-00-36E / / [id number] Lp Hex Screw 6.5x30mm Stry-Howm [id number] 78 Implanted:Qty: 1 on 10/23/2021 by Marcos Velasquez MD Left: Hip [employer] [id number] 08/31/2026 1250-5198 / / [id number] Kit Prep Total Hip Bone [facility] [id number] Implanted:Qty: 1 on 10/23/2021 by Marcos Velasquez MD Left: Hip [employer] [id number] 09/13/2031 865484 / / [id number] Description:SMALL BONE PLUG USED FROM THE KIT Cement Bone Surg Simplex Radiopq Stry-Howm [id number] 092 Implanted:Qty: 1 on 10/23/2021 by Marcos Velasquez MD Left: Hip [employer] [id number] 10/30/2023 6191-1-010 / / [id number] Cement Bone Surg Simplex Radiopq Stry-Howm 2393-1-258-114 092 Implanted:Qty: 1 on 10/23/2021 by Marcos Velasquez MD Left: Hip [employer] [id number] 02/28/2023 6191-1-010 / / [id number] Hip Head Delta Biolox 36mm -5 Stry-Howm 1396-9-982-549 190 Implanted:Qty: 1 on 10/23/2021 by Marcos Velasquez MD Left: Hip [employer] [id number] 08/17/2026 6570-0-036 / / [id number] Procedures Procedure Name Priority Date/Time Associated Diagnosis Comments EXTERNAL CLINICAL LAB 01/14/2025 CT CHEST WO CONTRAST Routine 01/07/2025 11:[address] scan Pulmonary nodule MG MAMMO DIGITAL SCREENING W TAIWO BILAT [...] Recently Relevant to Health Maintenance Results * External clinical lab (01/14/2025) Provider [place] [facility] BLOOD ORDERABLES Fin al Result * CT Chest wo Contrast (01/07/2025 11:56 [...] Signed Date: 01/15/2025 08:36 ET Workstation ID: [id number] Transcribed By: Self Edit Transcribed Date: 01/15/2025 [...] the lateral aspect of the left lower lobe(5/199 - 212) are unchanged. Pleural associated irregular thickening posteromedial right apex 01/08/25-1.3 x 0.5 cm (5/47) 10/13/24-1.3 x 0.5 cm (2/62) Pleural associated nodule posterolateral right apex measuring 0.4 cm(5/55) is unchanged. No new suspicious mass or [...] Signed Date: 01/15/2025 08:36 ET Workstation ID: [id number] Transcribed By: Self Edit Transcribed Date: 01/15/2025 08:18 ET us Yola Birmingham MD IMG CT PROCEDURES Final Resu lt * MG Mammo Digital Screening w Taiwo bilat (09/24/2024 2:53 PM EDT) Anatomical Region Laterality Modality Breast Bilateral Mammography 09/29/2024 3:32 PM EDT Impressions 09/29/2024 3:34 PM EDT No mammographic evidence for malignancy. BI-RADS CATEGORY: 1 - NEGATIVE RECOMMENDATION: Screening bilateral mammogram is recommended in 1 year. Mammo Location: [facility], [address] [place] [address], [address], . -------- FINAL REPORT -------- Dictated By: Shanna Paula Dictated Date: 09/29/2024 15:32 ET Assigned Physician: Shanna Paula Reviewed and Electronically Signed By: Shanna Paula Signed Date: 09/29/2024 15:34 ET Workstation ID: [id number] Transcribed By: Self Edit Transcribed Date: 09/29/2024 [...] is recommended in 1 year. Mammo Location: [facility], [address] [place] [address], [address], . -------- FINAL REPORT -------- Dictated By: Shanna Paula Dictated Date: 09/29/2024 15:32 ET Assigned Physician: Shanna Paula Reviewed and Electronically Signed By: Shanna Paula Signed Date: 09/29/2024 15:34 ET Workstation ID: [id number] Transcribed By: Self Edit Transcribed Date: 09/29/2024 [...] normal bone density by WHO criteria. [facility] Department of Internal Medicine recommends using [...] alternative screening schedule based on nikki Freeman., [facility] April 19, 2011 for patients with osteopenia [...] normal bone density by WHO criteria. [facility] Department of Internal Medicinerecommends using National [...] PROCEDURES Final Resul t * Colonoscopy (02/01/2022) Colonoscopy no interpretation , abstracted Anatomical Region [...] l Result * Hepatitis C Screening (01/15/2013) Pathologist [facility] Hepatitis C Screening abstracted Historical Provider HEALTH MAINTENANCE Final Result from Last 3 Months or Most Recently Relevant to Health Maintenance Insurance [employer] MEDICARE Care Teams Body Builder Relationship Specialty Start Date End Date Nova Dillon MD [address] [place] [address] PCP - General Internal Medicine 11/24/18
--- OUTSIDE RECORDS SUMMARY | 2025-03-01 14:08 | XMS_ITS | Encounter Summary ---
Author Organization [facility] Address [address] [facility] [place] [address] Phone Care Team Providers Care Apartment Assistant Manager Name Role Phone Lee Hurst MD Primary Care Provider Ronnie Bianchi MD Primary Care Provider [phone] Nova Dillon MD Primary Care Pr ovider Encounter Details Date Type Department Care Team (Late st Contact Info) Description 05/13/2018 Procedure Pass OR Admitting Dept - Virtual Department [address] [place] [id number] Social History Tobacco Use Types Packs/Day Years [...] on filedocumented in this encounter Care Teams Apartment Assistant Manager Relationship Specialty Start Date End Date Lee Hurst MD [address] [place] [address] Drive [address] [place] [address] PCP - General Pulmonary Disease 06/10/17 06/02/18 Ronnie Bianchi MD [address] [place] [address] [place] [address] PCP - General Internal Medicine 06/03/18 06/15/20 Nova Dillon MD [address] [place] [address] PCP - General Internal Medicine 06/16/20 documented as of this encounter Additional Source Comments The information contained in this document represents components of the legal health record. It is not the complete legal health record.[facility]
--- OUTSIDE RECORDS SUMMARY | 2025-03-01 14:08 | XMS_ITS | Encounter Summary ---
Author Organization [facility] Address [address] [facility] [place] [address] Phone Care Team Providers Care Student Counsellor Name Role Phone Lee Hurst MD Primary Care Provider Ronnie Bianchi MD Primary Care Provider [phone] Nova Dillon MD Primary Care Pr ovider Encounter Details Date Type Department Care Team (Late st Contact Info) Description 06/10/2017 Ancillary Orders Virtual Department [address] [place] [address] Lee Hurst MD [address] [place] [address] Breast screening Social History Tobacco Use Types [...] unspecified documented in this encounter Care Teams Student Counsellor Relationship Specialty Start Date End Date Lee Hurst MD [address] [place] [address] Drive [address] [place] [address] PCP - General Pulmonary Disease 06/10/17 06/02/18 Ronnie Bianchi MD [address] [place] [address] [address] [place] [address] PCP - General Internal Medicine 06/03/18 06/15/20 Nova Dillon MD [address] [place] [address] PCP - General Internal Medicine 06/16/20 documented as of this encounter Additional Source Comments The information contained in this document represents components of the legal health record. It is not the complete legal health record.[facility]
--- OUTSIDE RECORDS SUMMARY | 2025-03-01 14:08 | XMS_ITS | Encounter Summary ---
Author Organization [facility] Address [address] [place] [address] Phone Care Team Providers Care Stock Driver Name Role Phone Ronnie Bianchi MD Primary Care Provider [phone] Nova Dillon MD Primary Care Pr ovider Encounter Details Date Type Department Care Team (Late st Contact Info) Description 06/03/2018 Ancillary Orders Virtual Department [address] [place] [address] Ronnie Bianchi MD [address] [place] [address] [address] Breast screening Social History Tobacco Use Types [...] Right, Breast Bilateral Bila teral Mammography 08/13/2018 1:14 PM EDT Impressions 08/13/2018 1:18 PM EDT No mammographic evidence of malignancy. Recommend routine annual surveillance. BI-RADS CATEGORY: 2 - Benign finding. DENSITY: There are scattered fibroglandular densities. POS - [id number] Narrative 08/13/2018 1:18 PM EDT 68-year-old female [...] There are scattered fibroglandular densities. POS - [id number] Ronnie Bianchi MD IMG MG EXAMS Final Result documented in this encounter Visit Diagnoses Diagnosis Breast screening Breast screening, unspecified Breast screening Breast screening, unspecified documented in this encounter Care Teams Stock Driver Relationship Specialty Start Date End Date Ronnie Bianchi MD [address] [place] [address] [place] [address] PCP - General Internal Medicine 06/03/18 06/15/20 Nova Dillon MD [address] [place] [address] PCP - General Internal Medicine 06/16/20 documented as of this encounter Additional Source Comments The information contained in this document represents components of the legal health record. It is not the complete legal health record.[facility]
--- OUTSIDE RECORDS SUMMARY | 2025-03-01 14:08 | XMS_ITS | Encounter Summary ---
Author Organization [facility] Address [address] [place] [address] Phone Care Team Providers Care Sales Service Supervisor Name Role Phone Ronnie Bianchi MD Primary Care Provider [phone] Nova Dillon MD Primary Care Pr ovider Encounter Details Date Type Department Care Team (Late st Contact Info) Description 06/10/2020 Procedure Pass [facility], [address] [address] Social History Tobacco Use Types Packs/Day Years [...] filedocumented in this encounter Care Teams Sales Service Supervisor Relationship Specialty Start Date End Date Ronnie Bianchi MD [address] [place] [address] [place] [address] PCP - General Internal Medicine 06/03/18 06/15/20 Nova Dillon MD [address] [place] [address] PCP - General Internal Medicine 06/16/20 documented as of this encounter Additional Source Comments The information contained in this document represents components of the legal health record. It is not the complete legal health record.[facility]
--- OUTSIDE RECORDS SUMMARY | 2025-03-01 14:08 | XMS_ITS | Clinical Summary ---
Author Organization [facility]ly [facility] Address [address] [place] [address] Phone Care Team Providers Care Collision Repairer Name Role Phone Nova Dillon MD Primary [...] a day with meals. Active vitamin A 64315 UNIT capsule Take 10,000 Units by mouth [...] on file Insurance MEDICARE A MEDICARE A Member Subscriber Plan / Payer (Ef fective 2014-Present) Name:Danelle Vallejo Member ID:[id number] Relation to Subscriber:Self Name:Danelle Vallejo Subscriber ID:[id number] Payer ID:[id number] Group ID:Not on file Type:Medicare Address: [address] [address] MEDICARE A MEDICARE A [facility] MEDICARE A MEDICARE A MEDICARE A MEDICARE A [facility] MEDICARE A Care Teams Collision Repairer Relationship Specialty Start Date End Date Nova Dillon MD [address] [place] [address] PCP - General Internal Medicine 06/16/20 Additional Source Comments The information contained in this document represents components of the legal health record. It is not the complete legal health record.[facility]
== END 2025-03-01 10:54 | disposition home or self-care (01) ==
LOC: HO.HKASLDS 10:53
PROVIDERS: PCP Internal Medicine; Visit Provider Student in an Organized Health Care Education/Training Program
DX: R74.01 Elevation of levels of liver transaminase levels (principal)
CPT/HCPCS: 36415; 80053

== ENCOUNTER 2025-03-29 10:42 | Outpatient (REF) | payer MEDICARE, SELFPAY ==
--- OUTSIDE RECORDS SUMMARY | 2025-03-29 12:14 | XMS_ITS | Data Portability ---
Author Organization [place] [facility] [place] Address [address] [place] [address] Assessment Encounter Date Assessment Date Assessment LastModified [...] with the outcome in all 3 joints. Overall,Alejandra Guillaume atashlee reports good pain relief in the hip and knee and satisfactory moravian of function in terms of activities of [...] work on hip and knee conditioning exercises. Wynz-kzg-[id number] medications as needed. Ultimate failure may occur [...] XR, knee, 3 view 023 11/10/19 [address] [place] [address] [facility], [address], [place], [address], 3 08:49:22 XR, hip, unilat eral, 2 or 3 view 023 11/10/[facility], [address], [place], [address], 3 08:49:22 Medication Orders None record ed. Patient TargetsNo targets recorded. Patient InstructionsNo instructions recorded. Reason for Referral None Reported. Problems Name Problem SNOMED Code Status Onset Date Resolution Date Notes Provider Name and Address Organization Details Recorded Time Fibrocyst ic disease of breast 92239598 Active 2010 Fibrocyst ic breast Not Available [facility] 5 23:12:35 Spinal stenosis of lumbar region 36109066 Active 2010 Lumbar spinal stenosis Not Available [facility] 5 23:12:35 Hypothyro idism 86309828 Active 2010 Hypothyro idism - Overview: Formattin g of this note might be different from the original. Formattin g of this note might be different from the original. Had radiation for Graves, Not Available [facility] 5 23:12:37 Hyperchol esterolem ia 17373700 Active 2010 Hyperchol esteremia Not Available [facility] 5 23:12:39 History of bariatric surgical procedure 578922870 Active 2016 History of bariatric surgery - Overview: Formattin g of this note might be different from the original. Formattin g of this note might be different from the original. 2017 Gastric Bypass Not Available [facility] 5 23:12:37 Endometri um thickened 165305907 Active 2016 Endometri al thickenin g on ultrasoun d - Overview: Formattin g of this note might be different from the original. Formattin g of this note might be different from the original. 8 mm, Seen on ultrasoun d 09/10/16 Not Available [facility] 5 23:12:38 Steatotic liver disease 631662063 Active 2016 Fatty liver - Overview: Formattin g of this note might be different from the original. Formattin g of this note might be different from the original. Seen on ultrasoun d Not Available [facility] 5 23:12:41 Gastroeso phageal reflux disease 702397536 Active 2016 Esophagea l reflux Not Available [facility] 5 23:12:36 Pain of knee region 6114523110 Active 2016 Bilateral chronic knee pain - Overview: Formattin g of this note might be different from the original. Formattin g of this note might be different from the original. Dr Byoce [facility] Available [facility] 5 23:12:40 Obstructi ve sleep apnea syndrome 13502863 Active 2016 GARRETT (obstruct jasen sleep apnea) Not Available [facility] 5 23:12:41 Excess panniculu s of abdomen 78455307319 01 Active 2017 Abdominal pannus Not Available [facility] 5 23:12:39 Atrial fibrillat ion 80802523 Active 2018 Atrial fibrillat ion Not Available [facility] 5 23:12:35 Osteoarth ritis 256976628 Active 2018 Osteoarth ritis - Overview: Formattin g of this note might be different from the original. Formattin g of this note might be different from the original. Cervical, Thoracic, & Lumbosacr al Spine, Hips, Knees Not Available [facility] 5 23:12:36 Chronic low back pain 683036283 Active 2018 Chronic bilateral low back pain with sciatica Not Available [facility] 5 23:12:36 Depressiv e disorder 22489018 Active 2018 Depressio n Not Available [facility] 5 23:12:38 Atheroscl erosis of aorta 03731382 Active 2018 Aortic atheroscl erosis Not Available [facility] 5 23:12:39 Neuropath y 425361268 Active 2018 Neuropath y Not Available [facility] 5 23:12:40 Vitamin D deficienc y 88886376 Active 2018 Vitamin D deficienc y Not Available [facility] 5 23:12:41 Arthritis of right hip 12489002574 20967 Active 2019 Arthritis of right hip Not Available [facility] 5 23:12:34 Chronic obstructi ve pulmonary disease 22604334 Active 2019 COPD (chronic obstructi ve pulmonary disease) Not Available [facility] 5 23:12:37 Body mass index 30+ - obesity 264369557 Active 2020 Obesity (BMI 30-39.9) Not Available [facility] 5 23:12:40 Iron deficienc y anemia secondary to inadequat e dietary iron intake 051971247 Active 2021 Iron deficienc y anemia secondary to inadequat e dietary iron intake Not Available [facility] 5 23:12:35 Problem Notes None recorded. Medical Equipment None Reported. Allergies Allergen ID Allergen Name Allergen Category Reaction Reaction Severity Criticality Documentation Date Start Date Code Code System Note Provider Name and Address Organization Details Recorded Time 04583 aluminum aspirin Not available Not available Not available Not available 12/22/20242020 611 RxNorm Due to baria tric sc, unabl e to take Not Available [facility] 5 01:16:20 Medications Name Sig Start Date Stop Date Status Note LastModified by Organization Details LastModified Time amoxicillin 500 mg capsule TAKE 4 CAPSULES ONE HOUR PRIOR TO DENTAL PROCEDURE active Not Available Not Available No t Available atorvastati n 80 mg tablet TAKE 1 TABLET BY MOUTH EVERY DAY active Not Available Not Available No t Available sennosides 8.6 mg tablet Take 1 tablet by mouth 2 (two) times a day for 30 days. 11/24 completed Not Available Not Available Not Available gabapentin 600 mg tablet TAKE 1 TABLET BY MOUTH EVERY 8 HOURS active Not Available Not Available No t Available ondansetron HCl 8 mg tablet Take 1 tablet (8 mg total) by mouth every 8 (eight) hours as needed for nausea. 10/24 completed Not Available Not Available Not Available ondansetron HCl 4 mg tablet Take 1 tablet (4 mg total) by mouth every 8 (eight) hours as needed for nausea for up to 14 days. 03/16 completed Not Available Not Available Not Available sennosides 8.6 mg-docusate sodium 50 mg tablet Take 1 tablet by mouth 2 (two) times a day. 10/20 completed Not Available Not Available Not Available cyanocobala min (vit B-12) 1,000 mcg tablet Take 1 tablet (1,000 mcg total) by mouth daily. active Not Available Not Available No t Available clopidogrel 75 mg tablet TAKE 1 TABLET BY MOUTH EVERY DAY active Not Available Not Available No t Available tramadol 50 mg tablet TAKE 2 TABLETS BY MOUTH EVERY 8 HOURS NEEDED FOR PAIN FOR UP TO 28 DAYS. active Not Available Not Available No t Available acetaminoph en 500 mg tablet Take 2 tablets (1,000 mg total) by mouth every 8 (eight) hours for 30 days. 11/24 completed Not Available Not Available Not Available ondansetron 8 mg disintegrat ing tablet Take 1 tablet (8 mg total) by mouth every 8 (eight) hours as needed for nausea. 2021 active Not Available Not Available Not Avai lable pantoprazol e 20 mg tablet,jourdan yed release Take 2 tablets (40 mg total) by mouth daily. 08/22 completed Not Available Not Available Not Available hydromorpho ne 2 mg tablet Take 1-2 tablets (2-4 mg total) by mouth every 4 (four) hours as needed for pain. 12/05 completed Not Available Not Available Not Available methocarbam ol 750 mg tablet Take 1 tablet (750 mg total) by mouth every 6 (six) hours as needed for up to 14 days. 11/08 completed Not Available Not Available Not Available methotrexat e sodium 2.5 mg tablet TAKE 6 TABS BY MOUTH ONCE WEEKLY FOR 2 WEEKS THEN 8 TABS ONCE WEEKLY active Not Available Not Available No t Available pantoprazol e 40 mg tablet,jourdan yed release Take 1 tablet (40 mg total) by mouth daily for 28 days. 11/22 completed Not Available Not Available Not Available levothyroxi ne 125 mcg tablet TAKE 1 TABLET BY MOUTH EVERY DAY active Not Available Not Available No t Available folic acid 1 mg tablet TAKE 1 TABLET BY MOUTH EVERY DAY active Not Available Not Available No t Available bisacodyl 5 mg tablet,jourdan yed release PLEASE SEE ATTACHED FOR DETAILED DIRECTION S active Not Available Not Available No t Available metoprolol succinate ER 25 mg tablet,exte nded release 24 hr TAKE 1/2 TABLET BY MOUTH EVERY DAY active Not Available Not Available No t Available ondansetron 4 mg disintegrat ing tablet TAKE 1 TABLET BY MOUTH 3 TIMES DAILY NEEDED FOR NAUSEA. active Not Available Not Available No t Available dexamethaso ne sodium phosphate 10 mg/mL injection solution 10 mg. 02/10 completed Not Available Not Available Not Available ciclopirox 0.77 % topical gel APPLY TO AFFECTED AREA TOPICALLY EVERY DAY active Not Available Not Available No t Available vitamin A 10,000 unit tablet Take 1 tablet by mouth every evening. active Not Available Not Available No t Available chlorhexidi ne gluconate 0.12 % mouthwash RINSE MOUTH WITH 15ML (1 CAPFUL) FOR 30 SECONDS IN MORNING AND EVENING AFTER BRUSHING, THEN SPIT active Not Available Not Available No t Available esomeprazol e magnesium DR 10 mg granules delayed release for susp Take 10 mg by mouth every evening. 10/24 completed Not Available Not Available Not Available GaviLyte-G 236 gram-22.74 gram-6.74 gram-5.86 gram oral solution PLEASE SEE ATTACHED FOR DETAILED DIRECTION S active Not Available Not Available No t Available biotin 5 mg tablet Take 1 tablet by mouth every evening. active Not Available Not Available No t Available apixaban 2.5 mg tablet Take 1 tablet (2.5 mg total) by mouth every 12 (twelve) hours for 28 days. 07/26/ 2022 08/24 /2022 completed Not Available Not Available Not Available Vitals Date Recorded Body height Heart rate Body weight Body mass index (BMI) Body temperature Oxygen saturation Systolic And Diastolic Provider Name and Address Organization Details Last Updated DateTime 4 160 cm 57 /min 94915 g 34.52 kg/m2 98.402 [degF] 100 % 140/44 mm[Hg] Not Available [facility] 00:52:05 Social History None recorded. Functional Status None recorded. Mental Status None recorded. Family History Nothing Reported. Medical History No medical history recorded. Gynecological HistoryNo gynecological history recorded. Obstetrics History GPAL:G 0 P 0 0 0 0 Immunizations Vaccine Type Date Status Note Provider Nam e and Address Organization Details Recorded Time Influenza, recombinant, quadrivalent, PF 9 completed Not Available [facility] 12/22/2024 05:24:53 Influenza, split virus, trivalent, preservative 4 completed Not Available [facility] 12/22/2024 05:24:54 Tdap 1 completed Not Available [facility] 12/22/2024 05:24:54 zoster recombinant 9 completed Not Available [facility] 12/22/2024 05:24:54 pneumococcal polysaccharide PPV23 7 completed Not Available [facility] 12/22/2024 05:24:54 Pneumococcal conjugate PCV 13 5 completed Not Available [facility] 12/22/2024 05:24:54 Influenza, split virus, trivalent, preservative 3 completed Not Available [facility] 12/22/2024 05:24:54 Influenza, split virus, trivalent, preservative 2 completed Not Available [facility] 12/22/2024 05:24:54 Influenza, high-dose, trivalent, PF 0 completed Not Available [facility] 12/22/2024 05:24:54 COVID-19, mRNA, LNP-S, PF, 30 mcg/0.3 mL dose 1 completed Not Available [facility] 12/22/2024 05:24:55 COVID-19, mRNA, LNP-S, PF, 30 mcg/0.3 mL dose 1 completed Not Available [facility] 12/22/2024 05:24:55 COVID-19, mRNA, LNP-S, PF, 30 mcg/0.3 mL dose 1 completed Not Available [facility] 12/22/2024 05:24:55 Past Encounters Encounter ID Performer Location Encounter Start Date Encounter Closed Date Diagnosis/Indication Diagnosis SNOMED-CT Code Diagnosis ICD10 Code Diagnosis IMO Codes Diagnosis Note [id number] MD YESSENIA Farrell [address] [place] [address] 11/09/2022 08:14:47 11/09/2022 08:49:21 History of total replacement of left hip joint 3397625570 604328 Z96.642 History of left total knee replacement 4338265823 350361 Z96.652 Aftercare 107736471 Z47. 1 Health Concerns Section Related Observation LastModified by Organization Detai ls LastModified Time None Recorded Concern Status LastModified by Organization Details LastModified Time None Recorded Advance Directives Directive None Recorded Payers None recorded. OBGyn Episode No OBEpisode recorded.
--- OUTSIDE RECORDS SUMMARY | 2025-03-29 12:14 | XMS_ITS | Encounter Summary ---
Author Organization [facility] Address [address] [place] [address] Phone Care Team Providers Care Bass Guitar Teacher Name Role Phone Ronnie Bianchi MD Primary Care Provider [phone] Nova Dillon MD Primary Care Pr ovider Encounter Details Date Type Department Care Team (Late st Contact Info) Description 06/10/2020 Ancillary Orders Virtual Department [address] [place] [address] Nova Dillon MD [address] [place] [address] Breast screening Social History Tobacco Use Types [...] unspecified documented in this encounter Care Teams Bass Guitar Teacher Relationship Specialty Start Date End Date Ronnie Bianchi MD [address] [place] [address] [place] [address] PCP - General Internal Medicine 06/03/18 06/15/20 Nova Dillon MD [address] [place] [address] PCP - General Internal Medicine 06/16/20 documented as of this encounter Additional Source Comments The information contained in this document represents components of the legal health record. It is not the complete legal health record.[facility]
--- OUTSIDE RECORDS SUMMARY | 2025-03-29 12:14 | XMS_ITS | Encounter Summary ---
Author Organization [facility] Address [address] [place] [address] Phone Care Team Providers Care Benzene Worker Name Role Phone Ronnie Bianchi MD Primary Care Provider [phone] Nova Dillon MD Primary Care Pr ovider Encounter Details Date Type Department Care Team (Late st Contact Info) Description 06/10/2020 Procedure Pass [facility], [address] [address] Social History Tobacco Use Types Packs/Day Years [...] on filedocumented in this encounter Care Teams Benzene Worker Relationship Specialty Start Date End Date Ronnie Bianchi MD [address] [place] [address] [place] [address] PCP - General Internal Medicine 06/03/18 06/15/20 Nova Dillon MD [address] [place] [address] PCP - General Internal Medicine 06/16/20 documented as of this encounter Additional Source Comments The information contained in this document represents components of the legal health record. It is not the complete legal health record.[facility]
--- OUTSIDE RECORDS SUMMARY | 2025-03-29 12:14 | XMS_ITS | Encounter Summary ---
Author Organization [facility] Address [address] [place] [address] Care Team Providers Care Wet Plant Operator Name Role Phone Nova Dillon MD Primary Care Prov ider Reason for Visit * Reason Onset Date Comments Drug / Alcohol Assessment 03/17/2025 Encounter Details Date Type Department Care Team ([facility] st Contact Info) Description 03/17/2025 Telephone Adult Medicine [facility] [address] [place] [phone] Heydi Arellano LPN Social History Tobacco Use Types Packs/Day Years [...] for your loved ones. For example, child neurologist or elderly care for an older adult? [...] as of this encounter Progress Notes * Heydi Arellano LPN - 03/17/2025 12:19 PM EST Pt was notified to complete a random urine drug screen in our [facility] by 03/18/25. The patient was also instructed that failure to complete this urine drug screen, as requested, would jeopardize their Controlled Substance Contract with [facility]. The patient expressed understanding of the instructions and confirmed that they will arrive by that date. * Heydi Arellano LPN - 03/17/2025 10:24 AM EST Message left for patient to return call. Needs to be notified to complete [facility] urine drug screen. Patient must complete within 24 hours of notification to remain in compliance with contract documented in this encounter Plan of Treatment Upcoming Encounters Date Type Department Care Team (Late st Contact Info) Description 04/07/2025 1:30 PM EST Office Visit Orthopedic Surgery - [place] [address] [facility] [address] [place] [phone] Vlad Lamb DPAngelo [address] [facility] [address] [place] [phone] 04/13/2025 1:15 PM EST Office Visit Adult Medicine - [place] [address] [place] [address] Nova Dillon MD [address] [place] [address] 07/06/2025 1:15 PM EDT Office Visit Adult Medicine [facility] [address] [place] [address] Nova Dillon MD [address] [place] [address] 08/24/2025 1:00 PM EDT Office Visit Pulmonology - [place] [address] [facility] [address] [place] [phone] Yola Birmingham MD [address] [place] [address] documented as of this encounter Visit Diagnoses Not on filedocumented in this encounter Additional Health Concerns Assessment Noted Time PHQ-9 Depression Total Score: 6 03/12/20 25 11:24 AM EDT documented as of this encounter Care Teams Wet Plant Operator Relationship Specialty Start Date End Date Nova Dillon MD [address] [place] [address] PCP - General Internal Medicine 11/24/18 documented as of this encounter
--- OUTSIDE RECORDS SUMMARY | 2025-03-29 12:14 | XMS_ITS | Encounter Summary ---
Author Organization [facility] Address [address] [facility] [address] [place] [address] Phone Care Team Providers Care Musical Instrument Maker Name Role Phone Lee Hurst MD Primary Care Provider Ronnie Bianchi MD Primary Care Provider [phone] Nova Dillon MD Primary Care Pr ovider Encounter Details Date Type Department Care Team (Late st Contact Info) Description 06/10/2017 Ancillary Orders Virtual Department [address] [place] [address] Lee Hurst MD [address] [place] [address] Breast screening Social History Tobacco Use Types [...] unspecified documented in this encounter Care Teams Musical Instrument Maker Relationship Specialty Start Date End Date Lee Hurst MD [address] [place] [address] Drive [address] [place] [address] PCP - General Pulmonary Disease 06/10/17 06/02/18 Ronnie Bianchi MD [address] [place] [address] [address] [place] [address] PCP - General Internal Medicine 06/03/18 06/15/20 Nova Dillon MD [address] [place] [address] PCP - General Internal Medicine 06/16/20 documented as of this encounter Additional Source Comments The information contained in this document represents components of the legal health record. It is not the complete legal health record.[facility]
--- OUTSIDE RECORDS SUMMARY | 2025-03-29 12:15 | XMS_ITS | Encounter Summary ---
Author Organization [facility] Address [address] [place] [address] Phone Care Team Providers Care Netezza Developer Name Role Phone Ronnie Bianchi MD Primary Care Provider Nova Dillon MD Primary Care Pr ovider Encounter Details Date Type Department Care Team (Late st Contact Info) Description 06/03/2018 Ancillary Orders Virtual Department [address] [place] [address] Ronnie Bianchi MD [address] [place] [address] [address] Breast screening Social History Tobacco Use Types [...] There are scattered fibroglandular densities. POS - [id number] Narrative 08/13/2018 1:18 PM EDT 68-year-old female [...] There are scattered fibroglandular densities. POS - [id number] Ronnie Bianchi MD IMG MG EXAMS Final Result documented in this encounter Visit Diagnoses Diagnosis Breast screening Breast screening, unspecified Breast screening Breast screening, unspecified documented in this encounter Care Teams Netezza Developer Relationship Specialty Start Date End Date Ronnie Bianchi MD [address] [place] [address] [place] [address] PCP - General Internal Medicine 06/03/18 06/15/20 Nova Dillon MD [address] [place] [address] PCP - General Internal Medicine 06/16/20 documented as of this encounter Additional Source Comments The information contained in this document represents components of the legal health record. It is not the complete legal health record.[facility]
--- OUTSIDE RECORDS SUMMARY | 2025-03-29 12:15 | XMS_ITS | Clinical Summary ---
Author Organization [facility] Prior to 08/29/[address] [place] [id number] Care Team Providers Care Executive Producer Name Role Phone Nova Dillon MD Primary [...] week. 0 Active Vitamin A 3 MG (47539 UT) TABS Take 1 tablet by mouth [...] Immunizations Name Administration Dates Next Due Covid-19 ([employer]) Dilution Required 01/19/2021,0 05/03/2020,04/12/2020 Influenza Quad ([employer]) [...] COPD Father Emphysema Father Heart disease Father [place] Alzheimer's disease Mother COPD Mother Hypertension Mother [...] this topic Medical Devices Implanted Type Area Marshmallow Maker Device Identifier Shelf Expiration Date Model / Serial / Lot Insert Trident 0d E 36mm X3 Acetabular [facility] - 728762 - [id number] Implanted:Qty: 1 on 02/29/2020 by Marcos Velasquez MD at [facility] Right: Hip [employer] [id number] 01/23/2025 623-00-36E / / [id number] Shell Trident Ii E 52mm Tritanium Acetabular Hip - 153296 - [id number] Implanted:Qty: 1 on 02/29/2020 by Marcos Velasquez MD at [facility] Right: Hip [employer] [id number] 11/28/2023 709-04-52E / / [id number] Screw Trident Ii 30mm 6.5mm Low Profile Hexagonal Bone - 121640 - [id number] Implanted:Qty: 1 on 02/29/2020 by Marcos Velasquez MD at [facility] Right: Hip [employer] [id number] 10/19/2024 0381-5535 / / [id number] Screw Bone Trident Ii L20 Mm Od6.5 Mm Low Profile Hexa - 205510 - [id number] Implanted:Qty: 1 on 02/29/2020 by Marcos Velasquez MD at [facility] Right: Hip [employer] [id number] 06/02/2024 9058-7341 / / [id number] Screw Trident Ii 15mm 6.5mm Low Profile Hexagonal Bone - 221720 - [id number] Implanted:Qty: 1 on 02/29/2020 by Marcos Velasquez MD at [facility] Right: Hip [employer] [id number] 08/11/2023 9455-5468 / / [id number] Stem Accolade Ii 3 132d Femoral - 646409 - [id number] Implanted:Qty: 1 on 02/29/2020 by Marcos Velasquez MD at [facility] Right: Hip [employer] [id number] 01/11/2025 6673-4774 / / [id number] Head V40 -2.5mm 36mm Biolox Delta Femoral Hip - 065532 - [id number] Implanted:Qty: 1 on 02/29/2020 by Marcos Velasquez MD at [facility] Right: Hip [employer] [id number] 01/09/2025 6570-0-436 / / [id number] Component Triathlon 4 Cruciate Retaining Cemented Femoral - 444840 - [id number] Implanted:Qty: 1 on 09/05/2020 by Marcos Velasquez MD at [facility] Left: Knee [employer] [id number] 05/10/2025 5510-F-401 / / [id number] Component Triathlon 8mm 27mm Symmetric X3 Ptlar Knee - 813224 - [id number] Implanted:Qty: 1 on 09/05/2020 by Marcos Velasquez MD at [facility] Left: Knee [employer] [id number] 12/02/2023 5550-G-278 / / [id number] Triathlon Cr Insert - Size 4 12mm X3 - 331816 - [id number] Implanted:Qty: 1 on 09/05/2020 by Marcos Velasquez MD at [facility] Left: Knee [employer] [id number] 10/30/2022 5530-G-412 -E / / [id number] Baseplate Triathlon 4 Primary Cemented Tibial Knee - 075770 - [id number] Implanted:Qty: 1 on 09/05/2020 by Marcos Velasquez MD at [facility] Left: Knee [employer] [id number] 09/16/2023 5520-B-400 / / [id number] Cement Simplex P Radiopaque Full Dose Bone 10 Pack - 208679 - [id number] Implanted:Qty: 1 on 09/05/2020 by Marcos Velasquez MD at [facility] Left: Knee [employer] 12/29/2021 6191-1-010 / / [id number] Cement Simplex P Radiopaque Full Dose Bone 10 Pack - 385498 - [id number] Implanted:Qty: 1 on 09/05/2020 by Marcos Velasquez MD at [facility] Left: Knee [employer] 12/29/2021 6191-1-010 / / [id number] [place] V40 Cemented Hip Stem 37.5 Offst 125mm Implanted:Qty: 1 on 10/23/2021 by Marcos Velasquez MD at [facility] Left: Hip [employer] 04/26/2026 0580-3-371 / / [id number] Tritanium Cluster Hole Shell 52mm Stry-Howm 798-26-02l-770 473 - [id number] Implanted:Qty: 1 on 10/23/2021 by Marcos Velasquez MD at [facility] Left: Hip [employer] [id number] 05/17/2026 702-04-52E / / [id number] ++Dnu+Disc Use [id number] Hip Insrt Trident 0d Silvio 36mm Stry-How 390-87-07d-200 918 - [id number] Implanted:Qty: 1 on 10/23/2021 by aMrcos Velasquez MD at [facility] Left: Hip [employer] [id number] 09/14/2026 623-00-36E / / [id number] Lp Hex Screw 6.5x30mm Stry-How 7065-0857-6410 78 - [id number] Implanted:Qty: 1 on 10/23/2021 by Marcos Velasquez MD at [facility] [place] [facility] Left: Hip [employer] [id number] 08/31/2026 7616-7158 / / [id number] Kit Prep Total Hip Bone Imp Smn-Orth 212472-685311 - [id number] Implanted:Qty: 1 on 10/23/2021 by Marcos Velasquez MD at [facility] Left: Hip [employer] [id number] 09/13/2031 914937 / / [id number] Description:SMALL BONE PLUG USED FROM THE KIT Cement Bone Surg Simplex Radiopq Stry-Howm 7099-8-334-114 092 - [id number] Implanted:Qty: 1 on 10/23/2021 by Marcos Velasquez MD at [facility] Left: Hip [employer] [id number] 10/30/2023 6191-1-010 / / [id number] Cement Bone Surg Simplex Radiopq Stry-Howm 3110-5-066-114 092 - [id number] Implanted:Qty: 1 on 10/23/2021 by Marcos Velasquez MD at [facility] Left: Hip [employer] [id number] 02/28/2023 6191-1-010 / / [id number] Hip Head Delta Biolox 36mm -5 Stry-How 5663-3-044-549 190 - [id number] Implanted:Qty: 1 on 10/23/2021 by Marcos Velasquez MD at [facility] Left: Hip [employer] [id number] 08/17/2026 6570-0-036 / / [id number] Advance Directives For more information, please contact: [phone] Documents on File Type Date Recorded 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 Care Teams Executive Producer Relationship Specialty Start Date End Date Nova Diloln MD PCP - General Internal Medicine 12/21/19
--- OUTSIDE RECORDS SUMMARY | 2025-03-29 12:15 | XMS_ITS | Clinical Summary ---
Author Organization [facility] Address [address] [place] [id number] Phone Care Team Providers Care Extension Worker Name Role Phone Nova Dillon MD Primary [...] a day with meals. Active vitamin A 62951 UNIT capsule Take 10,000 Units by mouth [...] A MEDICARE A MEDICARE A MEDICARE A [facility] MEDICARE A MEDICARE A MEDICARE A MEDICARE A [facility] MEDICARE A Care Teams Extension Worker Relationship Specialty Start Date End Date Nova Dillon MD [address] [place] [id number] PCP - General Internal Medicine 06/16/20 Additional Source Comments The information contained in this document represents components of the legal health record. It is not the complete legal health record.[facility]
--- OUTSIDE RECORDS SUMMARY | 2025-03-29 12:15 | XMS_ITS | Clinical Summary ---
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 12/28/19 23 Active ondansetron ODT (ZOFRAN-ODT) 4 mg disintegrating tablet Take 1 Tablet by mouth 3 times daily as needed for Nausea. 06/02/19 23 Active medical marijuana EKG TECH med Active biotin 5 mg tablet Take [...] day. 45 g 2 07/01/19 25 Active fluticasone propionate (FLONASE) 50 mcg/actuation nasal spray SPRAY 2 SPRAYS INTO EACH NOSTRIL EVERY DAY SHAKE GENTLY. CLEAN TIP AND REPLACE CAP AFTER USE. 48 mL 1 10/07/19 25 Active apixaban (ELIQUIS) 5 mg tablet Take [...] TABLET BY MOUTH ONCE DAILY 100 tablet 01/07/20 25 Active gabapentin (NEURONTIN) 600 mg tabletIndications: Spinal stenosis of lumbar region, unspecified whether neurogenic claudication present Take 1 tablet (600 mg total) by mouth 3 (three) times a day. 270 each 1 01/06/20 25 026 Active albuterol HFA (ProAir HFA) 90 mcg/actuation inhalerIndications :Abnormal CT scan Inhale 2 puffs by mouth 3 (three) times a day. 25.5 g 1 01/06/20 25 026 Active ciclopirox (LOPROX) 0.77 % gel Apply topically 2 (two) times a day. 45 g 3 01/07/20 25 026 Active cetirizine (ZyrTEC) 10 mg tablet Take 1 tablet (10 mg total) by mouth 1 (one) time each day. 30 each 01/21/20 25 026 Active levothyroxine (SYNTHROID, LEVOTHROID) 125 mcg tablet TAKE 1 TABLET BY MOUTH DAILY 100 tablet 2 02/05/20 25 Active traMADoL (ULTRAM) 50 mg tabletIndications: Spinal stenosis of lumbar region, unspecified whether neurogenic claudication present Take 2 tablets (100 mg total) by mouth every 8 (eight) hours if needed (pain) for up to 28 days. Max Daily Amount: 300 mg 168 tablet 03/15/20 25 026 Active traMADoL (ULTRAM) 50 mg tabletIndications: Spinal stenosis of lumbar region, unspecified whether neurogenic claudication present Take 2 tablets (100 mg total) by mouth every 8 (eight) hours if needed (pain) for up to 28 days. Max Daily Amount: 300 mg 168 tablet 02/04/20 25 025 Discontin ued(Reord er) Active Problems Problem Noted Date Diagnosed Date Psoriatic arthritis 04/28/2024 Chronic pain syndrome 04/06/2024 Carotid stenosis, right 12/27/2021 Overview (12/31/2023): 50-79% [facility] Iron deficiency anemia secon vonda to [...] Encounters Date Type Department Care Team Description 03/18/2025 9:35 AM EST Lab Draw Station - [address] [phone] Encounter for long-term (current) use of high-risk medication 03/17/2025 Telephone Adult Medicine - [address] [phone] Heydi Arellano LPN 01/20/2025 1:00 PM EDT Office Visit Pulmonology - [place] [facility] [address] [place] [phone] Yola Birmingham MD Pulmonary nodule (Primary Dx); Seasonal allergic rhinitis due to pollen 01/15/2025 Results Follow-Up Pulmonology - [place] [address] [facility] [address] [place] [phone] Yola Birmingham MD 01/07/2025 11:46 AM EDT - 01/07/2025 11:59 PM EDT Hospital Encounter [facility] CT Scan [address] [place] [phone] scan; Pulmonary nodule Discharge Disposition: Home or Self Care 01/06/2025 1:00 PM EDT Office Visit Orthopedic Surgery - [place] [address] [facility] [address] [place] [phone] Vlad Lamb DPM Psoriatic arthritis (CMS/HCC V24, CMS/HCC V28) (Primary Dx); Hammer toe of left foot; Dermatophytosis of nail; Acquired hammer toe of right foot; Ingrowing nail 01/05/2025 1:15 PM EDT Office Visit Adult Medicine - [address] [phone] Nova Dillon MD Fall, subsequent encounter (Primary [...] 0.5 mL or 0.25 mL dosage 12/20/2021 FRESS SARS-CoV-2 COVID-19, mRNA, LNP-S, preservative free 01/03/2023,01/19/2021,06/10/2020 [...] Location: [facility] ([facility]); Service: Orthopedics; Laterality: Right; COLONOSCOPY PROCEDURE:COLONOSCOPY TOTAL KNEE ARTHROPLASTY 08/2020 Left PROCEDURE:TOTAL KNEE ARTHROPLASTY TOTAL HIP ARTHROPLASTY 10/23/2021 Left PROCEDURE:TOTAL HIP ARTHROPLASTY;COMMENT:Procedure : REPLACEMENT TOTAL HIP; Surgeon: Marcos Velasquez MD; Location: [facility] ([facility]); Service: Orthopedics; Laterality: Left; OTHER SURGICAL [...] bypass OTHER SURGICAL HISTORY 03/01/2020 Right PROCEDURE: FL ARTHRP ACETBLR/PROX FEM PROSTC AGRFT/ALGRFT TOTAL KNEE ARTHROPLASTY 09/05/2020 Left PROCEDURE: FL ARTHRP KNE CONDYLE&PLATU MEDIAL&LAT COMPARTMENTS Medical History Medical History Date Comments Hypertension DX:Hypertension; COMMENT:resolved since bariatric Osteoarthritis DX:Osteoarthriti s A-fib ([facility] V24, [facility] V28) DX:A-fib ([facility]);COMMENT:postoperatively bariatric surgery Sleep apnea DX:Sleep apnea;C OMMENT:NONCOMPLIANT WITH CPAP DUE TO WT. LOSS COPD (chronic obstructive pu lmonary disease) ([facility] V24, [facility] V28) DX:COPD (chronic o bstructive pulmonary disease) ([facility]);COMMENT:Just from hx of smoking no [...] [facility] [place] 11/26/2018 DX:Atrial fibrillation ([facility]) GARRETT (obstructive sleep apnea) 10/16/2016 DX :GARRETT (obstructive sleep apnea) Aortic atherosclerosis ([facility] V24) 12/17/2018 DX:Aortic atherosclerosis ([facility]) Osteoarthritis 12/17/2018 DX:Osteoarthriti s; COMMENT: [...] DX:COPD (chronic o bstructive pulmonary disease) ([facility]) HTN (hypertension) 03/18/2020 DX:HTN (hyper tension) Carotid stenosis, right 12/27/2021 DX:Carot id stenosis, right; COMMENT: 50-79% [facility] Irritable bowel syndrome DX:Irri table bowel syndrome Family History Medical History Relation Name Comments Scleroderma Aunt No Known Problems Brother 1 No Known Problems Brother 2 No Known Problems Brother 3 Other: adrenal tumor Daughter Other: uterine polps Daughter COPD Father Emphysema Father Heart attack Father Heart disease Father [place] Hypertension Maternal Grandmother Alzheimer's disease Mother COPD [...] for your loved ones. For example, child monitor or elderly care for an older adult? [...] PM EST Office Visit Orthopedic Surgery - [place] [address] [phone] Vlad Lamb DPM [address] [phone] 04/13/2025 1:15 PM EST Office Visit Adult Medicine - [address] [phone] Nova Dillon MD [address] [place] [address] 07/06/2025 1:15 PM EDT Office Visit Adult Medicine [address] [phone] Nova Dillon MD [address] [place] [address] 08/24/2025 1:00 PM EDT Office Visit Pulmonology - [place] [address] [place] [address] Yola Birmingham MD [facility] [place] [address] Health Maintenance Due Date Last Done Comments Naloxone Order 1949 Opioid Substance Agreement 1949 Pain Assessment 1949 Hepatitis A Vaccines (1 of 2 - Risk 2-dose series) 1968 Hepatitis B Vaccines (1 of 3 - Risk 3-dose series) 2009 Medicare Annual Wellness Visit 03/08/2022 RSV Immunization Adult Patients (1 - 1-dose 75+ series) 2024 Social Influencers of Health Screening 06/10/2025 06/10/2024 COVID-19 Vaccine (9 - Pfizer risk season) 2025 02/09/2025, 12/20/2023, 01/03/2023, Additional history exists Falls Risk Assessment 01/05/2026 01/05/2025 Drug Screen 03/18/2026 03/18/2025 Cholesterol Screening (Lipid Panel) 01/19/2029 01/20/2024, 05/19/2021 [...] this topic Medical Devices Implanted Type 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 In Chief Device Identifier Shelf Expiration Date Model / Serial / Lot Insert Trident 0d E 36mm X3 Acetabular Hip - [id number] Implanted:Qty: 1 on 02/29/2020 by Marcos Velasquez MD Right: Hip [employer] [id number] 01/23/2025 623-00-36E / / [id number] Shell Trident Ii E 52mm Tritanium Acetabular Hip - [id number] Implanted:Qty: 1 on 02/29/2020 by Marcos Velasquez MD Right: Hip [employer] [id number] 11/28/2023 709-04-52E / / [id number] Screw Trident Ii 30mm 6.5mm Low Profile Hexagonal Bone - [id number] Implanted:Qty: 1 on 02/29/2020 by Marcos Velasquez MD Right: Hip [employer] [id number] 10/19/2024 4754-6033 / / [id number] Screw Bone Trident Ii L20 Mm Od6.5 Mm Low Profile Hexa - [id number] Implanted:Qty: 1 on 02/29/2020 by Marcos Velasquez MD Right: Hip [employer] [id number] 06/02/2024 2073-3809 / / [id number] Screw Trident Ii 15mm 6.5mm Low Profile Hexagonal Bone - [id number] Implanted:Qty: 1 on 02/29/2020 by Marcos Velasquez MD Right: Hip [employer] [id number] 08/11/2023 4512-8930 / / [id number] Stem Accolade Ii 3 132d Femoral - [id number] Implanted:Qty: 1 on 02/29/2020 by Marcos Velasquez MD Right: Hip [employer] [id number] 01/11/2025 6118-5762 / / [id number] Head V40 -2.5mm 36mm Biolox Delta Femoral Hip - [id number] Implanted:Qty: 1 on 02/29/2020 by Marcos Velasquez MD Right: Hip [employer] [id number] 01/09/2025 6570-0-436 / / [id number] Component Triathlon 4 Cruciate Retaining Cemented Femoral - [id number] Implanted:Qty: 1 on 09/05/2020 by Marcos Velasquez MD Left: Knee [employer] [id number] 05/10/2025 5510-F-401 / / [id number] Component Triathlon 8mm 27mm Symmetric X3 Ptlar Knee - [id number] Implanted:Qty: 1 on 09/05/2020 by Marcos Velasquez MD Left: Knee [employer] [id number] 12/02/2023 5550-G-278 / / [id number] Triathlon Cr Insert - Size 4 12mm X3 - [id number] Implanted:Qty: 1 on 09/05/2020 by Marcos Velasquez MD Left: Knee [employer] [id number] 10/30/2022 5530-G-412 -E / / [id number] Baseplate Triathlon 4 Primary Cemented Tibial Knee - [id number] Implanted:Qty: 1 on 09/05/2020 by Marcos Velasquez MD Left: Knee [employer] [id number] 09/16/2023 5520-B-400 / / [id number] Cement Simplex P Radiopaque Full Dose Bone 10 Pack - [id number] Implanted:Qty: 1 on 09/05/2020 by Marcos Velasquez MD Left: Knee [employer] 12/29/2021 6191-1-010 / / [id number] Cement Simplex P Radiopaque Full Dose Bone 10 Pack - [id number] Implanted:Qty: 1 on 09/05/2020 by Marcos Velasquez MD Left: Knee [employer] 12/29/2021 [id number] / / [id number] [place] V40 Cemented Hip Stem 37.5 Offst 125mm Implanted:Qty: 1 on 10/23/2021 by Marcos Velasquez MD Left: Hip [employer] 04/26/2026 0580-3-371 / / [id number] Tritanium Cluster Hole Shell 52mm Stry-Howm 852-56-82v-[id number] Implanted:Qty: 1 on 10/23/2021 by Marcos Velasquez MD Left: Hip [employer] [id number] 05/17/2026 702-04-52E / / [id number] ++Dnu+Disc Use [id number] Hip Insrt Trident 0d Silvio 36mm Stry-Howm 085-18-95t-200 918 Implanted:Qty: 1 on 10/23/2021 by Marcos Velasquez MD Left: Hip [employer] [id number] 09/14/2026 623-00-36E / / [id number] Lp Hex Screw 6.5x30mm Stry-Howm [id number] 78 Implanted:Qty: 1 on 10/23/2021 by Marcos Velasquez MD Left: Hip [employer] [id number] 08/31/2026 1660-7322 / / [id number] Kit Prep Total Hip Bone Imp [facility] [id number] Implanted:Qty: 1 on 10/23/2021 by Marcos Velasquez MD Left: Hip [employer] [facility] [id number] 09/13/2031 606188 / / [id number] Description:SMALL BONE PLUG USED FROM THE KIT Cement Bone Surg Simplex Radiopq Stry-Howm 3350-8-313-114 092 Implanted:Qty: 1 on 10/23/2021 by Marcos Velasquez MD Left: Hip [employer] [id number] 10/30/2023 6191-1-010 / / [id number] Cement Bone Surg Simplex Radiopq Stry-Howm 2086-9-867-114 092 Implanted:Qty: 1 on 10/23/2021 by Marcos Velasquez MD Left: Hip [employer] [id number] 02/28/2023 6191-1-010 / / [id number] Hip Head Delta Biolox 36mm -5 Stry-Howm 1348-0-870-549 190 Implanted:Qty: 1 on 10/23/2021 by Marcos Velasquez MD Left: Hip [employer] [id number] 08/17/2026 6570-0-036 / / [id number] Procedures Procedure Name Priority Date/Time Associated Diagnosis Comments THC, URINE, CONFIRMATION Routine 03/18/2025 9:53 AM EST Encounter for long-term (current) use of high-risk medication DRUG ABUSE SCREEN EXPANDED WITH REFLEX CONFIRMATION, URINE Routine 03/18/2025 9:53 AM EST Encounter for long-term (current) use of high-risk medication EXTERNAL CLINICAL LAB 03/02/2025 EXTERNAL CLINICAL LAB 01/14/2025 CT CHEST WO [...] Recently Relevant to Health Maintenance Results * (ABNORMAL) Drug abuse screen expanded with reflex confirmation, urine (03/18/2025 9:53 AM EST) Amphetamine Screen, Ur Negative Negative 03/18/2025 1:09 PM EST [facility] Comment:Certain OTC medicati ons containing ephedrine, phenylephrine, pseudoephedrine and phenylpropanolamine can cause false positive results. Barbiturate Screen, Ur Negative Negative 03/18/2025 1:09 PM [facility] Benzodiazepine Screen, Ur Negative Negative 03/18/2025 1:09 PM [facility] Cocaine Screen, Ur Negative Negative 2024 1:09 PM [facility] Opiate Screen, Ur Negative Negative 025 1:09 PM [facility] Cannabinoid (THC) Screen, Ur Positive(A ) Negative 03/18/2025 1:09 PM [facility] Comment:Specimens from patie nts taking pantoprazole sodium (Protonix) have been shown to produce false positive results. Fentanyl, Ur Negative Negative 03/18/2025 1:09 PM [facility] Oxycodone Screen, Ur Negative Negative 03/01 1:09 PM [facility] Urine Urine specimen obtained by clean catch procedure / Unknown Non-blood Collection / Unknown 03/18/2025 9:53 AM EST 03/18/2025 9:53 AM EST Narrative [facility] - 03/18/2025 1:09 PM EST Assay cutoffs: Amphetamines 1000 ng/mL Barbiturates 200 ng/mL Benzodiazepines 200 ng/mL Cocaine 300 ng/mL Fentanyl 1 ng/mL Opiates 300 ng/mL Oxycodone 100 ng/mL THC 50 ng/mL Semi-quantitative assay for screening purposes only. Unconfirmed screening result should not be used for non-medical purposes. *POSITIVE RESULTS ARE AUTOMATICALLY SENT FOR ALTERNATE METHOD CONFIRMATION* us Nova Dillon MD LAB URINE ORDERABL ES Final Result [facility] [address] [place] [address], * (ABNORMAL) THC, urine, confirmation (03/18/2025 9:53 AM EST) Tetrahydrocannabinoid (THC) 431(H) Negative ng/mL 03/22/2025 11:26 PM EST [facility] Tetrahydrocannabinoid (THC)/Creatinine Ratio 431 11:26 PM EST [facility] Creatinine 100 20 - 250 mg/dL 03/22/2025 11:26 PM EST [facility] Adulterants Negative 03/22/2025 11:26 PM EST [facility] Comment: The urine THC/creatinine ratio is the best monitor to determine the possibility of continued drug usage. With abstinence, the ratio should decrease within one week by a factor of two or more. Confirmation (GC/MS) Decision Limit THC (61-wyq-9-fmohruk-1-jdpzemwdukodfvagqgtk) 3 ng/mL Adulterant Decision Limit: General Oxidants 200 ug/mL The adulterant assay tests for General Oxidants, including Chromates and Nitrites. Adulterants are substances either ingested or added directly to a urine specimen to prevent the detection of drug use. If applicable, any drug confirmation testing reported here was developed and the performance characteristics determined by [facility]. This confirmation testing has not been cleared or approved by the FDA. The laboratory is regulated under CLIA as qualified to perform high-complexity testing. This test is used for patient testing purposes. It should not be regarded as investigational or for research. Test performed at [facility], [address] , [place], [place] [id number] Angeles Quiroz MD, PhD - Power Checker Urine Urine specimen obtained by clean catch procedure / Unknown Non-blood Collection / Unknown 03/18/2025 9:53 AM EST 03/18/2025 1:09 PM EST us Nova Dillon MD LAB URINE ORDERABL ES Final Result [facility] [address] [place] [address] * External clinical lab (03/02/2025) Only the most recent of2 resultswithin the time period is included. us Provider [facility] LAB BLOOD ORDERABLES Fin al Result [...] Signed Date: 01/15/2025 08:36 ET Workstation ID: [id number] Transcribed By: Self Edit Transcribed Date: 01/15/2025 [...] right lower lobe. This has slightly improved (). The airway thickening in the central aspect of the right upper lobe demonstrated on previous study has resolved. Some small regional nodules in the lateral aspect of the left lower lobe (/199 - 212) are unchanged. Pleural associated irregular [...] right lower lobe. This has slightly improved (210). The airway thickening in the central aspect [...] Signed Date: 01/15/2025 08:36 ET Workstation ID: [id number] Transcribed By: Self Edit Transcribed Date: 01/15/2025 [...] is recommended in 1 year. Mammo Location: [facility], [address] [place] [address], [address], . -------- FINAL REPORT -------- Dictated By: Shanna Paula Dictated Date: 09/29/2024 15:32 ET Assigned Physician: Shanna Paula Reviewed and Electronically Signed By: Shanna Paula Signed Date: 09/29/2024 15:34 ET Workstation ID: [id number] Transcribed By: Self Edit Transcribed Date: 09/29/2024 [...] is recommended in 1 year. Mammo Location: [facility], [address] [place] [address], [address], . -------- FINAL REPORT -------- Dictated By: Shanna Paula Dictated Date: 09/29/2024 15:32 ET Assigned Physician: Shanna Paula Reviewed and Electronically Signed By: Shanna Paula Signed Date: 09/29/2024 15:34 ET Workstation ID: [id number] Transcribed By: Self Edit Transcribed Date: 09/29/2024 [...] normal bone density by WHO criteria. The [facility] Department of Internal Medicine recommends [...] Optional alternative screening schedule based on nikki Fereman., [facility] April 19, 2011 for patients with [...] density by WHO criteria. The [facility] Department of Internal Medicinerecommends using National [...] PROCEDURES Final Resul t * Colonoscopy (02/01/2022) [facility] Colonoscopy no interpretation , abstracted Anatomical Region Laterality Modality Other [facility] Provider HEALTH MAINTENANCE Final Result * Lipid panel (05/19/2021) [facility] LDL/HDL Ratio 2 0 - 4 Triglycerides 113 0 - 150 mg/dL Cholesterol 143 0 - 200 mg/dL HDL 77 >=40 mg/dL LDL Cholesterol 44 0 - 100 mg/dL Blood Venous blood specimen / Unknown Result [facility] Provider LAB BLOOD ORDERABLES Amy l Result * Hepatitis C Screening (01/15/2013) [facility] Hepatitis C Screening abstracted Historical Provider HEALTH MAINTENANCE Final Result from Last 3 Months or Most Recently Relevant to Health Maintenance Insurance [employer] MEDICARE Care Teams Airplane Cabin Attendant Relationship Specialty Start Date End Date Nova Dillon MD [address] [place] [phone] PCP - General Internal Medicine 11/24/18
--- OUTSIDE RECORDS SUMMARY | 2025-03-29 12:15 | XMS_ITS | Encounter Summary ---
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 Name Role Phone Lee Hurst MD Primary Care Provider Ronnie Bianchi MD Primary Care Provider [phone] Nova Dillon MD Primary Care Pr ovider Encounter Details Date Type Department Care Team (Late st Contact Info) Description 05/13/2018 Procedure Pass OR Admitting Dept - Virtual Department [address] [place] [id number] Social History Tobacco Use Types Packs/Day Years [...] on filedocumented in this encounter Care Teams Novelty Printing Machine Operator Relationship Specialty Start Date End Date Lee Hurst MD [address] [place] [address] Drive [address] [place] [address] PCP - General Pulmonary Disease 06/10/17 06/02/18 Ronnie Bianchi MD [address] [place] [address] [place] [address] PCP - General Internal Medicine 06/03/18 06/15/20 Nova Dillon MD [address] [place] [address] PCP - General Internal Medicine 06/16/20 documented as of this encounter Additional Source Comments The information contained in this document represents components of the legal health record. It is not the complete legal health record.[facility]
[2025-03-29 14:53] LABS: Alanine Aminotransferase 48 U/L (0-31); Aspartate Amino Transferase 46 U/L (5-31)
== END 2025-03-29 10:43 | disposition home or self-care (01) ==
LOC: HO.HKASLDS 10:42
PROVIDERS: PCP Internal Medicine; Visit Provider Student in an Organized Health Care Education/Training Program
DX: Z79.899 Other long term (current) drug therapy (principal)
CPT/HCPCS: 36415; 84450; 84460